=== PATIENT | male | born 1955 | race Caucasian/White ===

== ENCOUNTER 2016-08-07 17:18 | Inpatient (IN) | payer OTHER ==
[2016-08-07] MEDS ORDERED: SODIUM CHLORIDE 0.9% 1,000 ML IV STA (17:33)
[2016-08-07] MEDS ORDERED: DILTIAZEM 5 MG/ML 5 ML VIAL IVP STA (17:38)
--- NOTE | 2016-08-07 17:38 | ED ---
General Adult HPI - General Chief complaint: Arrhythmia/Palpitations Stated complaint: luna, chest tightness Time Seen by Provider: 08/07/16 17:32 Source: patient, family Mode of arrival: wheelchair Limitations: no limitations - Related Data Allergies Allergy/AdvReac Type Severity Reaction Status Date / Time Iodinated Contrast Media - Allergy Nausea & Verified 08/07/16 17:22 Oral and Vomiting shellfish derived [Shellfish] Allergy Nausea & Verified 08/07/16 17:22 Vomiting sulfamethoxazole Allergy Rash/Hives Verified 08/07/16 17:22 [From Bactrim] trimethoprim [From Bactrim] Allergy Rash/Hives Verified 08/07/16 17:22 Review of Systems ROS Statement: Those systems with pertinent positive or pertinent negative responses have been documented in the HPI. ROS Other: All systems not noted in ROS Statement are negative. Past Medical History Past Medical History: COPD History of Any Multi-Drug Resistant Organisms: None Reported Past Surgical History: No Surgical Hx Reported Past Psychological History: No Psychological Hx Reported Smoking Status: Current every day smoker Past Alcohol Use History: Rare Past Drug Use History: None Reported General Exam Limitations: no limitations Course Vital Signs 08/07/16 08/07/16 17:22 17:51 Temperature 98.3 F Pulse Rate 102 H 89 Respiratory 20 28 H Rate Blood Pressure 187/109 154/78 O2 Sat by Pulse 94 L 96 Oximetry - Reevaluation(s) Reevaluation #1: 08/07/16 18:14 Patient continues to be significantly shortness of breath EKG Findings - EKG Comments: EKG Findings:: EKG shows A. fib with RVR rate 107, QRS 100, QTc 501 Medical Decision Making - Medical Decision Making 58 female here with multifactorial respiratory failure including CHF COPD and pneumonia. Patient admitted for breathing treatments and monitoring of cardiopulmonary status steroids and antibiotics. - Lab Data Result diagrams: 08/07/16 17:40 08/07/16 17:40 Lab Results 08/07/16 08/07/16 08/07/16 Range/Units 17:40 17:40 17:40 WBC 15.7 H (3.8-10.6) k/uL RBC 5.50 (4.30-5.90) m/uL Hgb 10.2 L (13.0-17.5) gm/dL Hct 34.9 L (39.0-53.0) % MCV 63.5 L (80.0-100.0) fL MCH 18.5 L (25.0-35.0) pg MCHC 29.1 L (31.0-37.0) g/dL RDW 17.6 H (11.5-15.5) % Plt Count 265 (150-450) k/uL Neutrophils % 89 % Lymphocytes % 6 % Monocytes % 4 % Eosinophils % 0 % Basophils % 0 % Neutrophils # 13.9 H (1.3-7.7) k/uL Lymphocytes # 1.0 (1.0-4.8) k/uL Monocytes # 0.6 (0-1.0) k/uL Eosinophils # 0.0 (0-0.7) k/uL Basophils # 0.1 (0-0.2) k/uL Hypochromasia Marked Anisocytosis Slight Microcytosis Marked PT 12.5 H (9.0-12.0) sec INR 1.3 (<1.1) APTT 26.2 (22.0-30.0) sec Sodium 134 L (137-145) mmol/L Potassium 3.6 (3.5-5.1) mmol/L Chloride 95 L (98-107) mmol/L Carbon Dioxide 25 (22-30) mmol/L Anion Gap 14 mmol/L BUN 19 (9-20) mg/dL Creatinine 1.30 H (0.66-1.25) mg/dL Est GFR (MDRD) Af Amer >60 (>60 ml/min/1.73 sqM) Est GFR (MDRD) Non-Af 56 (>60 ml/min/1.73 sqM) Glucose 193 H (74-99) mg/dL Calcium 8.4 (8.4-10.2) mg/dL Phosphorus 3.8 (2.5-4.5) mg/dL Magnesium 1.7 (1.6-2.3) mg/dL Total Bilirubin 1.4 H (0.2-1.3) mg/dL AST 14 L (17-59) U/L ALT 30 (21-72) U/L Alkaline Phosphatase 60 (38-126) U/L Total Protein 7.0 (6.3-8.2) g/dL Albumin 3.6 (3.5-5.0) g/dL - Radiology Data Radiology results: report reviewed (Chest x-ray is positive for pneumonia complicated in by CHF and pulmonary vascular congestion), image reviewed Critical Care Time Critical Care Time: Yes Total Critical Care Time: 31 Disposition Clinical Impression: Atrial fibrillation, Weakness, Community acquired pneumonia, CHF (congestive heart failure), COPD (chronic obstructive pulmonary disease), Hypoxia Disposition: ADMITTED IP TO THIS [facility] Condition: Fair Referrals: Yan Stovall DO [Primary Care Provider] - 1-2 days
[2016-08-07 17:55] LABS: Anisocytosis Slight; Basophils # (A) 0.1 k/uL (0-0.2); Basophils % (A) 0 %; CH 18.8; CHCM 29.9; Eosinophils % (A) 0 %; HCT 34.9 % (39.0-53.0); HDW 3.17; HGB 10.2 gm/dL (13.0-17.5); Hypochromasia Marked; Luc # (Auto) 0.12; Luc % (Auto) 1; Lymphocytes % (A) 6 %; MCH 18.5 pg (25.0-35.0); MCHC 29.1 g/dL (31.0-37.0); MCV 63.5 fL (80.0-100.0); Mean Platelet Volume 6.7; Microcytosis Marked; Monocytes # (A) 0.6 k/uL (0-1.0); Monocytes % (A) 4 %; Neutrophils # (A) 13.9 k/uL (1.3-7.7); Neutrophils % (A) 89 %; RDW 17.6 % (11.5-15.5); WBC 15.7 k/uL (3.8-10.6); WBC (Perox) 15.32
[2016-08-07 17:59] LABS: INR 1.3 (<1.1); Partial Thromboplastin Time 26.2 sec (22.0-30.0); Prothrombin Time 12.5 sec (9.0-12.0)
[2016-08-07 18:00] LABS: ALT 30 U/L (21-72); AST 14 U/L (17-59); Alkaline Phosphatase 60 U/L (38-126); Anion Gap 14 mmol/L; Blood Urea Nitrogen 19 mg/dL (9-20); Calcium 8.4 mg/dL (8.4-10.2); Carbon Dioxide 25 mmol/L (22-30); Chloride 95 mmol/L (98-107); Glucose 193 mg/dL (74-99); Magnesium 1.7 mg/dL (1.6-2.3); Non-African American GFR(MDRD) 56 (>60 ml/min/1.73 sqM); Phosphorous 3.8 mg/dL (2.5-4.5); Potassium 3.6 mmol/L (3.5-5.1); Sodium 134 mmol/L (137-145); Total Bilirubin 1.4 mg/dL (0.2-1.3)
--- NOTE | 2016-08-07 18:08 | XR ---
EXAMINATION TYPE: XR chest 2V DATE OF EXAM: 08/07/2016 6:03 PM COMPARISON: NONE HISTORY: Weakness. Chest pain. TECHNIQUE: Frontal and lateral views of the chest are obtained. FINDINGS: There is some patchy consolidation at the left lung base with elevated left diaphragm. The re is pulmonary vascular congestion. Heart is probably enlarged. There is blunting of costophrenic an gles. IMPRESSION: There is evidence of left lower lobe pneumonia and atelectasis. Pleural effusions and pu lmonary congestion consistent with mild heart failure.
[2016-08-07] MEDS ORDERED: methylPREDNISolone SOD SUCCI 125 MG/2 ML VIAL IV STA (18:10)
[2016-08-07] MEDS ORDERED: IPRATROPIUM 0.5 MG/2.5 ML NEBU INHALATION STA (18:10)
[2016-08-07] MEDS ORDERED: ALBUTEROL NEBULIZED 2.5 MG/3 ML INHALATION STA (18:10)
[2016-08-07] MEDS ORDERED: PNEUMONIA PROTOCOL UTILIZED 1 EACH MISC PO PRN (18:11)
[2016-08-07] MEDS ORDERED: LEVOFLOXACIN 750MG-D5W PMX 750 MG in DEXTROSE/WATER 1 150ML.BAG IVPB STA (18:11)
[2016-08-07 18:26] LABS: Creatine Kinase MB 4.7 ng/mL (0.0-2.4); Troponin I 0.036 ng/mL (0.000-0.034)
[2016-08-07] MEDS: IPRATROPIUM-ALBUTEROL 3 ML NEB INHALATION SCH (19:34)
[2016-08-07] MEDS ORDERED: HEPARIN SODIUM,PORCINE 5,000 UNIT/ML 1 ML VIAL IV ONE (20:30)
[2016-08-07] MEDS: SODIUM CHLORIDE 0.9% 1,000 ML IV SCH (21:09)
[2016-08-07] MEDS: FUROSEMIDE 250 MG in SODIUM CHLORIDE 0.9% 225 ML IVP SCH (21:10)
[2016-08-07] MEDS: DILTIAZEM ORAL 30 MG TAB PO SCH (21:15)
[2016-08-07] MEDS: LOSARTAN 50 MG TAB PO SCH (21:15)
[2016-08-07] MEDS: HEPARIN SODIUM,PORCINE/D5W PMX 25,000 UNIT in DEXTROSE/WATER 1 500ML.BAG IV SCH (21:37)
[2016-08-07 22:54] LABS: Appearance,Urine Clear (Clear); Bilirubin,Urine Negative (Negative); Glucose,Urine (UA) Negative (Negative); Ketones,Urine Negative (Negative); Leukocyte Esterase,Urine Negative (Negative); Mucus,Urine Rare /hpf; Nitrite,Urine Negative (Negative); Particle Count 1584; Protein,Urine 3+ (Negative); RBC,Urine <1 /hpf (0-5); Specific Gravity,Urine 1.013 (1.001-1.035); UA Billing (MACRO vs. MICRO) MICRO; WBC,Urine 1 /hpf (0-5)
[2016-08-08 03:54] LABS: Anisocytosis Slight; Basophils % (A) 0 %; CH 19.1; CHCM 29.4; Eosinophils % (A) 1 %; HCT 32.8 % (39.0-53.0); HDW 3.07; HGB 9.2 gm/dL (13.0-17.5); Hypochromasia Marked; Luc # (Auto) 0.04; Luc % (Auto) 1; Lymphocytes # (A) 0.6 k/uL (1.0-4.8); Lymphocytes % (A) 7 %; MCH 18.4 pg (25.0-35.0); MCHC 28.1 g/dL (31.0-37.0); MCV 65.5 fL (80.0-100.0); Mean Platelet Volume 6.4; Microcytosis Marked; Monocytes # (A) 0.2 k/uL (0-1.0); Monocytes % (A) 2 %; Neutrophils # (A) 7.4 k/uL (1.3-7.7); Neutrophils % (A) 90 %; RBC 5.01 m/uL (4.30-5.90); RDW 17.6 % (11.5-15.5); WBC 8.2 k/uL (3.8-10.6); WBC (Perox) 8.66
[2016-08-08 04:03] LABS: Anion Gap 10 mmol/L; Blood Urea Nitrogen 19 mg/dL (9-20); Calcium 8.1 mg/dL (8.4-10.2); Carbon Dioxide 29 mmol/L (22-30); Chloride 97 mmol/L (98-107); Glucose 154 mg/dL (74-99); Magnesium 1.6 mg/dL (1.6-2.3); Non-African American GFR(MDRD) 51 (>60 ml/min/1.73 sqM); Potassium 3.6 mmol/L (3.5-5.1); Sodium 136 mmol/L (137-145)
[2016-08-08] MEDS: HEPARIN SODIUM,PORCINE 5,000 UNIT/ML 1 ML VIAL IV PRN ×3 (05:06→19:21)
[2016-08-08] MEDS: DILTIAZEM ORAL 30 MG TAB PO SCH (07:55)
[2016-08-08] MEDS: LOSARTAN 50 MG TAB PO SCH (07:55)
--- NOTE | 2016-08-08 08:12 | XR ---
EXAMINATION TYPE: XR chest 2V DATE OF EXAM: 08/08/2016 6:51 AM COMPARISON: Prior chest x-ray July HISTORY: Pneumonia TECHNIQUE: Frontal and lateral views of the chest are obtained. FINDINGS: Prominent lung volume may be indicative of underlying COPD. Persistent increased density a t the left lung base. No pneumothorax. Cardiac mediastinal silhouette not significantly changed. IMPRESSION: Correlate for possible pneumonia and associated effusion, follow-up to resolution to exc lude underlying mass. Cardiomegaly.
[2016-08-08] MEDS: IPRATROPIUM-ALBUTEROL 3 ML NEB INHALATION SCH ×4 (08:22→19:21)
[2016-08-08] MEDS ORDERED: ENOXAPARIN 40 MG/0.4 ML SYRINGE SQ SCH (09:00)
--- NOTE | 2016-08-08 10:01 | P.PN ---
Progress Note - Text 61-year-old male patient followed by family physician in [place] Long-standing history of smoking and COPD Denies diabetes and hypertension but his blood pressure has elevated and he may have borderline diabetes Admitted with increasing shortness of breath. Initially diagnosed with bronchitis. Also found to be in atrial fibrillation Treated for bronchitis Yesterday I added IV Lasix drip as he is very short of breath. In addition he was in A. fib with RVR and therefore oral Cardizem was added along with anticoagulation with heparin Today he has no rhonchi and I will switch oral Cardizem to oral long-acting metoprolol Impression Please see full note by Dr. ferguson Atrial fibrillation with RVR Current smoker Possible mild COPD exacerbation Acute CHF exacerbation Plan Continue IV Lasix drip Continue anticoagulation with heparin Stop Cardizem and start long-acting metoprolol 50 mrem once daily and tomorrow I will see if he can increase the dose further Hypertension controlled with is inhibitors or angiotensin receptor blockers 2-D echo Doppler study His TSH is normal First troponin is borderline Kidney functions are mildly reduced at 1.3 and 1.4
--- NOTE | 2016-08-08 10:01 | P.CRDCN ---
History of Present Illness Consult date: 08/08/16 Requesting physician: Lorin Todd Consult reason: shortness of breath Chief complaint: Shortness of breath History of present illness: This is a pleasant 61-year-old gentleman with no prior documented history of hypertension, borderline diabetes, no high cholesterol, positive smoking, occasional EtOH, who presents to the hospital with symptoms of progressively worsening shortness of breath. Denies any fever or chills at home. According to the patient the symptoms have been occurring for the past few days, last week he states he felt his relative normal self. Positive productive cough of clear sputum. Bilateral lower extremity swelling, although the patient does have known chronic edema to the right lower extremity from an accident several years ago. Positive PND and orthopnea. Chest x-ray report on admission revealed left lower lobe pneumonia and atelectasis. Pleural effusions and pulmonary congestion consistent with congestive heart failure. Repeat x-ray preferred this morning shows possible with associated effusion. Laboratory data was reviewed, with WBC on admission 15.7, 8.2 this morning. Hemoglobin 9.2, potassium 3.6, creatinine 1.4, [place] level I.6, AST 14, ALT 30 , magnesium 1.6, total bilirubin 1.4, AST 14, ALT 30, TSH 2.05, troponin 0.036. Blood pressure on admission 187/109, 94% on room air, initial EKG showed atrial fibrillation with a rapid ventricular response, heart rate low 100s. Blood pressure this morning 134/80, patient has remained afebrile. Patient is currently on IV heparin, IV Lasix drip, by mouth Cardizem, IV antibiotics, losartan. Past Medical History Past Medical History: COPD, Osteoarthritis (OA) Additional Past Medical History / Comment(s): DIVERTICULITIS, ARTHRITIS IN SPINE ,"THALASSEMIA MINOR" History of Any Multi-Drug Resistant Organisms: None Reported Past Surgical History: No Surgical Hx Reported, Tonsillectomy Additional Past Surgical History / Comment(s): COLONOSCOPY-BENIGN POLYPS REMOVED , LT HAND 4TH DIGIT REPAIR, LT MASTOID SX AGE 3 Past Anesthesia/Blood Transfusion Reactions: No Reported Reaction Past Psychological History: No Psychological Hx Reported Additional Psychological History / Comment(s): PT IS ,LIVES IN 2 STORY HOME THAT HAS 2 FRONT STEPS-PT STAYS ON MAIN LEVEL. 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 PT IS INDEPENDANT NO OUTSIDE SERVICES. Smoking Status: Current every day smoker Past Alcohol Use History: Rare Additional Past Alcohol Use History / Comment(s): STARTED SMOKING AT AGE 12, DID QUIT FOR 12 YEARS BUT RESTARTED IN 2012, SMOKES 1 PPD. Past Drug Use History: None Reported - Past Family History Mother Family Medical History: COPD, Diabetes Mellitus Father Family Medical History: Cancer, Diabetes Mellitus Additional Family Medical History / Comment(s): SKIN CANCER Medications and Allergies Home Medications Medication Instructions Recorded Confirmed Type Albuterol Sulfate [Proair Hfa] 1 puff INHALATION ONCE PRN 08/07/16 08/07/16 History Allergies Allergy/AdvReac Type Severity Reaction Status Date / Time Iodinated Contrast Media - Allergy SWELLING Verified 08/07/16 18:17 Oral and AND VOMITING shellfish derived [Shellfish] Allergy SWELLING Verified 08/07/16 18:17 AND VOMITING sulfamethoxazole Allergy Rash/Hives Verified 08/07/16 18:17 [From Bactrim] trimethoprim [From Bactrim] Allergy Rash/Hives Verified 08/07/16 18:17 Physical Exam Vitals: Vital Signs Temp Pulse Pulse Resp BP BP Pulse Ox 08/08/16 08:33 88 08/08/16 08:23 88 08/08/16 07:53 97.7 F 82 20 135/81 92 L 08/08/16 04:00 97 F L 80 18 134/81 96 08/08/16 00:00 97.6 F 84 20 165/100 96 08/07/16 20:00 97.7 F 98 22 190/90 96 08/07/16 19:34 92 08/07/16 19:00 95.8 F L 90 85 36 H 164/92 100 08/07/16 18:49 97.2 F L 08/07/16 18:45 100 22 174/99 99 08/07/16 18:43 90 Intake and Output 08/07/16 08/08/16 08/08/16 22:59 06:59 14:59 Intake Total 329.856 298 Output Total 300 2000 820 Balance -300 -1730.144 -495 Intake: IV 180 180 Furosemide 250 mg In 60 60 Sodium Chloride 0.9% 225 ml @ 10 MG/HR 10 mls/hr IVP .Q24H JERI Rx#: [id number] Sodium Chloride 0.9% 1, 120 120 000 ml @ 20 mls/hr IV . Q24H JERI Rx#:[id number] Intake, IV Titration 149.856 Amount Heparin Sodium,Porcine/ 149.856 D5w Pmx 25,000 unit In Dextrose/Water 1 500ml. bag @ 9.2 UNITS/KG/HR 20. 07 mls/hr IV .Q24H JERI Rx #:[id number] Oral 118 Output: Urine 300 2000 820 Other: Voiding Method Toilet Toilet Urinal Urinal Urinal # Voids 0 Weight 109.1 kg 106.3 kg PHYSICAL EXAMINATION: HEENT: Head is atraumatic, normocephalic. Pupils equal, round. Neck is supple. There is elevated jugular venous pressure. HEART EXAMINATION: Heart S1 and S2 irregularly irregular systolic murmur is heard. CHEST EXAMINATION: Lungs reveal bilateral rales with decreased air exchange throughout. ABDOMEN: Soft, obese, nontender. Bowel sounds are heard. No organomegaly noted. EXTREMITIES: 1+ peripheral pulses with 1+ evidence of peripheral edema and no calf tenderness noted. Chronic right lower leg edema NEUROLOGIC patient is awake, alert and oriented -3. . Results 08/08/16 03:43 08/08/16 03:43 Coagulation 08/08/16 Range/Units 03:43 APTT 27.6 (22.0-30.0) sec CBC 08/08/16 Range/Units 03:43 WBC 8.2 (3.8-10.6) k/uL RBC 5.01 (4.30-5.90) m/uL Hgb 9.2 L (13.0-17.5) gm/dL Hct 32.8 L (39.0-53.0) % Plt Count 223 (150-450) k/uL Comprehensive Metabolic Panel 08/08/16 Range/Units 03:43 Sodium 136 L (137-145) mmol/L Potassium 3.6 (3.5-5.1) mmol/L Chloride 97 L (98-107) mmol/L Carbon Dioxide 29 (22-30) mmol/L BUN 19 (9-20) mg/dL Creatinine 1.40 H (0.66-1.25) mg/dL Glucose 154 H (74-99) mg/dL Calcium 8.1 L (8.4-10.2) mg/dL Current Medications Generic Name Dose Route Start Last Admin Trade Name Freq PRN Reason Stop Dose Admin Albuterol/Ipratropium 3 ml 08/07/16 20:00 08/08/16 08:22 Duoneb 0.5 Mg-3 Mg/3 Ml Soln INHALATION 3 ml RT-QID JERI Administration Diltiazem HCl 30 mg 08/07/16 22:00 08/08/16 07:55 Cardizem Oral PO 30 mg QID JERI Administration Heparin Sodium (Porcine) 0 unit 08/07/16 20:30 08/08/16 05:06 Heparin IV 4,000 unit PER PROTOCOL PRN Administration Low PTT Protocol Levofloxacin 750 mg/ IV 150 mls @ 100 mls/hr 08/08/16 18:00 Solution IVPB 08/20/16 18:01 Q24H JERI Sodium Chloride 1,000 mls @ 20 mls/hr 08/07/16 18:15 08/07/16 21:09 Saline 0.9% IV 20 mls/hr .Q24H JERI Administration Furosemide 250 mg/ Sodium 250 mls @ 10 mls/hr 08/07/16 21:00 08/07/16 21:10 Chloride IVP 10 mg/hr .Q24H JERI 10 mls/hr 10 MG/HR Administration Heparin Sodium/Dextrose 25,000 500 mls @ 20.07 mls/hr 08/07/16 20:30 05:05 unit/ IV Solution IV 12.2 units/kg/hr .Q24H JERI 26.62 mls/hr Protocol Titration 9.2 UNITS/KG/HR Losartan Potassium 50 mg 08/07/16 20:45 08/08/16 07:55 Cozaar PO 50 mg DAILY JERI Administration Miscellaneous Information 1 each 08/07/16 18:11 Pneumonia Protocol Utilized PO ONCE PRN Per Protocol Intake and Output 08/07/16 08/08/16 08/08/16 22:59 06:59 14:59 Intake Total 329.856 298 Output Total 300 2000 820 Balance -300 -5042.144 -522 Intake: IV 180 180 Furosemide 250 mg In 60 60 Sodium Chloride 0.9% 225 ml @ 10 MG/HR 10 mls/hr IVP .Q24H JERI Rx#: [id number] Sodium Chloride 0.9% 1, 120 120 000 ml @ 20 mls/hr IV . Q24H JERI Rx#:[id number] Intake, IV Titration 149.856 Amount Heparin Sodium,Porcine/ 149.856 D5w Pmx 25,000 unit In Dextrose/Water 1 500ml. bag @ 9.2 UNITS/KG/HR 20. 07 mls/hr IV .Q24H JERI Rx #:[id number] Oral 118 Output: Urine 300 2000 820 Other: Voiding Method Toilet Toilet Urinal Urinal Urinal # Voids 0 Weight 109.1 kg 106.3 kg 08/08/16 03:43 08/08/16 03:43 EKG Interpretations (text) EKG on arrival showed atrial fibrillation with rapid ventricular response, occasional PVC. Assessment and Plan Plan: Assessment and plan #1 symptoms of progressively worsening shortness of breath with associated PND and orthopnea. Congestive heart failure, LV function unknown at this time. #2 hypertension #3 COPD with possible exacerbation #4 nicotine dependence #5 borderline diabetes, untreated #6 abnormal troponin, we will obtain to further troponin values. Plan We'll continue IV heparin, discontinue by mouth Cardizem and start the patient on beta delia. Continue losartan. Obtain echocardiogram with Doppler study as well as BNP level. Continue IV Lasix drip. Further recommendations to follow. DNP note has been reviewed, I agree with a documented findings and plan of care. Patient was seen and examined.
[2016-08-08] MEDS: METOPROLOL SUCCINATE (ER) 50 MG TAB.ER.24H PO SCH (12:37)
--- NOTE | 2016-08-08 13:08 | ECHOF ---
Referral Reason:chf MEASUREMENTS -------- HEIGHT: 188.0 cm WEIGHT: 106.1 kg BP: 135/81 RVIDd: 3.3 cm (< 3.3) IVSd: 1.4 cm (0.6 - 1.1) LVIDd: 6.9 cm (3.9 - 5.3) LVPWd: 1.5 cm (0.6 - 1.1) IVSs: 1.6 cm LVIDs: 5.3 cm LVPWs: 1.6 cm LA Diam: 4.5 cm (2.7 - 3.8) LAESV Index (A-L): 51.74 ml/m Ao Diam: 3.6 cm (2.0 - 3.7) AV Cusp: 2.5 cm (1.5 - 2.6) MV EXCURSION: 16.594 mm (> 18.000) MV EF SLOPE: 65 mm/s (70 - 150) EPSS: 1.6 cm RAP: 5.00 mmHg RVSP: 20.98 mmHg FINDINGS -------- Atrial fibrillation. This was a technically difficult study with suboptimal parasternal views. The left ventricle is severely dilated. There is moderate concentric left ventricular hypertrophy. Overall left ventricular systolic function is severely impaired with, an EF between 20 - 25 %. The right ventricle is mildly enlarged. LA is severely dilated >40 ml/m2 The right atrium is normal in size. There is mild to moderate aortic valve sclerosis. The mitral valve leaflets are mild to moderately thickened. Moderate mitral annular calcification present. There is trace to mild mitral regurgitation. Mild tricuspid regurgitation present. Right ventricular systolic pressure is normal at < 35 mmHg. Trace/mild (physiologic) pulmonic regurgitation. The aortic root size is normal. The inferior vena cava is mildly dilated. There is no pericardial effusion. CONCLUSIONS -------- 1. Atrial fibrillation. 2. The mitral valve leaflets are mild to moderately thickened. 3. Moderate mitral annular calcification present. 4. There is trace to mild mitral regurgitation. 5. Mild tricuspid regurgitation present. 6. Right ventricular systolic pressure is normal at < 35 mmHg. 7. Trace/mild (physiologic) pulmonic regurgitation. 8. The aortic root size is normal. 9. The inferior vena cava is mildly dilated. 10. There is no pericardial effusion. 11. This was a technically difficult study with suboptimal parasternal views. 12. The left ventricle is severely dilated. 13. There is moderate concentric left ventricular hypertrophy. 14. Overall left ventricular systolic function is severely impaired with, an EF between 20 - 25 %. 15. The right ventricle is mildly enlarged. 16. LA is severely dilated >40 ml/m2 17. The right atrium is normal in size. 18. There is mild to moderate aortic valve sclerosis. MANAGER LEGAL: Nica Bowden RDCS
[2016-08-08] MEDS: predniSONE 20 MG TAB PO SCH (16:09)
[2016-08-08] MEDS: HEPARIN SODIUM,PORCINE/D5W PMX 25,000 UNIT in DEXTROSE/WATER 1 500ML.BAG IV SCH (18:28)
[2016-08-08] MEDS: LEVOFLOXACIN 750MG-D5W PMX 750 MG in DEXTROSE/WATER 1 150ML.BAG IVPB SCH (18:49)
[2016-08-08] MEDS: FUROSEMIDE 250 MG in SODIUM CHLORIDE 0.9% 225 ML IVP SCH (19:26)
--- NOTE | 2016-08-08 20:24 | HP ---
Patient is a 61-year-old gentleman who came in with complaints of shortness of breath which started about 3 days ago with orthopnea and PND episode, last episode being day before yesterday and occasional ( ) who came in with complaints of shortness of breath, progressive in nature. Patient was complaining of sputum with whitish production, cough has been going on for some time. Patient does have smoking history and does have history of COPD. Patient was started on IV diuretic therapy with improvement in symptoms and patient's BNP is around 8000. Patient did have elevated JVD, which is improving. The patient had significant improvement with IV Lasix and patient has bilateral pulmonary edema on the chest x-ray, although it was read as left lower lobe pneumonia. My clinical suspicion for pneumonia is low, although I cannot completely rule after looking at the chest x-ray. There may be an atelectasis or pneumonia. Patient has poor renal function, because of which I am unable to obtain a CT. If patient's renal function does not improve, will obtain a noncontrast CT tomorrow. There may be a mass in the lung which cannot be excluded which is leading to some atelectasis in the left middle lobe. Although my suspicion of pneumonia is low, there may be a small effusion. Patient did have leukocytosis without any fever. Hemoglobin is 9.2, potassium of 3.6. His leukocytosis resolved. TSH is normal limits. Troponin is minimally elevated to 0.036, can be secondary to congestive heart failure. Patient had an echocardiogram today which showed ejection fraction of around 20%. REVIEW OF SYSTEMS: CONSTITUTIONAL: No fever, no malaise, no fatigue. HEENT: No recent visual problems or hearing problems. Denied any sore throat. CARDIOVASCULAR: As described in HPI. PULMONARY: As described in HPI without any chest pain. GASTROINTESTINAL: No diarrhea, no nausea, no vomiting, no abdominal pain. Normoactive bowel sounds. NEUROLOGICAL: No headaches, no weakness, no numbness. HEMATOLOGICAL: Denies any bleeding or petechiae. GENITOURINARY: Denies any burning micturition, frequency, or urgency. MUSCULOSKELETAL/RHEUMATOLOGICAL: Denies any joint pain, swelling, or any muscle pain. ENDOCRINE: Denies any polyuria or polydipsia. The rest of the 14 point review of systems is negative. PAST MEDICAL HISTORY: Osteoarthritis, diverticulitis and the patient has a history of colonoscopy with polyps removed in the past. SOCIAL HISTORY: He smokes 1 pack per day. Patient quits at one point of time, but frequently starts back again. No alcohol abuse or any drug abuse. FAMILY HISTORY: Mother had COPD and diabetes mellitus. Father had cancer. HOME MEDICATIONS: Albuterol. ALLERGIES: ALLERGIC TO IODINATED CONTRAST, SHELLFISH AND BACTRIM. PHYSICAL EXAMINATION: VITAL SIGNS: Temperature 97.7, pulse of 82, respiratory rate of 19, blood pressure is 136/81, saturating at 90% on room air. GENERAL: The patient is alert and oriented x3, not in any acute distress. Well developed, well nourished. HEENT: Pupils are round and equally reacting to light. EOMI. No scleral icterus. No conjunctival pallor. Normocephalic, atraumatic. No pharyngeal erythema. No thyromegaly. CARDIOVASCULAR: S1 and S2 present. Patient does have a systolic murmur in the aortic area and patient has a minimally elevated JVD which has improved by now. Patient has 2+ pitting pedal edema. No calf tenderness. PULMONARY: Minimal bibasilar crackles were appreciated along with minimal expiratory wheezing. I did not hear any bronchophony or egophony. ABDOMEN: Soft, nontender, nondistended, normoactive bowel sounds. No palpable organomegaly. MUSCULOSKELETAL: No joint swelling or deformity. EXTREMITIES: No cyanosis, clubbing. 3+pedal edema. NEUROLOGICAL: Gross neurological examination did not reveal any focal deficits. SKIN: No rashes. LABORATORY DATA: As mentioned above, the rest of the lab data is essentially within normal limits. Earlier, I dictated that the patient's WBC count was 14,000. Actually, patient's WBC count now is only 8200. ASSESSMENT AND PLAN: 1. Acute hypoxic respiratory failure I believe is mostly due to ( ) and the patient is on IV Lasix, which will be continued. There may be a contribution from chronic obstructive pulmonary disease as well. 2. Chronic obstructive pulmonary disease with mild acute exacerbation. 3. Tracheobronchitis. I cannot rule out pneumonia and point of time, but my suspicion is low for that. Patient does have severe tracheobronchitis, probably. 4. Elevated creatinine. Patient may have some chronic kidney disease component along with some acute renal failure secondary to prerenal azotemia from ( ) improve with IV Lasix. 5. Nicotine dependence. 6. Hypertension. PLAN: Continue with diuretic therapy. Continue with levofloxacin for now. Although I do not have any clear-cut evidence of pneumonia, patient may have tracheobronchitis. Patient was also started on systemic steroids in the form of oral steroids and continue with inhalational treatments. MTDD
[2016-08-08] MEDS: SODIUM CHLORIDE 0.9% 1,000 ML IV SCH (22:09)
[2016-08-09 08:04] LABS: Anisocytosis Slight; Basophils % (A) 0 %; CH 18.8; CHCM 29.2; Eosinophils # (A) 0.1 k/uL (0-0.7); Eosinophils % (A) 1 %; HCT 35.7 % (39.0-53.0); HDW 3.03; HGB 10.7 gm/dL (13.0-17.5); Hypochromasia Marked; Luc # (Auto) 0.09; Luc % (Auto) 1; Lymphocytes % (A) 9 %; MCH 19.4 pg (25.0-35.0); MCHC 29.9 g/dL (31.0-37.0); MCV 65.1 fL (80.0-100.0); Mean Platelet Volume 7.2; Microcytosis Marked; Monocytes # (A) 0.5 k/uL (0-1.0); Monocytes % (A) 4 %; Neutrophils # (A) 9.9 k/uL (1.3-7.7); Neutrophils % (A) 85 %; RBC 5.48 m/uL (4.30-5.90); RDW 17.7 % (11.5-15.5); WBC 11.6 k/uL (3.8-10.6); WBC (Perox) 12.68
[2016-08-09] MEDS: METOPROLOL SUCCINATE (ER) 50 MG TAB.ER.24H PO SCH (08:10)
[2016-08-09] MEDS: LOSARTAN 50 MG TAB PO SCH (08:10)
[2016-08-09] MEDS: predniSONE 20 MG TAB PO SCH (08:10)
[2016-08-09] MEDS: HEPARIN SODIUM,PORCINE 5,000 UNIT/ML 1 ML VIAL IV PRN (08:27)
[2016-08-09] MEDS: IPRATROPIUM-ALBUTEROL 3 ML NEB INHALATION SCH ×4 (08:31→20:40)
[2016-08-09] MEDS ORDERED: METOPROLOL SUCCINATE (ER) 50 MG TAB.ER.24H PO STA (11:47)
--- NOTE | 2016-08-09 11:50 | P.PN ---
Subjective Patient admitted with increasing shortness of breath. While his breathing is better he is still short of breath with minimal exertion although better than yesterday. He denies any chest discomfort or dizziness On examination he is afebrile 96.1 degrees Fahrenheit, pulse rate in the 80s, blood pressure 136/72 and 164/66. His mercury Breath sounds are reduced bilaterally no rhonchi, crackles at the bases Heart sounds S1 and S2 are soft no murmurs Abdomen is soft nontender Hepatojugular reflux noted Impression Acute on chronic congestive heart failure Cardiomyopathy with systolic dysfunction and a dilated left atrium and left ventricle, indicative of the chronicity of the condition, Atrial fibrillation Hypertension with left ventricular hypertrophy Likely noncompliance in the past Anemia RDW 17.7 Normal TSH of 2.0 Elevated BNP Chronic kidney disease stage III creatinine 1.4 Suggest Continue with IV Lasix drip Add spironolactone 25 mg by mouth daily Increase Toprol XL to 100 mg by mouth daily Continue pulmonary management Objective - Vital Signs Vital signs: Vital Signs Temp 96.1 F L 08/09/16 08:00 Pulse 76 08/09/16 08:42 Resp 18 08/09/16 08:00 BP 164/66 08/09/16 08:00 Pulse Ox 95 08/09/16 08:00 Intake & Output 08/08/16 08/09/16 08/09/16 18:59 06:59 18:59 Intake Total 1057.144 758.459 974.208 Output Total 1940 4600 1000 Balance -882.856 -3841.541 -25.792 Weight 106.3 kg 104.2 kg Intake: IV 469 240 Furosemide 250 mg In 140 Sodium Chloride 0.9% 225 ml @ 10 MG/HR 10 mls/hr IVP .Q24H [facility] Rx#: [id number] Heparin Sodium,Porcine/ 49 D5w Pmx 25,000 unit In Dextrose/Water 1 500ml. bag @ 9.2 UNITS/KG/HR 20. 07 mls/hr IV .Q24H [facility] Rx #:[id number] Sodium Chloride 0.9% 1, 280 240 000 ml @ 20 mls/hr IV . Q24H [facility] Rx#:[id number] Intake, IV Titration 350.144 518.459 204.208 Amount Furosemide 250 mg In 222.667 Sodium Chloride 0.9% 225 ml @ 10 MG/HR 10 mls/hr IVP .Q24H [facility] Rx#: [id number] Heparin Sodium,Porcine/ 350.144 295.792 204.208 D5w Pmx 25,000 unit In Dextrose/Water 1 500ml. bag @ 9.2 UNITS/KG/HR 20. 07 mls/hr IV .Q24H [facility] Rx #:[id number] Oral 238 770 Output: Urine 1940 4600 1000 Other: Voiding Method Urinal Urinal # Voids 1 # Bowel Movements 0 - Labs CBC & Chem 7: 08/09/16 07:53 08/08/16 03:43 Labs: Abnormal Lab Results - Last 24 Hours (Table) 08/08/16 08/08/16 08/09/16 Range/Units 11:26 18:16 01:11 WBC (3.8-10.6) k/uL Hgb (13.0-17.5) gm/dL Hct (39.0-53.0) % MCV (80.0-100.0) fL MCH (25.0-35.0) pg MCHC (31.0-37.0) g/dL RDW (11.5-15.5) % Neutrophils # (1.3-7.7) k/uL APTT 30.8 H 31.9 H 45.9 H (22.0-30.0) sec 08/09/16 08/09/16 Range/Units 07:53 07:53 WBC 11.6 H (3.8-10.6) k/uL Hgb 10.7 L (13.0-17.5) gm/dL Hct 35.7 L (39.0-53.0) % MCV 65.1 L (80.0-100.0) fL MCH 19.4 L (25.0-35.0) pg MCHC 29.9 L (31.0-37.0) g/dL RDW 17.7 H (11.5-15.5) % Neutrophils # 9.9 H (1.3-7.7) k/uL APTT 45.9 H (22.0-30.0) sec Microbiology - Last 24 Hours (Table) 08/07/16 22:22 Gram Stain - Preliminary Sputum Sputum Culture - Preliminary Yeast species 08/07/16 18:30 Blood Culture - Preliminary Blood No Growth after 24 hours
[2016-08-09] MEDS: SPIRONOLACTONE 25 MG TAB PO SCH (12:10)
[2016-08-09 12:25] LABS: Calcium 8.4 mg/dL (8.4-10.2); Potassium 3.4 mmol/L (3.5-5.1)
[2016-08-09] MEDS ORDERED: Magnesium Replacement Protocol 1 EACH MISC MISCELLANE PRN (13:34)
[2016-08-09] MEDS ORDERED: Potassium Replacement Protocol 1 EACH MISC MISCELLANE PRN ×2 (13:34→13:35)
[2016-08-09] MEDS: POTASSIUM CHLORIDE ER 20 MEQ TAB.ER PO SCH ×4 (13:54→20:18)
[2016-08-09] MEDS: MAGNESIUM SULFATE-D5W PMX 1 GM in DEXTROSE/WATER 1 100ML.BAG IVPB SCH ×2 (14:29→15:31)
--- NOTE | 2016-08-09 14:30 | PN ---
61-year-old being treated for congestive heart failure exacerbation, non-ST elevation myocardial infarction and chronic obstructive pulmonary disease exacerbation. Patient's kidney function started worsening. IV Lasix drip will be discontinued and patient will be started on 40 mg IV b.i.d. Lasix instead. Patient continues to be on heparin drip. Patient is on losartan, which will be continued but if his kidney function worsens, we have to discontinue it tomorrow. Potassium will be supplemented. We need to cut back on the diuretic therapy if he continues to worsen. Clinically, patient has significant bilateral pedal edema, but chest is fairly clear without any significant crackles. REVIEW OF SYSTEMS: CARDIOVASCULAR: No chest pain, no orthopnea, no PND, no palpitations. PULMONARY: Denied any shortness of breath. No cough or hemoptysis. GASTROINTESTINAL: No diarrhea, nausea or vomiting. No abdominal pain. Normoactive bowel sounds. NEUROLOGIC: No headaches, no weakness, no numbness. Medications were reviewed. Medication changes as mentioned in the interval history. PHYSICAL EXAMINATION: Temperature 96.4, pulse of 92, respiratory rate of 18, blood pressure is 184/77, saturating at 99% on room air. GENERAL: The patient is alert and oriented x3, not in any acute distress. Well developed, well nourished. HEENT: Pupils are round and equally reacting to light. EOMI. No scleral icterus. No conjunctival pallor. Normocephalic, atraumatic. No pharyngeal erythema. No thyromegaly. CARDIOVASCULAR: S1 and S2 present. No murmurs, rubs, or gallops. PULMONARY: Lung examination fairly clear with bibasilar crackles, only minimal bibasilar crackles. ABDOMEN: Soft, nontender, nondistended, normoactive bowel sounds. No palpable organomegaly. MUSCULOSKELETAL: No joint swelling or deformity. EXTREMITIES: 3+ pitting pedal edema. NEUROLOGICAL: Gross neurological examination did not reveal any focal deficits. SKIN: No rashes. LABORATORY DATA: As discussed above. ASSESSMENT AND PLAN: 1. Acute upper respiratory failure secondary to congestive heart failure exacerbation which is improving at this point of time. 2. Chronic obstructive pulmonary disease with acute exacerbation. 3. Tracheobronchitis. Low possibility of pneumonia. 4. Acute renal failure secondary to prerenal azotemia, probably due to congestive heart failure, but now due to excessive diuresis, which diuresis we will cut down the diuretic therapy. 5. Nicotine dependence. 6. Hypertension. Continue to monitor kidney function. Close monitoring of kidney function I's and O's.
[2016-08-09] MEDS: HEPARIN SODIUM,PORCINE/D5W PMX 25,000 UNIT in DEXTROSE/WATER 1 500ML.BAG IV SCH ×2 (14:36→17:31)
[2016-08-09] MEDS: LEVOFLOXACIN 750MG-D5W PMX 750 MG in DEXTROSE/WATER 1 150ML.BAG IVPB SCH (18:11)
[2016-08-09] MEDS: FUROSEMIDE 10 MG/ML 4 ML VIAL IV SCH (21:17)
[2016-08-10 04:03] LABS: Anisocytosis Slight; Basophils % (A) 0 %; CH 18.9; CHCM 29.4; Eosinophils # (A) 0.2 k/uL (0-0.7); Eosinophils % (A) 1 %; HCT 33.4 % (39.0-53.0); HDW 3.01; Hypochromasia Marked; Luc # (Auto) 0.11; Luc % (Auto) 1; Lymphocytes # (A) 1.5 k/uL (1.0-4.8); Lymphocytes % (A) 14 %; MCH 19.3 pg (25.0-35.0); MCHC 29.8 g/dL (31.0-37.0); MCV 64.8 fL (80.0-100.0); Mean Platelet Volume 7.7; Microcytosis Marked; Monocytes # (A) 0.4 k/uL (0-1.0); Monocytes % (A) 4 %; Neutrophils # (A) 8.8 k/uL (1.3-7.7); Neutrophils % (A) 80 %; RBC 5.17 m/uL (4.30-5.90); RDW 17.6 % (11.5-15.5); WBC 11.1 k/uL (3.8-10.6); WBC (Perox) 11.52
[2016-08-10 04:32] LABS: Calcium 8.5 mg/dL (8.4-10.2); Magnesium 1.9 mg/dL (1.6-2.3); Potassium 3.5 mmol/L (3.5-5.1)
[2016-08-10] MEDS ORDERED: Potassium Replacement Protocol 1 EACH MISC MISCELLANE PRN (07:21)
[2016-08-10] MEDS ORDERED: POTASSIUM CHLORIDE ER 20 MEQ TAB.ER PO SCH (08:00)
[2016-08-10] MEDS: FUROSEMIDE 10 MG/ML 4 ML VIAL IV SCH (08:10)
[2016-08-10] MEDS: predniSONE 20 MG TAB PO SCH (08:13)
[2016-08-10] MEDS: HEPARIN SODIUM,PORCINE/D5W PMX 25,000 UNIT in DEXTROSE/WATER 1 500ML.BAG IV SCH ×2 (08:14→20:45)
[2016-08-10] MEDS: SPIRONOLACTONE 25 MG TAB PO SCH (08:14)
[2016-08-10] MEDS: LOSARTAN 50 MG TAB PO SCH (08:14)
[2016-08-10] MEDS: METOPROLOL SUCCINATE (ER) 50 MG TAB.ER.24H PO SCH (08:14)
[2016-08-10] MEDS: IPRATROPIUM-ALBUTEROL 3 ML NEB INHALATION SCH ×4 (08:23→20:15)
[2016-08-10] MEDS: POTASSIUM CHLORIDE ER 20 MEQ TAB.ER PO SCH ×3 (12:13→16:55)
[2016-08-10] MEDS: HEPARIN SODIUM,PORCINE 5,000 UNIT/ML 1 ML VIAL IV PRN (12:18)
--- NOTE | 2016-08-10 15:02 | P.PN ---
Subjective Principal diagnosis: Shortness of breath This is a pleasant 61-year-old gentleman with no prior documented history of hypertension, borderline diabetes, no high cholesterol, positive smoking, occasional EtOH, who presents to the hospital with symptoms of progressively worsening shortness of breath.Bilateral lower extremity swelling, although the patient does have known chronic edema to the right lower extremity from an accident several years ago. Positive PND and orthopnea. Patient was initiated on IV Lasix, diuresed well weight down 6 kg from admission. Creatinine today is 2.0, potassium 3.5. Carolynn on admission was 1.3. He continues to have peripheral edema and some of which is chronic. Lasix Cozaar and Aldactone will be placed on hold today. We'll check lytes BUN and creatinine in the morning and initiate oral Lasix.. Patient continues to be in atrial fibrillation with a controlled ventricular response. Continues to be on IV heparin. Echocardiogram with Doppler study was performed which revealed an ejection fraction of 20-25%. Objective - Vital Signs Vital signs: Vital Signs Temp 96.8 F L 08/10/16 12:00 Pulse 70 08/10/16 12:10 Resp 16 08/10/16 12:00 BP 147/71 08/10/16 12:00 Pulse Ox 99 08/10/16 12:00 Intake & Output 08/09/16 08/10/16 08/10/16 18:59 06:59 18:59 Intake Total 2286.208 1070.000 528.207 Output Total 1550 1760 1200 Balance 736.208 -690.000 -671.793 Weight 103.3 kg Intake: IV 404 220 14 Invasive Line 1 14 Invasive Line 3 10 Sodium Chloride 0.9% 1, 394 220 000 ml @ 20 mls/hr IV . Q24H [facility] Rx#:[id number] Intake, IV Titration 412.208 850.000 154.207 Amount Furosemide 250 mg In 54 Sodium Chloride 0.9% 225 ml @ 10 MG/HR 10 mls/hr IVP .Q24H [facility] Rx#: [id number] Heparin Sodium,Porcine/ 358.208 500.000 154.207 D5w Pmx 25,000 unit In Dextrose/Water 1 500ml. bag @ 9.2 UNITS/KG/HR 20. 07 mls/hr IV .Q24H [facility] Rx #:[id number] Levofloxacin 750Mg-D5w 150 Pmx 750 mg In Dextrose/ Water 1 150ml.bag @ 100 mls/hr IVPB Q24H [facility] Rx#: [id number] Magnesium Sulfate-D5w Pmx 200 1 gm In Dextrose/Water 1 100ml.bag @ 100 mls/hr IVPB Q1H [facility] Rx#: [id number] Oral 1470 360 Output: Urine 1550 1760 1200 Other: Voiding Method Urinal # Voids 1 1 # Bowel Movements 0 - Exam PHYSICAL EXAMINATION: HEENT: Head is atraumatic, normocephalic. Pupils equal, round. Neck is supple. There is elevated jugular venous pressure. HEART EXAMINATION: Heart S1 and S2 irregularly irregular systolic murmur is heard. CHEST EXAMINATION: Lungs reveal improvement in air entry bilaterally. ABDOMEN: Soft, obese, nontender. Bowel sounds are heard. No organomegaly noted. EXTREMITIES: 1+ peripheral pulses with 1+ evidence of peripheral edema and no calf tenderness noted. Chronic right lower leg edema NEUROLOGIC patient is awake, alert and oriented -3. . - Labs CBC & Chem 7: 08/10/16 03:52 08/10/16 09:35 Labs: Abnormal Lab Results - Last 24 Hours (Table) 08/10/16 08/10/16 08/10/16 Range/Units 03:52 03:52 03:52 WBC 11.1 H (3.8-10.6) k/uL Hgb 10.0 L (13.0-17.5) gm/dL Hct 33.4 L (39.0-53.0) % MCV 64.8 L (80.0-100.0) fL MCH 19.3 L (25.0-35.0) pg MCHC 29.8 L (31.0-37.0) g/dL RDW 17.6 H (11.5-15.5) % Neutrophils # 8.8 H (1.3-7.7) k/uL APTT 32.1 H (22.0-30.0) sec Potassium (3.5-5.1) mmol/L Chloride 95 L (98-107) mmol/L Carbon Dioxide 32 H (22-30) mmol/L BUN 34 H (9-20) mg/dL Creatinine 2.00 H (0.66-1.25) mg/dL Glucose 147 H (74-99) mg/dL 08/10/16 08/10/16 Range/Units 09:35 11:34 WBC (3.8-10.6) k/uL Hgb (13.0-17.5) gm/dL Hct (39.0-53.0) % MCV (80.0-100.0) fL MCH (25.0-35.0) pg MCHC (31.0-37.0) g/dL RDW (11.5-15.5) % Neutrophils # (1.3-7.7) k/uL APTT 35.5 H (22.0-30.0) sec Potassium 3.2 L (3.5-5.1) mmol/L Chloride (98-107) mmol/L Carbon Dioxide (22-30) mmol/L BUN (9-20) mg/dL Creatinine (0.66-1.25) mg/dL Glucose (74-99) mg/dL Microbiology - Last 24 Hours (Table) 08/07/16 18:30 Blood Culture - Preliminary Blood No Growth after 48 hours 08/07/16 22:22 Gram Stain - Preliminary Sputum Sputum Culture - Preliminary Ilsa sp,not albicans/galbr Assessment and Plan Plan: Assessment and plan #1 symptoms of progressively worsening shortness of breath with associated PND and orthopnea. Systolic congestive heart failure acute on chronic. Congestive heart failure. #2 hypertension #3 COPD with possible exacerbation #4 nicotine dependence #5 borderline diabetes, untreated #6 abnormal troponin, #7 atrial fibrillation, paroxysmal Plan Continue IV heparin, we will also check to see if patient has coverage regarding the newer anticoagulants. We will hold Lasix Aldactone and Cozaar today, check lytes BUN and creatinine in the morning. She ate oral Lasix from tomorrow. DNP note has been reviewed, I agree with a documented findings and plan of care. Patient was seen and examined.
--- NOTE | 2016-08-10 15:56 | PN ---
61 -year-old admitted to the hospital with congestive heart failure exacerbation and patient was excessively diuresed and now in renal dysfunction, losartan, spironolactone and Lasix will be held. REVIEW OF SYSTEMS: CARDIOVASCULAR: No chest pain, no orthopnea, no PND, no palpitations. PULMONARY: Denied any shortness of breath. No cough or hemoptysis. GASTROINTESTINAL: No diarrhea, nausea or vomiting. No abdominal pain. Normoactive bowel sounds. NEUROLOGIC: No headaches, no weakness, no numbness. Medications are reviewed. PHYSICAL EXAMINATION: Temperature 96.4, pulse 83, respiratory rate of 16, blood pressure 147/71, saturating at 99% on room air. GENERAL: The patient is alert and oriented x3, not in any acute distress. Well developed, well nourished. HEENT: Pupils are round and equally reacting to light. EOMI. No scleral icterus. No conjunctival pallor. Normocephalic, atraumatic. No pharyngeal erythema. No thyromegaly. CARDIOVASCULAR: S1 and S2 present. No murmurs, rubs, or gallops. PULMONARY: Chest is clear to auscultation, no wheezing or crackles. ABDOMEN: Soft, nontender, nondistended, normoactive bowel sounds. No palpable organomegaly. MUSCULOSKELETAL: No joint swelling or deformity. EXTREMITIES: The patient continues to have edema, with minimal improvement. Lungs are clear to auscultation. NEUROLOGICAL: Gross neurological examination did not reveal any focal deficits. SKIN: No rashes. LABORATORY DATA: Significant for elevated WBC count of 11,100 due to systemic steroids and BUN and creatinine worsened to 34 and 2.0. ASSESSMENT AND PLAN: 1. Acute respiratory failure secondary to congestive heart failure, chronic systolic dysfunction, with acute exacerbation. 2. Chronic obstructive pulmonary disease. 3. Possible lec-[id number] myocardial infarction for which patient is on heparin. Further management as per cardiology. 4. Tracheobronchitis. 5. Acute renal failure mostly prerenal azotemia secondary to excessive diuresis now and patient may have chronic kidney disease stage II to III from hypertensive nephrosclerosis. 6. Hypertension. 7. Nicotine dependence. PLAN: We will discontinue medications as mentioned above. Will hold off all those ( ). Monitor kidney function. Strict I's and O's. Continue with systemic steroids, inhalational treatments.
[2016-08-10] MEDS ORDERED: DOCUSATE 100 MG CAP PO PRN (16:07)
[2016-08-10] MEDS ORDERED: LEVOFLOXACIN 750 MG TAB PO SCH ×2 (18:00)
[2016-08-11 07:24] LABS: Anisocytosis Slight; Basophils % (A) 0 %; CH 19.2; Eosinophils % (A) 0 %; HCT 33.5 % (39.0-53.0); HDW 3.08; HGB 9.9 gm/dL (13.0-17.5); Hypochromasia Marked; Luc # (Auto) 0.18; Luc % (Auto) 2; Lymphocytes # (A) 1.8 k/uL (1.0-4.8); Lymphocytes % (A) 18 %; MCH 19.2 pg (25.0-35.0); MCHC 29.6 g/dL (31.0-37.0); MCV 64.8 fL (80.0-100.0); Mean Platelet Volume 6.7; Microcytosis Marked; Monocytes # (A) 0.6 k/uL (0-1.0); Monocytes % (A) 6 %; Neutrophils # (A) 7.3 k/uL (1.3-7.7); Neutrophils % (A) 74 %; RBC 5.17 m/uL (4.30-5.90); RDW 17.5 % (11.5-15.5); WBC 9.9 k/uL (3.8-10.6); WBC (Perox) 10.69
[2016-08-11] MEDS: HEPARIN SODIUM,PORCINE/D5W PMX 25,000 UNIT in DEXTROSE/WATER 1 500ML.BAG IV SCH (07:58)
[2016-08-11 07:59] LABS: Calcium 8.4 mg/dL (8.4-10.2); Potassium 4.1 mmol/L (3.5-5.1)
[2016-08-11] MEDS: METOPROLOL SUCCINATE (ER) 50 MG TAB.ER.24H PO SCH (08:11)
[2016-08-11] MEDS: predniSONE 20 MG TAB PO SCH (08:11)
[2016-08-11] MEDS: IPRATROPIUM-ALBUTEROL 3 ML NEB INHALATION SCH ×4 (08:49→21:32)
[2016-08-11] MEDS ORDERED: LOSARTAN 25 MG TAB PO SCH (13:49)
[2016-08-11] MEDS: APIXABAN 2.5 MG TABLET PO SCH (15:49)
--- NOTE | 2016-08-11 15:50 | P.PN ---
Subjective Principal diagnosis: Shortness of breath This is a pleasant 61-year-old gentleman with no prior documented history of hypertension, borderline diabetes, no high cholesterol, positive smoking, occasional EtOH, who presents to the hospital with symptoms of progressively worsening shortness of breath.Bilateral lower extremity swelling, although the patient does have known chronic edema to the right lower extremity from an accident several years ago. Positive PND and orthopnea. initially diuresed very well on a Lasix drip. His diuretics were held yesterday because of elevated creatinine, we also held his Cozaar and Aldactone. Creatinine today is 1.8. Will resume Cozaar today at 25 mg daily. Objective - Vital Signs Vital signs: Vital Signs Temp 97 F L 08/11/16 11:15 Pulse 72 08/11/16 13:20 Resp 20 08/11/16 11:15 BP 137/87 08/11/16 11:15 Pulse Ox 99 08/11/16 11:15 Intake & Output 08/10/16 08/11/16 08/11/16 18:59 06:59 18:59 Intake Total 658.207 345.793 860 Output Total 1700 1500 1300 Balance -1041.793 -1154.207 -440 Weight 103.9 kg Intake: IV 24 Invasive Line 1 24 Intake, IV Titration 154.207 345.793 500 Amount Heparin Sodium,Porcine/ 154.207 345.793 500 D5w Pmx 25,000 unit In Dextrose/Water 1 500ml. bag @ 9.2 UNITS/KG/HR 20. 07 mls/hr IV .Q24H [facility] Rx #:[id number] Oral 480 360 Output: Urine 1700 1500 1300 Other: Voiding Method Urinal Urinal # Voids 1 # Bowel Movements 0 0 - Exam PHYSICAL EXAMINATION: HEENT: Head is atraumatic, normocephalic. Pupils equal, round. Neck is supple. There is elevated jugular venous pressure. HEART EXAMINATION: Heart S1 and S2 irregularly irregular systolic murmur is heard. CHEST EXAMINATION: Lungs reveal improvement in air entry bilaterally. ABDOMEN: Soft, obese, nontender. Bowel sounds are heard. No organomegaly noted. EXTREMITIES: 1+ peripheral pulses with trace evidence of peripheral edema and no calf tenderness noted. Chronic right lower leg edema NEUROLOGIC patient is awake, alert and oriented -3. . - Labs CBC & Chem 7: 08/11/16 07:01 08/11/16 07:01 Labs: Abnormal Lab Results - Last 24 Hours (Table) 08/10/16 08/11/16 08/11/16 Range/Units 17:57 07:01 07:01 Hgb 9.9 L (13.0-17.5) gm/dL Hct 33.5 L (39.0-53.0) % MCV 64.8 L (80.0-100.0) fL MCH 19.2 L (25.0-35.0) pg MCHC 29.6 L (31.0-37.0) g/dL RDW 17.5 H (11.5-15.5) % APTT 58.8 H (22.0-30.0) sec Carbon Dioxide 31 H (22-30) mmol/L BUN 34 H (9-20) mg/dL Creatinine 1.83 H (0.66-1.25) mg/dL Glucose 124 H (74-99) mg/dL 08/11/16 Range/Units 07:01 Hgb (13.0-17.5) gm/dL Hct (39.0-53.0) % MCV (80.0-100.0) fL MCH (25.0-35.0) pg MCHC (31.0-37.0) g/dL RDW (11.5-15.5) % APTT 57.1 H (22.0-30.0) sec Carbon Dioxide (22-30) mmol/L BUN (9-20) mg/dL Creatinine (0.66-1.25) mg/dL Glucose (74-99) mg/dL Microbiology - Last 24 Hours (Table) 08/07/16 22:22 Gram Stain - Final Sputum Sputum Culture - Final Lisa tropicalis 08/07/16 18:30 Blood Culture - Preliminary Blood No Growth after 72 hours Assessment and Plan Plan: Assessment and plan #1 symptoms of progressively worsening shortness of breath with associated PND and orthopnea. Systolic congestive heart failure acute on chronic. Congestive heart failure. #2 hypertension #3 COPD with possible exacerbation #4 nicotine dependence #5 borderline diabetes, untreated #6 abnormal troponin, #7 atrial fibrillation, paroxysmal Plan Patient was initiated today on Eliquis 2-1/2 mg one tablet by mouth twice a day. We will also resume the Cozaar at 25 mg daily. Continue to hold Lasix and Aldactone, check lytes BUN and creatinine in the morning. DNP note has been reviewed, I agree with a documented findings and plan of care. Patient was seen and examined.
[2016-08-11] MEDS: LEVOFLOXACIN 750 MG TAB PO SCH (17:28)
[2016-08-12] MEDS: APIXABAN 2.5 MG TABLET PO SCH ×3 (05:39→21:22)
[2016-08-12 07:15] LABS: Calcium 8.9 mg/dL (8.4-10.2); Potassium 4.7 mmol/L (3.5-5.1)
[2016-08-12 07:44] LABS: Anisocytosis Slight; Basophils % (A) 0 %; CH 19.1; CHCM 29.5; Eosinophils # (A) 0.1 k/uL (0-0.7); Eosinophils % (A) 1 %; HCT 32.1 % (39.0-53.0); HDW 3.06; HGB 9.7 gm/dL (13.0-17.5); Hypochromasia Marked; Luc # (Auto) 0.23; Luc % (Auto) 2; Lymphocytes # (A) 2.4 k/uL (1.0-4.8); Lymphocytes % (A) 22 %; MCH 19.7 pg (25.0-35.0); MCHC 30.2 g/dL (31.0-37.0); MCV 65.4 fL (80.0-100.0); Mean Platelet Volume 7.4; Microcytosis Marked; Monocytes # (A) 0.6 k/uL (0-1.0); Monocytes % (A) 5 %; Neutrophils # (A) 7.8 k/uL (1.3-7.7); Neutrophils % (A) 71 %; RBC 4.91 m/uL (4.30-5.90); RDW 17.8 % (11.5-15.5); WBC (Perox) 10.01
[2016-08-12] MEDS: METOPROLOL SUCCINATE (ER) 50 MG TAB.ER.24H PO SCH (08:21)
[2016-08-12] MEDS: IPRATROPIUM-ALBUTEROL 3 ML NEB INHALATION SCH ×4 (08:25→22:08)
[2016-08-12] MEDS ORDERED: predniSONE 20 MG TAB PO SCH (09:00)
--- NOTE | 2016-08-12 09:34 | PN ---
DATE OF SERVICE: 08/11/2016 INTERVAL HISTORY: Mr. Bustillo is a 61-year-old male without significant ( ) history, came to the hospital with worsening short of breath and bilateral lower extremity swelling. Patient is currently being treated for acute on chronic congestive heart failure with systolic dysfunction. Patient's breathing is much improved now and Lasix and Aldactone has been stopped due to worsening renal function, creatinine improved from 2.02 to 1.8 today. Patient was started back on Cozaar now. Patient also was started on anticoagulation in the form of Eliquis for atrial fibrillation, paroxysmal. Currently, patient denied any complaints of chest pain, no worsening short of breath, no acute overnight issues. Patient is tolerating p.o. diet. REVIEW OF SYSTEMS: CONSTITUTIONAL: No fever. No chills. RESPIRATORY: No cough, no sputum production. No worsening short of breath. CARDIOVASCULAR: No chest pain, no short of breath. ABDOMEN: No nausea, vomiting or abdominal pain. INTEGUMENT: Negative. ENDOCRINE: Negative. PSYCHIATRY: Negative. SKIN: Negative. All other 14-point review of systems negative, except as above. Current medications include DuoNeb, Eliquis, docusate, Lasix on hold, levofloxacin, Cozaar, losartan, metoprolol, prednisone. PHYSICAL EXAMINATION: A 61-year-old male lying in bed comfortably, awake, alert, oriented x3, appears to be in no apparent distress. VITALS: Blood pressure is 124/64, pulse is 98, respiration 18, temperature afebrile, pulse ox 97% on room air. HEENT: Atraumatic, normocephalic. Neck is supple. No JVD. CVS EXAM: S1, S2 heard. No murmurs, no gallop. LUNGS: Bilateral air entry is present. Decreased breath sounds bilaterally, prolonged expiration, nonlabored breathing. Abdomen is soft, nontender. Bowel sounds are present. D[employer]ITAL [employer] TECHNICIAN: Awake, alert, oriented x3. No focal neurological deficits. EXTREMITIES: No edema. Pulses palpable bilaterally. No clubbing or cyanosis. PSYCHIATRIC: Cooperative, nonsuicidal. LABORATORY DATA: WBC 11.0, hemoglobin 10.0, MCV is 64.8, RDW 17.6, platelets 257, sodium 139, potassium 3.5, chloride 95, bicarb is 32, BUN 34, creatinine 2.0 improved to 1.83, Megace 1.9, calcium 8.4. IMPRESSION: 1. Acute respiratory failure secondary to congestive heart failure. 2. Acute on chronic congestive heart failure with systolic dysfunction. 3. Acute tracheobronchitis. 4. Acute chronic obstructive pulmonary disease exacerbation. 5. Elevated troponin, possible non-ST elevated myocardial infarction. 6. Microcytic anemia, possible iron deficiency. 7. Acute kidney injury, most likely secondary to diuresis, improved now. 8. 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 9. Hypertension. 10. Nicotine addiction. 11. Deep venous thrombosis prophylaxis. DISCUSSION AND PLAN: Patient will be continued on Eliquis and started back on Cozaar at this time. Continue with the metoprolol and patient also will be continued on breathing treatments and steroid dose will be reduced to 40 mg daily and continue to follow renal function. Will continue to hold Lasix and spironolactone and continue with the current management and further recommendations based on the clinical course. Cardiology on board. Will check iron profile as well.
[2016-08-12 14:02] LABS: % Iron Saturation 87.6 % (20-50)
--- NOTE | 2016-08-12 15:39 | P.PN ---
Subjective Principal diagnosis: Shortness of breath This is a pleasant 61-year-old gentleman with no prior documented history of hypertension, borderline diabetes, no high cholesterol, positive smoking, occasional EtOH, who presents to the hospital with symptoms of progressively worsening shortness of breath.Bilateral lower extremity swelling, although the patient does have known chronic edema to the right lower extremity from an accident several years ago. Positive PND and orthopnea. Patient initially diuresed very well on a Lasix drip. His diuretics were held the day beforeyesterday because of elevated creatinine, we also held his Cozaar and Aldactone. Creatinine today is 1.8. ramus yesterday. Will resume Cozaar today at 12.5 mg daily.patient was complaining of some mild dizziness today. Denies any shortness of breath. Objective - Vital Signs Vital signs: Vital Signs Temp 98.1 F 08/12/16 11:50 Pulse 88 08/12/16 14:31 Resp 24 08/12/16 11:50 BP 129/75 08/12/16 14:31 Pulse Ox 96 08/12/16 11:50 Intake & Output 08/11/16 08/12/16 08/12/16 18:59 06:59 18:59 Intake Total 860 540 Output Total 1750 300 400 Balance -890 -300 140 Weight 104.5 kg Intake: Intake, IV Titration 500 Amount Heparin Sodium,Porcine/ 500 D5w Pmx 25,000 unit In Dextrose/Water 1 500ml. bag @ 9.2 UNITS/KG/HR 20. 07 mls/hr IV .Q24H [facility] Rx #:[id number] Oral 360 540 Output: Urine 1750 300 400 Other: Voiding Method Urinal Urinal Urinal # Bowel Movements 0 - Exam PHYSICAL EXAMINATION: HEENT: Head is atraumatic, normocephalic. Pupils equal, round. Neck is supple. There is elevated jugular venous pressure. HEART EXAMINATION: Heart S1 and S2 irregularly irregular systolic murmur is heard. CHEST EXAMINATION: Lungs reveal improvement in air entry bilaterally. ABDOMEN: Soft, obese, nontender. Bowel sounds are heard. No organomegaly noted. EXTREMITIES: 1+ peripheral pulses with trace evidence of peripheral edema and no calf tenderness noted. Chronic right lower leg edema NEUROLOGIC patient is awake, alert and oriented -3. . - Labs CBC & Chem 7: 08/12/16 06:36 08/12/16 06:36 Labs: Abnormal Lab Results - Last 24 Hours (Table) 08/12/16 08/12/16 Range/Units 06:36 06:36 WBC 11.0 H (3.8-10.6) k/uL Hgb 9.7 L (13.0-17.5) gm/dL Hct 32.1 L (39.0-53.0) % MCV 65.4 L (80.0-100.0) fL MCH 19.7 L (25.0-35.0) pg MCHC 30.2 L (31.0-37.0) g/dL RDW 17.8 H (11.5-15.5) % Neutrophils # 7.8 H (1.3-7.7) k/uL Carbon Dioxide 31 H (22-30) mmol/L BUN 33 H (9-20) mg/dL Creatinine 1.83 H (0.66-1.25) mg/dL Iron 184 H (49-181) ug/dL TIBC 210 L (261-462) ug/dL % Saturation 87.6 H (20-50) % Ferritin 503 H (18-464) ng/mL Microbiology - Last 24 Hours (Table) 08/07/16 18:30 Blood Culture - Preliminary Blood No Growth after 96 hours 08/07/16 22:22 Gram Stain - Final Sputum Sputum Culture - Final Lisa tropicalis Assessment and Plan Plan: Assessment and plan #1 symptoms of progressively worsening shortness of breath with associated PND and orthopnea. Systolic congestive heart failure acute on chronic. Congestive heart failure. #2 hypertension #3 COPD with possible exacerbation #4 nicotine dependence #5 borderline diabetes, untreated #6 abnormal troponin, #7 atrial fibrillation, paroxysmalon Eliquis. Plan We'll continue to hold Lasix. Initiate small dose of Cozaar. Continue to monitor blood pressure. We will check the patient's lytes BUN and creatinine in the morning. DNP note has been reviewed, I agree with a documented findings and plan of care. Patient was seen and examined.
[2016-08-13] MEDS: IPRATROPIUM-ALBUTEROL 3 ML NEB INHALATION SCH ×4 (07:45→19:16)
[2016-08-13] MEDS: predniSONE 10 MG TAB PO SCH (08:14)
[2016-08-13] MEDS: LOSARTAN 25 MG TAB PO SCH (08:14)
[2016-08-13] MEDS: METOPROLOL SUCCINATE (ER) 50 MG TAB.ER.24H PO SCH (08:14)
[2016-08-13] MEDS: APIXABAN 2.5 MG TABLET PO SCH ×2 (08:14→21:46)
--- NOTE | 2016-08-13 09:11 | PN ---
DATE OF SERVICE: 08/12/2016 INTERVAL HISTORY: Mr. Bustillo is a 61-year-old male without significant past medical history, came to the hospital with complaints of difficulty breathing and bilateral lower extremity swelling. Patient was found to have acute on chronic CHF with systolic dysfunction. Patient was initially on Lasix and Aldactone, which has been on hold due to worsening renal function. Currently renal function is stable with a creatinine of 1.83. Otherwise patient denied any complaints of short of breath or chest pain. No fever. No chills. No acute overnight issues. Patient is also on anticoagulation with Eliquis for paroxysmal atrial fibrillation. REVIEW OF SYSTEMS: CONSTITUTIONAL: No fever. No chills. RESPIRATORY: No cough or sputum production. CARDIOVASCULAR: No chest pain or shortness of breath. ABDOMEN: No nausea, vomiting or abdominal pain. GENITOURINARY: Negative. ENDOCRINE: Negative. PSYCHIATRY: Negative. SKIN: Negative. MUSCULOSKELETAL: Negative. All other 14 point review of systems negative except as above. Current medications include DuoNeb, Eliquis, docusate, Lasix on hold, spironolactone on hold, levofloxacin, Cozaar, losartan, metoprolol and prednisone. PHYSICAL EXAMINATION: A 61-year-old male lying in bed comfortably, awake, alert, oriented x3. Appears to be in no apparent distress. VITALS: Blood pressure is 111/80, pulse 97, respiratory rate 16, temperature afebrile, pulse ox 97% on room air. HEENT: Atraumatic, normocephalic. Neck is supple. No JVD. CVS: S1, S2 heard, no murmurs no gallop. LUNGS: Bilateral air entry is present. No wheezing. No crackles. Nonlabored breathing. ABDOMEN: Soft, nontender. Bowel sounds are present. GRAIN RECEIVER: Awake, alert, oriented x3. No focal deficit. EXTREMITIES: No edema. Pulses are palpable bilaterally. No clubbing or cyanosis. PSYCHIATRIC: Cooperative. LABORATORY DATA: WBC 11.0, hemoglobin 9.7, platelets 205. Sodium 139, potassium 4.7, chloride 99, bicarb 31, BUN 33, creatinine 1.83. Iron is 184 and binding capacity is 210 and ferritin 503. IMPRESSION: 1. Acute respiratory failure secondary to congestive heart failure. 2. Acute on chronic congestive heart failure with systolic dysfunction. 3. Acute tracheobronchitis. Current on antibiotics in the form of levofloxacin. 4. Acute chronic obstructive pulmonary disease exacerbation. Steroids changed to p.o. 5. Elevated troponin, possible non-ST elevated myocardial infarction. 6. Microcytic anemia. The patient is not iron deficient. 7. Acute kidney injury, most likely secondary to diuresis improved and stable now. 8. 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 9. Hypertension. 10. Nicotine addiction. 11. Paroxysmal atrial fibrillation. Patient anticoagulated with Eliquis. DISCUSSION AND PLAN: Patient will be continued on current management and diuresis has been held. Cozaar has been restarted and continue with Eliquis. Continue the current management and follow up closely. Further recommendations based on the clinical course.
[2016-08-13 09:12] LABS: Anisocytosis Slight; Basophils % (A) 0 %; CH 19.1; CHCM 29.4; Eosinophils # (A) 0.2 k/uL (0-0.7); Eosinophils % (A) 1 %; HCT 38.8 % (39.0-53.0); HDW 3.05; HGB 11.3 gm/dL (13.0-17.5); Hypochromasia Marked; Luc # (Auto) 0.25; Luc % (Auto) 2; Lymphocytes # (A) 3.4 k/uL (1.0-4.8); Lymphocytes % (A) 22 %; MCH 19.1 pg (25.0-35.0); MCHC 29.1 g/dL (31.0-37.0); MCV 65.7 fL (80.0-100.0); Mean Platelet Volume 6.4; Microcytosis Marked; Monocytes # (A) 0.8 k/uL (0-1.0); Monocytes % (A) 5 %; Neutrophils # (A) 10.7 k/uL (1.3-7.7); Neutrophils % (A) 70 %; RDW 17.9 % (11.5-15.5); WBC 15.3 k/uL (3.8-10.6); WBC (Perox) 15.79
[2016-08-13 09:33] LABS: Calcium 8.9 mg/dL (8.4-10.2); Potassium 4.6 mmol/L (3.5-5.1)
[2016-08-13 15:12] VITALS: BMI 29.9
[2016-08-13] MEDS: LEVOFLOXACIN 750 MG TAB PO SCH (18:00)
[2016-08-14 07:51] VITALS: RESP 16
[2016-08-14] MEDS: IPRATROPIUM-ALBUTEROL 3 ML NEB INHALATION SCH (07:57)
[2016-08-14] MEDS: METOPROLOL SUCCINATE (ER) 50 MG TAB.ER.24H PO SCH (08:16)
[2016-08-14] MEDS: predniSONE 10 MG TAB PO SCH (08:16)
[2016-08-14] MEDS: APIXABAN 2.5 MG TABLET PO SCH (08:16)
[2016-08-14] MEDS: LOSARTAN 25 MG TAB PO SCH (08:16)
[2016-08-14 09:27] LABS: Anisocytosis Slight; Basophils % (A) 0 %; CHCM 29.5; Eosinophils # (A) 0.2 k/uL (0-0.7); Eosinophils % (A) 1 %; HCT 35.9 % (39.0-53.0); HDW 3.08; HGB 10.5 gm/dL (13.0-17.5); Hypochromasia Marked; Luc # (Auto) 0.19; Luc % (Auto) 2; Lymphocytes # (A) 2.6 k/uL (1.0-4.8); Lymphocytes % (A) 23 %; MCHC 29.2 g/dL (31.0-37.0); MCV 65.2 fL (80.0-100.0); Mean Platelet Volume 6.7; Microcytosis Marked; Monocytes # (A) 0.7 k/uL (0-1.0); Monocytes % (A) 6 %; Neutrophils # (A) 7.5 k/uL (1.3-7.7); Neutrophils % (A) 67 %; RDW 17.8 % (11.5-15.5); WBC 11.1 k/uL (3.8-10.6); WBC (Perox) 11.24
[2016-08-14 10:15] LABS: Calcium 8.5 mg/dL (8.4-10.2); Potassium 4.2 mmol/L (3.5-5.1)
--- NOTE | 2016-08-14 10:16 | PN ---
INTERVAL HISTORY: Mr. Bustillo is a 61 -year-old male with no significant past medical history, admitted to the hospital with bilateral leg swelling. Patient was found to have congestive heart failure with systolic dysfunction. Currently initially was on Lasix and Aldactone which has been ( ) worsening renal function. Currently on creatinine level improved from 1.83 to 1.6 today. Continue to hold Lasix and Spironolactone. Otherwise, patient's breathing status is much improved now. Anticipate discharge in the next 24 hours. No fever. No chills. No worsening shortness of breath. Ambulating well. Also on anticoagulation with Eliquis for paroxysmal atrial fibrillation. Anticipate discharge in the next 24 hours. REVIEW OF SYSTEMS: CONSTITUTIONAL: No fever. No chills. No weakness. ( ). RESPIRATORY: No cough or sputum production. CARDIOVASCULAR: No chest pain. ABDOMEN: No nausea or vomiting, abdominal pain. GENITOURINARY: Negative. ENDOCRINE: Negative. PSYCHIATRY: Negative. SKIN: Negative. All other review of systems negative except as above. CURRENT MEDICATIONS: Reviewed. PHYSICAL EXAMINATION: A 61-year-old male lying in the bed awake, alert and oriented x3, appears to be in no apparent distress. VITALS: Blood pressure is 143/73, pulse is 80, respirations 18, temperature afebrile. Pulse ox 97% on room air. HEENT: Atraumatic, normocephalic. NECK: Neck is supple. No JVD. CARDIOVASCULAR: S1, S2 heard. No murmurs, no gallop, no rub. LUNGS: Bilateral air entry is present. ABDOMEN: Soft, nontender. Bowel sounds are present. CENTRAL NERVOUS SYSTEM: Awake, alert and oriented times three. No focal deficit. EXTREMITIES: No edema. Pulses palpable bilaterally. No clubbing or cyanosis. PSYCHIATRY: Cooperative. Nonlabored breathing. ABDOMEN: Soft, nontender. Bowel sounds are present. SOCIAL GROUP WORKER: Alert and oriented times three. No focal deficits. EXTREMITIES: No edema. Pulses palpable bilaterally. No clubbing or cyanosis. PSYCHIATRY: Cooperative. LABORATORY DATA: WBC 15.3, hemoglobin 11.3, platelets are 227. MCV 65.7, sodium 139, potassium 4.6, chloride 100, bicarb is 29, BUN 30, creatinine 1.67. IMPRESSION: 1. Acute hypoxic respiratory failure, secondary to congestive heart failure. 2. Acute and suspected chronic congestive heart failure with systolic dysfunction, ejection fraction 20-25%. 3. Acute tracheobronchitis, improved now. 4. Acute chronic obstructive pulmonary disease exacerbation on steroids at this time. 5. Elevated troponin, possible non-ST elevation myocardial infarction ( ). 6. Microcytic anemia, iron profile showed no deficiency. 7. Acute kidney injury, most likely secondary to diuresis, improving now. 8. Hypertension ( ). 9. Nicotine addiction. 10. Paroxysmal atrial fibrillation, currently on anticoagulation with Eliquis. PLAN: The patient will be continued on current management and continue to hold Lasix and spironolactone. Continue with course of Metoprolol and follow up closely. Once renal function continues to improve, anticipate discharge in the next 24 hours with clinical movement.
[2016-08-14 16:28] VITALS: BP 120/77; PULSE 92; TEMP 98.2
[2016-08-14] MEDS ORDERED: LEVOFLOXACIN 750 MG TAB PO SCH (18:00)
--- NOTE | 2016-08-16 11:02 | DS ---
DATE OF ADMISSION: 08/07/2016 DATE OF DISCHARGE: 08/14/2016 Cardiology consultation. DISCHARGE DIAGNOSIS(ES): 1. Acute hypoxic respiratory failure secondary to congestive heart failure exacerbation. 2. Acute and suspected chronic congestive heart failure with systolic dysfunction, ejection fraction 20-25%. 3. Acute tracheobronchitis improved now. 4. Acute chronic obstructive pulmonary disease exacerbation, improved. 5. Acute kidney injury, most likely with diuresis, has been stable. 6. Elevated troponin level, possible non-ST elevation myocardial infarction, cardiology recommended medical management. 7. Hypertension, controlled. 8. Nicotine addiction. 9. Paroxysmal atrial fibrillation, currently on anticoagulation with Eliquis. HOSPITAL COURSE: Mr. Bustillo is a 61 -year-old male without significant past medical history who was admitted to the hospital with worsening short of breath and found to have CHF exacerbation and the patient was diuresed with Lasix and spironolactone. Patient was found to have worsening renal function and diuresis has been held for the last 3 days and patient treated symptomatically, stable at this time. Blood pressure is controlled. Breathing has improved. 2D echo ( )%. Otherwise the patient is clinically stable to be discharged home and follow with the cardiology clinic as an outpatient. Discharge physical examination: 61-year-old male lying in bed comfortably, awake, alert and oriented times three, appears to be in no apparent distress. VITALS: Blood pressure is 120/77, pulse is 92, respiratory rate 16, temperature afebrile, pulse ox 96% on room air. Laboratory data reviewed. Discharge physical examination done. DISCHARGE MEDICATIONS: 1. Albuterol HFA 1 to 2 puffs q.6 hourly p.r.n. for short of breath. 2. Apixaban 2.5 mg p.o. b.i.d. 3. Cozaar 12.5 mg p.o. daily. 4. Metoprolol XL 1000 mg p.o. daily. 5. Prednisone tapering dose. Activity as tolerated. Heart healthy diet and low-salt diet. Follow with Dr. Wagner Cullen in 2 weeks and follow-up with Dr. Heredia, home with self-care.
== END 2016-08-14 17:18 | disposition home or self-care (01) | DRG 280 ==
LOC: EC 17:18 → 6SEL 18:11 → 4MS4W 08-12 16:20
PROVIDERS: ADMIT Hospitalist; ATTEND Hospitalist
DX: I13.0 Hypertensive heart and chronic kidney disease with heart failure and stage 1 through stage 4 chronic kidney disease, or unspecified chronic kidney disease (principal); I50.23 Acute on chronic systolic (congestive) heart failure; I21.4 Non-ST elevation (NSTEMI) myocardial infarction; J96.01 Acute respiratory failure with hypoxia; J18.9 Pneumonia, unspecified organism; N17.9 Acute kidney failure, unspecified; I42.9 Cardiomyopathy, unspecified; N18.3 Chronic kidney disease, stage 3 (moderate); D50.9 Iron deficiency anemia, unspecified; F17.210 Nicotine dependence, cigarettes, uncomplicated; J44.0 Chronic obstructive pulmonary disease with (acute) lower respiratory infection; J44.1 Chronic obstructive pulmonary disease with (acute) exacerbation; I48.0 Paroxysmal atrial fibrillation; J20.9 Acute bronchitis, unspecified; R73.03 Prediabetes; T50.2X5A Adverse effect of carbonic-anhydrase inhibitors, benzothiadiazides and other diuretics, initial encounter; Z82.5 Family history of asthma and other chronic lower respiratory diseases; Z91.19 Patient's noncompliance with other medical treatment and regimen
CPT/HCPCS: 36415; 71020; 80048; 80053; 81001; 82272; 82550; 82553; 82728; 83036; 83540; 83550; 83735; 83880; 84100; 84132; 84443; 84484; 85025; 85610; 85730; 87040; 87070; 87205; 93005; 93306; 94640; 94644; 94760; 96361; 96365; 96375; 99291

== ENCOUNTER 2017-02-06 20:21 | Inpatient (IN) | payer OTHER ==
[2017-02-06] MEDS ORDERED: IPRATROPIUM 0.5 MG/2.5 ML NEBU INHALATION STA (20:47)
[2017-02-06] MEDS ORDERED: methylPREDNISolone SOD SUCCI 125 MG/2 ML VIAL IV STA (20:47)
[2017-02-06] MEDS ORDERED: ALBUTEROL NEBULIZED 2.5 MG/3 ML INHALATION STA (20:47)
--- NOTE | 2017-02-06 20:51 | ED ---
General Adult HPI - General Chief complaint: Shortness of Breath Stated complaint: SOB/COPD Time Seen by Provider: 02/06/17 20:39 Source: patient, family, RN notes reviewed Mode of arrival: wheelchair Limitations: no limitations - History of Present Illness Initial comments: 61-year-old male with history of COPD and congestive heart failure presents for evaluation of persistent dysuria. Patient has had significant exertional dyspnea. Patient denies significant chest pain. States he has had a progressive cough over the last week. His been worsening with the recent humidity. Denies fever but states he's had some chills. Reports a productive cough, white to yellow sputum. Patient most recently smoke 6 months ago. Patient also reports swelling in his legs, worse on the right leg, this is chronic in nature and has been evaluated in the past. - Related Data Previous Rx's Medication Instructions Recorded Apixaban [Eliquis] 2.5 mg PO BID #60 tablet 08/14/16 Losartan [Cozaar] 12.5 mg PO DAILY #30 tab 08/14/16 Metoprolol Succinate (ER) [Toprol 100 mg PO DAILY #30 tab.er.24h 08/14/16 XL] predniSONE See Taper PO DIRECTED #12 tab 08/14/16 Albuterol Sulfate [Proair Hfa] 2 puff INHALATION Q6HR PRN #0 08/15/16 Allergies Allergy/AdvReac Type Severity Reaction Status Date / Time Iodinated Contrast- Oral and Allergy SWELLING Verified 02/06/17 20:36 IV Dye AND [Iodinated Contrast Media - VOMITING Oral and] shellfish derived [Shellfish] Allergy SWELLING Verified 02/06/17 20:36 AND VOMITING sulfamethoxazole Allergy Rash/Hives Verified 02/06/17 20:36 [From Bactrim] trimethoprim [From Bactrim] Allergy Rash/Hives Verified 02/06/17 20:36 Review of Systems ROS Statement: Those systems with pertinent positive or pertinent negative responses have been documented in the HPI. ROS Other: All systems not noted in ROS Statement are negative. Past Medical History Past Medical History: COPD, Osteoarthritis (OA) Additional Past Medical History / Comment(s): DIVERTICULITIS, ARTHRITIS IN SPINE ,"THALASSEMIA MINOR" History of Any Multi-Drug Resistant Organisms: None Reported Past Surgical History: No Surgical Hx Reported, Tonsillectomy Additional Past Surgical History / Comment(s): COLONOSCOPY-BENIGN POLYPS REMOVED , LT HAND 4TH DIGIT REPAIR, LT MASTOID SX AGE 3 Past Anesthesia/Blood Transfusion Reactions: No Reported Reaction Past Psychological History: No Psychological Hx Reported Smoking Status: Former smoker Past Alcohol Use History: Rare Past Drug Use History: None Reported - Past Family History Mother Family Medical History: COPD, Diabetes Mellitus Father Family Medical History: Cancer, Diabetes Mellitus Additional Family Medical History / Comment(s): SKIN CANCER General Exam Limitations: no limitations General appearance: alert, in distress Head exam: Present: atraumatic, normocephalic Eye exam: Present: normal appearance, PERRL ENT exam: Present: normal exam Neck exam: Present: normal inspection. Absent: tenderness, meningismus Respiratory exam: Present: respiratory distress, rales, prolonged expiratory, other (Bronchospastic cough) Cardiovascular Exam: Present: normal rhythm, tachycardia GI/Abdominal exam: Present: soft. Absent: distended, tenderness Extremities exam: Present: normal inspection, normal capillary refill, pedal edema, other (Chronic right lower extremity swelling) Back exam: Present: normal inspection, full ROM Neurological exam: Present: alert, oriented X3 Psychiatric exam: Present: normal affect, normal mood Skin exam: Present: warm, dry, intact. Absent: cyanosis, diaphoretic Course Vital Signs 02/06/17 02/06/17 02/06/17 20:33 21:10 21:25 Temperature 98.7 F Pulse Rate 105 H 104 H 115 H Respiratory 28 H 20 Rate Blood Pressure 140/84 187/115 O2 Sat by Pulse 94 L 100 Oximetry 02/06/17 02/06/17 21:33 22:15 Temperature Pulse Rate 108 H 105 H Respiratory 22 Rate Blood Pressure 187/96 O2 Sat by Pulse 100 Oximetry EKG Findings - EKG Comments: EKG Findings:: EKG shows sinus tachycardia, there is left ventricular hypertrophy, ventricular rate 106, IL interval 150, QRS duration 102, QTC 526, there is no ST segment elevation or depression Medical Decision Making - Medical Decision Making 61-year-old male presents with worsening dyspnea over a week. Patient does admit to cough with sputum production. No fever but subjective chills are present. On examination patient has decreased breath sounds bilaterally, there is bronchospastic cough, and rales throughout. Chest x-ray obtained shows pulmonary edema with bilateral pleural effusions. Mildly elevated white blood cell count 13.5, hemoglobin is 9.4, creatinine 1.4 from previous baseline 1.8. Troponin is negative as 0.03. BNP is significantly elevated at 21,000. Patient is given Lasix, and aspirin for congestive heart failure, he is also given albuterol for productive bronchospastic cough. Diagnosis: Congestive heart failure exacerbation, COPD - Lab Data Result diagrams: 02/06/17 21:00 02/06/17 21:00 Lab Results 02/06/17 02/06/17 02/06/17 Range/Units 21:00 21:00 21:00 WBC 13.5 H (3.8-10.6) k/uL RBC 5.11 (4.30-5.90) m/uL Hgb 9.4 L (13.0-17.5) gm/dL Hct 32.9 L (39.0-53.0) % MCV 64.4 L (80.0-100.0) fL MCH 18.3 L (25.0-35.0) pg MCHC 28.4 L (31.0-37.0) g/dL RDW 16.7 H (11.5-15.5) % Plt Count 324 (150-450) k/uL Neutrophils % 85 % Lymphocytes % 7 % Monocytes % 5 % Eosinophils % 2 % Basophils % 1 % Neutrophils # 11.5 H (1.3-7.7) k/uL Lymphocytes # 1.0 (1.0-4.8) k/uL Monocytes # 0.6 (0-1.0) k/uL Eosinophils # 0.2 (0-0.7) k/uL Basophils # 0.1 (0-0.2) k/uL Hypochromasia Marked Anisocytosis Slight Microcytosis Marked PT (9.0-12.0) sec INR (<1.2) APTT (22.0-30.0) sec VBG pH 7.39 (7.31-7.41) VBG pCO2 46 (37-51) mmHg VBG HCO3 27 (24-28) mmol/L Sodium (137-145) mmol/L Potassium (3.5-5.1) mmol/L Chloride (98-107) mmol/L Carbon Dioxide (22-30) mmol/L Anion Gap mmol/L BUN (9-20) mg/dL Creatinine (0.66-1.25) mg/dL Est GFR (MDRD) Af Amer (>60 ml/min/1.73 sqM) Est GFR (MDRD) Non-Af (>60 ml/min/1.73 sqM) Glucose (74-99) mg/dL Plasma Lactic Acid Antoine (0.7-2.0) mmol/L Calcium (8.4-10.2) mg/dL Magnesium (1.6-2.3) mg/dL Total Bilirubin (0.2-1.3) mg/dL AST (17-59) U/L ALT (21-72) U/L Alkaline Phosphatase (38-126) U/L Total Creatine Kinase 26 L (55-170) U/L CK-MB (CK-2) 3.5 H* (0.0-2.4) ng/mL CK-MB (CK-2) Rel Index 13.5 Troponin I 0.030 (0.000-0.034) ng/mL NT-Pro-B Natriuret Pep pg/mL Total Protein (6.3-8.2) g/dL Albumin (3.5-5.0) g/dL 02/06/17 02/06/17 02/06/17 Range/Units 21:00 21:00 21:00 WBC (3.8-10.6) k/uL RBC (4.30-5.90) m/uL Hgb (13.0-17.5) gm/dL Hct (39.0-53.0) % MCV (80.0-100.0) fL MCH (25.0-35.0) pg MCHC (31.0-37.0) g/dL RDW (11.5-15.5) % Plt Count (150-450) k/uL Neutrophils % % Lymphocytes % % Monocytes % % Eosinophils % % Basophils % % Neutrophils # (1.3-7.7) k/uL Lymphocytes # (1.0-4.8) k/uL Monocytes # (0-1.0) k/uL Eosinophils # (0-0.7) k/uL Basophils # (0-0.2) k/uL Hypochromasia Anisocytosis Microcytosis PT 11.7 (9.0-12.0) sec INR 1.2 H (<1.2) APTT 28.3 (22.0-30.0) sec VBG pH (7.31-7.41) VBG pCO2 (37-51) mmHg VBG HCO3 (24-28) mmol/L Sodium 136 L (137-145) mmol/L Potassium 3.8 (3.5-5.1) mmol/L Chloride 98 (98-107) mmol/L Carbon Dioxide 24 (22-30) mmol/L Anion Gap 14 mmol/L BUN 17 (9-20) mg/dL Creatinine 1.40 H (0.66-1.25) mg/dL Est GFR (MDRD) Af Amer >60 (>60 ml/min/1.73 sqM) Est GFR (MDRD) Non-Af 51 (>60 ml/min/1.73 sqM) Glucose 202 H (74-99) mg/dL Plasma Lactic Acid Antoine (0.7-2.0) mmol/L Calcium 8.1 L (8.4-10.2) mg/dL Magnesium 1.7 (1.6-2.3) mg/dL Total Bilirubin 0.7 (0.2-1.3) mg/dL AST 65 H (17-59) U/L ALT 89 H (21-72) U/L Alkaline Phosphatase 84 (38-126) U/L Total Creatine Kinase (55-170) U/L CK-MB (CK-2) (0.0-2.4) ng/mL CK-MB (CK-2) Rel Index Troponin I (0.000-0.034) ng/mL NT-Pro-B Natriuret Pep 75833 pg/mL Total Protein 6.9 (6.3-8.2) g/dL Albumin 3.1 L (3.5-5.0) g/dL 02/06/17 Range/Units 21:00 WBC (3.8-10.6) k/uL RBC (4.30-5.90) m/uL Hgb (13.0-17.5) gm/dL Hct (39.0-53.0) % MCV (80.0-100.0) fL MCH (25.0-35.0) pg MCHC (31.0-37.0) g/dL RDW (11.5-15.5) % Plt Count (150-450) k/uL Neutrophils % % Lymphocytes % % Monocytes % % Eosinophils % % Basophils % % Neutrophils # (1.3-7.7) k/uL Lymphocytes # (1.0-4.8) k/uL Monocytes # (0-1.0) k/uL Eosinophils # (0-0.7) k/uL Basophils # (0-0.2) k/uL Hypochromasia Anisocytosis Microcytosis PT (9.0-12.0) sec INR (<1.2) APTT (22.0-30.0) sec VBG pH (7.31-7.41) VBG pCO2 (37-51) mmHg VBG HCO3 (24-28) mmol/L Sodium (137-145) mmol/L Potassium (3.5-5.1) mmol/L Chloride (98-107) mmol/L Carbon Dioxide (22-30) mmol/L Anion Gap mmol/L BUN (9-20) mg/dL Creatinine (0.66-1.25) mg/dL Est GFR (MDRD) Af Amer (>60 ml/min/1.73 sqM) Est GFR (MDRD) Non-Af (>60 ml/min/1.73 sqM) Glucose (74-99) mg/dL Plasma Lactic Acid Antoine 2.0 (0.7-2.0) mmol/L Calcium (8.4-10.2) mg/dL Magnesium (1.6-2.3) mg/dL Total Bilirubin (0.2-1.3) mg/dL AST (17-59) U/L ALT (21-72) U/L Alkaline Phosphatase (38-126) U/L Total Creatine Kinase (55-170) U/L CK-MB (CK-2) (0.0-2.4) ng/mL CK-MB (CK-2) Rel Index Troponin I (0.000-0.034) ng/mL NT-Pro-B Natriuret Pep pg/mL Total Protein (6.3-8.2) g/dL Albumin (3.5-5.0) g/dL Disposition Clinical Impression: Acute exacerbation of chronic obstructive airways disease, CHF (congestive heart failure) Disposition: ADMITTED IP TO THIS HOSP Condition: Stable Referrals: Yan Stovall DO [Primary Care Provider] - 1-2 days Decision to Admit Reason: Admit from EC Decision Date: 02/06/17 Decision Time: 22:44
[2017-02-06 21:09] LABS: Anisocytosis Slight; Basophils # (A) 0.1 k/uL (0-0.2); Basophils % (A) 1 %; CH 18.3; CHCM 28.7; Eosinophils # (A) 0.2 k/uL (0-0.7); Eosinophils % (A) 2 %; HCT 32.9 % (39.0-53.0); HDW 3.15; HGB 9.4 gm/dL (13.0-17.5); Hypochromasia Marked; Luc # (Auto) 0.17; Luc % (Auto) 1; Lymphocytes % (A) 7 %; MCH 18.3 pg (25.0-35.0); MCHC 28.4 g/dL (31.0-37.0); MCV 64.4 fL (80.0-100.0); Mean Platelet Volume 7.1; Microcytosis Marked; Monocytes # (A) 0.6 k/uL (0-1.0); Monocytes % (A) 5 %; Neutrophils # (A) 11.5 k/uL (1.3-7.7); Neutrophils % (A) 85 %; RBC 5.11 m/uL (4.30-5.90); RDW 16.7 % (11.5-15.5); WBC 13.5 k/uL (3.8-10.6); WBC (Perox) 13.32
[2017-02-06 21:10] LABS: VBG PH 7.39 (7.31-7.41)
[2017-02-06 21:19] LABS: ALT 89 U/L (21-72); AST 65 U/L (17-59); Alkaline Phosphatase 84 U/L (38-126); Anion Gap 14 mmol/L; Blood Urea Nitrogen 17 mg/dL (9-20); Calcium 8.1 mg/dL (8.4-10.2); Carbon Dioxide 24 mmol/L (22-30); Chloride 98 mmol/L (98-107); Glucose 202 mg/dL (74-99); Magnesium 1.7 mg/dL (1.6-2.3); Non-African American GFR(MDRD) 51 (>60 ml/min/1.73 sqM); Potassium 3.8 mmol/L (3.5-5.1); Sodium 136 mmol/L (137-145); Total Bilirubin 0.7 mg/dL (0.2-1.3); Total Protein 6.9 g/dL (6.3-8.2)
[2017-02-06 21:45] LABS: INR 1.2 (<1.2); Partial Thromboplastin Time 28.3 sec (22.0-30.0); Prothrombin Time 11.7 sec (9.0-12.0)
[2017-02-06 21:46] LABS: Troponin I 0.03 ng/mL (0.000-0.034)
[2017-02-06 21:48] LABS: Creatine Kinase MB 3.5 ng/mL (0.0-2.4)
--- NOTE | 2017-02-06 21:48 | XR ---
EXAMINATION TYPE: XR chest 2V DATE OF EXAM: 02/06/2017 COMPARISON: 08/08/2016 HISTORY: 61-year-old male difficulty breathing TECHNIQUE: Frontal and lateral views FINDINGS: The heart is mildly enlarged. Aorta within normal limits. Increasing interstitial densities with more confluent bibasilar densities. Small to moderate left pleural effusion persists with adjacent opacit y. Slight increased small right effusion. IMPRESSION: Progression to interstitial pulmonary edema. Small to moderate left and small right pleural effusions with adjacent atelectasis and/or consolidation.
[2017-02-06] MEDS ORDERED: FUROSEMIDE 10 MG/ML 4 ML VIAL IV STA (22:25)
[2017-02-06] MEDS ORDERED: ASPIRIN 325 MG TAB PO STA (22:25)
[2017-02-06] MEDS ORDERED: NALOXONE 0.4 MG/ML 1 ML VIAL IV PRN ×2 (22:40→23:54)
[2017-02-06] MEDS ORDERED: ACETAMINOPHEN TAB 325 MG TAB PO PRN (23:54)
[2017-02-06] MEDS ORDERED: ONDANSETRON 4 MG/2 ML VIAL IVP PRN (23:54)
[2017-02-06] MEDS ORDERED: IPRATROPIUM-ALBUTEROL 3 ML NEB INHALATION PRN (23:58)
--- NOTE | 2017-02-07 00:20 | P.HPIM ---
History of Present Illness H&P Date: 02/06/17 Chief Complaint: Shortness of breath 61-year-old gentleman with documented history of congestive heart failure ([id number]%), hypertension, borderline diabetes, high cholesterol presents to the hospital with symptoms of progressively worsening shortness of breath over the past 2 weeks. He did have some subjective fever but no chills. According to the patient the symptoms have been worsening for the past few days. Also positive productive cough of clear and yellow sputum. He has a chronic Bilateral lower extremity swelling which has been worsening over the past days. Positive PND and orthopnea. Patient mentioned history of sick contact with multiple members who are sick at home. No nausea or vomiting, no urinary symptoms, no diarrhea. Of note patient is not currently taking any medicine, he is not compliant with his medical care. He was admitted to the hospital month ago for the same problem, that time he was diagnosed with acute exacerbation of congestive heart failure, non-ST elevation myocardial infarction and acute exacerbation of chronic obstructive pulmonary disease. He did not follow up with any primary care physician after that hospitalization. In the emergency department Chest x-ray showed pleural effusions and pulmonary congestion consistent with congestive heart failure. Subsequently patient was admitted for IV Lasix treatment and further evaluation and management. Review of Systems 12 point review of system performed, negative except for HPI Past Medical History Past Medical History: Heart Failure, COPD, Hypertension, Osteoarthritis (OA), Pneumonia Additional Past Medical History / Comment(s): DIVERTICULITIS, ARTHRITIS IN SPINE ,"THALASSEMIA MINOR" History of Any Multi-Drug Resistant Organisms: None Reported Past Surgical History: Tonsillectomy Additional Past Surgical History / Comment(s): COLONOSCOPY-BENIGN POLYPS Found, LT HAND 4TH DIGIT REPAIR, LT MASTOID SX AGE 3 Past Anesthesia/Blood Transfusion Reactions: No Reported Reaction Past Psychological History: No Psychological Hx Reported Additional Psychological History / Comment(s): PT IS ,LIVES IN 2 STORY HOME THAT HAS 2 FRONT STEPS-PT STAYS ON MAIN LEVEL. 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 PT IS INDEPENDANT NO OUTSIDE SERVICES. Smoking Status: Former smoker Past Alcohol Use History: Rare Additional Past Alcohol Use History / Comment(s): STARTED SMOKING AT AGE 12, DID QUIT FOR 12 YEARS BUT RESTARTED IN 2012, SMOKES 1 PPD. Past Drug Use History: None Reported - Past Family History Mother Family Medical History: COPD, Diabetes Mellitus Father Family Medical History: Cancer, Diabetes Mellitus Additional Family Medical History / Comment(s): SKIN CANCER Medications and Allergies Home Medications Medication Instructions Recorded Confirmed Type Apixaban [Eliquis] 2.5 mg PO BID #60 tablet 08/14/16 Rx Losartan [Cozaar] 12.5 mg PO DAILY #30 tab 08/14/16 Rx Metoprolol Succinate (ER) [Toprol 100 mg PO DAILY #30 tab.er.24h 08/14/16 Rx XL] predniSONE See Taper PO DIRECTED #12 tab 08/14/16 Rx Albuterol Sulfate [Proair Hfa] 2 puff INHALATION Q6HR PRN #0 08/15/16 08/07/16 Rx Allergies Allergy/AdvReac Type Severity Reaction Status Date / Time Iodinated Contrast- Oral and Allergy SWELLING Verified 02/06/17 20:36 IV Dye AND [Iodinated Contrast Media - VOMITING Oral and] Latex, Natural Rubber Allergy Rash/Hives Verified 02/06/17 23:54 shellfish derived [Shellfish] Allergy SWELLING Verified 02/06/17 20:36 AND VOMITING sulfamethoxazole Allergy Rash/Hives Verified 02/06/17 20:36 [From Bactrim] trimethoprim [From Bactrim] Allergy Rash/Hives Verified 02/06/17 20:36 Physical Exam Vitals: Vital Signs Temp Pulse Pulse Resp BP BP Pulse Ox 02/06/17 23:29 98.7 F 62 20 173/96 96 02/06/17 23:16 102 H 22 176/84 100 02/06/17 22:15 105 H 22 187/96 100 02/06/17 21:33 108 H 02/06/17 21:25 115 H 20 187/115 100 02/06/17 21:10 104 H 02/06/17 20:33 98.7 F 105 H 28 H 140/84 94 L Intake and Output 02/06/17 02/06/17 02/07/17 14:59 22:59 06:59 Other: Weight 112.037 kg 122.037 kg Patient Weight 02/07/17 06:59 Weight 122.037 kg Constitutional: Mild respiratory distress, conversant, pleasant Eyes:Anicteric sclerae, moist conjunctiva, no lid-lag, PERRLA, ENMT: Oropharynx clear, no erythema, exudates Neck: Supple, FROM, no masses, or JVD, No carotid bruits, No thyromegaly Lungs: Bilateral diffuse wheezing and rhonchi, Clear to percussion, mild increase and respiratory effort, no accessory muscle use Cardiovascular: Tachycardic, regular, No murmurs, gallops, or rubs, 2+ peripheral edema R>L Abdominal: Soft, Nontender, no guarding, rebound or rigidity, Normoactive bowel sounds, No hepatomegaly, No splenomegaly, No palpable mass Skin: Normal temperature, tone, texture, turgor, no induration, No subcutaneous nodules, No rash, lesions, No ulcers Extremities: No digital cyanosis, No clubbing, Pedal pulses intact and symmetrical, Radial pulses intact and symmetrical, No calf tenderness Psychiatric: Alert and oriented to person, place and time, appropriate affect, intact judgement Neuro: Muscles Strength 5/5 in all 4 extremities, Sensation to light touch grossly present throughout, Cranial nerves II-XII grossly intact, no focal sensory deficits Results CBC & Chem 7: 02/06/17 21:00 02/06/17 21:00 Labs: Abnormal Lab Results - Last 24 Hours (Table) 02/06/17 02/06/17 02/06/17 Range/Units 21:00 21:00 21:00 WBC 13.5 H (3.8-10.6) k/uL Hgb 9.4 L (13.0-17.5) gm/dL Hct 32.9 L (39.0-53.0) % MCV 64.4 L (80.0-100.0) fL MCH 18.3 L (25.0-35.0) pg MCHC 28.4 L (31.0-37.0) g/dL RDW 16.7 H (11.5-15.5) % Neutrophils # 11.5 H (1.3-7.7) k/uL INR (<1.2) Sodium 136 L (137-145) mmol/L Creatinine 1.40 H (0.66-1.25) mg/dL Glucose 202 H (74-99) mg/dL Calcium 8.1 L (8.4-10.2) mg/dL AST 65 H (17-59) U/L ALT 89 H (21-72) U/L Total Creatine Kinase 26 L (55-170) U/L CK-MB (CK-2) 3.5 H* (0.0-2.4) ng/mL Albumin 3.1 L (3.5-5.0) g/dL 02/06/17 Range/Units 21:00 WBC (3.8-10.6) k/uL Hgb (13.0-17.5) gm/dL Hct (39.0-53.0) % MCV (80.0-100.0) fL MCH (25.0-35.0) pg MCHC (31.0-37.0) g/dL RDW (11.5-15.5) % Neutrophils # (1.3-7.7) k/uL INR 1.2 H (<1.2) Sodium (137-145) mmol/L Creatinine (0.66-1.25) mg/dL Glucose (74-99) mg/dL Calcium (8.4-10.2) mg/dL AST (17-59) U/L ALT (21-72) U/L Total Creatine Kinase (55-170) U/L CK-MB (CK-2) (0.0-2.4) ng/mL Albumin (3.5-5.0) g/dL Thrombosis Risk Factor Assmnt - Choose All That Apply Any of the Below Risk Factors Present?: Yes Each Factor Represents 1 point: Abnormal pulmonary function (COPD), Age 41-60 years, Heart failure (<1month), Serious lung disease incl. pneumonia (< 1month) , Swollen legs (current) Other Risk Factors: No Other congenital or acquired thrombophilia - If yes, enter type in comment: No Thrombosis Risk Factor Assessment Total Risk Factor Score: 5 Thrombosis Risk Factor Assessment Level: High Risk Assessment and Plan Plan: #1 acute exacerbation of chronic systolic congestive heart failure, acute exacerbation of COPD, acute community-acquired pneumonia Admit to [facility] Labs and chest x-ray, EKG all reviewed Start treatment with Lasix 40 mg IV twice a day Ceftriaxone, azithromycin and steroids Oxygen therapy to keep oxygen saturation above 92% Follow-up blood culture that were drawn in the emergency department No need for repeat echocardiogram at this point as patient had an echo 6 months ago I emphasized the importance of being compliant with the medical care Patient is supposed to be on metoprolol and losartan for congestive heart failure but is currently not taking them, we'll continue while he is in the hospital. #2 benign hypertension, paroxysmal atrial fibrillation All stable Continue all medications #3 DVT prophylaxis Lovenox subcu
[2017-02-07 03:02] LABS: Anisocytosis Slight; Basophils % (A) 0 %; CH 18.5; CHCM 28.7; Eosinophils % (A) 0 %; HCT 33.3 % (39.0-53.0); HDW 3.12; HGB 9.3 gm/dL (13.0-17.5); Hypochromasia Marked; Luc # (Auto) 0.09; Luc % (Auto) 1; Lymphocytes # (A) 0.5 k/uL (1.0-4.8); Lymphocytes % (A) 5 %; MCH 18.3 pg (25.0-35.0); MCHC 28.1 g/dL (31.0-37.0); Mean Platelet Volume 7.6; Microcytosis Marked; Monocytes # (A) 0.3 k/uL (0-1.0); Monocytes % (A) 2 %; Neutrophils # (A) 10.5 k/uL (1.3-7.7); Neutrophils % (A) 92 %; RBC 5.12 m/uL (4.30-5.90); RDW 16.7 % (11.5-15.5); WBC 11.4 k/uL (3.8-10.6); WBC (Perox) 11.57
[2017-02-07 03:15] LABS: ALT 85 U/L (21-72); AST 58 U/L (17-59); Alkaline Phosphatase 85 U/L (38-126); Anion Gap 12 mmol/L; Blood Urea Nitrogen 18 mg/dL (9-20); Calcium 8.3 mg/dL (8.4-10.2); Carbon Dioxide 27 mmol/L (22-30); Chloride 97 mmol/L (98-107); Glucose 309 mg/dL (74-99); Magnesium 1.7 mg/dL (1.6-2.3); Non-African American GFR(MDRD) 51 (>60 ml/min/1.73 sqM); Phosphorous 3.9 mg/dL (2.5-4.5); Potassium 4.1 mmol/L (3.5-5.1); Sodium 136 mmol/L (137-145); Total Bilirubin 0.7 mg/dL (0.2-1.3); Total Protein 7.1 g/dL (6.3-8.2)
[2017-02-07] MEDS ORDERED: HEPARIN SODIUM,PORCINE 5,000 UNIT/ML 1 ML VIAL IV PRN (03:49)
[2017-02-07] MEDS ORDERED: HEPARIN SODIUM,PORCINE/D5W PMX 25,000 UNIT in DEXTROSE/WATER 1 500ML.BAG IV SCH (04:00)
[2017-02-07] MEDS ORDERED: methylPREDNISolone SOD SUCCI 40 MG/ML 1 ML VIAL IV SCH ×2 (06:00)
[2017-02-07] MEDS ORDERED: ALBUTEROL NEBULIZED 2.5 MG/3 ML INHALATION PRN (07:48)
[2017-02-07] MEDS ORDERED: APIXABAN 2.5 MG TABLET PO SCH (09:00)
[2017-02-07] MEDS ORDERED: FUROSEMIDE 10 MG/ML 4 ML VIAL IV SCH (09:00)
[2017-02-07] MEDS ORDERED: LOSARTAN 25 MG TAB PO SCH (09:00)
[2017-02-07] MEDS ORDERED: METOPROLOL SUCCINATE (ER) 100 MG TAB.ER.24H PO SCH (09:00)
[2017-02-07] MEDS ORDERED: hydrALAZINE HCL 20 MG/ML 1 ML VIAL IM PRN (09:16)
[2017-02-07] MEDS: AZITHROMYCIN 500 MG in SODIUM CHLORIDE 0.9% 250 ML IVPB SCH (09:46)
[2017-02-07] MEDS: IPRATROPIUM-ALBUTEROL 3 ML NEB INHALATION SCH ×4 (09:47→21:23)
[2017-02-07] MEDS: CARVEDILOL 6.25 MG TAB PO SCH ×2 (10:01→17:22)
[2017-02-07 11:00] LABS: Hemoglobin A1C 6.1 % (4.2-6.1)
--- NOTE | 2017-02-07 11:32 | P.CRDCN ---
History of Present Illness Consult date: 02/07/17 Requesting physician: Laura Andres Consult reason: congestive heart failure Chief complaint: Shortness of breath History of present illness: This is a 61-year-old gentleman who was recently in the hospital in July of this year, prior to that admission patient did not carry any history of hypertension, diabetes, hyperlipidemia, he is a smoker and occasionally drink alcohol. He was found on that admission in July to be in congestive heart failure. 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 Patient does not lie down in the bed, he sits in a chair to sleep because he cannot lie flat, he states that on walking a short distance just to the bathroom he completely loses his breath and becomes very tight in the chest. Patient also has been putting on a significant amount of edema in his lower extremities and abdomen. White blood cell count on admission 13,000, 11 this morning, hemoglobin 9.3, sodium 136, potassium 4.1, chloride 97, CO2 27, creatinine 1.4, glucose on admission 202, 309 this morning. Magnesium level I.7. Troponins 0.030, 0.037, 0.027. BNP level on admission 21,900. EKG on admission showed a sinus tachycardia with no acute changes. LVH strain pattern noted. Chest x-ray showed progression and interstitial pulmonary edema. Small to moderate left and small right pleural effusion noted. Patient was initiated on IV Lasix in the emergency room, he states he has diuresed a significant amount since his admission. His weight is down 1 kg from admission. At the time of his discharge, in July, patient was discharged on Eliquis because of paroxysmal atrial fibrillation, he was also sent home on a beta delia, angiotensin delia, it doesn't appear he was discharged on any Lasix at that time, no Aldactone. But he apparently was not taking any of these medications at home. Blood pressure 173/90 with a heart rate in the 70s, temperature 98.7. Blood pressure on admission 187/115. At the time of my examination this morning, patient does state that his breathing is mildly improved, continues to have significant peripheral edema. I did have a lengthy discussion with the patient this morning regarding the importance of taking his medications regularly and following up with cardiology in the office. He states that he stopped everything and did not follow because he was essentially feeling better I discussed the importance of Follow-up and medication compliance. Past Medical History Past Medical History: Heart Failure, COPD, Hypertension, Osteoarthritis (OA), Pneumonia Additional Past Medical History / Comment(s): DIVERTICULITIS, ARTHRITIS IN SPINE ,"THALASSEMIA MINOR" History of Any Multi-Drug Resistant Organisms: None Reported Past Surgical History: Tonsillectomy Additional Past Surgical History / Comment(s): COLONOSCOPY-BENIGN POLYPS Found, LT HAND 4TH DIGIT REPAIR, LT MASTOID SX AGE 3 Past Anesthesia/Blood Transfusion Reactions: No Reported Reaction Past Psychological History: No Psychological Hx Reported Additional Psychological History / Comment(s): PT IS ,LIVES IN 2 STORY HOME THAT HAS 2 FRONT STEPS-PT STAYS ON MAIN LEVEL. 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 PT IS INDEPENDANT NO OUTSIDE SERVICES. Smoking Status: Former smoker Past Alcohol Use History: Rare Additional Past Alcohol Use History / Comment(s): STARTED SMOKING AT AGE 12, DID QUIT FOR 12 YEARS BUT RESTARTED IN 2012, SMOKES 1 PPD. Past Drug Use History: None Reported - Past Family History Mother Family Medical History: COPD, Diabetes Mellitus Father Family Medical History: Cancer, Diabetes Mellitus Additional Family Medical History / Comment(s): SKIN CANCER Medications and Allergies Home Medications Medication Instructions Recorded Confirmed Type No Known Home Medications [No 02/07/17 02/07/17 History Known Home Medications] Allergies Allergy/AdvReac Type Severity Reaction Status Date / Time Iodinated Contrast- Oral and Allergy SWELLING Verified 02/07/17 09:04 IV Dye AND [Iodinated Contrast Media - VOMITING Oral and] Latex, Natural Rubber Allergy Rash/Hives Verified 02/07/17 09:04 shellfish derived [Shellfish] Allergy SWELLING Verified 02/07/17 09:04 AND VOMITING sulfamethoxazole Allergy Rash/Hives Verified 02/07/17 09:04 [From Bactrim] trimethoprim [From Bactrim] Allergy Rash/Hives Verified 02/07/17 09:04 Physical Exam Vitals: Vital Signs Temp Pulse Pulse Resp BP BP Pulse Ox 02/07/17 03:04 98.7 F 107 H 20 182/98 99 02/07/17 00:00 98.7 F 62 20 173/96 96 02/06/17 23:29 98.7 F 62 20 173/96 96 02/06/17 23:16 102 H 22 176/84 100 02/06/17 22:15 105 H 22 187/96 100 02/06/17 21:33 108 H 02/06/17 21:25 115 H 20 187/115 100 02/06/17 21:10 104 H 02/06/17 20:33 98.7 F 105 H 28 H 140/84 94 L Intake and Output 02/06/17 02/07/17 02/07/17 22:59 06:59 14:59 Output Total 800 Balance -800 Output: Urine 800 Other: Voiding Method Urinal Weight 112.037 kg 106.1 kg PHYSICAL EXAMINATION: HEENT: Head is atraumatic, normocephalic. Pupils equal, round. Neck is supple. There is elevated jugular venous pressure up to the angle of the jaw. HEART EXAMINATION: S1 and S2 systolic murmur heard CHEST EXAMINATION: Lungs reveal bilateral rales with diminished air entry to the bases ABDOMEN: Distended, firm, bowel sounds heard. EXTREMITIES: 1+ peripheral pulses with 2+ evidence of peripheral edema and no calf tenderness noted. NEUROLOGIC patient is awake, alert and oriented -3. . Results 02/07/17 02:40 02/07/17 02:40 Cardiac Enzymes 02/06/17 02/06/17 02/07/17 Range/Units 21:00 21:00 02:40 AST 65 H 58 (17-59) U/L CK-MB (CK-2) 3.5 H* (0.0-2.4) ng/mL Troponin I 0.030 (0.000-0.034) ng/mL 02/07/17 02/07/17 Range/Units 02:40 09:34 AST (17-59) U/L CK-MB (CK-2) (0.0-2.4) ng/mL Troponin I 0.037 H* 0.027 (0.000-0.034) ng/mL Coagulation 02/06/17 02/07/17 Range/Units 21:00 02:40 PT 11.7 (9.0-12.0) sec APTT 28.3 27.2 (22.0-30.0) sec CBC 02/06/17 02/07/17 Range/Units 21:00 02:40 WBC 13.5 H 11.4 H (3.8-10.6) k/uL RBC 5.11 5.12 (4.30-5.90) m/uL Hgb 9.4 L 9.3 L (13.0-17.5) gm/dL Hct 32.9 L 33.3 L (39.0-53.0) % Plt Count 324 321 (150-450) k/uL Comprehensive Metabolic Panel 02/06/17 02/07/17 Range/Units 21:00 02:40 Sodium 136 L 136 L (137-145) mmol/L Potassium 3.8 4.1 (3.5-5.1) mmol/L Chloride 98 97 L (98-107) mmol/L Carbon Dioxide 24 27 (22-30) mmol/L BUN 17 18 (9-20) mg/dL Creatinine 1.40 H 1.40 H (0.66-1.25) mg/dL Glucose 202 H 309 H (74-99) mg/dL Calcium 8.1 L 8.3 L (8.4-10.2) mg/dL AST 65 H 58 (17-59) U/L ALT 89 H 85 H (21-72) U/L Alkaline Phosphatase 84 85 (38-126) U/L Total Protein 6.9 7.1 (6.3-8.2) g/dL Albumin 3.1 L 3.2 L (3.5-5.0) g/dL Current Medications Generic Name Dose Route Start Last Admin Trade Name Freq PRN Reason Stop Dose Admin Acetaminophen 650 mg 02/06/17 23:54 Tylenol Tab PO Q6HR PRN Mild Pain or Fever > 100.5 Albuterol Sulfate 2.5 mg 02/07/17 07:48 Ventolin Nebulized INHALATION RT-Q2H PRN Shortness Of Breath Or Wheezing Albuterol/Ipratropium 3 ml 02/07/17 08:00 02/07/17 09:47 Duoneb 0.5 Mg-3 Mg/3 Ml Soln INHALATION Not Given RT-QID JERI Apixaban 2.5 mg 02/07/17 09:00 02/07/17 09:45 Eliquis PO 2.5 mg BID JERI Administration Carvedilol 6.25 mg 02/07/17 09:15 02/07/17 10:01 Coreg PO 6.25 mg BID-W/MEALS JERI Administration Furosemide 60 mg 02/07/17 16:00 Lasix IV Q8HR JERI Hydralazine HCl 10 mg 02/07/17 09:16 Apresoline IM Q6HR PRN Blood Pressure - High Azithromycin 500 mg/ Sodium 250 mls @ 125 mls/hr 02/07/17 09:00 02/07/17 09: 46 Chloride IVPB 125 mls/hr DAILY JERI Administration Ceftriaxone Sodium 1,000 mg/ 50 mls @ 100 mls/hr 02/07/17 09:00 Sodium Chloride IVPB Q24HR JERI Losartan Potassium 12.5 mg 02/07/17 09:00 02/07/17 09:49 Cozaar PO 12.5 mg DAILY JERI Administration Methylprednisolone Sodium Succinate 40 mg 02/07/17 21:00 Solu-Medrol IV Q12HR JERI Naloxone HCl 0.2 mg 02/06/17 22:40 Narcan IV Q2M PRN Opioid Reversal Naloxone HCl 0.2 mg 02/06/17 23:54 Narcan IV Q2M PRN Opioid Reversal Ondansetron HCl 4 mg 02/06/17 23:54 Zofran IVP Q8HR PRN Nausea And Vomiting Intake and Output 02/06/17 02/07/17 02/07/17 22:59 06:59 14:59 Output Total 800 Balance -800 Output: Urine 800 Other: Voiding Method Urinal Weight 112.037 kg 106.1 kg 02/07/17 02:40 02/07/17 02:40 EKG Interpretations (text) EKG on admission shows a sinus tachycardia with LVH strain pattern Assessment and Plan Plan: Assessment and plan #1 systolic congestive heart failure acute on chronic, BNP level 21,900. #2 nicotine dependence #3 hypertension, accelerated #4 paroxysmal atrial fibrillation, not on anticoagulation #5 dilated cardiomyopathy with documented ejection fraction of 20-25% by echo done in July. #6 anemia, chronic #7 Mild renal insufficiency, acute on chronic #8 abnormal troponins, likely secondary to oxygen supply and demand mismatch #9 abnormal liver functions, secondary to congestion Plan Patient has been initiated on Coreg 0.25 mg one tablet by mouth twice a day, losartan 12-1/2 mg daily, Lasix 60 mg IV every 8 hourly's, resumed on Eliquis 2- 1/2 mg one tablet by mouth twice a day. On IV hydralazine when necessary for blood pressure. Blood pressure this morning continues to be elevated at 182/ 98. Patient was also started on IV steroids for exacerbation of COPD. We will discontinue the IV Lasix push and start the patient on IV Lasix drip. Discontinue losartan and initiate the patient on Entresto. Add Aldactone for the patient's medication regime. Repeat echocardiogram with Doppler study. 10 you to monitor intake and output along with daily weights closely. Further recommendations to follow. DNP note has been reviewed, I agree with a documented findings and plan of care. Patient was seen and examined.
[2017-02-07] MEDS ORDERED: SPIRONOLACTONE 25 MG TAB PO SCH (11:45)
--- NOTE | 2017-02-07 12:19 | P.PN ---
Subjective Progress Note Date: 02/07/17 Principal diagnosis: shortness of breath Patient is a 61-year-old male with a past medical history of systolic congestive heart failure with ejection fraction 20-25%, COPD, borderline diabetes, and hypertension who presented to the emergency department with complaints of increasing shortness of breath. In the emergency department his initial vital signs were within normal limits, however 1 hour later his blood pressure was 187/115. He underwent an extensive evaluation. Laboratory analysis showed an elevated white blood cell count 13.5. It was also consistent with prior known anemia, his creatinine was 1.4 which is at his baseline. Chest x-ray showed signs of fluid overload and possible atelectasis versus infiltrate. He was given Lasix and antibiotics. He was admitted to the selective care unit for further monitoring and care. He admitted to not taking his medications since leaving the hospital 6 months ago, he states he did this because he was feeling better. He is also started on steroids and bronchodilators. By the morning after admission he had significant improvement. Patient seen and examined at bedside. He states his shortness of breath is much improved. He states that there are 7 kids living in the house that has been quite stressful. He was not taking his medications as he felt better. He denies any chest pain, lightheadedness, or dizziness. He states he has not had to use the bathroom frequently since admission. He also states that he did not follow up with the quality control tester after discharge the last time because he was feeling better. Objective - Vital Signs Vital signs: Vital Signs Temp 98.7 F 02/07/17 03:04 Pulse 104 H 02/07/17 11:49 Resp 20 02/07/17 03:04 BP 182/98 02/07/17 03:04 Pulse Ox 99 02/07/17 03:04 Intake & Output 02/06/17 02/07/17 02/07/17 18:59 06:59 18:59 Output Total 800 350 Balance -800 -350 Weight 106.1 kg Output: Urine 800 350 Other: Voiding Method Urinal # Voids 1 - Exam General: non toxic, no distress, appears at stated age Derm: no rashes, no lesions Head: atraumatic, normocephalic, symmetric Eyes: EOMI, no lid lag, anicteric sclera ENT: no post nasal drip, no thrush Mouth: no lip lesion, mucus membranes moist Cardiovascular: S1S2 reg, no murmur, positive posterior tibial pulse bilateral, Lungs: Crackles bilaterally, no accessory muscle use Abdominal: soft, nontender to palpation, no guarding, no appreciable organomegaly Ext: no gross muscle atrophy, 4+ edema bilateral lower extremities, no contractures Neuro: CN II-XI grossly intact, no focal neuro deficits Psych: Alert, oriented, appropriate affect - Labs CBC & Chem 7: 02/07/17 02:40 02/07/17 02:40 Labs: Abnormal Lab Results - Last 24 Hours (Table) 02/06/17 02/06/17 02/06/17 Range/Units 21:00 21:00 21:00 WBC 13.5 H (3.8-10.6) k/uL Hgb 9.4 L (13.0-17.5) gm/dL Hct 32.9 L (39.0-53.0) % MCV 64.4 L (80.0-100.0) fL MCH 18.3 L (25.0-35.0) pg MCHC 28.4 L (31.0-37.0) g/dL RDW 16.7 H (11.5-15.5) % Neutrophils # 11.5 H (1.3-7.7) k/uL Lymphocytes # (1.0-4.8) k/uL INR (<1.2) Sodium 136 L (137-145) mmol/L Chloride (98-107) mmol/L Creatinine 1.40 H (0.66-1.25) mg/dL Glucose 202 H (74-99) mg/dL Calcium 8.1 L (8.4-10.2) mg/dL AST 65 H (17-59) U/L ALT 89 H (21-72) U/L Total Creatine Kinase 26 L (55-170) U/L CK-MB (CK-2) 3.5 H* (0.0-2.4) ng/mL Troponin I (0.000-0.034) ng/mL Albumin 3.1 L (3.5-5.0) g/dL 02/06/17 02/07/17 02/07/17 Range/Units 21:00 02:40 02:40 WBC 11.4 H (3.8-10.6) k/uL Hgb 9.3 L (13.0-17.5) gm/dL Hct 33.3 L (39.0-53.0) % MCV 65.0 L (80.0-100.0) fL MCH 18.3 L (25.0-35.0) pg MCHC 28.1 L (31.0-37.0) g/dL RDW 16.7 H (11.5-15.5) % Neutrophils # 10.5 H (1.3-7.7) k/uL Lymphocytes # 0.5 L (1.0-4.8) k/uL INR 1.2 H (<1.2) Sodium 136 L (137-145) mmol/L Chloride 97 L (98-107) mmol/L Creatinine 1.40 H (0.66-1.25) mg/dL Glucose 309 H (74-99) mg/dL Calcium 8.3 L (8.4-10.2) mg/dL AST (17-59) U/L ALT 85 H (21-72) U/L Total Creatine Kinase (55-170) U/L CK-MB (CK-2) (0.0-2.4) ng/mL Troponin I (0.000-0.034) ng/mL Albumin 3.2 L (3.5-5.0) g/dL 02/07/17 Range/Units 02:40 WBC (3.8-10.6) k/uL Hgb (13.0-17.5) gm/dL Hct (39.0-53.0) % MCV (80.0-100.0) fL MCH (25.0-35.0) pg MCHC (31.0-37.0) g/dL RDW (11.5-15.5) % Neutrophils # (1.3-7.7) k/uL Lymphocytes # (1.0-4.8) k/uL INR (<1.2) Sodium (137-145) mmol/L Chloride (98-107) mmol/L Creatinine (0.66-1.25) mg/dL Glucose (74-99) mg/dL Calcium (8.4-10.2) mg/dL AST (17-59) U/L ALT (21-72) U/L Total Creatine Kinase (55-170) U/L CK-MB (CK-2) (0.0-2.4) ng/mL Troponin I 0.037 H* (0.000-0.034) ng/mL Albumin (3.5-5.0) g/dL Assessment and Plan Plan: Acute exacerbation of systolic congestive heart failure with ejection fraction 20-25% -Started on ARB yesterday -Initiate Coreg today -Increase Lasix to 60 mg every 8 hours secondary to him not getting adequate diuresis with 40 mg of Lasix -Strict I's and O's -Daily weights -Cardiology recommendations appreciated: entresto, lasix gtt, aldactone -Repeat echo Accelerated hypertension -Continue on losartan -Added Coreg -When necessary hydralazine Acute exacerbation of COPD -Bronchodilator regimen adjusted -Steroids decrease in order to help decrease fluid retention as patient is no longer wheezing Paroxysmal atrial fibrillation -Telemetry -Resume Rupal Chronic kidney disease stage III -Creatinine is actually slightly better than his baseline of 1.8 -Monitor renal function closely for the next 24-48 hours as patient is now on multiple nephrotoxic agents inorder to treat his CHF including an AcEI/ARB/Loop diuretic/potassium sparing diuretic as started by cardiology - Do not add any additional nephrotoxic agents Elevated troponins, not diagnostic of coronary artery disease -Trend is flat -Repeat echo Examination as, secondary to hepatic congestion -Follow liver enzymes -If do not downtrending and liver ultrasound Borderline diabetes mellitus -Hyperglycemic on arrival -Sliding scale insulin -A1c 6.1 does not indicate that patient will need oral antidiabetic medication Dyslipidemia -Check lipid profile Moderate protein calorie malnutrition -Dietary recommendations DVT prophylaxis: Rupal Discussed with: nurse Anticipated discharge: 48-[address]: home A total of 45 minutes was spent on the care of this complex patient more than 50 % of the time was spent in counseling and care coordination.
[2017-02-07] MEDS ORDERED: APIXABAN 2.5 MG TABLET PO ONE (12:45)
[2017-02-07] MEDS: SACUBITRIL/VALSARTAN 24 MG-26 MG TABLET PO SCH ×2 (14:05→22:28)
[2017-02-07] MEDS: FUROSEMIDE 250 MG in SODIUM CHLORIDE 0.9% 225 ML IVP SCH (14:08)
[2017-02-07] MEDS ORDERED: FUROSEMIDE 10 MG/ML 10 ML VIAL IV SCH (16:00)
[2017-02-07] MEDS: methylPREDNISolone SOD SUCCI 40 MG/ML 1 ML VIAL IV SCH (21:49)
[2017-02-07] MEDS: APIXABAN 5 MG TAB PO SCH (21:51)
[2017-02-07] MEDS: SPIRONOLACTONE 25 MG TAB PO SCH (22:28)
[2017-02-07 22:45] LABS: Glucose,Whole Blood 144 mg/dL (75-99)
[2017-02-08 03:30] LABS: Anisocytosis Slight; CH 18.5; CHCM 28.1; HCT 31.4 % (39.0-53.0); HDW 3.07; HGB 8.8 gm/dL (13.0-17.5); Hypochromasia Marked; MCH 18.7 pg (25.0-35.0); MCHC 28.1 g/dL (31.0-37.0); MCV 66.4 fL (80.0-100.0); Microcytosis Marked; RBC 4.72 m/uL (4.30-5.90); WBC 11.7 k/uL (3.8-10.6)
[2017-02-08 03:52] LABS: Calcium 8.1 mg/dL (8.4-10.2); Magnesium 1.8 mg/dL (1.6-2.3); Potassium 4.1 mmol/L (3.5-5.1)
[2017-02-08 06:11] LABS: Glucose,Whole Blood 185 mg/dL (75-99)
[2017-02-08] MEDS: CARVEDILOL 6.25 MG TAB PO SCH ×2 (06:18→12:23)
[2017-02-08] MEDS: INSULIN LISPRO (humaLOG) 300 UNIT/3 ML VIAL SQ SCH ×4 (06:20→21:04)
[2017-02-08] MEDS: IPRATROPIUM-ALBUTEROL 3 ML NEB INHALATION SCH ×4 (08:05→19:27)
[2017-02-08] MEDS: methylPREDNISolone SOD SUCCI 40 MG/ML 1 ML VIAL IV SCH (10:09)
[2017-02-08] MEDS: APIXABAN 5 MG TAB PO SCH ×2 (10:10→20:56)
[2017-02-08] MEDS: SPIRONOLACTONE 25 MG TAB PO SCH ×2 (10:10→20:56)
[2017-02-08] MEDS: SACUBITRIL/VALSARTAN 24 MG-26 MG TABLET PO SCH ×2 (10:11→22:53)
--- NOTE | 2017-02-08 11:09 | ECHOF ---
Referral Reason:chf MEASUREMENTS -------- HEIGHT: 182.9 cm WEIGHT: 104.3 kg BP: 111/53 IVSd: 1.4 cm (0.6 - 1.1) LVIDd: 6.1 cm (3.9 - 5.3) LVPWd: 1.4 cm (0.6 - 1.1) IVSs: 1.5 cm LVIDs: 5.8 cm LVPWs: 1.0 cm LAESV Index (A-L): 62.31 ml/m Ao Diam: 3.4 cm (2.0 - 3.7) AV Cusp: 2.4 cm (1.5 - 2.6) LA Diam: 5.2 cm (2.7 - 3.8) MV EXCURSION: 19.523 mm (> 18.000) MV EF SLOPE: 79 mm/s (70 - 150) EPSS: 3.6 cm MV E Kavon: 0.84 m/s MV DecT: 234 ms MV A Kavon: 0.58 m/s MV E/A Ratio: 1.45 RAP: 5.00 mmHg RVSP: 35.32 mmHg FINDINGS -------- Sinus rhythm. This was a techncally difficult study with suboptimal views, , Definity utilized for enhancement of images. There is mild concentric left ventricular hypertrophy. There is moderate global hypokinesis of LV . Overall left ventricular systolic function is severely impaired with, an EF between 20 - 25 %. Anterseptal Hypokinesis Posterior hypokinesis Inferior Hypokinesis The right ventricle is normal in size. LA is severely dilated >40 ml/m2 The right atrial size is normal. 1.5MG OF DEFINITY UTLIZED: 2 OR MORE WALL SEGMENTS NOT VISUALIZED. There is mild aortic valve sclerosis. There is no evidence of aortic regurgitation. Mild mitral regurgitation is present. Mild tricuspid regurgitation present. There is mild pulmonary hypertension. The right ventricular systolic pressure, as measured by Doppler, is 35.32mmHg. There is no pulmonic regurgitation present. There is no pericardial effusion. CONCLUSIONS -------- 1. This was a techncally difficult study with suboptimal views, , Definity utilized for enhancement of images. 2. There is mild aortic valve sclerosis. 3. Mild mitral regurgitation is present. 4. Mild tricuspid regurgitation present. 5. There is mild pulmonary hypertension. 6. The right ventricular systolic pressure, as measured by Doppler, is 35.32mmHg. 7. There is no pulmonic regurgitation present. 8. There is no pericardial effusion. 9. There is mild concentric left ventricular hypertrophy. 10. There is moderate global hypokinesis of LV . 11. Overall left ventricular systolic function is severely impaired with, an EF between 20 - 25 %. 12. Anterseptal Hypokinesis 13. Posterior hypokinesis 14. Inferior Hypokinesis 15. LA is severely dilated >40 ml/m2 16. 1.5MG OF DEFINITY UTLIZED: 2 OR MORE WALL SEGMENTS NOT VISUALIZED. PEDIATRIC LPN: Saritha gM RDCS
[2017-02-08] MEDS: FUROSEMIDE 250 MG in SODIUM CHLORIDE 0.9% 225 ML IVP SCH (12:21)
[2017-02-08] MEDS: AZITHROMYCIN 500 MG in SODIUM CHLORIDE 0.9% 250 ML IVPB SCH (12:21)
--- NOTE | 2017-02-08 12:31 | P.PN ---
Subjective Progress Note Date: 02/08/17 Principal diagnosis: patient is seen and examined in follow up for acute CHF exacerbation, Hypertension, afib on blood thinners and anemia. 61 year old male with CHF left ventricular ejection fraction of 20-25%, history of COPD hypertension and borderline diabetes. patient presented to the emergency department due to increased shortness of breath, he admits to not taking his heart medications as prescribed he relates that to feeling better and he thought that he does not need them anymore. He also has history of CKD and atrial fibrillation on anticoagulation today patient reports tolerating by mouth intake denies any chest pain or trouble breathing he feels that he is getting better ready denies any nausea, vomiting, fevers or chills. Denies any coughing. Objective - Vital Signs Vital signs: Vital Signs Temp 97.3 F L 02/08/17 03:48 Pulse 66 02/08/17 08:12 Resp 16 02/08/17 08:00 BP 102/45 02/08/17 08:00 Pulse Ox 97 02/08/17 08:05 Intake & Output 02/07/17 02/08/17 02/08/17 18:59 06:59 18:59 Intake Total 300 472 Output Total 350 1625 Balance -50 -1153 Weight 104.7 kg Intake: Oral 300 472 Output: Urine 350 1625 Other: Voiding Method Urinal Urinal # Voids 1 1 - Exam Constitutional: vital signs stable, Not in acute distress, pleasant, conversant Lungs: good breath sounds except for left lung base with fine inspiratory rales no wheezing normal respiratory effort no use of accessory muscles Cardiovascular: Regular rate and rhythm, no murmurs, no gallops, no rubs, bilateral leg edema worse on the right compared to the left per patient this is chronic Gastrointestinal: Soft, no tenderness to palpation, no palpable hepatosplenomegally, bowel sounds positive, no abdominal wall hernias Extremities: No digital cyanosis or clubbing, peripheral pulses palpable and equal over bilateral radial arteries and dorsalis pedis artery, no calf muscle tenderness Psych: Alert, oriented to place, person and time - Labs CBC & Chem 7: 02/08/17 03:13 02/08/17 03:13 Labs: Abnormal Lab Results - Last 24 Hours (Table) 02/07/17 02/08/17 02/08/17 Range/Units 22:25 03:13 03:13 WBC 11.7 H (3.8-10.6) k/uL Hgb 8.8 L (13.0-17.5) gm/dL Hct 31.4 L (39.0-53.0) % MCV 66.4 L (80.0-100.0) fL MCH 18.7 L (25.0-35.0) pg MCHC 28.1 L (31.0-37.0) g/dL RDW 17.0 H (11.5-15.5) % BUN 26 H (9-20) mg/dL Creatinine 1.90 H (0.66-1.25) mg/dL Glucose 153 H (74-99) mg/dL POC Glucose (mg/dL) 144 H (75-99) mg/dL Calcium 8.1 L (8.4-10.2) mg/dL 02/08/17 Range/Units 05:58 WBC (3.8-10.6) k/uL Hgb (13.0-17.5) gm/dL Hct (39.0-53.0) % MCV (80.0-100.0) fL MCH (25.0-35.0) pg MCHC (31.0-37.0) g/dL RDW (11.5-15.5) % BUN (9-20) mg/dL Creatinine (0.66-1.25) mg/dL Glucose (74-99) mg/dL POC Glucose (mg/dL) 185 H (75-99) mg/dL Calcium (8.4-10.2) mg/dL Microbiology - Last 24 Hours (Table) 02/06/17 21:00 Blood Culture - Preliminary Blood No Growth after 24 hours Assessment and Plan (1) CHF (congestive heart failure) Narrative/Plan: acute systolic congestive heart failure exacerbation secondary to noncompliance Left ventricular ejection fraction of 20-25% Evidence of global hypokinesis on 2-D echo of the heart Cardiology following Continue with current cardiac meds, patient has diuresed well overnight with negative balance over 1 L Cut back on Lasix drip due to worsening renal function Per cardiology continue other meds including entresto and spironolactone continue close monitoring of fluid balance status, and renal function Patient clinical symptoms improving Status: Acute (2) Acute exacerbation of chronic obstructive airways disease Narrative/Plan: continue with systemic steroids switched to by mouth Continue with DuoNeb's when necessary counseled to avoid smoking and smoke exposure supplemental oxygen as needed on Azithromycin and Rocephin for possible CAP Status: Acute (3) Hypertensive urgency Narrative/Plan: blood pressure is better controlled now Continue with his current medications including hydralazine PRN for SBP>180, carvedilol and ARB Status: Acute (4) Acute kidney injury Narrative/Plan: with background of CTD stage III, nonoliguric Will closely monitor renal function Discussed with cardiology will continue entresto, spironolactone for now Cut back on Lasix drip Close monitoring of urine output try to avoid other nephrotoxic medications Status: Acute (5) Chronic kidney disease, stage III (moderate) Status: Acute (6) Microcytic anemia Narrative/Plan: patient denies any evidence of GI bleeding or melena Patient is on eliquis for stroke prophylaxis and A. fib Check iron studies check FOBT Counseled the patient to consider colonoscopy as an outpatient reported having one in the past which was normal Gi consultation for further recommendations Status: Chronic (7) Atrial fibrillation Narrative/Plan: paroxysmal atrial fibrillation on oral anticoagulation for stroke prophylaxis Currently rate controlled Continue with Coreg Status: Acute Plan: borderline diabetes currently blood sugar running 180s to 150s due to being on steroids Continue with insulin sliding scale CODE STATUS: no code DVT prophylaxis: Eliquis Discussed with: Patient, Rn, and cardiology 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
[2017-02-08 13:00] LABS: Glucose,Whole Blood 265 mg/dL (75-99)
--- NOTE | 2017-02-08 14:15 | P.PN ---
Subjective Progress Note Date: 02/08/17 This is a 61-year-old gentleman who was recently in the hospital in July of this year, prior to that admission patient did not carry any history of hypertension, diabetes, hyperlipidemia, he is a smoker and occasionally drink alcohol. He was found on that admission in July to be in congestive heart failure. Echo was done at that time which revealed an ejection fraction of 20-25%, patient was initiated on medications for his heart failure and discharged home, he did not follow with a tester armature or fields at that time, and has not been taking any medications, presents to the hospital on this occasion with approximately 2 week duration of difficulty in breathing. Patient does not lie down in the bed, he sits in a chair to sleep because he cannot lie flat, he states that on walking a short distance just to the bathroom he completely loses his breath and becomes very tight in the chest. Patient also has been putting on a significant amount of edema in his lower extremities and abdomen. White blood cell count on admission 13,000, 11 this morning, hemoglobin 9.3, sodium 136, potassium 4.1, chloride 97, CO2 27, creatinine 1.4, glucose on admission 202, 309 this morning. Magnesium level I.7. Troponins 0.030, 0.037, 0.027. BNP level on admission 21,900. EKG on admission showed a sinus tachycardia with no acute changes. LVH strain pattern noted. Chest x-ray showed progression and interstitial pulmonary edema. Small to moderate left and small right pleural effusion noted. Patient was initiated on IV Lasix in the emergency room, he states he has diuresed a significant amount since his admission. His weight is down 1 kg from admission. At the time of his discharge, in July, patient was discharged on Eliquis because of paroxysmal atrial fibrillation, he was also sent home on a beta delia, angiotensin delia, it doesn't appear he was discharged on any Lasix at that time, no Aldactone. But he apparently was not taking any of these medications at home. Blood pressure 173/90 with a heart rate in the 70s, temperature 98.7. Blood pressure on admission 187/115. At the time of my examination this morning, patient does state that his breathing is mildly improved, continues to have significant peripheral edema. I did have a lengthy discussion with the patient this morning regarding the importance of taking his medications regularly and following up with cardiology in the office. He states that he stopped everything and did not follow because he was essentially feeling better I discussed the importance of Follow-up and medication compliance. 02/08/2017 Patient seen and examined this morning, diuresing well through the night last night. Weight is down 2 kg today. BUN 26, creatinine 1.9, hemoglobin 8.8. Easy level I.8. Objective - Vital Signs Vital signs: Vital Signs Temp 97.3 F L 02/08/17 03:48 Pulse 66 02/08/17 08:12 Resp 16 02/08/17 08:00 BP 102/45 02/08/17 08:00 Pulse Ox 97 02/08/17 08:05 Intake & Output 02/07/17 02/08/17 02/08/17 18:59 06:59 18:59 Intake Total 300 472 222.167 Output Total 350 1625 Balance -50 -1153 222.167 Weight 104.7 kg Intake: Intake, IV Titration 222.167 Amount Furosemide 250 mg In 222.167 Sodium Chloride 0.9% 225 ml @ 5 MG/HR 5 mls/hr IVP .Q24H [facility] Rx#:[id number] Oral 300 472 Output: Urine 350 1625 Other: Voiding Method Urinal Urinal # Voids 1 1 - Exam PHYSICAL EXAMINATION: HEENT: [Head is atraumatic, normocephalic. Pupils equal, round. Neck is supple. There is no elevated jugular venous pressure.] HEART EXAMINATION: Heart S1 S2 1 systolic murmur is heard. CHEST EXAMINATION: Lungs reveal fine rales to bilateral bases. Diminished air entry to the bases. ABDOMEN: [ Soft, nontender. Bowel sounds are heard. No organomegaly noted]. EXTREMITIES:[ 1+ peripheral pulses with 1+ evidence of peripheral edema and no calf tenderness noted]. NEUROLOGIC [patient is awake, alert and oriented -3.] . - Labs CBC & Chem 7: 02/08/17 03:13 02/08/17 03:13 Labs: Abnormal Lab Results - Last 24 Hours (Table) 02/07/17 02/08/17 02/08/17 Range/Units 22:25 03:13 03:13 WBC 11.7 H (3.8-10.6) k/uL Hgb 8.8 L (13.0-17.5) gm/dL Hct 31.4 L (39.0-53.0) % MCV 66.4 L (80.0-100.0) fL MCH 18.7 L (25.0-35.0) pg MCHC 28.1 L (31.0-37.0) g/dL RDW 17.0 H (11.5-15.5) % BUN 26 H (9-20) mg/dL Creatinine 1.90 H (0.66-1.25) mg/dL Glucose 153 H (74-99) mg/dL POC Glucose (mg/dL) 144 H (75-99) mg/dL Calcium 8.1 L (8.4-10.2) mg/dL 02/08/17 02/08/17 Range/Units 05:58 12:18 WBC (3.8-10.6) k/uL Hgb (13.0-17.5) gm/dL Hct (39.0-53.0) % MCV (80.0-100.0) fL MCH (25.0-35.0) pg MCHC (31.0-37.0) g/dL RDW (11.5-15.5) % BUN (9-20) mg/dL Creatinine (0.66-1.25) mg/dL Glucose (74-99) mg/dL POC Glucose (mg/dL) 185 H 265 H (75-99) mg/dL Calcium (8.4-10.2) mg/dL Microbiology - Last 24 Hours (Table) 02/06/17 21:00 Blood Culture - Preliminary Blood No Growth after 24 hours Assessment and Plan Plan: Assessment and plan #1 systolic congestive heart failure acute on chronic, BNP level 21,900. #2 nicotine dependence #3 hypertension, accelerated #4 paroxysmal atrial fibrillation, not on anticoagulation #5 dilated cardiomyopathy with documented ejection fraction of 20-25% by echo done in July. #6 anemia, chronic #7 Mild renal insufficiency, acute on chronic #8 abnormal troponins, likely secondary to oxygen supply and demand mismatch #9 abnormal liver functions, secondary to congestion Plan We will decrease the Lasix drip to 5 mg per hour, continue other medications. Continue to monitor intake and output along with daily weights. DNP note has been reviewed, I agree with a documented findings and plan of care. Patient was seen and examined.
[2017-02-08 16:31] LABS: Glucose,Whole Blood 103 mg/dL (75-99)
[2017-02-08 19:46] LABS: Iron Saturation 74.03 (15.00-50.00)
[2017-02-08 21:06] LABS: Glucose,Whole Blood 195 mg/dL (75-99)
[2017-02-09 06:19] LABS: Glucose,Whole Blood 196 mg/dL (75-99)
[2017-02-09] MEDS: CARVEDILOL 6.25 MG TAB PO SCH ×2 (06:28→17:26)
[2017-02-09] MEDS: INSULIN LISPRO (humaLOG) 300 UNIT/3 ML VIAL SQ SCH ×4 (06:28→22:08)
[2017-02-09 07:01] LABS: Anisocytosis Slight; CH 19.3; CHCM 30.6; HCT 32.7 % (39.0-53.0); HGB 9.5 gm/dL (13.0-17.5); Hypochromasia Marked; MCH 18.4 pg (25.0-35.0); MCV 63.7 fL (80.0-100.0); Mean Platelet Volume 7.4; Microcytosis Marked; RBC 5.13 m/uL (4.30-5.90); RDW 18.2 % (11.5-15.5); WBC 15.2 k/uL (3.8-10.6)
[2017-02-09 07:16] LABS: Magnesium 1.8 mg/dL (1.6-2.3); Potassium 3.5 mmol/L (3.5-5.1)
[2017-02-09] MEDS: IPRATROPIUM-ALBUTEROL 3 ML NEB INHALATION SCH ×4 (08:07→21:48)
--- NOTE | 2017-02-09 08:45 | XR ---
EXAMINATION TYPE: XR chest 2V DATE OF EXAM: 02/09/2017 COMPARISON: 02/06/2017 TECHNIQUE: PA and lateral views submitted. HISTORY: Shortness of breath FINDINGS: Heart is prominent. There is no pneumothorax. Left lower lobe consolidation and pleural effusion seen and there is a diffuse interstitial pattern. IMPRESSION: 1. COPD and chronic pulmonary fibrosis with stable left lower lobe infiltrate and small effusion. 2. Interstitium is improved suggestive of a improving superimposed acute interstitial process such as pneumonitis or vascular congestion. Correlate clinically.
[2017-02-09] MEDS: APIXABAN 5 MG TAB PO SCH ×2 (08:47→21:55)
[2017-02-09] MEDS: predniSONE 50 MG TAB PO SCH (08:47)
[2017-02-09] MEDS: SPIRONOLACTONE 25 MG TAB PO SCH ×2 (08:48→21:54)
[2017-02-09] MEDS: SACUBITRIL/VALSARTAN 24 MG-26 MG TABLET PO SCH ×2 (08:48→21:55)
[2017-02-09] MEDS: AZITHROMYCIN 500 MG in SODIUM CHLORIDE 0.9% 250 ML IVPB SCH (09:58)
[2017-02-09] MEDS ORDERED: Potassium Replacement Protocol 1 EACH MISC MISCELLANE PRN (10:19)
[2017-02-09 11:39] LABS: Glucose,Whole Blood 163 mg/dL (75-99)
--- NOTE | 2017-02-09 11:52 | P.CONS ---
History of Present Illness - Reason for Consult Consult date: 02/09/17 Microcytic anemia Requesting physician: Lisseth Wright - History of Present Illness 61-year-old male PCP Dr. Stovall in [place], [place] admitted with acute CHF exacerbation with underlying history of hypertension paroxysmal atrial fibrillation maintained on Eliquis. Consult requested for iron deficiency anemia. Patient has a history of iron deficiency anemia that dates back more than 10 years requiring oral iron supplementation. No recent blood transfusions. Last colonoscopy 10 years ago to his memory was normal. Denies overt bleeding such as hematemesis hematochezia melena. Admission hemoglobin 9.4. MCV 64. Platelets 324. INR 1.2. BUN 17. Creatinine 1.4. Iron 134. Ferritin 857. Denies weight loss fever chills or abdominal pain. Hemoglobin July 2016 was 9.2-10.2 range. MCV 63-65 range. Review of Systems Constitutional: Denies fever, chills, sweats, weight gain, or loss. HEENT: Negative for migraines, blurred vision or loss, earaches, drainage, tinnitus, oral mucosal lesions, dysphagia, or odynophagia. Cardiac: CHF. COPD. Hypertension. Respiratory: Negative for shortness of breath, hemoptysis, cough, or sputum production. Gastrointestinal: See HPI for pertinent findings. Genitourinary: Negative for hematuria, urgency, frequency, polyuria, dysuria, or penile discharge. Musculoskeletal: Negative for muscle aches, swelling, arthritis, and arthralgias. Neurologic: Negative for stroke or TIA. Endocrine: Negative for thyroid problems. Skin: Negative for rash or itching. Psychiatric: Negative history for depression and anxiety All systems: negative (See HPI) Past Medical History Past Medical History: Heart Failure, COPD, Hypertension, Osteoarthritis (OA), Pneumonia Additional Past Medical History / Comment(s): DIVERTICULITIS, ARTHRITIS IN SPINE ,"THALASSEMIA MINOR" History of Any Multi-Drug Resistant Organisms: None Reported Past Surgical History: Tonsillectomy Additional Past Surgical History / Comment(s): COLONOSCOPY-BENIGN POLYPS Found, LT HAND 4TH DIGIT REPAIR, LT MASTOID SX AGE 3 Past Anesthesia/Blood Transfusion Reactions: No Reported Reaction Past Psychological History: No Psychological Hx Reported Additional Psychological History / Comment(s): PT IS ,LIVES IN 2 STORY HOME THAT HAS 2 FRONT STEPS-PT STAYS ON MAIN LEVEL. 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 PT IS INDEPENDANT NO OUTSIDE SERVICES. Smoking Status: Former smoker Past Alcohol Use History: Rare Additional Past Alcohol Use History / Comment(s): STARTED SMOKING AT AGE 12, DID QUIT FOR 12 YEARS BUT RESTARTED IN 2012, SMOKES 1 PPD. Past Drug Use History: None Reported - Past Family History Mother Family Medical History: COPD, Diabetes Mellitus Father Family Medical History: Cancer, Diabetes Mellitus Additional Family Medical History / Comment(s): SKIN CANCER Medications and Allergies Home Medications Medication Instructions Recorded Confirmed Type No Known Home Medications [No 02/07/17 02/07/17 History Known Home Medications] Allergies Allergy/AdvReac Type Severity Reaction Status Date / Time Iodinated Contrast- Oral and Allergy SWELLING Verified 02/07/17 09:04 IV Dye AND [Iodinated Contrast Media - VOMITING Oral and] Latex, Natural Rubber Allergy Rash/Hives Verified 02/07/17 09:04 shellfish derived [Shellfish] Allergy SWELLING Verified 02/07/17 09:04 AND VOMITING sulfamethoxazole Allergy Rash/Hives Verified 02/07/17 09:04 [From Bactrim] trimethoprim [From Bactrim] Allergy Rash/Hives Verified 02/07/17 09:04 Physical Exam Vitals: Vital Signs Temp Pulse Pulse Resp BP BP Pulse Ox 02/09/17 11:34 76 02/09/17 08:19 68 02/09/17 08:08 64 02/09/17 08:00 96.6 F L 77 18 131/61 98 02/09/17 03:26 97.5 F L 65 17 131/78 99 02/08/17 23:54 97.1 F L 77 17 109/48 95 02/08/17 20:00 97.1 F L 68 17 113/47 100 02/08/17 19:42 70 02/08/17 19:27 65 02/08/17 16:00 65 16 108/64 100 02/08/17 15:56 68 02/08/17 15:43 68 02/08/17 12:00 64 16 125/65 100 Intake and Output 02/08/17 02/09/17 02/09/17 22:59 06:59 14:59 Intake Total 1212 226 0 Output Total 1350 925 600 Balance -138 -699 -600 Intake: Oral 1212 226 0 Output: Urine 1350 925 600 Other: Voiding Method Urinal Urinal # Voids 2 1 Weight 104.3 kg General appearance: The patient is alert, oriented, in no acute distress. HET: Head is normocephalic and atraumatic. Pupils are equal and reactive. Oropharynx is clear without lesions. Neck: Supple without lymphadenopathy. Trachea midline. Heart: S1 S2. Lungs: Fine bibasilar crackles. Abdomen: Soft, nontender, nondistended with bowel sounds. No peritoneal signs. No palpable organomegaly or masses. Extremities: Normal skin color and turgor. No cyanosis, rash, ulceration, clubbing, or edema. Radial and pedal pulses are 2/4 bilaterally. Neurological: No focal deficits. Strength and sensation are grossly intact. Results CBC & Chem 7: 02/09/17 06:37 02/09/17 06:37 Labs: Abnormal Lab Results - Last 24 Hours (Table) 02/08/17 02/08/17 02/08/17 Range/Units 03:13 12:18 16:30 WBC (3.8-10.6) k/uL Hgb (13.0-17.5) gm/dL Hct (39.0-53.0) % MCV (80.0-100.0) fL MCH (25.0-35.0) pg MCHC (31.0-37.0) g/dL RDW (11.5-15.5) % Chloride (98-107) mmol/L Carbon Dioxide (22-30) mmol/L BUN (9-20) mg/dL Creatinine (0.66-1.25) mg/dL Glucose (74-99) mg/dL POC Glucose (mg/dL) 265 H 103 H (75-99) mg/dL Calcium (8.4-10.2) mg/dL TIBC 181 L (228-460) ug/dL Iron Saturation 74.03 H (15.00-50.00) Ferritin 857.8 H (22.0-322.0) ng/mL 02/08/17 02/09/17 02/09/17 Range/Units 21:03 06:17 06:37 WBC (3.8-10.6) k/uL Hgb (13.0-17.5) gm/dL Hct (39.0-53.0) % MCV (80.0-100.0) fL MCH (25.0-35.0) pg MCHC (31.0-37.0) g/dL RDW (11.5-15.5) % Chloride 95 L (98-107) mmol/L Carbon Dioxide 35 H (22-30) mmol/L BUN 34 H (9-20) mg/dL Creatinine 1.99 H (0.66-1.25) mg/dL Glucose 141 H (74-99) mg/dL POC Glucose (mg/dL) 195 H 196 H (75-99) mg/dL Calcium 8.0 L (8.4-10.2) mg/dL TIBC (228-460) ug/dL Iron Saturation (15.00-50.00) Ferritin (22.0-322.0) ng/mL 02/09/17 02/09/17 Range/Units 06:37 11:35 WBC 15.2 H (3.8-10.6) k/uL Hgb 9.5 L (13.0-17.5) gm/dL Hct 32.7 L (39.0-53.0) % MCV 63.7 L (80.0-100.0) fL MCH 18.4 L (25.0-35.0) pg MCHC 29.0 L (31.0-37.0) g/dL RDW 18.2 H (11.5-15.5) % Chloride (98-107) mmol/L Carbon Dioxide (22-30) mmol/L BUN (9-20) mg/dL Creatinine (0.66-1.25) mg/dL Glucose (74-99) mg/dL POC Glucose (mg/dL) 163 H (75-99) mg/dL Calcium (8.4-10.2) mg/dL TIBC (228-460) ug/dL Iron Saturation (15.00-50.00) Ferritin (22.0-322.0) ng/mL Microbiology - Last 24 Hours (Table) 02/06/17 21:00 Blood Culture - Preliminary Blood No Growth after 48 hours Assessment and Plan (1) Microcytic anemia Narrative/Plan: Cannot exclude underlying GI source contributing to iron deficiency anemia Status: Chronic Plan: . EGD colonoscopy recommended. This can be pursued as an outpatient. Patient will need to be off his anti-platelet medications at least 48 hours prior to endoscopy. Patient is declining endoscopy evaluation at this time. He would like to speak with his PCP before making a decision. He has declined follow-up visit with our GI office. Patient was advised to speak with his PCP regarding his evaluation of anemia and to follow-up with the GI service of his choice. Thank you for this kind referral and the opportunity to participate in the care of your patient. This consultation was discussed with Dr. Aburto. The impression and plan of care have been directed as dictated.
[2017-02-09 13:09] VITALS: BMI 29.5
[2017-02-09] MEDS: FUROSEMIDE 250 MG in SODIUM CHLORIDE 0.9% 225 ML IVP SCH (14:50)
--- NOTE | 2017-02-09 15:06 | PN ---
PROGRESS NOTE This patient is admitted with acute congestive cardiac failure. Patient is feeling better. His breathing improved. Patient is afebrile. The respirations are not labored. Blood pressure is 104/50 mmHg. Oxygen saturation is 96%. Patient's creatinine is 1.99 which is not significantly changed from yesterday. We will discontinue the Lasix today and recheck the BMP tomorrow. If the patient's BMP is getting better, we will start the patient on the oral Lasix. At present, we will continue the current dose of Entresto which he is tolerating well. Patient's chest x- ray done today still shows the changes of mild heart failure. MMODL / IJN: [id number] /
[2017-02-09 16:35] LABS: Glucose,Whole Blood 271 mg/dL (75-99)
--- NOTE | 2017-02-09 17:57 | P.PN ---
Subjective Progress Note Date: 02/09/17 Principal diagnosis: patient is seen and examined in follow up for acute CHF exacerbation, Hypertension, afib on blood thinners and anemia. 61 year old male with CHF left ventricular ejection fraction of 20-25%, history of COPD hypertension and borderline diabetes. patient presented to the emergency department due to increased shortness of breath, he admits to not taking his heart medications as prescribed he relates that to feeling better and he thought that he does not need them anymore. He also has history of CKD and atrial fibrillation on anticoagulation patient seen and exmianed today, no new complaints, blood sugar running slightly high , otherwise, no report of GI bleeding, chest pain, trouble breathing, no fever or chills. tolerating diet. Objective - Vital Signs Vital signs: Vital Signs Temp 96.6 F L 02/09/17 08:00 Pulse 72 02/09/17 16:00 Resp 18 02/09/17 12:00 BP 104/50 02/09/17 12:00 Pulse Ox 96 02/09/17 12:00 Intake & Output 02/08/17 02/09/17 02/09/17 18:59 06:59 18:59 Intake Total 140.079 3179 120 Output Total 1550 1525 1075 Balance -927.833 -487 -955 Weight 104.3 kg 104.3 kg Intake: Intake, IV Titration 222.167 Amount Furosemide 250 mg In 222.167 Sodium Chloride 0.9% 225 ml @ 5 MG/HR 5 mls/hr IVP .Q24H [facility] Rx#:[id number] Oral 400 1038 120 Output: Urine 1550 1525 1075 Other: Voiding Method Urinal # Voids 2 1 - Exam Constitutional: vital signs stable, Not in acute distress, pleasant, conversant Lungs: slightly decreased breath sounds bilaterally , clear to auscultation left lung base with fine rales Cardiovascular: Regular rate and rhythm, no murmurs, no gallops, no rubs Gastrointestinal: Soft, no tenderness to palpation, no palpable, bowel sounds positive Extremities: No digital cyanosis or clubbing, peripheral pulses palpable and equal over bilateral radial arteries and dorsalis pedis artery, no calf muscle tenderness Psych: Alert, oriented to place, person and time - Labs CBC & Chem 7: 02/09/17 06:37 02/09/17 06:37 Labs: Abnormal Lab Results - Last 24 Hours (Table) 02/08/17 02/08/17 02/09/17 Range/Units 03:13 21:03 06:17 WBC (3.8-10.6) k/uL Hgb (13.0-17.5) gm/dL Hct (39.0-53.0) % MCV (80.0-100.0) fL MCH (25.0-35.0) pg MCHC (31.0-37.0) g/dL RDW (11.5-15.5) % Chloride (98-107) mmol/L Carbon Dioxide (22-30) mmol/L BUN (9-20) mg/dL Creatinine (0.66-1.25) mg/dL Glucose (74-99) mg/dL POC Glucose (mg/dL) 195 H 196 H (75-99) mg/dL Calcium (8.4-10.2) mg/dL TIBC 181 L (228-460) ug/dL Iron Saturation 74.03 H (15.00-50.00) Ferritin 857.8 H (22.0-322.0) ng/mL 02/09/17 02/09/17 02/09/17 Range/Units 06:37 06:37 11:35 WBC 15.2 H (3.8-10.6) k/uL Hgb 9.5 L (13.0-17.5) gm/dL Hct 32.7 L (39.0-53.0) % MCV 63.7 L (80.0-100.0) fL MCH 18.4 L (25.0-35.0) pg MCHC 29.0 L (31.0-37.0) g/dL RDW 18.2 H (11.5-15.5) % Chloride 95 L (98-107) mmol/L Carbon Dioxide 35 H (22-30) mmol/L BUN 34 H (9-20) mg/dL Creatinine 1.99 H (0.66-1.25) mg/dL Glucose 141 H (74-99) mg/dL POC Glucose (mg/dL) 163 H (75-99) mg/dL Calcium 8.0 L (8.4-10.2) mg/dL TIBC (228-460) ug/dL Iron Saturation (15.00-50.00) Ferritin (22.0-322.0) ng/mL 02/09/17 Range/Units 16:31 WBC (3.8-10.6) k/uL Hgb (13.0-17.5) gm/dL Hct (39.0-53.0) % MCV (80.0-100.0) fL MCH (25.0-35.0) pg MCHC (31.0-37.0) g/dL RDW (11.5-15.5) % Chloride (98-107) mmol/L Carbon Dioxide (22-30) mmol/L BUN (9-20) mg/dL Creatinine (0.66-1.25) mg/dL Glucose (74-99) mg/dL POC Glucose (mg/dL) 271 H (75-99) mg/dL Calcium (8.4-10.2) mg/dL TIBC (228-460) ug/dL Iron Saturation (15.00-50.00) Ferritin (22.0-322.0) ng/mL Microbiology - Last 24 Hours (Table) 02/06/17 21:00 Blood Culture - Preliminary Blood No Growth after 48 hours Assessment and Plan (1) CHF (congestive heart failure) Narrative/Plan: acute systolic congestive heart failure exacerbation secondary to noncompliance Left ventricular ejection fraction of 20-25% Evidence of global hypokinesis on 2-D echo of the heart Cardiology following Continue with current cardiac meds responding to diuresis, good negative balance discontinue lasix gtt Per cardiology continue other meds including entresto and spironolactone continue close monitoring of fluid balance status, and renal function Patient clinical symptoms improving Current Visit: Yes Status: Acute Code(s): I50.9 - HEART FAILURE, UNSPECIFIED SNOMED Code(s): 32590371 (2) Acute exacerbation of chronic obstructive airways disease Narrative/Plan: continue with systemic steroids switched to by mouth Continue with DuoNeb's when necessary counseled to avoid smoking and smoke exposure supplemental oxygen as needed on Azithromycin and Rocephin for CAP Current Visit: Yes Status: Acute Code(s): J44.1 - CHRONIC OBSTRUCTIVE PULMONARY DISEASE W (ACUTE) EXACERBATION SNOMED Code(s): 293796231 (3) Community acquired pneumonia Narrative/Plan: afebrile azithro + rocephin Current Visit: Yes Status: Acute Code(s): J18.9 - PNEUMONIA, UNSPECIFIED ORGANISM SNOMED Code(s): 283890771 (4) Hypertensive urgency Narrative/Plan: blood pressure is better controlled now Continue with his current medications including hydralazine PRN for SBP>180, carvedilol and ARB Current Visit: Yes Status: Acute Code(s): I16.0 - HYPERTENSIVE URGENCY SNOMED Code(s): 294529999 (5) Acute kidney injury Narrative/Plan: with background of CKD stage III, nonoliguric discontinue lasix gtt Close monitoring of urine output renal function follow up Current Visit: Yes Status: Acute Code(s): N17.9 - ACUTE KIDNEY FAILURE, UNSPECIFIED SNOMED Code(s): 24328011 (6) Chronic kidney disease, stage III (moderate) Current Visit: Yes Status: Acute Code(s): N18.3 - CHRONIC KIDNEY DISEASE, STAGE 3 (MODERATE) SNOMED Code(s): 534420943 (7) Microcytic anemia Narrative/Plan: hemoglobin stable and improving today patient denies any evidence of GI bleeding or melena Patient is on eliquis for stroke prophylaxis and A. fib iron studies shows evidence of acute phase reactant and chronic disease Counseled the patient to consider colonoscopy as an outpatient reported having one in the past which was normal GI recommending endoscopy , patient would like to discuss with his PCP , he is not willing to follow up with GI aat this point Current Visit: Yes Status: Chronic Code(s): D50.9 - IRON DEFICIENCY ANEMIA, UNSPECIFIED SNOMED Code(s): 335971225 (8) Atrial fibrillation Narrative/Plan: paroxysmal atrial fibrillation on oral anticoagulation for stroke prophylaxis Currently rate controlled Continue with Coreg Current Visit: No Status: Acute Code(s): I48.91 - UNSPECIFIED ATRIAL FIBRILLATION SNOMED Code(s): 11582129 Plan: continue current supportive care monitor Hgb and renal function strict I/Os hyperglycemia 2/2 systemic steroids patient will need placement and evaluation of home oxygen requirement upon discharge
[2017-02-09 22:07] LABS: Glucose,Whole Blood 161 mg/dL (75-99)
[2017-02-10 07:24] LABS: Glucose,Whole Blood 127 mg/dL (75-99)
[2017-02-10] MEDS: INSULIN LISPRO (humaLOG) 300 UNIT/3 ML VIAL SQ SCH ×4 (07:41→21:11)
[2017-02-10] MEDS: CARVEDILOL 6.25 MG TAB PO SCH ×2 (08:10→17:39)
[2017-02-10] MEDS: AZITHROMYCIN 500 MG TAB PO SCH (08:10)
[2017-02-10] MEDS: APIXABAN 5 MG TAB PO SCH ×2 (08:10→22:19)
[2017-02-10] MEDS: predniSONE 50 MG TAB PO SCH (08:11)
[2017-02-10] MEDS: SPIRONOLACTONE 25 MG TAB PO SCH ×2 (08:11→21:10)
[2017-02-10] MEDS: SACUBITRIL/VALSARTAN 24 MG-26 MG TABLET PO SCH ×2 (08:11→21:10)
[2017-02-10 09:01] LABS: Calcium 7.8 mg/dL (8.4-10.2); Magnesium 1.7 mg/dL (1.6-2.3); Potassium 3.9 mmol/L (3.5-5.1)
[2017-02-10 09:14] LABS: Anisocytosis Slight; Basophils # (A) 0.1 k/uL (0-0.2); Basophils % (A) 0 %; CH 18.8; Eosinophils # (A) 0.1 k/uL (0-0.7); Eosinophils % (A) 1 %; HCT 35.3 % (39.0-53.0); HGB 9.9 gm/dL (13.0-17.5); Hypochromasia Marked; Luc # (Auto) 0.36; Luc % (Auto) 2; Lymphocytes # (A) 3.9 k/uL (1.0-4.8); Lymphocytes % (A) 24 %; MCH 18.3 pg (25.0-35.0); MCV 65.4 fL (80.0-100.0); Mean Platelet Volume 6.9; Microcytosis Marked; Monocytes # (A) 0.7 k/uL (0-1.0); Monocytes % (A) 5 %; Neutrophils # (A) 11.1 k/uL (1.3-7.7); Neutrophils % (A) 68 %; RDW 17.8 % (11.5-15.5); WBC 16.2 k/uL (3.8-10.6); WBC (Perox) 16.67
[2017-02-10] MEDS: IPRATROPIUM-ALBUTEROL 3 ML NEB INHALATION SCH ×4 (09:36→20:41)
[2017-02-10 12:22] LABS: Glucose,Whole Blood 190 mg/dL (75-99)
--- NOTE | 2017-02-10 13:17 | P.DS ---
Providers Date of admission: 02/06/17 22:44 Expected date of discharge: 02/11/17 Attending physician: Laura Andres MD Consults: 02/07/17 03:42 Consult Physician Routine Consulting Provider: Stephy Johnson Consult Reason/Comments: Elevated troponin Do you want consulting provider notified?: Yes, Notify in am Primary care physician: Yan Stovall - Discharge Diagnosis(es) (1) CHF (congestive heart failure) Current Visit: Yes Status: Acute (2) Acute exacerbation of chronic obstructive airways disease Current Visit: Yes Status: Acute (3) Hypertensive urgency Current Visit: Yes Status: Acute (4) Acute kidney injury Current Visit: Yes Status: Acute (5) Chronic kidney disease, stage III (moderate) Current Visit: Yes Status: Acute (6) Microcytic anemia Current Visit: Yes Status: Chronic (7) Atrial fibrillation Current Visit: No Status: Acute (8) Sepsis due to pneumonia Current Visit: Yes Status: Acute Hospital Course: 61 year old male with CHF left ventricular ejection fraction of 20-25%, history of COPD hypertension and borderline diabetes. patient presented to the emergency department due to increased shortness of breath, he admits to not taking his heart medications as prescribed he relates that to feeling better and he thought that he does not need them anymore. He also has history of CKD and atrial fibrillation on anticoagulation. Patient was found to have pulmonary congestion and left lower lobe infilterate causing pneumonia and acute exacerbation of COPD. He was evaluated by cardiology. Patient was started on ABx for CAP, and inhalers along with systemic steroids. Cardiology adjusted his cardiac medications and utilized IV diuresis. patient responded well, had an initial bump in his renal function which later started to improve , patient continued to have good urine output. Patient was also evaluated by GI, for consideration of endoscopy, due to microcytic anemia, iron studies reflected chronic disease. Patient declined endoscopy until he discusses further with his PCP. Cardiology was asked to evaluate the patient for life vest prior to discharge. patient seen and examined on day of discharge, he was doing well, no new complaints was eager to go home. He denies any evidence of GI bleeding at this point. general: vital signs stable, pleasant conversant ambulatory oxygen saturation on room air was within normal limits Lungs good breath sounds bilaterally , some scattered rhonci Cardiovascular : regular rate and rhythm, normal S1 S2 , no murmurs, no peripheral edema Extremities: left leg seems dry, right leg is chronically swollen per the patient due to childhood injury Psyh: alert oriented to place, person, time and situation Patient switched to PO antibiotics to finish CAP treatment with ceftin for 5 days ICS/LABA, and anticholinergic inhaler, GLORIA provided for COPD tapering dose of steroids continue with Eliquis for history of P afib aldactone and entresto PO lasix monitor BMP OP follow up with , PCP, cardiology and GI OP consider upper and lower endoscopy awaiting life vest to be discharged 35 minutes were spent discharging this patient, and more than 50% of the time was spent in counseling the patient and in coordinating care. Pertinent Studies: 2 D echocardiogram showed LVEF of 20-25% Patient Condition at Discharge: Stable Plan - Discharge Summary New Discharge Prescriptions: New RX: Apixaban [Eliquis] 5 mg PO BID #60 tab RX: Carvedilol [Coreg] 6.25 mg PO BID-W/MEALS #60 tab Cefuroxime Axetil [Ceftin] 500 mg PO BID #10 tab RX: predniSONE See Taper PO DAILY #21 tab RX: Sacubitril/Valsartan [Entresto 24 mg-26 mg Tablet] 1 each PO BID #60 tablet RX: Spironolactone [Aldactone] 25 mg PO BID #60 tab RX: Albuterol Inhaler [Ventolin Hfa Inhaler] 1 - 2 puff INHALATION Q6HR PRN # 1 inhaler PRN Reason: Shortness Of Breath Or Wheezing Budesonide-Formot 160-4.5 Mcg [Symbicort 160-4.5 Mcg Inhaler] 2 puff INHALATION BID #1 inhaler Tiotropium [place] [Spiriva] 1 cap INHALATION DAILY #1 device Discharge Medication List Budesonide-Formot 160-4.5 Mcg [Symbicort 160-4.5 Mcg Inhaler] 2 puff INHALATION BID #1 inhaler 02/10/17 [Rx] Cefuroxime Axetil [Ceftin] 500 mg PO BID #10 tab 02/10/17 [Rx] RX: Albuterol Inhaler [Ventolin Hfa Inhaler] 1 - 2 puff INHALATION Q6HR PRN #1 inhaler 02/10/17 [Rx] RX: Apixaban [Eliquis] 5 mg PO BID #60 tab 02/10/17 [Rx] RX: Carvedilol [Coreg] 6.25 mg PO BID-W/MEALS #60 tab 02/10/17 [Rx] RX: Sacubitril/Valsartan [Entresto 24 mg-26 mg Tablet] 1 each PO BID #60 tablet 02/10/17 [Rx] RX: Spironolactone [Aldactone] 25 mg PO BID #60 tab 02/10/17 [Rx] RX: predniSONE See Taper PO DAILY #21 tab 02/10/17 [Rx] Tiotropium [place] [Spiriva] 1 cap INHALATION DAILY #1 device 02/10/17 [Rx] Follow up Appointment(s)/Referral(s): Yan Stovall DO [Primary Care Provider] - 1-2 days Eileen Pollack MD [STAFF PHYSICIAN] - 1 Week Raúl Aburto MD [STAFF PHYSICIAN] - 1 Week Ambulatory/Diagnostic Orders: Basic Metabolic Panel [LAB.AMB] Time Frame: 3 Days, Location: Determined By Patient Patient Instructions/Handouts: Heart Failure (DC), COPD (Chronic Obstructive Pulmonary Disease) (GEN), Safe Use of Anticoagulants (GEN) Activity/Diet/Wound Care/Special Instructions: activity as tolerated cardiac diet, low sodium , low fat fluid restriction 2 L per day Discharge Disposition: HOME SELF-CARE
--- NOTE | 2017-02-10 13:34 | P.PN ---
Subjective Progress Note Date: 02/10/17 This is a 61-year-old gentleman who was recently in the hospital in July of this year, prior to that admission patient did not carry any history of hypertension, diabetes, hyperlipidemia, he is a smoker and occasionally drink alcohol. He was found on that admission in July to be in congestive heart failure. Echo was done at that time which revealed an ejection fraction of 20-25%, patient was initiated on medications for his heart failure and discharged home, he did not follow with a manager title at that time, and has not been taking any medications, presents to the hospital on this occasion with approximately 2 week duration of difficulty in breathing. Patient does not lie down in the bed, he sits in a chair to sleep because he cannot lie flat, he states that on walking a short distance just to the bathroom he completely loses his breath and becomes very tight in the chest. Patient also has been putting on a significant amount of edema in his lower extremities and abdomen. White blood cell count on admission 13,000, 11 this morning, hemoglobin 9.3, sodium 136, potassium 4.1, chloride 97, CO2 27, creatinine 1.4, glucose on admission 202, 309 this morning. Magnesium level I.7. Troponins 0.030, 0.037, 0.027. BNP level on admission 21,900. EKG on admission showed a sinus tachycardia with no acute changes. LVH strain pattern noted. Chest x-ray showed progression and interstitial pulmonary edema. Small to moderate left and small right pleural effusion noted. Patient was initiated on IV Lasix in the emergency room, he states he has diuresed a significant amount since his admission. His weight is down 1 kg from admission. At the time of his discharge, in July, patient was discharged on Eliquis because of paroxysmal atrial fibrillation, he was also sent home on a beta delia, angiotensin delia, it doesn't appear he was discharged on any Lasix at that time, no Aldactone. But he apparently was not taking any of these medications at home. Blood pressure 173/90 with a heart rate in the 70s, temperature 98.7. Blood pressure on admission 187/115. At the time of my examination this morning, patient does state that his breathing is mildly improved, continues to have significant peripheral edema. I did have a lengthy discussion with the patient this morning regarding the importance of taking his medications regularly and following up with cardiology in the office. He states that he stopped everything and did not follow because he was essentially feeling better I discussed the importance of Follow-up and medication compliance. 02/10/2017 Mr. Bustillo is seen today in follow-up. He is seen sitting up on the side of the bed in no acute distress. He is currently maintaining oxygen saturations greater than 95% on room air. He states he just ambulated to the bathroom and had no shortness of breath with that exertion. Swelling in lower extremities ongoing right greater than left. Blood pressure 134/67 with heart rate 73. He is currently maintained on eliquis 5 mg BID, coreg 6.25 mg BID, entresto and aldactone 25 mg BID. Hgb 9.9, WBC 16.2, BUN 39, Cr 1.87, potassium 3.9, magnesium 1.7. He continues to diurese well with a negative I&O balance today. Although his weight appears to have increased. I will recommend checking his weight at the same time every morning with the same scale. Review of telemetry tracings it appears he had a nonsustained run of ventricular tachycardia last night around 11:30. Does not recall when this occurred denies chest pain, shortness of breath or palpitations. Objective - Vital Signs Vital signs: Vital Signs Temp 97.0 F L 02/10/17 07:00 Pulse 80 02/10/17 09:46 Resp 16 02/10/17 07:00 BP 134/67 02/10/17 07:00 Pulse Ox 96 02/10/17 12:31 Intake & Output 02/09/17 02/10/17 02/10/17 18:59 06:59 18:59 Intake Total 240 50 Output Total 1300 Balance -1060 50 Weight 104.3 kg 109.5 kg Intake: Intake, IV Titration 50 Amount cefTRIAXone 1,000 mg In 50 Sodium Chloride 0.9% 50 ml @ 100 mls/hr IVPB Q24HR [facility] Rx#:[id number] Oral 240 Output: Urine 1300 Other: # Voids 1 2 - Exam GENERAL: Well-appearing, well-nourished and in no acute distress. NECK: Supple without JVD or thyromegaly. LUNGS: Fine rales bibasilar with rhonchi. No wheezes. Respirations equal and unlabored. HEART: Regular rate and rhythm with systolic murmurs at the base, no rubs or gallops. S1 and S2 heard. EXTREMITIES: Normal range of motion. 1+ pitting edema right lower extremity, trace to left lower extremity. No clubbing or cyanosis. Peripheral pulses intact and weak. - Labs CBC & Chem 7: 02/10/17 08:29 02/10/17 08:29 Labs: Abnormal Lab Results - Last 24 Hours (Table) 02/09/17 02/09/17 02/10/17 Range/Units 16:31 22:05 06:56 WBC (3.8-10.6) k/uL Hgb (13.0-17.5) gm/dL Hct (39.0-53.0) % MCV (80.0-100.0) fL MCH (25.0-35.0) pg MCHC (31.0-37.0) g/dL RDW (11.5-15.5) % Neutrophils # (1.3-7.7) k/uL Chloride (98-107) mmol/L BUN (9-20) mg/dL Creatinine (0.66-1.25) mg/dL Glucose (74-99) mg/dL POC Glucose (mg/dL) 271 H 161 H 127 H (75-99) mg/dL Calcium (8.4-10.2) mg/dL 02/10/17 02/10/17 02/10/17 Range/Units 08:29 08:29 12:10 WBC 16.2 H (3.8-10.6) k/uL Hgb 9.9 L (13.0-17.5) gm/dL Hct 35.3 L (39.0-53.0) % MCV 65.4 L (80.0-100.0) fL MCH 18.3 L (25.0-35.0) pg MCHC 28.0 L (31.0-37.0) g/dL RDW 17.8 H (11.5-15.5) % Neutrophils # 11.1 H (1.3-7.7) k/uL Chloride 97 L (98-107) mmol/L BUN 39 H (9-20) mg/dL Creatinine 1.87 H (0.66-1.25) mg/dL Glucose 164 H (74-99) mg/dL POC Glucose (mg/dL) 190 H (75-99) mg/dL Calcium 7.8 L (8.4-10.2) mg/dL Microbiology - Last 24 Hours (Table) 02/06/17 21:00 Blood Culture - Preliminary Blood No Growth after 72 hours Assessment and Plan Plan: ASSESSMENT 1. Acute on chronic systolic congestive heart failure 2. Hypertension 3. Paroxysmal atrial fibrillation 3. Dilated cardiomyopathy with documented ejection fraction 20-25% 4. Chronic anemia 5. Renal insufficiency, acute on chronic 6. Abnormal troponins, likely secondary to oxygen supply and demand mismatch 7. Nonsustained ventricular tachycardia PLAN Continue current medications as previously ordered. Start Lasix 40 mg twice a day by mouth. Continue with strict intake and output along with daily weights. Continue cardiac monitoring to check for arrhythmia. In the process of ordering a LifeVest prior to discharge to bridge the patient until he be further worked up as an outpatient to determine the source of his cardiomyopathy is ischemic or nonischemic. He is to remain in the hospital for another 24 hours. Nurse Practitioner note has been reviewed, I agree with a documented findings and plan of care. Patient was seen and examined.
--- NOTE | 2017-02-10 13:58 | CDI ---
[facility] [place] [address] [facility] [place] [id number] Date : 02/10/17 1356 From; Laura Omalley Rn, CCDS MR#: [id number] Admit Date: 02/06/17 1044 Patient Name: Dustin Bustillo History/Risk Factors: CHF, COPD, Pneumonia, Clinical Indicators: WBC: 13.5/11.4/11.7/15.2/16.% RA2 Left Shift: 11.5/10.5/11.1 Lactic acid: 2 Blood cultures: negative Vitals signs on admission: Temp 98.7, HR 105, RR 28, B/P 140/84, Spo2 94% Other Clinical Indicators: Treatment: ID Consult: none Antibiotics: Zithromax 500 mg IVP x1 dose, IV Ceftriaxone 1gm IVPB Q 24 hrs IV Bolus: none given, pt on IV Lasix Gtt In your professional opinion, please clarify if these findings signify one of the following conditions, whether the condition is POA, and cause, if known: Sepsis Severe Sepsis Septic Shock Unable to determine Other, please specify Present on Admission: Yes No * Identify the (suspected) organism * Link or clarify if there is associated (due to/with): - Organ failure - Shock SIRS Criteria: 2 or more of the following may indicate SIRS Temperature < 96.8F(36C) or > 101.0F (38C) Heart Rate > 90 bpm Respiratory Rate > 20 breaths/min or PaCO2 < 32 mmHg White Blood Cell Count > 12,000 or < 4,000 cells/mm3 or > 10% bands Lactate >2.0 mmol/L (>4.0 is equivalent to septic shock) Please document in your discharge summary in order to capture severity of illness and risk of mortality. Include clinical findings that support your diagnosis. FYI: Press F11 to launch patient chart. TARA
[2017-02-10 17:27] LABS: Glucose,Whole Blood 212 mg/dL (75-99)
[2017-02-10] MEDS: FUROSEMIDE 40 MG TAB PO SCH (18:31)
[2017-02-10 20:48] LABS: Glucose,Whole Blood 167 mg/dL (75-99)
[2017-02-11 07:34] LABS: Glucose,Whole Blood 111 mg/dL (75-99)
[2017-02-11] MEDS: IPRATROPIUM-ALBUTEROL 3 ML NEB INHALATION SCH ×3 (07:59→15:27)
--- NOTE | 2017-02-11 08:22 | XR ---
EXAMINATION TYPE: XR chest 2V DATE OF EXAM: 02/11/2017 COMPARISON: 02/09/2017 HISTORY: 61-year-old male follow-up CHF TECHNIQUE: Frontal and lateral views FINDINGS: Heart upper limits of normal in size, unchanged. Large appearance to the central main pulmonary arter ies. Hyperinflation with mild interstitial prominence which persists. Continued [id number] lef t pleural effusion with adjacent opacities. Overall appearance is unchanged. Hyperinflation. IMPRESSION: 1. Overall stable appearance of COPD and probable underlying pulmonary arterial hypertension with sup erimposed mild pulmonary vascular congestion. 2. Continued [id number] left pleural effusion with adjacent atelectasis and/or consolidation.
[2017-02-11] MEDS: INSULIN LISPRO (humaLOG) 300 UNIT/3 ML VIAL SQ SCH ×2 (08:28→13:30)
[2017-02-11] MEDS: FUROSEMIDE 40 MG TAB PO SCH (08:37)
[2017-02-11] MEDS: SACUBITRIL/VALSARTAN 24 MG-26 MG TABLET PO SCH (08:37)
[2017-02-11] MEDS: SPIRONOLACTONE 25 MG TAB PO SCH (08:38)
[2017-02-11] MEDS: APIXABAN 5 MG TAB PO SCH (08:38)
[2017-02-11] MEDS: CARVEDILOL 6.25 MG TAB PO SCH (08:38)
[2017-02-11] MEDS: predniSONE 50 MG TAB PO SCH (08:38)
[2017-02-11] MEDS: AZITHROMYCIN 500 MG TAB PO SCH (08:38)
[2017-02-11] MEDS ORDERED: FUROSEMIDE 10 MG/ML 2 ML VIAL IV ONE (10:24)
--- NOTE | 2017-02-11 12:30 | P.PN ---
Subjective Progress Note Date: 02/10/17 Principal diagnosis: patient is seen and examined in follow up for acute CHF exacerbation, Hypertension, afib on blood thinners and anemia. 61 year old male with CHF left ventricular ejection fraction of 20-25%, history of COPD hypertension and borderline diabetes. patient presented to the emergency department due to increased shortness of breath, he admits to not taking his heart medications as prescribed he relates that to feeling better and he thought that he does not need them anymore. He also has history of CKD and atrial fibrillation on anticoagulation. Patient was found to have pulmonary congestion and left lower lobe infilterate causing pneumonia and acute exacerbation of COPD. He was evaluated by cardiology. Patient was started on ABx for CAP, and inhalers along with systemic steroids. Cardiology adjusted his cardiac medications and utilized IV diuresis. patient responded well, had an initial bump in his renal function which later started to improve , patient continued to have good urine output. Patient was also evaluated by GI, for consideration of endoscopy, due to microcytic anemia, iron studies reflected chronic disease. Patient declined endoscopy until he discusses further with his PCP. Cardiology was asked to evaluate the patient for life vest prior to discharge. patient seen and examined today, doing well, no new complaints was eager to go home. He denies any evidence of GI bleeding at this point. He is still waiting to receive his life vest Objective - Vital Signs Vital signs: Vital Signs Temp 97.5 F L 02/10/17 16:22 Pulse 69 02/10/17 16:22 Resp 18 02/10/17 16:22 BP 135/75 02/10/17 16:22 Pulse Ox 95 02/10/17 15:00 Intake & Output 02/09/17 02/10/17 02/10/17 18:59 06:59 18:59 Intake Total 240 50 Output Total 1300 Balance -1060 50 Weight 104.3 kg 109.5 kg Intake: Intake, IV Titration 50 Amount cefTRIAXone 1,000 mg In 50 Sodium Chloride 0.9% 50 ml @ 100 mls/hr IVPB Q24HR [facility] Rx#:[id number] Oral 240 Output: Urine 1300 Other: # Voids 1 2 1 - Exam general: vital signs stable, pleasant conversant ambulatory oxygen saturation on room air was within normal limits Lungs good breath sounds bilaterally , clear to auscultation throughout Cardiovascular : regular rate and rhythm , no murmurs, no peripheral edema Extremities: right leg is chronically swollen per the patient due to childhood injury, left leg no edema Psyh: alert oriented to place, person, time and situation - Labs CBC & Chem 7: 02/10/17 08:29 02/10/17 08:29 Labs: Abnormal Lab Results - Last 24 Hours (Table) 02/09/17 02/10/17 02/10/17 Range/Units 22:05 06:56 08:29 WBC (3.8-10.6) k/uL Hgb (13.0-17.5) gm/dL Hct (39.0-53.0) % MCV (80.0-100.0) fL MCH (25.0-35.0) pg MCHC (31.0-37.0) g/dL RDW (11.5-15.5) % Neutrophils # (1.3-7.7) k/uL Chloride 97 L (98-107) mmol/L BUN 39 H (9-20) mg/dL Creatinine 1.87 H (0.66-1.25) mg/dL Glucose 164 H (74-99) mg/dL POC Glucose (mg/dL) 161 H 127 H (75-99) mg/dL Calcium 7.8 L (8.4-10.2) mg/dL 02/10/17 02/10/17 02/10/17 Range/Units 08:29 12:10 17:02 WBC 16.2 H (3.8-10.6) k/uL Hgb 9.9 L (13.0-17.5) gm/dL Hct 35.3 L (39.0-53.0) % MCV 65.4 L (80.0-100.0) fL MCH 18.3 L (25.0-35.0) pg MCHC 28.0 L (31.0-37.0) g/dL RDW 17.8 H (11.5-15.5) % Neutrophils # 11.1 H (1.3-7.7) k/uL Chloride (98-107) mmol/L BUN (9-20) mg/dL Creatinine (0.66-1.25) mg/dL Glucose (74-99) mg/dL POC Glucose (mg/dL) 190 H 212 H (75-99) mg/dL Calcium (8.4-10.2) mg/dL Microbiology - Last 24 Hours (Table) 02/06/17 21:00 Blood Culture - Preliminary Blood No Growth after 72 hours Assessment and Plan (1) CHF (congestive heart failure) Narrative/Plan: acute systolic congestive heart failure exacerbation secondary to noncompliance , resolved Left ventricular ejection fraction of 20-25% Evidence of global hypokinesis on 2-D echo of the heart Cardiology following Continue with current cardiac meds responding to diuresis, good negative balance now on PO lasix Per cardiology continue other meds including entresto and spironolactone continue close monitoring of fluid balance status, and renal function await life vest placement patient is ready for discharge Current Visit: Yes Status: Acute Code(s): I50.9 - HEART FAILURE, UNSPECIFIED SNOMED Code(s): 69126920 (2) Acute exacerbation of chronic obstructive airways disease Narrative/Plan: continue with systemic steroids switched to by mouth Continue with DuoNeb's when necessary counseled to avoid smoking and smoke exposure on Azithromycin and Rocephin for CAP , switch to ceftin upon discharge Current Visit: Yes Status: Acute Code(s): J44.1 - CHRONIC OBSTRUCTIVE PULMONARY DISEASE W (ACUTE) EXACERBATION SNOMED Code(s): 210111389 (3) Hypertensive urgency Narrative/Plan: blood pressure is better controlled now Continue with his current medications including carvedilol and ARB Current Visit: Yes Status: Acute Code(s): I16.0 - HYPERTENSIVE URGENCY SNOMED Code(s): 385377620 (4) Acute kidney injury Narrative/Plan: improving with background of CKD stage III, nonoliguric Close monitoring of urine output renal function follow up Current Visit: Yes Status: Acute Code(s): N17.9 - ACUTE KIDNEY FAILURE, UNSPECIFIED SNOMED Code(s): 31476081 (5) Chronic kidney disease, stage III (moderate) Current Visit: Yes Status: Acute Code(s): N18.3 - CHRONIC KIDNEY DISEASE, STAGE 3 (MODERATE) SNOMED Code(s): 942042205 (6) Microcytic anemia Narrative/Plan: hemoglobin stable and improving today patient denies any evidence of GI bleeding or melena Patient is on eliquis for stroke prophylaxis and A. fib iron studies shows evidence of acute phase reactant and chronic disease Counseled the patient to consider colonoscopy as an outpatient reported having one in the past which was normal GI recommending endoscopy , patient would like to discuss with his PCP , he is not willing to follow up with GI at this point Current Visit: Yes Status: Chronic Code(s): D50.9 - IRON DEFICIENCY ANEMIA, UNSPECIFIED SNOMED Code(s): 093073470 (7) Atrial fibrillation Narrative/Plan: paroxysmal atrial fibrillation on oral anticoagulation for stroke prophylaxis Currently rate controlled Continue with Coreg Current Visit: No Status: Acute Code(s): I48.91 - UNSPECIFIED ATRIAL FIBRILLATION SNOMED Code(s): 90609104 (8) Sepsis due to pneumonia Narrative/Plan: CAP , s/p ABx discharge on ceftin Current Visit: Yes Status: Acute Code(s): J18.9 - PNEUMONIA, UNSPECIFIED ORGANISM; A41.9 - SEPSIS, UNSPECIFIED ORGANISM SNOMED Code(s): 83737037 Plan: continue current supportive care monitor Hgb and renal function strict I/Os hyperglycemia 2/2 systemic steroids discharge patient once receives his life vest
--- NOTE | 2017-02-11 12:48 | P.PN ---
Subjective This is a 61-year-old gentleman who was recently in the hospital in July of this year, prior to that admission patient did not carry any history of hypertension, diabetes, hyperlipidemia, he is a smoker and occasionally drink alcohol. He was found on that admission in July to be in congestive heart failure. Echo was done at that time which revealed an ejection fraction of 20-25%, patient was initiated on medications for his heart failure and discharged home, he did not follow with a group reservations coordinator at that time, and has not been taking any medications, presents to the hospital on this occasion with approximately 2 week duration of difficulty in breathing. Patient does not lie down in the bed, he sits in a chair to sleep because he cannot lie flat, he states that on walking a short distance just to the bathroom he completely loses his breath and becomes very tight in the chest. Patient also has been putting on a significant amount of edema in his lower extremities and abdomen. White blood cell count on admission 13,000, 11 this morning, hemoglobin 9.3, sodium 136, potassium 4.1, chloride 97, CO2 27, creatinine 1.4, glucose on admission 202, 309 this morning. Magnesium level I.7. Troponins 0.030, 0.037, 0.027. BNP level on admission 21,900. EKG on admission showed a sinus tachycardia with no acute changes. LVH strain pattern noted. Chest x-ray showed progression and interstitial pulmonary edema. Small to moderate left and small right pleural effusion noted. Patient was initiated on IV Lasix in the emergency room, he states he has diuresed a significant amount since his admission. His weight is down 1 kg from admission. At the time of his discharge, in July, patient was discharged on Eliquis because of paroxysmal atrial fibrillation, he was also sent home on a beta delia, angiotensin delia, it doesn't appear he was discharged on any Lasix at that time, no Aldactone. But he apparently was not taking any of these medications at home. Blood pressure 173/90 with a heart rate in the 70s, temperature 98.7. Blood pressure on admission 187/115. At the time of my examination this morning, patient does state that his breathing is mildly improved, continues to have significant peripheral edema. I did have a lengthy discussion with the patient this morning regarding the importance of taking his medications regularly and following up with cardiology in the office. He states that he stopped everything and did not follow because he was essentially feeling better I discussed the importance of Follow-up and medication compliance. 02/10/2017 Mr. Bustillo is seen today in follow-up. He is seen sitting up on the side of the bed in no acute distress. He is currently maintaining oxygen saturations greater than 95% on room air. He states he just ambulated to the bathroom and had no shortness of breath with that exertion. Swelling in lower extremities ongoing right greater than left. Blood pressure 134/67 with heart rate 73. He is currently maintained on eliquis 5 mg BID, coreg 6.25 mg BID, entresto and aldactone 25 mg BID. Hgb 9.9, WBC 16.2, BUN 39, Cr 1.87, potassium 3.9, magnesium 1.7. He continues to diurese well with a negative I&O balance today. Although his weight appears to have increased. I will recommend checking his weight at the same time every morning with the same scale. Review of telemetry tracings it appears he had a nonsustained run of ventricular tachycardia last night around 11:30. Does not recall when this occurred denies chest pain, shortness of breath or palpitations. 02/11/2017 Mr Bustillo is seen today resting comfortably in his bed. He continues to c/o of feeling "congested" with cough. He states he has been up ambulating in the [place] and back and forth to the bathroom with no episodes of shortness of breath or chest pain. Swelling in the legs appears similar to that of yesterday. Life vest has been applied with instructions and education provided. Objective - Vital Signs Vital signs: Vital Signs Temp 97.0 F L 02/11/17 07:00 Pulse 68 02/11/17 08:13 Resp 16 02/11/17 07:00 BP 114/71 02/11/17 07:00 Pulse Ox 96 02/11/17 08:01 Intake & Output 02/10/17 02/11/17 02/11/17 18:59 06:59 18:59 Intake Total 600 Balance 600 Weight 104.6 kg Intake: Other 600 Other: # Voids 1 2 - Exam GENERAL: Well-appearing, well-nourished and in no acute distress. NECK: Supple without JVD or thyromegaly. LUNGS: Clear to auscultation. Respirations equal and unlabored. HEART: Regular rate and rhythm with systolic murmurs at the base, no rubs or gallops. S1 and S2 heard. EXTREMITIES: Normal range of motion. 1+ pitting edema right lower extremity, trace to left lower extremity. No clubbing or cyanosis. Peripheral pulses intact and weak. - Labs CBC & Chem 7: 02/10/17 08:29 02/10/17 08:29 Labs: Abnormal Lab Results - Last 24 Hours (Table) 02/10/17 02/10/17 02/11/17 Range/Units 17:02 20:33 07:16 POC Glucose (mg/dL) 212 H 167 H 111 H (75-99) mg/dL Microbiology - Last 24 Hours (Table) 02/06/17 21:00 Blood Culture - Preliminary Blood No Growth after 96 hours Assessment and Plan Plan: ASSESSMENT 1. Acute on chronic systolic congestive heart failure 2. Hypertension 3. Paroxysmal atrial fibrillation 3. Dilated cardiomyopathy with documented ejection fraction 20-25% 4. Chronic anemia 5. Renal insufficiency, acute on chronic 6. Abnormal troponins, likely secondary to oxygen supply and demand mismatch 7. Nonsustained ventricular tachycardia PLAN From cardiac perspective the patient can be discharged home with the life vest as ordered. Mediation compliance has been discussed at length and the patient is agreeable. Nurse Practitioner note has been reviewed, I agree with a documented findings and plan of care. Patient was seen and examined.
[2017-02-11 13:12] LABS: Glucose,Whole Blood 194 mg/dL (75-99)
[2017-02-11 15:16] VITALS: BP 129/59; RESP 17; TEMP 97.1
[2017-02-11 15:39] VITALS: PULSE 72
== END 2017-02-11 17:00 | disposition home or self-care (01) | DRG 871 ==
LOC: EC 20:21 → 6SEL 22:44 → 4MS4W 02-09 20:13
PROVIDERS: ADMIT Internal Medicine; ATTEND Internal Medicine
DX: A41.9 Sepsis, unspecified organism (principal); J18.9 Pneumonia, unspecified organism; I47.2 Ventricular tachycardia; I50.23 Acute on chronic systolic (congestive) heart failure; N17.9 Acute kidney failure, unspecified; I42.0 Dilated cardiomyopathy; I13.0 Hypertensive heart and chronic kidney disease with heart failure and stage 1 through stage 4 chronic kidney disease, or unspecified chronic kidney disease; N18.3 Chronic kidney disease, stage 3 (moderate); D50.9 Iron deficiency anemia, unspecified; E11.9 Type 2 diabetes mellitus without complications; J44.0 Chronic obstructive pulmonary disease with (acute) lower respiratory infection; J44.1 Chronic obstructive pulmonary disease with (acute) exacerbation; E44.0 Moderate protein-calorie malnutrition; F17.200 Nicotine dependence, unspecified, uncomplicated; I48.0 Paroxysmal atrial fibrillation; D56.3 Thalassemia minor; E78.5 Hyperlipidemia, unspecified; E78.00 Pure hypercholesterolemia, unspecified; I16.0 Hypertensive urgency; Z79.01 Long term (current) use of anticoagulants; Z80.8 Family history of malignant neoplasm of other organs or systems; Z82.5 Family history of asthma and other chronic lower respiratory diseases; Z91.19 Patient's noncompliance with other medical treatment and regimen; M19.90 Unspecified osteoarthritis, unspecified site; Z83.3 Family history of diabetes mellitus; Z91.041 Radiographic dye allergy status; Z88.2 Allergy status to sulfonamides; Z91.040 Latex allergy status; Z91.013 Allergy to seafood
CPT/HCPCS: 36415; 71020; 80048; 80053; 82550; 82553; 82728; 82803; 83036; 83540; 83550; 83605; 83735; 83880; 84100; 84484; 85025; 85027; 85610; 85730; 87040; 93005; 93306; 94640; 94760; 96374; 96375; 99285

== ENCOUNTER → 2017-06-04 | Outpatient (CLI) | payer OTHER ==
--- NOTE | 2017-06-04 09:59 | XR ---
EXAMINATION TYPE: XR chest 2V DATE OF EXAM: 06/04/2017 COMPARISON: 02/11/2017, 08/08/2016 INDICATION: CHF preop defibrillator TECHNIQUE: Frontal and lateral views of the chest are obtained. FINDINGS: The heart size is normal. The pulmonary vasculature is normal. There is a small left pleural effusion. Some pleural thickening along the left margin may be present. Linear opacity could be related to some scarring. Underlying neoplasm is not excluded. Findings were present previously but are slightly more prominent than January 2017. Consider follow-up CT chest. IMPRESSION: 1. Small left pleural effusion. 2. Left lateral pleural thickening appears slightly more prominent than January 2017 but does appear to been interval development from 08/08/2016. Consider follow-up CT chest. Neoplasm is not excluded.
== END | disposition home or self-care (01) ==
LOC: RADXRYALE 09:28
PROVIDERS: ATTEND Internal Medicine Cardiovascular Disease
DX: J90 Pleural effusion, not elsewhere classified (principal); J92.9 Pleural plaque without asbestos; I50.9 Heart failure, unspecified
CPT/HCPCS: 71046

== ENCOUNTER 2017-06-11 07:54 | Day surgery (SDC) | payer OTHER ==
[~2017-06-11 07:54] MED LIST: ALPRAZolam 0.25 MG TAB PO PRN; ASPIRIN 325 MG TAB PO STA; NITROGLYCERIN SL TABS 0.4 MG TAB SUBLINGUAL PRN; SODIUM CHLORIDE 0.9% 1,000 ML in EMPTY BAG 1 BAG IV ONE
[2017-06-11] MEDS ORDERED: ASPIRIN 325 MG TAB ONE (08:18)
[2017-06-11] MEDS ORDERED: methylPREDNISolone SOD SUCCI 125 MG/2 ML VIAL IV STA (08:26)
[2017-06-11] MEDS ORDERED: diphenhydrAMINE 50 MG/ML 1 ML VIAL IVP ONE ×2 (08:27→12:18)
[2017-06-11 09:22] LABS: Basophils # (A) 0.1 k/uL (0-0.2); Basophils % (A) 1 %; Eosinophils # (A) 0.4 k/uL (0-0.7); Eosinophils % (A) 5 %; HCT 34.7 % (39.0-53.0); HGB 10.1 gm/dL (13.0-17.5); Hypochromasia Marked; Lymphocytes # (A) 1.7 k/uL (1.0-4.8); Lymphocytes % (A) 21 %; MCH 18.2 pg (25.0-35.0); MCV 62.6 fL (80.0-100.0); Mean Platelet Volume 6.9; Microcytosis Marked; Monocytes # (A) 0.5 k/uL (0-1.0); Monocytes % (A) 6 %; Neutrophils # (A) 5.3 k/uL (1.3-7.7); Neutrophils % (A) 66 %; Platelet Count 214 k/uL (150-450); RBC 5.54 m/uL (4.30-5.90); RDW 14.3 % (11.5-15.5)
[2017-06-11 09:27] LABS: Calcium 8.7 mg/dL (8.4-10.2); Potassium 4.1 mmol/L (3.5-5.1)
[2017-06-11] MEDS ORDERED: MIDAZOLAM 2 MG/2 ML VIAL IVP ONE (12:15)
[2017-06-11] MEDS ORDERED: fentaNYL (PF) 50 MCG/ML 2 ML AMP IVP ONE (12:15)
[2017-06-11] MEDS ORDERED: LIDOCAINE 2% INJ 20 MG/ML SQ ONE (12:17)
[2017-06-11] MEDS ORDERED: IODIXANOL 320 MG/ML 100 ML INTRAARTER ONE (12:29)
[2017-06-11] MEDS ORDERED: RX INFO: IV CONTRAST WAS GIVEN 1 EACH MISC MISCELLANE PRN (12:53)
[2017-06-11 14:44] VITALS: RESP 16
--- NOTE | 2017-06-11 16:16 | CC ---
CARDIAC CATHETERIZATION REPORT Mr. Bustillo is a 61-year-old gentleman who has been treated for congestive cardiac failure and cardiomyopathy. The patient was advised cardiac catheterization to rule out underlying ischemic etiology. PROCEDURE: The right groin was prepped and draped in the usual manner and the skin was infiltrated with 2% Xylocaine. The right femoral artery was entered using Seldinger technique and a #6-Kinyarwanda sheath was placed in. Selective coronary angiography was then performed in multiple projections and the left ventricular pressures were obtained. SEDATION: Moderate sedation time was used. Sedation time was 18 minutes. HEMODYNAMICS: The left ventricular end-diastolic pressure is 8 mmHg prior to angiography. No gradient is noted across the aortic valve. SELECTIVE CORONARY ANGIOGRAPHY: Left main coronary artery is normally patent. LAD is a good caliber blood vessel and uses a good size diagonal branch. Mild lad mid LAD has mild irregularities. Circumflex coronary artery is a nondominant in distribution and proximal circumflex coronary artery has 40% stenosis. Right coronary artery has mild irregularity. FINAL IMPRESSION: This study reveals mild coronary artery disease with about 40% stenosis in the proximal circumflex artery. Mid LAD and RCA has mild irregularity. This is suggestive of nonischemic cardiomyopathy. We will continue medical treatment and patient would be considered for AICD as an outpatient. MMODL / IJN: [id number] /
[2017-06-11] MEDS: SODIUM CHLORIDE 0.9% 1,000 ML IV SCH (19:49)
[2017-06-11] MEDS: CARVEDILOL 6.25 MG TAB PO SCH (20:02)
[2017-06-11] MEDS ORDERED: ATORVASTATIN 20 MG TAB PO SCH (21:00)
[2017-06-12] MEDS: SODIUM CHLORIDE 0.9% 1,000 ML IV SCH ×2 (06:28→13:35)
[2017-06-12 07:12] LABS: Calcium 8.6 mg/dL (8.4-10.2); Potassium 4.3 mmol/L (3.5-5.1)
[2017-06-12] MEDS: CARVEDILOL 6.25 MG TAB PO SCH (08:31)
[2017-06-12] MEDS ORDERED: SPIRONOLACTONE 25 MG TAB PO SCH (09:00)
[2017-06-12] MEDS ORDERED: APIXABAN 5 MG TAB PO SCH (09:00)
[2017-06-12] MEDS ORDERED: FUROSEMIDE 20 MG TAB PO SCH (09:00)
[2017-06-12] MEDS ORDERED: LISINOPRIL 5 MG TAB PO SCH (09:00)
[2017-06-12 09:05] VITALS: TEMP 97.7
--- NOTE | 2017-06-12 10:05 | DS ---
DISCHARGE SUMMARY This is a 61-year-old gentleman with chronic kidney disease, nonischemic cardiomyopathy type picture, who was admitted to the hospital yesterday to rule out any ischemic etiology for his cardiomyopathy. He was seen and evaluated by Dr. Pollack and underwent cardiac catheterization from right femoral approach which revealed what seems to be a 40% stenosis involving the circumflex coronary artery, which was a nondominant vessel, and no other significant disease; end-diastolic pressure was 8. This morning he is doing well, asymptomatic. His vital signs are stable. His right groin is clean and dry with a good pulse. His creatinine has improved to 2.07. He is supposed to get some IV fluids still about 1 p.m. today. I am recommending that he can increase activity, ambulate the hallways, and he will be discharged at 1 p.m. and follow up with Dr. Johnny Pollack in one week. At the time of my evaluation he is asymptomatic. There was no JVD or carotid bruit. S1, S2 heard normally. Lungs are clear. Abdomen and lower extremity exam unchanged. Right groin is clean and dry with a good pulse. The patient will see Dr. Pollack in one week. Cardiac catheterization findings were again reviewed with the patient, and he will be on the same medications upon discharge. His creatinine has improved. MMODL / IJN: [id number] /
[2017-06-12 12:35] VITALS: BP 133/57; PULSE 60
== END 2017-06-12 13:47 | disposition home or self-care (01) ==
LOC: CATHCVL 07:54 → 3OBS 12:35 → CATHCVL 06-12 13:47
PROVIDERS: ATTEND Internal Medicine Cardiovascular Disease
DX: I25.10 Atherosclerotic heart disease of native coronary artery without angina pectoris (principal); I42.9 Cardiomyopathy, unspecified; I13.0 Hypertensive heart and chronic kidney disease with heart failure and stage 1 through stage 4 chronic kidney disease, or unspecified chronic kidney disease; I50.9 Heart failure, unspecified; N18.9 Chronic kidney disease, unspecified; I48.0 Paroxysmal atrial fibrillation; Z88.1 Allergy status to other antibiotic agents; Z88.2 Allergy status to sulfonamides; Z87.891 Personal history of nicotine dependence; Z79.899 Other long term (current) drug therapy
CPT/HCPCS: 93458; 80048 ×2; 85025; C1760; C1894; C1769; J2001; J2250; J1200; J2930; Q9967; J3010

== ENCOUNTER 2017-07-26 14:55 | Day surgery (SDC) | payer OTHER ==
[~2017-07-26 14:55] MED LIST changes: -ALPRAZolam 0.25 MG TAB PO PRN; -ASPIRIN 325 MG TAB PO STA; -NITROGLYCERIN SL TABS 0.4 MG TAB SUBLINGUAL PRN; -SODIUM CHLORIDE 0.9% 1,000 ML in EMPTY BAG 1 BAG IV ONE; +ceFAZolin 1,000 MG in SODIUM CHLORIDE 0.9% IRRIGATIO 250 ML IRRIGATION ONE; +ceFAZolin IN SWFI 2 GM/20 ML SYRINGE IVP ONE
[2017-07-26] MEDS: SODIUM CHLORIDE 0.9% 1,000 ML IV SCH ×2 (15:37→23:05)
[2017-07-26] MEDS ORDERED: fentaNYL (PF) 50 MCG/ML 2 ML AMP ONE (16:42)
[2017-07-26] MEDS ORDERED: MIDAZOLAM 2 MG/2 ML VIAL ONE (16:42)
[2017-07-26] MEDS ORDERED: PROPOFOL 10 MG/ML 20 ML VIAL IV ONE (16:42)
[2017-07-26] MEDS ORDERED: IODIXANOL 320 MG/ML 100 ML IV ONE (17:03)
[2017-07-26] MEDS ORDERED: LIDOCAINE 1% INJ 10MG/ML (20 ML MDV) SQ ONE ×2 (17:32→17:45)
[2017-07-26] MEDS ORDERED: SODIUM CHLORIDE 0.9% 250 ML IV ONE (18:32)
[2017-07-26] MEDS ORDERED: HYDROcodone/APAP 5-325MG 1 EACH TAB PO PRN (18:37)
[2017-07-26] MEDS ORDERED: ACETAMINOPHEN IV (For NPO) 1,000 MG in EMPTY BAG 1 BAG IVPB ONE (18:37)
[2017-07-26] MEDS ORDERED: ACETAMINOPHEN TAB 325 MG TAB PO PRN (18:37)
--- NOTE | 2017-07-26 19:40 | CE ---
CARDIAC ELECTROPHYSIOLOGY REPORT This is a 62-year-old male patient with severe non-ischemic cardiomyopathy that has not responded to appropriate guideline-directed medical treatment. He has chronic systolic dysfunction with at least class 2 CHF right bundle branch block at baseline. Patient was brought to the EP lab in a fasting state. Written informed consent was obtained prior to the procedure. The left shoulder area was prepped and draped as per protocol. Lidocaine 1% was used for local anesthesia. An incision was made near the deltopectoral groove of about 4 cm and carried down to the level of the pectoralis muscle. A subfascial pocket was made. Hemostasis was assured. The left axillary vein was accessed at a single point under fluoroscopy and via appropriately-sized introducer sheath, lead was positioned in the mid RV septum using a Mond stylet. The R-waves initially were 3.6 mV when DFT testing was performed but subsequently improved to 4.5 mV. Pacing threshold 0.5 V at 0.5 milliseconds. Current was 0.8 milliamperes, pacing impedance of 506 ohms. Ten-volt test was negative. The lead was secured to the underlying pectoralis muscle and connected to the generator and the device secured to the muscle, and the wound was closed in 3 layers and dressed per protocol. The RV lead was a Medtronic [id number], 62 cm in length, and serial number [id number]. The ICD was a single chamber, model number [id number], serial number [id number]. DFT testing under anesthesia with shock and T-wave protocol was used to induce ventricular fibrillation. This was adequately and appropriately detected at least sensitivity and 4 dropouts were successfully internally defibrillated with a 10-joule shock. Charge time of 2 seconds. Shock impedance 76 ohms. No post-shock noise dropouts. The device was then programmed to 2 zones of therapy with appropriate anti-tachycardia pacing, cardioversion and defibrillation with long detection interval to minimize inappropriate shocks. RESULT: Successful single-chamber implantation for primary prevention of sudden cardiac in this gentleman with non-ischemic cardiomyopathy that has not improved despite guideline-directed medical treatment, severe LV dysfunction, right bundle branch block, CHF, class 2. MMODL / IJN: [id number] /
[2017-07-26] MEDS: LACTATED RINGERS 1,000 ML IV SCH (21:16)
[2017-07-26] MEDS: APIXABAN 5 MG TAB PO SCH (21:23)
[2017-07-26] MEDS: ATORVASTATIN 20 MG TAB PO SCH (21:23)
[2017-07-26 22:12] VITALS: BMI 31.1
[2017-07-26] MEDS: ceFAZolin IN SWFI 2 GM/20 ML SYRINGE IVP SCH (23:05)
[2017-07-27 02:05] VITALS: RESP 18
[2017-07-27] MEDS: LACTATED RINGERS 1,000 ML IV SCH (04:13)
[2017-07-27] MEDS: ceFAZolin IN SWFI 2 GM/20 ML SYRINGE IVP SCH ×3 (04:13→17:28)
[2017-07-27] MEDS: CARVEDILOL 6.25 MG TAB PO SCH ×2 (06:34→17:28)
--- NOTE | 2017-07-27 08:06 | XR ---
EXAMINATION TYPE: XR chest 2V DATE OF EXAM: 07/27/2017 COMPARISON: NONE INDICATION: Lead placement check TECHNIQUE: Frontal and lateral views of the chest are obtained. FINDINGS: The heart size is normal. The pulmonary vasculature is normal. There is a small left pleural fluid collection is diminished from prior study. Pacemaker overlies lef t chest drain directed towards the left periventricular region. No pneumothorax is evident. Hyperinfl ation and flattening the diaphragms is present on the lateral projection.. IMPRESSION: 1. No pneumothorax post pacemaker placement. 2. COPD. 3. Small left pleural effusion.
[2017-07-27] MEDS ORDERED: FUROSEMIDE 20 MG TAB PO SCH (09:00)
[2017-07-27] MEDS ORDERED: SPIRONOLACTONE 25 MG TAB PO SCH (09:00)
[2017-07-27] MEDS ORDERED: LISINOPRIL 5 MG TAB PO SCH (09:00)
[2017-07-27] MEDS: APIXABAN 5 MG TAB PO SCH ×2 (09:47→18:59)
--- NOTE | 2017-07-27 13:05 | P.DS ---
Providers Attending physician: Wagner Cullen Primary care physician: [facility] Course: Patient is doing well from a cardiac standpoint. He denies any chest discomfort yes shortness at the site where the ICD was implanted vitals are stable and neck examination is normal he is afebrile blood pressure is normal heart rates in the normal range breath sounds are clear no rhonchi no crackles. Heart sounds are normal normal S1 normal S2 no murmurs no gallops abdomen soft nontender. No extremity edema ICD was interrogated this morning. While the pacing threshold sensing and impedances are stable he had a episode of noise that was detected about 2 minutes after the DFT test that has not recurred. The ICD was interrogated and are manipulation as well as pocket. Ablation was performed in the supine sitting and standing positions without production of any noise on the ICD lead Impression Single chamber ICD for primary prevention of sudden cardiac with underlying nonischemic cardio myopathy, systolic, chronic heart failure class III, severe LV dysfunction despite Lended to medical treatment, mild nonobstructive CAD by coronary angiography right bundle branch block pattern on twelve-lead ECG Plan Discharge home after completion of IV antibiotics and continue with home medications without any changes and follow with Dr. Pollack and the device clinic Patient Condition at Discharge: Stable Plan - Discharge Summary Discharge Rx Participant: No New Discharge Prescriptions: Continue Apixaban [Eliquis] 5 mg PO BID #60 tab Carvedilol [Coreg] 6.25 mg PO BID-W/MEALS #60 tab Spironolactone [Aldactone] 25 mg PO DAILY Lisinopril [Zestril] 5 mg PO DAILY Furosemide [Lasix] 60 mg PO DAILY Atorvastatin [Lipitor] 20 mg PO HS Discharge Medication List Apixaban [Eliquis] 5 mg PO BID #60 tab 02/10/17 [Rx] Carvedilol [Coreg] 6.25 mg PO BID-W/MEALS #60 tab 02/10/17 [Rx] Furosemide [Lasix] 60 mg PO DAILY 06/08/17 [History] Lisinopril [Zestril] 5 mg PO DAILY 06/08/17 [History] Spironolactone [Aldactone] 25 mg PO DAILY 06/08/17 [History] Atorvastatin [Lipitor] 20 mg PO HS 06/11/17 [History] Follow up Appointment(s)/Referral(s): [facility] [Provider Group] - 08/02/17 11:00 am (Device check.) Eileen Pollack MD [STAFF PHYSICIAN] - 08/17/17 3:00 pm (No morning appointments available at [facility].) Patient Instructions/Handouts: Pacemaker (DC) Activity/Diet/Wound Care/Special Instructions: PATIENT EDUCATION MATERIAL Instructions following a heart rhythm device implant. 1. Keep dressing DRY for 5 DAYS. You may cover the area with Saran or Cling Wrap, prior to a shower. 2. The dressing will be removed in the Device Clinic @ [facility]. Absorbable sutures were used to close the wound. 3. Avoid raising the arm above the shoulder level. [4 week restriction] 4. Avoid arm movements, like backscratching, rubbing the head, or pulling on a cord. (4 weeks restriction) 5. Gentle range of motion movements of the shoulder, closest to the incision should be performed to avoid a frozen shoulder. (Pendulum exercises of the shoulder) 6. The opposite arm may be used freely. 7. Avoid driving for 7 days. 8. Avoid activities such as golfing, swimming, weed whacking, lifting more than 10 pounds weight, bowling, gymnastics and weight training/lifting. (6 weeks restriction) 9. Activities such as wood chopping with an axe, pull-ups in the gymnasium, power lifting, arc-welding, being close to home induction cooktops will always be a problem. 10. Arm sling is a mere reminder not to raise the arm above the head. However you do not need to keep the arm completely immobilized. Your free to move the arm and use it and for normal activities. In case of any problems, please call [facility], [place], @ [phone], Attention: Device Clinic Follow-up in the device clinic in 5 days No changes in medications Follow-up with Dr. Pollack as scheduled Discharge Disposition: HOME SELF-CARE
[2017-07-27 18:36] VITALS: BP 130/80; PULSE 84; TEMP 97
[2017-07-27] MEDS: ATORVASTATIN 20 MG TAB PO SCH (18:59)
== END 2017-07-27 20:13 | disposition home or self-care (01) ==
LOC: CATHEP 14:55 → 6SEL 18:27 → CATHEP 07-27 20:13
PROVIDERS: ATTEND Internal Medicine Clinical Cardiac Electrophysiology
DX: I13.0 Hypertensive heart and chronic kidney disease with heart failure and stage 1 through stage 4 chronic kidney disease, or unspecified chronic kidney disease (principal); I50.22 Chronic systolic (congestive) heart failure; N18.9 Chronic kidney disease, unspecified; I42.0 Dilated cardiomyopathy; Z91.19 Patient's noncompliance with other medical treatment and regimen; J44.9 Chronic obstructive pulmonary disease, unspecified; J90 Pleural effusion, not elsewhere classified; I45.10 Unspecified right bundle-branch block; I25.10 Atherosclerotic heart disease of native coronary artery without angina pectoris; Z00.6 Encounter for examination for normal comparison and control in clinical research program; R59.9 Enlarged lymph nodes, unspecified; I48.0 Paroxysmal atrial fibrillation; E78.5 Hyperlipidemia, unspecified; Z79.01 Long term (current) use of anticoagulants; Z79.899 Other long term (current) drug therapy; Z88.1 Allergy status to other antibiotic agents; Z88.2 Allergy status to sulfonamides; Z91.041 Radiographic dye allergy status; Z91.040 Latex allergy status; Z91.013 Allergy to seafood; Z87.891 Personal history of nicotine dependence
CPT/HCPCS: 93641; 33249; 71046; C1769 ×3; C1892; C1895; C1722; Q9967; J0690 ×3; J2001

== ENCOUNTER 2017-10-13 17:51 | Inpatient (IN) | payer OTHER ==
--- NOTE | 2017-10-13 19:36 | ED ---
General Adult HPI - General Source: patient, RN notes reviewed Mode of arrival: ambulatory Limitations: no limitations <Gama Barnett - Last Filed: 10/13/17 20:51> <Gama Beck - Last Filed: 10/13/17 22:42> - General Chief complaint: Altered Mental Status Stated complaint: Mental Status Change Time Seen by Provider: 10/13/17 18:05 - History of Present Illness Initial comments: This is a 62-year-old male who presents emergency Department with his . states he's been altered mentally since October 02. Patient has been found wandering in the middle the night down the street and also down the railroad tracks. states he is also been talking strange asking for money on cigarettes. Patient also has been found to walk into someone's house recently. Patient doesn't seem to understand is doing these things. states patient has not been sick recently denies any shortness of breath or chest pain. Patient has not had any recent fever chills. Patient is not vomiting diarrhea. Patient has no complaints at this time. He states he is only here because his made him come. Patient denies headache patient denies numbness or weakness (Gama Barnett) - Related Data Home Medications Medication Instructions Recorded Confirmed Furosemide [Lasix] 40 mg PO DAILY 06/08/17 10/13/17 Lisinopril [Zestril] 5 mg PO DAILY 06/08/17 10/13/17 Spironolactone [Aldactone] 25 mg PO DAILY 06/08/17 10/13/17 Atorvastatin [Lipitor] 20 mg PO HS 06/11/17 10/13/17 Previous Rx's Medication Instructions Recorded Apixaban [Eliquis] 5 mg PO BID #60 tab 02/10/17 Carvedilol [Coreg] 6.25 mg PO BID-W/MEALS #60 tab 02/10/17 Allergies Allergy/AdvReac Type Severity Reaction Status Date / Time Latex, Natural Rubber Allergy Rash/Hives Verified 10/13/17 18:16 shellfish derived [Shellfish] Allergy SWELLING Verified 10/13/17 18:16 AND VOMITING sulfamethoxazole Allergy Rash/Hives Verified 10/13/17 18:16 [From Bactrim] trimethoprim [From Bactrim] Allergy Rash/Hives Verified 10/13/17 18:16 Review of Systems ROS Other: All systems not noted in ROS Statement are negative. <Gama Barnett - Last Filed: 10/13/17 20:51> ROS Other: All systems not noted in ROS Statement are negative. <Gama Beck - Last Filed: 10/13/17 22:42> ROS Statement: Those systems with pertinent positive or pertinent negative responses have been documented in the HPI. Past Medical History Past Medical History: Heart Failure, COPD, Hypertension, Osteoarthritis (OA), Pneumonia Additional Past Medical History / Comment(s): DIVERTICULITIS, ARTHRITIS IN SPINE ,"THALASSEMIA MINOR" History of Any Multi-Drug Resistant Organisms: None Reported Past Surgical History: AICD, Heart Catheterization, Tonsillectomy Additional Past Surgical History / Comment(s): COLONOSCOPY-BENIGN POLYPS Found, LT HAND 4TH DIGIT REPAIR, LT MASTOID SX AGE 3 AICD placement today 07/26/17 Past Anesthesia/Blood Transfusion Reactions: No Reported Reaction Type of Cardiac Device: AICD Device Placement Date:: 07/26/17 Past Psychological History: No Psychological Hx Reported Smoking Status: Former smoker Past Alcohol Use History: Rare Past Drug Use History: None Reported - Past Family History Mother Family Medical History: COPD, Diabetes Mellitus Father Family Medical History: Cancer, Diabetes Mellitus Additional Family Medical History / Comment(s): SKIN CANCER Patient reported no history of DM <Gama Barnett - Last Filed: 10/13/17 20:51> General Exam Limitations: no limitations <Gama Barnett - Last Filed: 10/13/17 20:51> General appearance: alert, in no apparent distress Head exam: Present: atraumatic, normocephalic, normal inspection Eye exam: Present: normal appearance, PERRL, EOMI. Absent: scleral icterus, conjunctival injection, periorbital swelling ENT exam: Present: normal exam, mucous membranes moist Neck exam: Present: normal inspection. Absent: tenderness, meningismus, lymphadenopathy Respiratory exam: Present: wheezes, accessory muscle use, decreased breath sounds, prolonged expiratory. Absent: normal lung sounds bilaterally, respiratory distress, rales, rhonchi, stridor Cardiovascular Exam: Present: regular rate, normal rhythm, normal heart sounds. Absent: systolic murmur, diastolic murmur, rubs, gallop, clicks GI/Abdominal exam: Present: soft, normal bowel sounds. Absent: distended, tenderness, guarding, rebound, rigid Extremities exam: Present: normal inspection, full ROM, normal capillary refill. Absent: tenderness, pedal edema, joint swelling, calf tenderness Back exam: Present: normal inspection Neurological exam: Present: alert, oriented X3, CN II-XII intact Psychiatric exam: Present: normal affect, normal mood Skin exam: Present: warm, dry, intact, normal color. Absent: rash <Gama Beck - Last Filed: 10/13/17 22:42> - General Exam Comments Initial Comments: GENERAL: Patient is well-developed and well-nourished. Patient is nontoxic and well- hydrated and is in mild distress. ENT: Neck is soft and supple. No significant lymphadenopathy is noted. Oropharynx is clear. Moist mucous membranes. Neck has full range of motion without eliciting any pain. EYES: The sclera were anicteric and conjunctiva were pink and moist. Extraocular movements were intact and pupils were equal round and reactive to light. Eyelids were unremarkable. PULMONARY: Unlabored respirations. Good breath sounds bilaterally. No audible rales rhonchi or wheezing was noted. CARDIOVASCULAR: There is a regular rate and rhythm without any murmurs gallops or rubs. ABDOMEN: Soft and nontender with normal bowel sounds. No palpable organomegaly was noted. There is no palpable pulsatile mass. SKIN: Skin is clear with no lesions or rashes and otherwise unremarkable. NEUROLOGIC: Patient is alert and oriented x3. Cranial nerves II through XII are grossly intact. Motor and sensory are also intact. Normal speech, volume and content. Symmetrical smile. MUSCULOSKELETAL: Normal extremities with adequate strength and full range of motion. Bilateral edema right. The left which states is unchanged. LYMPHATICS: No significant lymphadenopathy is noted PSYCHIATRIC: Normal psychiatric evaluation. Normal interpersonal interactions appears functionally intact in deals appropriately with others. No signs of depression. No signs of anxiety. (Gama Barnett) Vital Signs 10/13/17 10/13/17 18:12 21:26 Temperature 98.9 F 97.7 F Pulse Rate 79 74 Respiratory 16 20 Rate Blood Pressure 114/61 149/73 O2 Sat by Pulse 100 92 L Oximetry Medical Decision Making - Lab Data Result diagrams: 10/13/17 19:43 10/13/17 19:43 <Gama Barnett - Last Filed: 10/13/17 20:51> - Lab Data Result diagrams: 10/13/17 19:43 10/13/17 19:43 - Radiology Data Radiology results: report reviewed (Chest x-ray CT brain negative for acute disease), image reviewed <Gama Beck - Last Filed: 10/13/17 22:42> - Medical Decision Making EKG shows normal sinus rhythm at 71 bpm NM interval 250 QRS 156 QT intervals 464 QTC is 504. Patient's EKG shows no ST segment elevation or depression or T wave abnormalities are noted Patient is not sleeping 2 hours a night according to Dr. Beck will be taking over the care of this patient at 9 PM (Gama Barntet) 62 male the ER for evaluation of altered mental status. Patient also admits to occasional shortness of breath, positive cough congestion wheezing on exam. Patient replace her breathing treatments steroids admitted to hospital regarding increased urinary output, mild renal failure and COPD exacerbation ( Gama Beck) - Lab Data Lab Results 10/13/17 10/13/17 10/13/17 Range/Units 19:43 19:43 19:43 WBC 8.0 (3.8-10.6) k/uL RBC 4.72 (4.30-5.90) m/uL Hgb 8.7 L (13.0-17.5) gm/dL Hct 27.7 L (39.0-53.0) % MCV 58.7 L (80.0-100.0) fL MCH 18.4 L (25.0-35.0) pg MCHC 31.3 (31.0-37.0) g/dL RDW 16.7 H (11.5-15.5) % Plt Count 176 (150-450) k/uL Neutrophils % 67 % Lymphocytes % 19 % Monocytes % 6 % Eosinophils % 6 % Basophils % 1 % Neutrophils # 5.3 (1.3-7.7) k/uL Lymphocytes # 1.5 (1.0-4.8) k/uL Monocytes # 0.5 (0-1.0) k/uL Eosinophils # 0.5 (0-0.7) k/uL Basophils # 0.1 (0-0.2) k/uL Hypochromasia Moderate Poikilocytosis Slight Anisocytosis Slight Microcytosis Marked Sodium 142 (137-145) mmol/L Potassium 3.9 (3.5-5.1) mmol/L Chloride 109 H (98-107) mmol/L Carbon Dioxide 20 L (22-30) mmol/L Anion Gap 13 mmol/L BUN 32 H (9-20) mg/dL Creatinine 1.96 H (0.66-1.25) mg/dL Est GFR (CKD-EPI)AfAm 41 (>60 ml/min/1.73 sqM) Est GFR (CKD-EPI)NonAf 35 (>60 ml/min/1.73 sqM) Glucose 87 (74-99) mg/dL Calcium 8.2 L (8.4-10.2) mg/dL Total Bilirubin 1.0 (0.2-1.3) mg/dL AST 14 L (17-59) U/L ALT 20 L (21-72) U/L Alkaline Phosphatase 55 (38-126) U/L Troponin I <0.012 (0.000-0.034) ng/mL Total Protein 6.1 L (6.3-8.2) g/dL Albumin 3.7 (3.5-5.0) g/dL Disposition <Gama Barnett - Last Filed: 10/13/17 20:51> Is patient prescribed a controlled substance at d/c from ED?: No <Gama Beck - Last Filed: 10/13/17 22:42> Clinical Impression: COPD (chronic obstructive pulmonary disease), Acute kidney injury, Acute exacerbation of chronic obstructive airways disease, Altered mental status Disposition: ADMITTED IP TO THIS HOSP Condition: Fair Referrals: Mak Pruitt DO [Primary Care Provider] - 1-2 days
[2017-10-13 20:03] LABS: Anisocytosis Slight; Basophils # (A) 0.1 k/uL (0-0.2); Basophils % (A) 1 %; Eosinophils # (A) 0.5 k/uL (0-0.7); Eosinophils % (A) 6 %; HCT 27.7 % (39.0-53.0); HGB 8.7 gm/dL (13.0-17.5); Hypochromasia Moderate; Lymphocytes # (A) 1.5 k/uL (1.0-4.8); Lymphocytes % (A) 19 %; MCH 18.4 pg (25.0-35.0); MCHC 31.3 g/dL (31.0-37.0); MCV 58.7 fL (80.0-100.0); Mean Platelet Volume 7.1; Microcytosis Marked; Monocytes # (A) 0.5 k/uL (0-1.0); Monocytes % (A) 6 %; Neutrophils # (A) 5.3 k/uL (1.3-7.7); Neutrophils % (A) 67 %; Platelet Count 176 k/uL (150-450); Poikilocytosis Slight; RBC 4.72 m/uL (4.30-5.90); RDW 16.7 % (11.5-15.5)
[2017-10-13 20:08] LABS: Albumin 3.7 g/dL (3.5-5.0); Calcium 8.2 mg/dL (8.4-10.2); Potassium 3.9 mmol/L (3.5-5.1); Total Protein 6.1 g/dL (6.3-8.2)
--- NOTE | 2017-10-13 20:39 | XR ---
EXAMINATION TYPE: XR chest 2V DATE OF EXAM: 10/13/2017 COMPARISON: 07/27/2017 HISTORY: Altered mental status TECHNIQUE: Frontal and lateral views of the chest are obtained. FINDINGS: There is pleural thickening at the left lung base. There is some patchy linear density in the left lower lobe. There is no heart failure. The other lung thompson are clear. Heart is deviated to the left side slightly. There is left axillary pacemaker with the lead tip in the right ventricle. T he bony thorax appears intact. IMPRESSION: There is pleural reaction and atelectasis in the left lower lobe. No change compared to old exam.
--- NOTE | 2017-10-13 20:52 | CT ---
EXAMINATION TYPE: CT brain wo con DATE OF EXAM: 10/13/2017 COMPARISON: NONE HISTORY: AMS CT DLP: 1108.4 mGycm Automated exposure control for dose reduction was used. FINDINGS: There is cerebral cortical atrophy. There is no mass effect nor midline shift. There is no sign of in tracranial hemorrhage. There are lacunar infarcts in the left caudate nucleus and left posterior temp oral lobe white matter. Calvarium is intact. IMPRESSION: CEREBRAL ATROPHY. CHRONIC SMALL VESSEL ISCHEMIA. NO ACUTE INTRACRANIAL ABNORMALITY.
[2017-10-13] MEDS ORDERED: IPRATROPIUM-ALBUTEROL 3 ML NEB INHALATION STA (22:37)
[2017-10-13] MEDS ORDERED: methylPREDNISolone SOD SUCCI 125 MG/2 ML VIAL IV STA (22:37)
[2017-10-13 22:44] LABS: Appearance,Urine Clear (Clear); Bilirubin,Urine Negative (Negative); Blood,Urine Negative (Negative); Color,Urine Yellow; Glucose,Urine (UA) Negative (Negative); Ketones,Urine Negative (Negative); Leukocyte Esterase,Urine Negative (Negative); Mucus,Urine Rare /hpf; Nitrite,Urine Negative (Negative); PH, Urine 5.5 (5.0-8.0); Protein,Urine 1+ (Negative); RBC,Urine <1 /hpf (0-5); Specific Gravity,Urine 1.017 (1.001-1.035); WBC,Urine <1 /hpf (0-5)
[2017-10-13 22:54] LABS: Amphetamine Screen,Urine Not Detected (NotDetected); Barbiturate Screen,Urine Not Detected (NotDetected); Benzodiazepines Screen,Urine Not Detected (NotDetected); Cocaine Screen,Urine Not Detected (NotDetected); Methadone Screen, Urine Not Detected (NotDetected); Opiate Screen,Urine Not Detected (NotDetected); Oxycodone Screen, Urine Not Detected (NotDetected); Phencyclidine Screen,Urine Not Detected (NotDetected); Tricyclic Antidepressant,Urine Not Detected (NotDetected); Urn Cannabinoid Scrn Not Detected (NotDetected)
[2017-10-13] MEDS: SODIUM CHLORIDE 0.9% 1,000 ML IV SCH (22:57)
[2017-10-14 01:09] VITALS: BMI 34.7
[2017-10-14] MEDS: methylPREDNISolone SOD SUCCI 125 MG/2 ML VIAL IV SCH ×3 (02:21→12:54)
[2017-10-14] MEDS: LORazepam 2 MG/ML INJ IV PRN ×2 (04:47→23:45)
--- NOTE | 2017-10-14 05:03 | HP ---
HISTORY AND PHYSICAL DATE OF SERVICE: 10/13/2017 CHIEF COMPLAINT: Change in mental status, shortness of breath. HISTORY OF THE PRESENT ILLNESS: This 62-year-old gentleman with a past medical history of multiple medical problems including COPD, CHF, hypertension, DJD, history of pneumonia, diverticulitis, AICD, cardiac catheterization, tonsillectomy, being followed by Dr. Pruitt in the outpatient setting was complaining of change in mental status according to the family. The patient was found wandering and the patient was not able to sleep for the last 2 weeks. The patient was apparently in a manic phase. The patient also had some difficulty breathing and because of multiple complaints, patient came to [facility] and admitted for further evaluation and treatment. There is no history of fever, rigors or chills. No history of headache, loss of consciousness, seizures. PAST MEDICAL HISTORY: History of COPD, hypertension, DJD, history of AICD, cardiac catheterization. MEDICATIONS: Prior to admission include home medications are: 1. Aldactone 25 mg p.o. daily. 2. Zestril 5 mg p.o. daily. 3. Coreg 6.25 mg p.o. b.i.d. with meals. 4. Lipitor 20 mg q.h.s. 5. Lasix 40 mg p.o. daily. 6. Eliquis 5 mg p.o. b.i.d. ALLERGIES: LATEX, SHELLFISH, SULFA . SOCIAL HISTORY: Previous history of smoking. No history of current smoking or alcohol intake. FAMILY HISTORY: History of COPD, diabetes, and skin cancer. REVIEW OF SYSTEMS: ENT: No diminished vision. No diminished hearing. CARDIOVASCULAR: No angina or palpitations. RESPIRATORY: As mentioned earlier. GI: No nausea or vomiting. : No dysuria or hematuria. NERVOUS SYSTEM: No numbness or weakness. ALLERGY/IMMUNOLOGY: No asthma or hayfever. MUSCULOSKELETAL as mentioned earlier. DERMATOLOGY: Negative. RHEUMATOLOGY: Negative. PSYCHIATRIC: As mentioned earlier. PHYSICAL EXAMINATION: Alert and oriented x3. Pulse is 73. Blood pressure 142/62, respiration rate 18, temp 97.5, pulse ox 100% on room air. HEENT: Conjunctivae normal. Oral mucosa moist. NECK is no jugular venous distention. No carotid bruit. No lymph node enlargement. CARDIOVASCULAR: S1-S2 muffled. No S3, no S4. RESPIRATORY: Breath sounds diminished in the bases. Bilateral scattered rhonchi and expiratory wheezing and crackles heard. ABDOMEN: Soft, nontender. No mass palpable. LEGS: No edema and no swelling. NERVOUS SYSTEM: Higher functions as mentioned earlier, moves all 4 limbs, no focal motor or sensory deficits. LYMPHATICS: No lymph nodes palpable in the neck, axillae or groin. SKIN: No ulcer, rashes or bleeding. LABS: WBC 8, hemoglobin is 8.7, and creatinine is 1.96. ASSESSMENT: 1. Chronic obstructive pulmonary disease, acute exacerbation. 2. Possible acute on chronic renal failure with chronic kidney disease stage 3. 3. Anemia, microcytic of undetermined etiology. 4. History of congestive heart failure. 5. History of chronic obstructive pulmonary disease. 6. Hypertension. 7. Change in mental status and as well as possible psychosis with manic face. 8. History of degenerative joint disease. 9. History of pneumonia. 10.History of diverticulitis. 11.History of AICD. 12.History of ischemic cardiomyopathy. 13.History of chronic systolic dysfunction with severe LV dysfunction. RECOMMENDATIONS AND DISCUSSION: Recommend to continue current medications, management and symptomatic treatment. Otherwise, at this time, I would recommend resume the home medications. Monitor creatinine closely. I would also recommend Cardiology and psychiatric evaluations. Otherwise, prognosis guarded because of multiple complex medical issues and p.r.n. Ativan may be used. Further recommendations to follow. The patient is already on apixaban. I would also recommend IV steroids and NovoLog scale as well. MMODL / IJN: [id number] / TARA
[2017-10-14] MEDS: IPRATROPIUM-ALBUTEROL 3 ML NEB INHALATION SCH ×4 (07:28→18:52)
[2017-10-14] MEDS: SYMBICORT 160-4.5 MCG INHALER INHALATION SCH ×2 (07:28→18:52)
[2017-10-14] MEDS ORDERED: APIXABAN 5 MG TAB PO SCH (09:00)
[2017-10-14 09:16] LABS: Glucose,Whole Blood 198 mg/dL (75-99)
[2017-10-14] MEDS: CARVEDILOL 6.25 MG TAB PO SCH ×2 (09:18→17:54)
[2017-10-14] MEDS: SPIRONOLACTONE 25 MG TAB PO SCH (09:18)
[2017-10-14] MEDS: LISINOPRIL 5 MG TAB PO SCH (09:18)
[2017-10-14] MEDS: FUROSEMIDE 40 MG TAB PO SCH (09:18)
[2017-10-14] MEDS: INSULIN ASPART 100 UNIT/ML 1 ML 10 ML VIAL SQ SCH ×4 (09:18→21:28)
[2017-10-14 11:49] LABS: Glucose,Whole Blood 216 mg/dL (75-99)
[2017-10-14 12:02] LABS: Anisocytosis Slight; Basophils % (A) 0 %; Eosinophils % (A) 0 %; HCT 28.7 % (39.0-53.0); HGB 8.7 gm/dL (13.0-17.5); Hypochromasia Marked; Lymphocytes # (A) 0.6 k/uL (1.0-4.8); Lymphocytes % (A) 15 %; MCH 18.2 pg (25.0-35.0); MCHC 30.2 g/dL (31.0-37.0); MCV 60.2 fL (80.0-100.0); Mean Platelet Volume 7.9; Microcytosis Marked; Monocytes # (A) 0.1 k/uL (0-1.0); Monocytes % (A) 2 %; Neutrophils # (A) 3.2 k/uL (1.3-7.7); Neutrophils % (A) 82 %; Platelet Count 175 k/uL (150-450); Poikilocytosis Slight; RBC 4.77 m/uL (4.30-5.90); RDW 16.6 % (11.5-15.5); WBC 3.9 k/uL (3.8-10.6)
[2017-10-14 12:11] LABS: Calcium 8.4 mg/dL (8.4-10.2); Potassium 4.2 mmol/L (3.5-5.1)
--- NOTE | 2017-10-14 13:14 | P.CN ---
Psychiatric Consult - . Consult date: 10/14/17 Consult:: IDENTIFYING DATA: The patient is 62-year-old male brought to the ED by his who complained of periods confusion. She told the ED physician that she found him wandering and middle of the night down the street and wandering along the railroad tracks. She also complained that he was "talking strange". HISTORY OF PRESENT ILLNESS: I reviewed the medical record and interviewed the patient. He denied problems or concerns. He stated he came to ED at the behest of his . She told him that he was "acting strange." He did not appear to remember wandering and denied that he "felt confused". He denied feeling depressed, anxious or suspicious. He denied feeling confused as to person, time or place. He denied feeling hopeless, helpless or worthless. He denied self-reproach or ideas of guilt. He denied thoughts of suicide. He complained of insomnia and difficulty sleeping. He denied fatigue or weakness or loss of interest in activities. He denied auditory, visual or olfactory hallucinations. He denied experiencing ideas reference, thought insertion or thought broadcasting. He denied use of alcohol or drugs. PAST PSYCHIATRIC HISTORY: He denied history of psychiatric problems or mental health treatment.. PAST MEDICAL HISTORY: He is a complicated medical history and multiple medical diagnoses including COPD, CHF, end-stage renal disease, hypertension, degenerative joint disease and atherosclerotic heart disease. His evaluation in the ED included a computed tomography scan of the brain which showed cerebral atrophy and chronic small vessel disease. ALLERGIES: Sulfamethoxazole, trimethoprim. SUBSTANCE USE HISTORY: He denied history of problems with alcohol or drugs. He denied participating in a substance abuse treatment program. FAMILY PSYCHIATRIC/SUBSTANCE USE HISTORY: He is unaware of family history of psychiatric or substance use problems. SOCIAL HISTORY: His born and raised in an intact family. He graduated from high school in [facility]. He is currently to his fourth . He stated that he has 19 children and 13 grandchildren. 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 MENTAL STATUS EXAM: He presented as a tall elderly male who was pleasant on approach. He made eye contact and attended to the interview. He had no distinguishing features or prominent physical abnormalities. He had a bright facial expression. He was alert and oriented to person, place and time. He showed no abnormality of psychomotor activity. He was not agitated, restless or impulsive. His speech was spontaneous with slight increase in rate but normal rhythm and volume. He had no articulation difficulty. His affect was bright, stable and appropriate. He denied suicidal ideation, wishes or homicidal ideation. He denied such depressive cognitions as hopelessness, helplessness or worthlessness. He did not express obsessional thoughts, phobias , ideas reference, paranoid ideation or delusional beliefs. His thinking was concrete but his associations were coherent, logical and goal directed. He did not demonstrate clang associations, perseverations, neologisms or blocking. He denied hallucinations and did not appear to be responding to internal stimuli. Global impression of intellect is average. We completed the Mini-Mental State Exam. His total score was 29/30. He showed no impairment in orientation, registration, attention and calculation, recall her language. He made one error on the serial sevens test. IMPRESSIONS: He is a 62-year-old male with multiple medical problems who presented to the ED with a recent history of confusion and impairment in judgment. He does not have his symptoms consistent with a psychiatric syndrome. He does not have depressive or anxiety disorder. He is not manic or hypomanic. He does not have signs or symptoms of a delirium. His computed tomography scan showed cerebral atrophy and chronic small vessel disease. Laboratory studies shows anemia and renal impairment. His performance on the Mini-Mental State Exam is not consistent with minor or major cognitive impairment. I suspect that the changes in behavior secondary to his medical problems and not due to a major psychiatric illness. PSYCHIATRIC DIAGNOSIS: Confusional state secondary to medical illness RECOMMENDATION There is no indication for transfer to the psychiatric unit. There is no indication for referral for outpatient mental health and/or psychiatric services. Thank you for this consult. 10/14/17 12:52
[2017-10-14 14:36] LABS: Hemoglobin A1C 5.8 % (4.0-6.0)
--- NOTE | 2017-10-14 14:36 | P.CRDCN ---
History of Present Illness History of present illness: Mr. Bustillo is a pleasant 62-year-old male past medical history significant for ischemic cardiomyopathy s/p recent AICD placement, chronic systolic heart failure with EF 20-25%, hypertension, paroxysmal atrial fibrillation on long-term anticoagulation COPD, chronic kidney disease and former tobacco dependence. He follows with Dr. Pollack in the office. We have been asked to see him in consultation. He presented to the hospital yesterday with his for altered mental status. He apparently had been found wandering in the middle of night down the stress and down the railroad tracks. He is confused during my exam and all information is obtained from the chart and nursing staff. He is seen sitting up in the chair with his head resting on his breakfast plate. He is easily arousable. He is talking about the 7 dwarfs being in his room and not answering any of my questions appropriately. He recently underwent AICD placement per Dr. Cullen 07/27/2017 for ischemic cardiomyopathy. Prior to that he underwent a cardiac catheterization which revealed mild coronary artery disease with approximately 40% stenosis in the proximal circumflex artery, mid LAD and RCA with mild irregularity. When asked why he is here in the hospital he states that the 7 N. made him calm. He denies any symptoms of chest pain, shortness of breath, dizziness, palpitations, nausea, vomiting or diaphoresis. EKG reveals sinus mechanism with right bundle branch block pattern. This is his baseline EKG. No acute changes. Chest x-ray shows indications of a pleural reaction and atelectasis in the left lower lobe. CT of the brain reveals cerebral atrophy with chronic small vessel ischemia no acute intracranial male. Laboratory data reviewed, hemoglobin 8.7, platelets 175, sodium 139, potassium 4.2, creatinine 1.81, cardiac enzymes negative 1. Current cardiac medications include Eliquis 5 mg twice a day, atorvastatin 20 mg daily, carvedilol 6.25 mg twice a day, Lasix 40 mg daily, lisinopril 5 mg daily and Aldactone 25 mg daily. Review of Systems ROS unobtainable: due to mental status Past Medical History Past Medical History: Heart Failure, COPD, Hypertension, Osteoarthritis (OA), Pneumonia, Renal Disease Additional Past Medical History / Comment(s): DIVERTICULITIS, ARTHRITIS IN SPINE ,"THALASSEMIA MINOR" History of Any Multi-Drug Resistant Organisms: None Reported Past Surgical History: AICD, Heart Catheterization, Tonsillectomy Additional Past Surgical History / Comment(s): COLONOSCOPY-BENIGN POLYPS Found, LT HAND 4TH DIGIT REPAIR, LT MASTOID SX AGE 3 AICD placement today 07/26/17 Past Anesthesia/Blood Transfusion Reactions: No Reported Reaction Type of Cardiac Device: AICD Device Placement Date:: 07/26/17 Past Psychological History: No Psychological Hx Reported Additional Psychological History / Comment(s): PT IS ,LIVES IN 2 STORY HOME THAT HAS 2 FRONT STEPS-PT STAYS ON MAIN LEVEL. 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 PT IS INDEPENDANT NO OUTSIDE SERVICES. Smoking Status: Current every day smoker Past Alcohol Use History: Rare Additional Past Alcohol Use History / Comment(s): STARTED SMOKING AT AGE 12, DID QUIT FOR 12 YEARS BUT RESTARTED IN 2012, SMOKES 1 PPD. restarted 09/26/17 Past Drug Use History: None Reported - Past Family History Mother Family Medical History: COPD, Diabetes Mellitus Father Family Medical History: Cancer, Diabetes Mellitus Additional Family Medical History / Comment(s): SKIN CANCER Patient reported no history of DM Medications and Allergies Home Medications Medication Instructions Recorded Confirmed Type Apixaban [Eliquis] 5 mg PO BID #60 tab 02/10/17 10/13/17 Rx Carvedilol [Coreg] 6.25 mg PO BID-W/MEALS #60 tab 02/10/17 10/13/17 Rx Furosemide [Lasix] 40 mg PO DAILY 06/08/17 10/13/17 History Lisinopril [Zestril] 5 mg PO DAILY 06/08/17 10/13/17 History Spironolactone [Aldactone] 25 mg PO DAILY 06/08/17 10/13/17 History Atorvastatin [Lipitor] 20 mg PO HS 06/11/17 10/13/17 History Allergies Allergy/AdvReac Type Severity Reaction Status Date / Time Latex, Natural Rubber Allergy Rash/Hives Verified 10/13/17 18:16 shellfish derived [Shellfish] Allergy SWELLING Verified 10/13/17 18:16 AND VOMITING sulfamethoxazole Allergy Rash/Hives Verified 10/13/17 18:16 [From Bactrim] trimethoprim [From Bactrim] Allergy Rash/Hives Verified 10/13/17 18:16 Physical Exam Vitals: Vital Signs Temp Pulse Pulse Pulse Resp BP BP 10/14/17 06:00 97.7 F 85 18 131/59 10/14/17 00:30 97.7 F 76 20 159/72 10/14/17 00:00 20 10/13/17 23:16 97.5 F L 73 18 142/63 10/13/17 21:26 97.7 F 74 20 149/73 10/13/17 18:12 98.9 F 79 16 114/61 Pulse Ox 10/14/17 06:00 92 L 10/14/17 00:30 95 10/14/17 00:00 10/13/17 23:16 100 10/13/17 21:26 92 L 10/13/17 18:12 100 Intake and Output 10/13/17 10/14/17 10/14/17 22:59 06:59 14:59 Other: Voiding Method Toilet # Voids 1 Weight 101.605 kg 122.8 kg Blood pressure 142/63 heart rate 73 afebrile maintaining oxygen saturation on room air GENERAL: This is a 62-year-old male in no apparent distress at the time of my examination. HEENT: Head is atraumatic, normocephalic. Pupils are equal, round. Sclerae anicteric. Conjunctivae are clear. Mucous membranes of the mouth are moist. Neck is supple. There is no jugular venous distention. No carotid bruit is heard. LUNGS: Clear to auscultation no wheezes, rales or rhonchi. No chest wall tenderness is noted on palpation or with deep breathing. HEART: Regular rate and rhythm without murmurs, rubs or gallops. S1 and S2 heard. ABDOMEN: Soft, nontender. Bowel sounds are heard. No organomegaly noted. EXTREMITIES: No evidence of peripheral edema and no calf tenderness noted. VASCULAR: Radial and dorsalis pedis pulses palpated, no evidence of clubbing. NEUROLOGIC: Patient is awake, alert and disoriented. Results 10/14/17 11:45 10/14/17 11:45 Cardiac Enzymes 10/13/17 10/13/17 Range/Units 19:43 19:43 AST 14 L (17-59) U/L Troponin I <0.012 (0.000-0.034) ng/mL CBC 10/13/17 10/14/17 Range/Units 19:43 11:45 WBC 8.0 3.9 (3.8-10.6) k/uL RBC 4.72 4.77 (4.30-5.90) m/uL Hgb 8.7 L 8.7 L (13.0-17.5) gm/dL Hct 27.7 L 28.7 L (39.0-53.0) % Plt Count 176 175 (150-450) k/uL Comprehensive Metabolic Panel 18 10/14/17 Range/Units 19:43 11:45 Sodium 142 139 (137-145) mmol/L Potassium 3.9 4.2 (3.5-5.1) mmol/L Chloride 109 H 106 (98-107) mmol/L Carbon Dioxide 20 L 20 L (22-30) mmol/L BUN 32 H 28 H (9-20) mg/dL Creatinine 1.96 H 1.81 H (0.66-1.25) mg/dL Glucose 87 186 H (74-99) mg/dL Calcium 8.2 L 8.4 (8.4-10.2) mg/dL AST 14 L (17-59) U/L ALT 20 L (21-72) U/L Alkaline Phosphatase 55 (38-126) U/L Total Protein 6.1 L (6.3-8.2) g/dL Albumin 3.7 (3.5-5.0) g/dL Current Medications Generic Name Dose Route Start Last Admin Trade Name Freq PRN Reason Stop Dose Admin Albuterol/Ipratropium 3 ml 10/14/17 08:00 10/14/17 11:00 Duoneb 0.5 Mg-3 Mg/3 Ml Soln INHALATION Not Given RT-QID JERI Apixaban 5 mg 10/14/17 09:00 10/14/17 09:18 Eliquis PO 5 mg BID JERI Administration Atorvastatin Calcium 20 mg 10/14/17 21:00 Lipitor PO HS [facility] Budesonide/Formoterol Fumarate 2 puff 10/14/17 08:00 10/14/17 07:28 Symbicort 160-4.5 Mcg Inhaler INHALATION Not Given RT-BID [facility] Carvedilol 6.25 mg 10/14/17 07:30 10/14/17 09:18 Coreg PO 6.25 mg BID-W/MEALS JERI Administration Furosemide 40 mg 10/14/17 09:00 10/14/17 09:18 Lasix PO 40 mg DAILY JERI Administration Sodium Chloride 1,000 mls @ 50 mls/hr 10/13/17 22:45 10/13/17 22:57 Saline 0.9% IV 100 mls/hr .Q20H JERI Administration Insulin Aspart 0 unit 10/14/17 07:30 10/14/17 12:55 Novolog SQ 3 unit ACHS JERI Administration Protocol Lisinopril 5 mg 10/14/17 09:00 10/14/17 09:18 Zestril PO 5 mg DAILY JERI Administration Lorazepam 1 mg 10/14/17 00:35 10/14/17 04:47 Ativan IV 1 mg Q4HR PRN Administration Anxiety Methylprednisolone Sodium Succinate 60 mg 10/14/17 00:00 10/14/17 12:54 Solu-Medrol IV 60 mg Q6HR JERI Administration Spironolactone 25 mg 10/14/17 09:00 10/14/17 09:18 Aldactone PO 25 mg DAILY JERI Administration Intake and Output 10/13/17 10/14/17 10/14/17 22:59 06:59 14:59 Other: Voiding Method Toilet # Voids 1 Weight 101.605 kg 122.8 kg 10/14/17 11:45 10/14/17 11:45 Assessment and Plan Assessment: ASSESSMENT 1. Altered mental status 2. History of ischemic cardiomyopathy status post AICD placement 3. Chronic systolic heart failure with ejection fraction 20-25%, currently euvolemic 4. Paroxysmal atrial fibrillation on long-term anticoagulation, currently maintaining sinus mechanism 5. Hypertension 6. Dyslipidemia 7. History of COPD 8. Chronic kidney disease. PLAN The patient is currently in a euvolemic state with no evidence of acute heart failure. Ongoing medical management of altered mental status with psychiatric evaluation. Resume home medications with the exception of changing Eliquis to renal dosing of 2.5 mg BID. We will continue to follow this patient as needed. Please feel free to call if further questions or concerns. Thank you kindly for this consultation, follow up with Dr. Pollack upon discharge. Nurse Practitioner note has been reviewed, I agree with a documented findings and plan of care. Patient was seen and examined.
[2017-10-14 17:13] LABS: Glucose,Whole Blood 172 mg/dL (75-99)
--- NOTE | 2017-10-14 17:28 | PN ---
PROGRESS NOTE DATE OF SERVICE: 10/14/2017 This 62 -year-old gentleman admitted with multiple medical problems and change in mental status also has renal failure. The patient also has significant CHF and cardiomyopathy as well. The patient has COPD acute exacerbation. Patient is currently being evaluated by Cardiology and Psychiatry also. PAST MEDICAL HISTORY: Reviewed. REVIEW OF SYSTEMS: Cardiovascular: As mentioned earlier. RESPIRATORY: As mentioned earlier. GI: No nausea or vomiting. : No dysuria. Central nervous system: No focal deficits. MEDICATIONS: Current medications are reviewed include: 1. DuoNeb q.i.d. and p.r.n. 2. Eliquis 2.5 mg b.i.d. 3. Lipitor 20 mg q.h.s. 4. Symbicort 160/4.5 two puffs b.i.d. 5. Coreg 6.25 mg b.i.d. 6. Lasix 40 mg daily. 7. NovoLog. 8. Zestril 5 mg p.o. daily. 9. Ativan. 10.Solu-Medrol 60 IV q.6h. 11.Aldactone 25 mg daily. PHYSICAL EXAM: Patient is alert, oriented x2. Pulse 85, blood pressure 130/59, respiration 18, temperature 97.7, pulse ox 98% on room air. HEENT: Conjunctivae normal. Oral mucosa moist. NECK is no jugular venous distention. No carotid bruit. No lymph node enlargement. CARDIOVASCULAR: S1, S2 muffled. RESPIRATIONS: Breath sounds diminished in the bases. Bilateral scattered rhonchi and expiratory wheezing and crackles. ABDOMEN: Soft, nontender. No mass palpable. LEGS: No edema, no swelling. CENTRAL NERVOUS SYSTEM: Higher functions as mentioned earlier. Moves all 4 limbs, no focal motor or sensory deficits. SKIN: No ulcer, rash or bleeding. LABS: WBC 3.2, hemoglobin is 8.7, creatinine is 1.81. ASSESSMENT: 1. Chronic obstructive pulmonary disease acute exacerbation with acute purulent tracheobronchitis. 2. Acute on chronic renal failure with chronic kidney stage 3 baseline. 3. Anemia microcytic undetermined etiology. 4. History of congestive heart failure. 5. History of chronic obstructive pulmonary disease. 6. Hypertension. 7. Change in mental status with possible psychosis with manic phase. 8. History of degenerative joint disease. 9. History of pneumonia. 10.History of diverticulitis. 11.History of AICD. 12.History of ischemic cardiomyopathy. 13.History of chronic systolic dysfunction with severe LV dysfunction. RECOMMENDATIONS AND DISCUSSION: Continue current medications, symptomatic treatment, management and closely monitor with multiple consultants. Otherwise, cautious hydration. Repeat labs in the morning. Continue the rest of the medications. I will cut down the dose of steroids at this time. Otherwise, the prognosis is guarded because of multiple complex medical issues, which I discussed with the patient at length and discussed with staff. Further recommendations to follow. Will add vitamin as well. Monitor fluid and electrolytes balance closely. There is no evidence of any overt infections at this time. NT proBNP is elevated 4190. MMODL / IJN: [id number] /
[2017-10-14] MEDS: SODIUM CHLORIDE 0.9% 1,000 ML IV SCH (17:54)
[2017-10-14 20:14] LABS: Glucose,Whole Blood 221 mg/dL (75-99)
[2017-10-14] MEDS: ATORVASTATIN 20 MG TAB PO SCH (20:29)
[2017-10-14] MEDS: APIXABAN 2.5 MG TABLET PO SCH (20:29)
[2017-10-14] MEDS: ACETAMINOPHEN TAB 500 MG TAB PO PRN (21:52)
[2017-10-14] MEDS: methylPREDNISolone SOD SUCCI 40 MG/ML 1 ML VIAL IV SCH (23:45)
[2017-10-15] MEDS: LORazepam 2 MG/ML INJ IV PRN (04:15)
[2017-10-15 07:15] LABS: Glucose,Whole Blood 175 mg/dL (75-99)
[2017-10-15 08:22] LABS: Anisocytosis Slight; Basophils % (A) 0 %; Eosinophils % (A) 0 %; HCT 29.6 % (39.0-53.0); HGB 8.9 gm/dL (13.0-17.5); Hypochromasia Moderate; Lymphocytes # (A) 0.9 k/uL (1.0-4.8); Lymphocytes % (A) 9 %; MCH 18.2 pg (25.0-35.0); MCHC 30.1 g/dL (31.0-37.0); MCV 60.5 fL (80.0-100.0); Mean Platelet Volume 8.8; Microcytosis Marked; Monocytes # (A) 0.3 k/uL (0-1.0); Monocytes % (A) 3 %; Neutrophils # (A) 8.5 k/uL (1.3-7.7); Neutrophils % (A) 87 %; Platelet Count 195 k/uL (150-450); Poikilocytosis Slight; WBC 9.7 k/uL (3.8-10.6)
[2017-10-15 08:30] LABS: Calcium 8.7 mg/dL (8.4-10.2); Potassium 4.5 mmol/L (3.5-5.1)
[2017-10-15] MEDS: INSULIN ASPART 100 UNIT/ML 1 ML 10 ML VIAL SQ SCH ×4 (08:38→20:48)
[2017-10-15] MEDS: LISINOPRIL 5 MG TAB PO SCH (08:38)
[2017-10-15] MEDS: APIXABAN 2.5 MG TABLET PO SCH ×2 (08:38→20:48)
[2017-10-15] MEDS: CARVEDILOL 6.25 MG TAB PO SCH ×2 (08:38→17:28)
[2017-10-15] MEDS: FUROSEMIDE 40 MG TAB PO SCH (08:38)
[2017-10-15] MEDS: SPIRONOLACTONE 25 MG TAB PO SCH (08:38)
[2017-10-15] MEDS: methylPREDNISolone SOD SUCCI 40 MG/ML 1 ML VIAL IV SCH ×3 (08:39→23:44)
[2017-10-15] MEDS: IPRATROPIUM-ALBUTEROL 3 ML NEB INHALATION SCH ×4 (08:41→20:25)
[2017-10-15] MEDS: SYMBICORT 160-4.5 MCG INHALER INHALATION SCH ×2 (08:41→20:25)
[2017-10-15 11:14] LABS: Glucose,Whole Blood 194 mg/dL (75-99)
[2017-10-15] MEDS: MULTIVITAMINS, THERA 1 EACH TAB PO SCH (13:33)
[2017-10-15] MEDS: SODIUM CHLORIDE 0.9% 1,000 ML IV SCH (13:33)
[2017-10-15] MEDS: FOLIC ACID 1 MG TAB PO SCH (13:33)
[2017-10-15] MEDS: ACETAMINOPHEN TAB 500 MG TAB PO PRN (14:09)
--- NOTE | 2017-10-15 14:38 | P.CNNES ---
History of Present Illness Consult date: 10/15/17 Reason for Consult: This patient being evaluated for possible dementia. History of Present Illness: This patient is a 62-year-old right-handed white male who was brought into the emergency room at [facility] 2 days ago for evaluation of episodes of confusion and disorientation. Patient presented to the ER on 2017 and was seen in the ER by Dr. Barnett. He was sent for a computed tomography scan of the brain which revealed evidence of cerebral atrophy and chronic small vessel ischemic changes. No acute intracranial abnormality was detected. Apparently the patient was noted by his is having episodes of confusion and wandering. He would get up and wander out of the home at 4 AM and walk around the railroad tracks. He was also talking very strange and seem to be very much disoriented. He was admitted to the hospital and was seen in psychiatric consultation yesterday by Dr. Mosher. He performed a MMSE evaluation and the patient scored 29/30 on his Mini-Mental status exam. Dr. Mosher felt that there was no indication to transfer him to the psychiatric unit. No indication for any psychiatric medications. It is still unclear as to the cause of his acute confusion. He denies any thoughts of suicidal ideation. He does complain of insomnia but this may be related to his normal activities at home. The patient does have a AICD defibrillator in place. He is currently on Eliquis and is not a candidate for MRI evaluation due to the AICD device. He has noted his CAT scan of the brain did reveal evidence of cortical atrophy. Review of the actual CAT scan film does reveal temporal lobe atrophy. The patient also has been complaining of severe right-sided headache pain for the past 2 days. The episodes come on suddenly and can cause him to be incapacitated. We are recommending the patient to have a CTA angiogram of the head and neck for further evaluation. At this point his memory seems to be quite adequate for his age. He does answer all questions appropriately at this time. According to the nursing staff he was very much confused yesterday. We will continue to follow his progress closely and will await any further recommendations from psychiatry as his symptoms also suggest possibility of underlying bipolar disorder. We will follow along with psychiatry for this patient's current symptoms. His overall prognosis at this time remains guarded. Neurology is now been consulted for further evaluation and recommendations. Review of Systems Constitutional: Denies chills, Denies fever Eyes: denies blurred vision, denies pain Ears, nose, mouth and throat: Denies headache, Denies sore throat Cardiovascular: Denies chest pain, Denies shortness of breath Respiratory: Denies cough Gastrointestinal: Denies abdominal pain, Denies diarrhea, Denies nausea, Denies vomiting Musculoskeletal: Denies myalgias Integumentary: Denies pruritus, Denies rash Neurological: Reports confusion, Reports headaches, Reports memory loss, Denies numbness, Denies weakness Psychiatric: Reports insomnia, Reports memory loss, Reports mood swings, Reports paranoia, Denies anxiety, Denies depression Endocrine: Denies fatigue, Denies weight change Past Medical History Past Medical History: Heart Failure, COPD, Hypertension, Osteoarthritis (OA), Pneumonia, Renal Disease Additional Past Medical History / Comment(s): DIVERTICULITIS, ARTHRITIS IN SPINE ,"THALASSEMIA MINOR" History of Any Multi-Drug Resistant Organisms: None Reported Past Surgical History: AICD, Heart Catheterization, Tonsillectomy Additional Past Surgical History / Comment(s): COLONOSCOPY-BENIGN POLYPS Found, LT HAND 4TH DIGIT REPAIR, LT MASTOID SX AGE 3 AICD placement today 07/26/17 Past Anesthesia/Blood Transfusion Reactions: No Reported Reaction Type of Cardiac Device: AICD Device Placement Date:: 07/26/17 Past Psychological History: No Psychological Hx Reported Additional Psychological History / Comment(s): PT IS ,LIVES IN 2 [place] HOME THAT HAS 2 FRONT STEPS-PT STAYS ON MAIN LEVEL. 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 PT IS INDEPENDANT NO OUTSIDE SERVICES. Smoking Status: Current every day smoker Past Alcohol Use History: Rare Additional Past Alcohol Use History / Comment(s): STARTED SMOKING AT AGE 12, DID QUIT FOR 12 YEARS BUT RESTARTED IN 2012, SMOKES 1 PPD. restarted 09/26/17 Past Drug Use History: None Reported - Past Family History Mother Family Medical History: COPD, Diabetes Mellitus Father Family Medical History: Cancer, Diabetes Mellitus Additional Family Medical History / Comment(s): SKIN CANCER Patient reported no history of DM Medications and Allergies Home Medications Medication Instructions Recorded Confirmed Type Apixaban [Eliquis] 5 mg PO BID #60 tab 02/10/17 10/13/17 Rx Carvedilol [Coreg] 6.25 mg PO BID-W/MEALS #60 tab 02/10/17 10/13/17 Rx Furosemide [Lasix] 40 mg PO DAILY 06/08/17 10/13/17 History Lisinopril [Zestril] 5 mg PO DAILY 06/08/17 10/13/17 History Spironolactone [Aldactone] 25 mg PO DAILY 06/08/17 10/13/17 History Atorvastatin [Lipitor] 20 mg PO HS 06/11/17 10/13/17 History Allergies Allergy/AdvReac Type Severity Reaction Status Date / Time Latex, Natural Rubber Allergy Rash/Hives Verified 10/13/17 18:16 shellfish derived [Shellfish] Allergy SWELLING Verified 10/13/17 18:16 AND VOMITING sulfamethoxazole Allergy Rash/Hives Verified 10/13/17 18:16 [From Bactrim] trimethoprim [From Bactrim] Allergy Rash/Hives Verified 10/13/17 18:16 Physical Examination - Vital Signs Vital Signs: Vital Signs Temp Pulse Pulse Resp BP Pulse Ox 10/15/17 12:41 80 10/15/17 12:26 80 10/15/17 08:57 80 10/15/17 08:41 80 10/15/17 07:15 98 F 78 20 150/78 94 L 10/15/17 00:05 16 10/14/17 22:06 97.5 F L 75 16 161/75 99 10/14/17 15:48 97.6 F 83 16 129/62 99 Intake and Output 10/14/17 10/15/17 10/15/17 22:59 06:59 14:59 Intake Total 1280 Balance 1280 Intake: Intake, IV Titration 200 Amount Sodium Chloride 0.9% 1, 200 000 ml @ 50 mls/hr IV . Q20H [facility] Rx#:[id number] Oral 1080 Other: Voiding Method Toilet # Voids 1 4 Weight 122.5 kg - Constitutional General appearance: cooperative - EENT EENT: PERRL, mucous membranes moist - Respiratory Respiratory: lungs clear, normal breath sounds - Cardiovascular Cardiovascular: regular rate, normal S1, normal S2 Extremities: no peripheral edema bilaterally - Gastrointestinal Gastrointestinal: normoactive bowel sounds - Integumentary Integumentary: normal - Neurologic Cranial nerve examination: PERRL, EOMI, VFF, V1/V2/V3 grossly intact, face symmetric, tongue midline, intact gag reflex, intact corneal reflex, normal palatal elevation Speech examination: intact Sensorimotor examination: intact Motor examination - right side: 4/5: biceps, triceps, wrist flexion, wrist extension, plan examiner, hip flexors, knee extensors, dorsiflexion, toe extension (EHL) , plantarflexion Motor examination - left side: 4/5: biceps, triceps, wrist flexion, wrist extension, plan examiner, hip flexors, knee extensors, dorsiflexion, toe extension (EHL) , plantarflexion Detailed sensory examination: intact Reflex and gait examination: intact Reflexes: 1+: ankle, bicep, knee, tricep - Musculoskeletal Musculoskeletal: no pain - Psychiatric Psychiatric: mood/affect appropriate, cooperative Results - Laboratory Findings CBC and BMP: 10/15/17 08:06 10/15/17 08:06 Abnormal Lab Findings: Abnormal Labs 10/13/17 10/13/17 10/13/17 19:43 19:43 22:37 Hgb 8.7 L Hct 27.7 L MCV 58.7 L MCH 18.4 L MCHC RDW 16.7 H Neutrophils # Lymphocytes # Chloride 109 H Carbon Dioxide 20 L BUN 32 H Creatinine 1.96 H Glucose POC Glucose (mg/dL) Calcium 8.2 L AST 14 L ALT 20 L Total Protein 6.1 L Urine Protein 1+ H Urine Mucus Rare H 10/14/17 10/14/17 10/14/17 09:12 11:45 11:45 Hgb 8.7 L Hct 28.7 L MCV 60.2 L MCH 18.2 L MCHC 30.2 L RDW 16.6 H Neutrophils # Lymphocytes # 0.6 L Chloride Carbon Dioxide 20 L BUN 28 H Creatinine 1.81 H Glucose 186 H POC Glucose (mg/dL) 198 H Calcium AST ALT Total Protein Urine Protein Urine Mucus 10/14/17 10/14/17 10/14/17 11:45 17:07 20:13 Hgb Hct MCV MCH MCHC RDW Neutrophils # Lymphocytes # Chloride Carbon Dioxide BUN Creatinine Glucose POC Glucose (mg/dL) 216 H 172 H 221 H Calcium AST ALT Total Protein Urine Protein Urine Mucus 10/15/17 10/15/17 10/15/17 07:13 08:06 08:06 Hgb 8.9 L Hct 29.6 L MCV 60.5 L MCH 18.2 L MCHC 30.1 L RDW 17.0 H Neutrophils # 8.5 H Lymphocytes # 0.9 L Chloride Carbon Dioxide 20 L BUN 29 H Creatinine 1.93 H Glucose 173 H POC Glucose (mg/dL) 175 H Calcium AST ALT Total Protein Urine Protein Urine Mucus 10/15/17 11:12 Hgb Hct MCV MCH MCHC RDW Neutrophils # Lymphocytes # Chloride Carbon Dioxide BUN Creatinine Glucose POC Glucose (mg/dL) 194 H Calcium AST ALT Total Protein Urine Protein Urine Mucus Assessment and Plan (1) Acute metabolic encephalopathy Current Visit: Yes Status: Acute Code(s): G93.41 - METABOLIC ENCEPHALOPATHY SNOMED Code(s): 94417366 (2) Acute headache Current Visit: Yes Status: Acute Code(s): R51 - HEADACHE SNOMED Code(s): 933978513 (3) Dementia Current Visit: Yes Status: Acute Code(s): F03.90 - UNSPECIFIED DEMENTIA WITHOUT BEHAVIORAL DISTURBANCE SNOMED Code(s): 04028872 (4) Atrial fibrillation Current Visit: No Status: Acute Code(s): I48.91 - UNSPECIFIED ATRIAL FIBRILLATION SNOMED Code(s): 60333145 Plan: This patient is a 62-year-old male who was admitted to hospital with episodes of confusion and disorientation 2 days ago. He was seen by psychiatry yesterday and was evaluated with a Mini-Mental Status exam and his score was 29/ 30. This is a very normal score and does not indicate cognitive impairment. Neurology was consulted today for further evaluation of confusional state. He is unable to have MRI of the brain as he has a defibrillator in place. He is being treated for atrial fibrillation as well. His neurological exam at this time is nonfocal. He does complain of severe right-sided headache pain. We have recommended a CTA angiogram of the head and neck to be done to rule out cerebral aneurysm. We will obtain routine EEG for further evaluation of cognitive impairment for the patient. He does seem to be very appropriate at this time and was able to answer all questions appropriately. Review of his CAT scan of the brain does reveal temporal lobe atrophy. He may be further evaluated in the outpatient clinic as needed for further management. The patient was seen by psychiatry yesterday and they do not feel he requires inpatient psychiatric admission. They are not recommending any psychiatric medication for the patient. We will continue to follow his progress closely during this admission. His overall prognosis remains guarded. Time with Patient: Greater than 30
[2017-10-15 17:16] LABS: Glucose,Whole Blood 175 mg/dL (75-99)
--- NOTE | 2017-10-15 17:59 | PN ---
PROGRESS NOTE DATE OF SERVICE: 10/15/2017 This 62-year-old gentleman admitted with multiple problems, including confusion, change in mental status. Patient apparently was also not sleeping for 2 weeks and patient was apparently found wandering into other people's homes. After admission, the patient found to have COPD and acute renal failure, which is being managed at this time with a conservative line of management. The patient's sensorium did appear improved and today the patient was joking and telling knock-knock jokes at this time. Psychiatry has evaluated the patient and I also talked to psychiatrist as well. Neurology consultation is under way at this time. A CTA was ordered. A CTA could not be done on an emergent basis because of elevated creatinine. Nephrology will be consulted. Overall prognosis remains extremely guarded because of multiple complex medical issues as mentioned earlier. Also, I had discussed with over the phone, who expressed concern about patient's and others' safety because of the patient's behavior for the last 2 weeks. This concern was conveyed by me to Dr. Mederos, who is the psychiatrist at this time. Dr. Mosher is going to follow the patient over the weekend per Dr. Mederos. PAST MEDICAL HISTORY: Reviewed. REVIEW OF SYSTEMS: CARDIOVASCULAR: No angina. RESPIRATORY: As mentioned earlier. GI: As mentioned earlier. : No dysuria. NEUROLOGIC: No numbness, weakness. CURRENT MEDICATIONS: Reviewed, include: 1. Tylenol 500 every 6 hours p.r.n. 2. DuoNeb q.i.d. and p.r.n. 3. Eliquis 2.5 mg b.i.d. 4. Lipitor 20 mg q.h.s. 5. Symbicort 160/4.5 two puffs b.i.d. 6. Coreg 6.25 mg b.i.d. 7. Folic acid 1 mg daily. 8. Lasix 40 mg daily. 9. NovoLog scale. 10.Zestril 5 mg p.o. daily. 11.Ativan 1 mg q.4h p.r.n. 12.Solu-Medrol 40 IV q.8h. 13.Multivitamin 1 p.o. daily. 14.Aldactone 25 mg p.o. daily. PHYSICAL EXAM: Patient is alert, oriented x3. Pulse 72, blood pressure 157/69, respirations 20, temperature 98 degrees, pulse ox 96% on room air. HEENT: Conjunctivae normal. Oral mucosa moist. NECK: No jugular venous distention. No carotid bruits. No lymph node enlargement. CARDIOVASCULAR: S1, S2 muffled. RESPIRATORY: Breath sounds diminished in the bases. A few scattered rhonchi. No crackles. ABDOMEN: Soft, nontender. No mass palpable. LEGS: No edema. No swelling. NERVOUS SYSTEM: Higher functions as mentioned earlier. Moves all 4 limbs. No focal motor or sensory deficits. LYMPHATIC: No lymphadenopathy in neck or axillae. SKIN: No ulcer, rash or bleeding. LAB STUDIES: WBC 9.7, hemoglobin is 8.9. Creatinine is 1.93. ASSESSMENT: 1. Chronic obstructive pulmonary disease acute exacerbation with acute purulent tracheobronchitis. 2. Acute on chronic renal failure with chronic kidney disease stage 3 baseline. 3. Acute microcytic anemia, possibly thalassemia, which is rather chronic in nature. 4. Possible acute delirium versus acute psychosis with a change in mental status with acute metabolic encephalopathy, possible manic phase. 5. History of congestive heart failure. 6. History of chronic obstructive pulmonary disease. 7. Hypertension. 8. History of degenerative joint disease. 9. History of history pneumonia. 10.History of diverticulitis. 11.History of automatic implantable cardioverter-defibrillator. 12.Ischemic cardiomyopathy. 13.History of chronic systolic dysfunction, severe left ventricular dysfunction. RECOMMENDATIONS AND DISCUSSION: In this 62-year-old gentleman who presented with multiple complex medical issues, at this time I recommend to continue with medical management and symptomatic treatment, continue with steroids. Continue the rest of medications. Otherwise, monitor closely and Nephrology consultation, CTA per Neurology. I also discussed the case at length with the patient's and the 's concerns, as mentioned above, were noted. At this time, I would recommend the patient to stay in the hospital for a full admit regarding more than 2 nights to ensure the patient's safety as well as to elucidate and diagnose and treat above-mentioned multiple complex medical issues. See orders for further details. Once again, the prognosis is extremely guarded because of the complex medical issues. Discussed with staff. MMROS / MOSHEN: [id number] /
[2017-10-15 20:20] LABS: Glucose,Whole Blood 188 mg/dL (75-99)
[2017-10-15] MEDS: ATORVASTATIN 20 MG TAB PO SCH (20:48)
[2017-10-16 07:29] LABS: Anisocytosis Slight; Basophils % (A) 0 %; Eosinophils % (A) 0 %; HCT 30.7 % (39.0-53.0); HGB 9.2 gm/dL (13.0-17.5); Hypochromasia Marked; Lymphocytes # (A) 1.1 k/uL (1.0-4.8); Lymphocytes % (A) 9 %; MCH 18.4 pg (25.0-35.0); MCHC 30.1 g/dL (31.0-37.0); MCV 61.2 fL (80.0-100.0); Mean Platelet Volume 6.6; Microcytosis Marked; Monocytes # (A) 0.4 k/uL (0-1.0); Monocytes % (A) 3 %; Neutrophils # (A) 10.9 k/uL (1.3-7.7); Neutrophils % (A) 87 %; Platelet Count 241 k/uL (150-450); Poikilocytosis Slight; RBC 5.01 m/uL (4.30-5.90); RDW 17.3 % (11.5-15.5); WBC 12.5 k/uL (3.8-10.6)
[2017-10-16 07:31] LABS: Glucose,Whole Blood 156 mg/dL (75-99)
[2017-10-16 07:35] LABS: Calcium 8.9 mg/dL (8.4-10.2); Potassium 5.1 mmol/L (3.5-5.1)
[2017-10-16] MEDS: SYMBICORT 160-4.5 MCG INHALER INHALATION SCH ×2 (07:42→19:40)
[2017-10-16] MEDS: IPRATROPIUM-ALBUTEROL 3 ML NEB INHALATION SCH ×4 (07:42→19:40)
[2017-10-16] MEDS: SODIUM CHLORIDE 0.9% 1,000 ML IV SCH (08:17)
[2017-10-16] MEDS: INSULIN ASPART 100 UNIT/ML 1 ML 10 ML VIAL SQ SCH ×4 (08:17→21:33)
[2017-10-16] MEDS: FUROSEMIDE 40 MG TAB PO SCH (08:17)
[2017-10-16] MEDS: LISINOPRIL 5 MG TAB PO SCH (08:17)
[2017-10-16] MEDS: CARVEDILOL 6.25 MG TAB PO SCH ×2 (08:17→17:25)
[2017-10-16] MEDS: methylPREDNISolone SOD SUCCI 40 MG/ML 1 ML VIAL IV SCH ×3 (08:17→23:31)
[2017-10-16] MEDS: APIXABAN 2.5 MG TABLET PO SCH ×2 (08:17→21:33)
[2017-10-16] MEDS: SPIRONOLACTONE 25 MG TAB PO SCH (08:17)
--- NOTE | 2017-10-16 11:33 | P.NPCON ---
History of Present Illness - Reason for Consult chronic renal failure - History of Present Illness Reason for consultation: Chronic kidney disease History of present illness: Patient is a 62-year-old male seen in renal consultation for chronic kidney disease. Patient has chronic kidney disease stage III with baseline creatinine in the range of 1.62. Patient presented to the hospital with altered mental status. According to the the patient was quite confused and was found wandering on the streets. Patient's currently not confused. He does not recall doing anything different from usual. He has been evaluated by psychiatry this admission. He does have history of systolic CHF with ejection fraction of 20-25%. Admits to good urine output. No hematuria or dysuria. Denies chest pain or shortness of breath. He admits to swelling in his right lower extremity which is chronic kidney. Hemodynamically stable. He is maintained on Lasix 40 mg once daily as well as Aldactone 25 mg once daily. Denies use of NSAIDs. Vital signs are stable. General: The patient appeared well nourished and normally developed. HEENT: Head exam is unremarkable. Neck is without jugular venous distension. LUNGS: Lungs are clear to auscultation and percussion. Breath sounds decreased. HEART: Rate and Rhythm are regular. First and second heart sounds normal. No murmurs, rubs or gallops. ABDOMEN: Abdominal exam reveals normal bowel sounds. Non-tender and non- distended. No evidence of peritonitis. EXTREMITITES: 1+ edema in the right lower extremity. Past Medical History Past Medical History: Heart Failure, COPD, Hypertension, Osteoarthritis (OA), Pneumonia, Renal Disease Additional Past Medical History / Comment(s): DIVERTICULITIS, ARTHRITIS IN SPINE ,"THALASSEMIA MINOR" History of Any Multi-Drug Resistant Organisms: None Reported Past Surgical History: AICD, Heart Catheterization, Tonsillectomy Additional Past Surgical History / Comment(s): COLONOSCOPY-BENIGN POLYPS Found, LT HAND 4TH DIGIT REPAIR, LT MASTOID SX AGE 3 AICD placement today 07/26/17 Past Anesthesia/Blood Transfusion Reactions: No Reported Reaction Type of Cardiac Device: AICD Device Placement Date:: 07/26/17 Past Psychological History: No Psychological Hx Reported Additional Psychological History / Comment(s): PT IS ,LIVES IN 2 [place] HOME THAT HAS 2 FRONT STEPS-PT STAYS ON MAIN LEVEL. 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 PT IS INDEPENDANT NO OUTSIDE SERVICES. Smoking Status: Current every day smoker Past Alcohol Use History: Rare Additional Past Alcohol Use History / Comment(s): STARTED SMOKING AT AGE 12, DID QUIT FOR 12 YEARS BUT RESTARTED IN 2012, SMOKES 1 PPD. restarted 09/26/17 Past Drug Use History: None Reported - Past Family History Mother Family Medical History: COPD, Diabetes Mellitus Father Family Medical History: Cancer, Diabetes Mellitus Additional Family Medical History / Comment(s): SKIN CANCER Patient reported no history of DM Medications and Allergies Home Medications Medication Instructions Recorded Confirmed Type Apixaban [Eliquis] 5 mg PO BID #60 tab 02/10/17 10/13/17 Rx Carvedilol [Coreg] 6.25 mg PO BID-W/MEALS #60 tab 02/10/17 10/13/17 Rx Furosemide [Lasix] 40 mg PO DAILY 06/08/17 10/13/17 History Lisinopril [Zestril] 5 mg PO DAILY 06/08/17 10/13/17 History Spironolactone [Aldactone] 25 mg PO DAILY 06/08/17 10/13/17 History Atorvastatin [Lipitor] 20 mg PO HS 06/11/17 10/13/17 History Allergies Allergy/AdvReac Type Severity Reaction Status Date / Time Latex, Natural Rubber Allergy Rash/Hives Verified 10/13/17 18:16 shellfish derived [Shellfish] Allergy SWELLING Verified 10/13/17 18:16 AND VOMITING sulfamethoxazole Allergy Rash/Hives Verified 10/13/17 18:16 [From Bactrim] trimethoprim [From Bactrim] Allergy Rash/Hives Verified 10/13/17 18:16 Physical Exam Vitals: Vital Signs Temp Pulse Pulse Resp BP Pulse Ox 10/16/17 05:24 97.1 F L 64 18 158/84 98 10/15/17 22:32 97.0 F L 80 16 132/62 98 10/15/17 20:36 88 10/15/17 20:25 84 10/15/17 16:00 72 20 10/15/17 15:38 80 10/15/17 15:28 84 10/15/17 15:00 98 F 72 20 157/69 96 10/15/17 12:41 80 10/15/17 12:26 80 Intake and Output 10/15/17 10/16/17 10/16/17 22:59 06:59 14:59 Intake Total 590 Balance 590 Intake: Oral 590 Other: Voiding Method Toilet Toilet # Voids 3 2 Weight 113.5 kg Results - Lab Results Most recent lab results Calcium 8.9 mg/dL (8.4-10.2) 10/16/17 06:54 10/16/17 06:54 10/16/17 06:54 Assessment and Plan Plan: Assessment: 1. Mild nonoliguric acute kidney injury mostly prerenal from diuretics. Creatinine 2.08 today. 2. Chronic kidney disease stage III with baseline creatinine in the range of 1.6-2. Etiology is likely cardiorenal syndrome. 3. Systolic CHF with ejection fraction of 20-25%. Compensated. 4. Anemia. Rule out iron deficiency. 5. Altered mental status. Evaluated by psychiatry. His mentation seems to be appropriate at this time. 6. Proteinuria. Unclear cause. Plan: Hep-Lock IV fluids. Check iron studies. Continue Lasix 40 mg once daily. Check serologies and quantify proteinuria. Patient has a CAT scan ordered with IV contrast. To discuss with neurology if he can be done without contrast. Patient will be at risk of developing contrast -induced nephropathy. Thank you for the consultation. I will continue to follow patient with you during his hospital stay.
[2017-10-16 11:43] LABS: Glucose,Whole Blood 208 mg/dL (75-99)
--- NOTE | 2017-10-16 12:25 | XR ---
EXAMINATION TYPE: XR chest 1V portable DATE OF EXAM: 10/16/2017 Comparison: 10/13/2017 Clinical History: 62-year-old male follow-up pneumonia Findings: The heart is normal size. Aorta within normal limits. Mild diffuse interstitial prominence appears ch ronic. Focal peripheral left basilar density remains unchanged. Left anterior chest wall ICD generato r with right ventricular lead. Impression: Continued small left pleural effusion with adjacent atelectasis and/or consolidation.
[2017-10-16] MEDS: FOLIC ACID 1 MG TAB PO SCH (12:38)
[2017-10-16] MEDS: MULTIVITAMINS, THERA 1 EACH TAB PO SCH (12:38)
[2017-10-16 16:18] LABS: Iron Saturation 84.13 (15.00-50.00); Protein, Total 6.4 g/dL (6.2-8.2)
[2017-10-16 17:06] LABS: Glucose,Whole Blood 225 mg/dL (75-99)
[2017-10-16 17:15] LABS: Hepatitis A Antibody IgM Non-Reactive (Non-Reactive); Hepatitis B Core IgM Non-Reactive (Non-Reactive)
--- NOTE | 2017-10-16 20:27 | PN ---
PROGRESS NOTE DATE OF SERVICE: 10/16/2017 This 62-year-old gentleman who was admitted with multiple medical problems including acute delirium and possible psychosis is being closely monitored at this time. The patient also had renal failure, which is worsened today with a creatinine about 2.[address] Powers is also recommending a CTA to rule out the possibility of aneurysm because the patient is complaining of severe headache. Nephrology has seen the patient and recommended Lasix at this time. No chest pain. No palpitations. No fever. REVIEW OF SYSTEMS: Cardiovascular: No angina or palpitations. Respirations: As mentioned earlier. GI mentioned: As mentioned earlier. : No nausea or vomiting. Central nervous system: No numbness, weakness. CURRENT MEDICATIONS: Reviewed and include: 1. Tylenol 500 q.6h. 2. DuoNeb q.i.d. and p.r.n. 3. Eliquis 2.5 mg b.i.d. 4. Lipitor. 5. Symbicort 160/4.5 two puffs. 6. 7. Folic acid 1 mg. 8. Lasix 40 mg daily. 9. Zestril 5 mg p.o. daily. 10.Solu-Medrol 40 IV q.8h. 11.Multivitamins. 12.Aldactone 25 mg. PHYSICAL EXAM: Alert and oriented x3. Pulse 72, blood pressure 141/68, respiration 20, temperature 97.2, pulse ox 97% room air. HEENT: Conjunctivae normal. Oral mucosa moist. Neck is no jugular venous distention. No carotid bruit. No lymph node enlargement. Cardiovascular systems: S1, S2 muffled. Respirations: Breath sounds diminished in the bases. A few scattered rhonchi and crackles. ABDOMEN: Soft, nontender. Legs are no edema. No swelling. Central nervous system: No focal deficits. LABS: WBC 12.2, hemoglobin 9.2. Creatinine is 2.08 and urine random protein 13. ASSESSMENT: 1. Chronic obstructive pulmonary disease acute exacerbation with acute purulent tracheobronchitis, present on admission. 2. Acute on chronic renal failure with chronic kidney stage 3 baseline. 3. Possible acute cardiorenal syndrome. 4. Acute microcytic anemia possibly thalassemia with possible acute delirium with acute psychosis. 5. Change in mental status with acute metabolic encephalopathy with possible manic phase. 6. History of congestive heart failure with ejection fraction 20-25% with chronic systolic dysfunction with severe LA dilatation. 7. History of chronic obstructive pulmonary disease. 8. Hypertension. 9. History of degenerative joint disease. 10.History of pneumonia. 11.History of diverticulitis. 12.History of AICD. 13.History of ischemic cardiomyopathy. 14.History of chronic systolic dysfunction, severe left ventricular dysfunction. RECOMMENDATIONS AND DISCUSSION: In this 62-year-old gentleman who presented with multiple complex medical issues. At this time, I recommend to continue current medications, form grader operator recommend Lasix and monitor creatinine closely. Otherwise, neurology would prefer to have a CT scan with contrast. We will continue to monitor. Patient is not a candidate for MRI because of the AICD. Overall prognosis is guarded because of multiple complex medical issues. We will continue the current treatment symptomatically but however this patient will need definite inpatient admission for further evaluation and treatment. See orders for further details. MMODL / IJN: [id number] /
[2017-10-16 21:14] LABS: Glucose,Whole Blood 156 mg/dL (75-99)
[2017-10-16] MEDS: TEMAZEPAM 15 MG CAP PO PRN (21:33)
[2017-10-16] MEDS: ATORVASTATIN 20 MG TAB PO SCH (21:33)
[2017-10-17 07:08] LABS: Glucose,Whole Blood 172 mg/dL (75-99)
[2017-10-17 08:50] LABS: Anisocytosis Slight; Basophils % (A) 0 %; Eosinophils % (A) 0 %; HGB 9.4 gm/dL (13.0-17.5); Hypochromasia Marked; Lymphocytes # (A) 1.3 k/uL (1.0-4.8); Lymphocytes % (A) 10 %; MCH 18.6 pg (25.0-35.0); MCHC 30.4 g/dL (31.0-37.0); MCV 61.2 fL (80.0-100.0); Mean Platelet Volume 6.5; Microcytosis Marked; Monocytes # (A) 0.6 k/uL (0-1.0); Monocytes % (A) 4 %; Neutrophils # (A) 11.1 k/uL (1.3-7.7); Neutrophils % (A) 85 %; Platelet Count 235 k/uL (150-450); Poikilocytosis Slight; RBC 5.07 m/uL (4.30-5.90); RDW 17.6 % (11.5-15.5); WBC 13.1 k/uL (3.8-10.6)
[2017-10-17] MEDS: SYMBICORT 160-4.5 MCG INHALER INHALATION SCH ×2 (08:53→19:33)
[2017-10-17] MEDS: IPRATROPIUM-ALBUTEROL 3 ML NEB INHALATION SCH ×4 (08:53→19:33)
[2017-10-17] MEDS: INSULIN ASPART 100 UNIT/ML 1 ML 10 ML VIAL SQ SCH ×4 (08:59→21:51)
[2017-10-17] MEDS: CARVEDILOL 6.25 MG TAB PO SCH ×2 (08:59→17:28)
[2017-10-17] MEDS: methylPREDNISolone SOD SUCCI 40 MG/ML 1 ML VIAL IV SCH ×2 (08:59→17:28)
[2017-10-17] MEDS: APIXABAN 2.5 MG TABLET PO SCH ×2 (09:00→21:51)
[2017-10-17] MEDS: FUROSEMIDE 40 MG TAB PO SCH (09:00)
[2017-10-17] MEDS: SPIRONOLACTONE 25 MG TAB PO SCH (09:00)
[2017-10-17] MEDS: LISINOPRIL 5 MG TAB PO SCH (09:00)
[2017-10-17 09:09] LABS: Calcium 8.8 mg/dL (8.4-10.2)
--- NOTE | 2017-10-17 11:32 | P.PN ---
Subjective Patient is seen in follow-up for acute kidney injury on chronic kidney disease. Renal function is stable with creatinine at 2.06 today. Patient presented with altered mental status which seems to resolved. He is currently resting in bed. Denies any chest pain or shortness of breath. Oral intake is good. Admits to good urine output. He does of systolic CHF with ejection fraction of 20-25%. Vital signs are stable. General: The patient appeared well nourished and normally developed. HEENT: Head exam is unremarkable. Neck is without jugular venous distension. LUNGS: Lungs are clear to auscultation and percussion. Breath sounds decreased. HEART: Rate and Rhythm are regular. First and second heart sounds normal. No murmurs, rubs or gallops. ABDOMEN: Abdominal exam reveals normal bowel sounds. Non-tender and non- distended. No evidence of peritonitis. EXTREMITITES: No clubbing, cyanosis, or edema. Objective - Vital Signs Vital signs: Vital Signs Temp 97.7 F 10/17/17 05:20 Pulse 92 10/17/17 09:06 Resp 16 10/17/17 05:20 BP 169/82 10/17/17 05:20 Pulse Ox 99 10/17/17 05:20 Intake & Output 10/16/17 10/17/17 10/17/17 18:59 06:59 18:59 Intake Total 440 Balance 440 Weight 113.5 kg Intake: Oral 440 Other: Voiding Method Toilet Toilet # Voids 1 - Labs CBC & Chem 7: 10/17/17 08:14 10/17/17 08:14 Labs: Abnormal Lab Results - Last 24 Hours (Table) 10/16/17 10/16/17 10/16/17 Range/Units 06:54 11:38 12:45 WBC (3.8-10.6) k/uL Hgb (13.0-17.5) gm/dL Hct (39.0-53.0) % MCV (80.0-100.0) fL MCH (25.0-35.0) pg MCHC (31.0-37.0) g/dL RDW (11.5-15.5) % Neutrophils # (1.3-7.7) k/uL BUN (9-20) mg/dL Creatinine (0.66-1.25) mg/dL Glucose (74-99) mg/dL POC Glucose (mg/dL) 208 H (75-99) mg/dL TIBC 208 L (228-460) ug/dL Iron Saturation 84.13 H (15.00-50.00) Ferritin 836.5 H (22.0-322.0) ng/mL U Random Total Protein 13 H (<12) mg/dL 10/16/17 10/16/17 10/17/17 Range/Units 17:04 21:09 07:06 WBC (3.8-10.6) k/uL Hgb (13.0-17.5) gm/dL Hct (39.0-53.0) % MCV (80.0-100.0) fL MCH (25.0-35.0) pg MCHC (31.0-37.0) g/dL RDW (11.5-15.5) % Neutrophils # (1.3-7.7) k/uL BUN (9-20) mg/dL Creatinine (0.66-1.25) mg/dL Glucose (74-99) mg/dL POC Glucose (mg/dL) 225 H 156 H 172 H (75-99) mg/dL TIBC (228-460) ug/dL Iron Saturation (15.00-50.00) Ferritin (22.0-322.0) ng/mL U Random Total Protein (<12) mg/dL 10/17/17 10/17/17 Range/Units 08:14 08:14 WBC 13.1 H (3.8-10.6) k/uL Hgb 9.4 L (13.0-17.5) gm/dL Hct 31.0 L (39.0-53.0) % MCV 61.2 L (80.0-100.0) fL MCH 18.6 L (25.0-35.0) pg MCHC 30.4 L (31.0-37.0) g/dL RDW 17.6 H (11.5-15.5) % Neutrophils # 11.1 H (1.3-7.7) k/uL BUN 38 H (9-20) mg/dL Creatinine 2.06 H (0.66-1.25) mg/dL Glucose 138 H (74-99) mg/dL POC Glucose (mg/dL) (75-99) mg/dL TIBC (228-460) ug/dL Iron Saturation (15.00-50.00) Ferritin (22.0-322.0) ng/mL U Random Total Protein (<12) mg/dL Assessment and Plan Plan: Assessment: 1. Mild nonoliguric acute kidney injury mostly prerenal from diuretics. Creatinine 2.06 today. 2. Chronic kidney disease stage III with baseline creatinine in the range of 1.6-2. Etiology is likely cardiorenal syndrome. 3. Systolic CHF with ejection fraction of 20-25%. Compensated. 4. Anemia of chronic kidney disease. Iron replete. 5. Altered mental status. Evaluated by psychiatry. His mentation seems to be appropriate at this time. 6. Proteinuria. UPC 0.87. Unclear cause. Plan: Continue Lasix 40 mg once daily. Follow-up serologies. Add Aranesp. Repeat electrolytes in the morning.
[2017-10-17 11:46] LABS: Glucose,Whole Blood 173 mg/dL (75-99)
[2017-10-17] MEDS ORDERED: DARBEPOETIN ALFA 40 MCG/0.4 ML SYRINGE SQ SCH (12:00)
[2017-10-17] MEDS: MULTIVITAMINS, THERA 1 EACH TAB PO SCH (12:52)
[2017-10-17] MEDS: FOLIC ACID 1 MG TAB PO SCH (12:53)
[2017-10-17] MEDS: ACETAMINOPHEN TAB 500 MG TAB PO PRN (17:28)
[2017-10-17 17:33] LABS: Glucose,Whole Blood 221 mg/dL (75-99)
--- NOTE | 2017-10-17 18:37 | PN ---
PROGRESS NOTE DATE OF SERVICE: 10/17/2017 This 62-year-old gentleman admitted with multiple medical problems including COPD and renal failure is also mildly confused also. The patient also being evaluated by Neurology and Nephrology and CT scan of the brain with contrast ordered by Neurology to the possible aneurysm. MRI could not be done. PHYSICAL EXAM: Alert and oriented x3. Pulse 66, blood pressure 116/75, respirations 16, temperature 97.2, pulse ox 100% on room air. HEENT: Conjunctivae normal. Oral mucosa moist. Neck is no jugular venous distention. No carotid bruit. No lymph node enlargement. CARDIOVASCULAR: S1, S2. RESPIRATORY: Breath sounds diminished in the bases. No rhonchi, no crackles. ABDOMEN: Soft, nontender. No mass palpable. LEGS: No edema, no swelling. NERVOUS SYSTEM: Higher function as mentioned earlier. No focal motor deficits. LYMPHATICS: No lymphadenopathy in the neck, axillae, groin. SKIN: No ulcer, rash. LABS: WBC 6, Hemoglobin is 9.4. Creatinine is 2.06. BUN is 38, Accu-Cheks are noted. ASSESSMENT: 1. Chronic obstructive pulmonary disease acute exacerbation with acute purulent tracheobronchitis, present on admission. 2. Acute on chronic renal failure with chronic kidney disease stage III baseline. 3. Possible acute cardiorenal syndrome. 4. Macrocytic anemia possibly thalassemia with acute delirium and acute psychosis. 5. Change in mental status, acute metabolic encephalopathy, possibly manic episodes. 6. History of congestive heart failure with chronic systolic dysfunction, ejection fraction 20 to 25% with LA dilatation. 7. History of chronic obstructive pulmonary disease. 8. Hypertension. 9. History of degenerative joint disease. 10.History of pneumonia. 11.History of diverticulitis. 12.History of AICD. 13.History of ischemic cardiomyopathy. RECOMMENDATIONS AND DISCUSSION: I recommend to continue current management and symptomatic treatment. Continue hydration. Otherwise continue to monitor. Continue rest of the medications including beta blockers, bronchodilators and closely follow with multiple consultants. Prognosis guarded as mentioned earlier. Further recommendations to follow. MMODL / IJN: [id number] /
[2017-10-17 19:53] LABS: Glucose,Whole Blood 202 mg/dL (75-99)
[2017-10-17] MEDS: ATORVASTATIN 20 MG TAB PO SCH (21:51)
[2017-10-17] MEDS: TEMAZEPAM 15 MG CAP PO PRN (21:51)
[2017-10-18] MEDS: methylPREDNISolone SOD SUCCI 40 MG/ML 1 ML VIAL IV SCH ×3 (00:04→11:37)
[2017-10-18 07:02] LABS: Glucose,Whole Blood 149 mg/dL (75-99)
[2017-10-18] MEDS: IPRATROPIUM-ALBUTEROL 3 ML NEB INHALATION SCH ×4 (07:24→19:28)
[2017-10-18] MEDS: SYMBICORT 160-4.5 MCG INHALER INHALATION SCH ×2 (07:24→19:28)
[2017-10-18] MEDS: INSULIN ASPART 100 UNIT/ML 1 ML 10 ML VIAL SQ SCH ×4 (08:08→21:47)
[2017-10-18] MEDS: FUROSEMIDE 40 MG TAB PO SCH (08:09)
[2017-10-18] MEDS: APIXABAN 2.5 MG TABLET PO SCH ×2 (08:09→21:41)
[2017-10-18] MEDS: CARVEDILOL 6.25 MG TAB PO SCH ×2 (08:09→18:08)
[2017-10-18] MEDS: LISINOPRIL 5 MG TAB PO SCH (08:10)
[2017-10-18] MEDS: SPIRONOLACTONE 25 MG TAB PO SCH (08:10)
[2017-10-18 09:18] LABS: Anisocytosis Slight; Basophils % (A) 0 %; Eosinophils % (A) 0 %; HCT 32.5 % (39.0-53.0); HGB 9.9 gm/dL (13.0-17.5); Hypochromasia Marked; Lymphocytes # (A) 1.6 k/uL (1.0-4.8); Lymphocytes % (A) 12 %; MCH 18.7 pg (25.0-35.0); MCHC 30.4 g/dL (31.0-37.0); MCV 61.3 fL (80.0-100.0); Mean Platelet Volume 6.7; Microcytosis Marked; Monocytes # (A) 0.8 k/uL (0-1.0); Monocytes % (A) 6 %; Neutrophils # (A) 11.1 k/uL (1.3-7.7); Neutrophils % (A) 81 %; Platelet Count 254 k/uL (150-450); Poikilocytosis Slight; RDW 17.4 % (11.5-15.5); WBC 13.7 k/uL (3.8-10.6)
[2017-10-18 09:40] LABS: Potassium 5.6 mmol/L (3.5-5.1)
[2017-10-18 11:23] LABS: Glucose,Whole Blood 170 mg/dL (75-99)
[2017-10-18] MEDS: predniSONE 20 MG TAB PO SCH (13:56)
[2017-10-18] MEDS: MULTIVITAMINS, THERA 1 EACH TAB PO SCH (13:57)
[2017-10-18 14:34] LABS: Albumin 3.71 g/dL (3.80-4.90)
--- NOTE | 2017-10-18 15:17 | PN ---
PROGRESS NOTE DATE OF SERVICE: 10/18/2017 This 62-year-old gentleman admitted with multiple medical problems admitted with COPD acute exacerbation also had renal failure. Patient also had headache. At this time the neurology is also planning CT scan with contrast. Psychiatry is also following the patient closely. Please note the patient has been having insomnia for weeks and currently even in the hospital the patient is on sleeping 2 hours according the staff. The patient also had issues with hoarding stuff and please refer to staff notes for further details. Security was called apparently yesterday. The patient has a sitter. The is concerned about the manic episodes. EXAM: Alert and oriented x3. Pulse 67, blood pressure 146/96, respiration 18, temperature 97.2, pulse ox 100% on room air. HEENT: Conjunctivae normal. NECK: No jugular venous distention. CARDIOVASCULAR: S1, S2. RESPIRATORY: Breath sounds diminished in the bases. No rhonchi, no crackles. ABDOMEN: Soft, nontender. No mass palpable. LEGS: No edema. NERVOUS SYSTEM: No focal deficits. LABS: WBC 13.2, hemoglobin 9.9, sodium 137, potassium 5.6, creatinine 2.09. ASSESSMENT: 1. Chronic obstructive pulmonary disease acute exacerbation with acute tracheobronchitis, present on admission. 2. Acute on chronic renal failure with chronic kidney stage III baseline. 3. Possible acute cardiorenal syndrome. 4. Macrocytic anemia, possibly thalassemia. 5. Acute delirium with acute psychosis. 6. Change in mental status, metabolic encephalopathy, possible manic episodes. 7. History of congestive heart failure with chronic systolic dysfunction ejection fraction 20 to 25% with LA dilatation. 8. History of chronic obstructive pulmonary disease. 9. Hypertension. 10.History of degenerative joint disease. 11.History pneumonia. 12.History of diverticulitis. 13.History of AICD. 14.History of ischemic cardiomyopathy. RECOMMENDATIONS AND DISCUSSION: I recommend to continue current management and symptomatic treatment. Otherwise discussed with staff and will continue the current medications. Nerve block per Neurology. Otherwise follow closely with psychiatry. Possible inpatient psych admission. Guarded prognosis. Further recommendations to follow. MMODL / IJN: [id number] /
[2017-10-18] MEDS: FOLIC ACID 1 MG TAB PO SCH (15:25)
--- NOTE | 2017-10-18 15:38 | PN ---
PROGRESS NOTE Patient is seen for follow up for an acute kidney injury. Serum creatinine has been staying at about 2.0 mg/dL. He was admitted to the hospital with mental status changes, which seem to have improved now. The patient has underlying cardiomyopathy, ejection fraction 20 to 25%. He is currently maintained on oral Lasix at 40 mg daily. Overall, patient states he is feeling fairly well. He is also maintained on BRYSON inhibitors. On examination blood pressure is 148/69, heart rate 67 per minute. He is afebrile. Examination of the heart: S1, S2. Examination lungs: Bilateral breath sounds are heard. Abdomen is soft, nontender. Exam of lower extremities shows edema 1+ bilaterally. FACILITY PRACTICE SPECIALIST exam is grossly intact. LABS: Sodium 137, potassium 5.6, chloride is 99, BUN 49, serum creatinine 2.09. ASSESSMENT: 1. Chronic kidney disease, stage III with baseline creatinine about 1.6-2 mg/dL secondary to nephrosclerosis and cardiorenal syndrome. 2. Systolic heart failure, currently compensated. 3. Cardiomyopathy, ejection fraction 20-25%. 4. Confusion and altered mentation at the time of admission, currently improved. PLAN: Continue off of IV fluids. Continue current dose of Lasix. Repeat labs in a.m. MMODL / IJN: [id number] /
[2017-10-18 17:03] LABS: Glucose,Whole Blood 173 mg/dL (75-99)
[2017-10-18 19:58] LABS: Glucose,Whole Blood 279 mg/dL (75-99)
[2017-10-18] MEDS: ATORVASTATIN 20 MG TAB PO SCH (21:40)
--- NOTE | 2017-10-18 22:53 | P.PN ---
Subjective Progress Note Date: 10/17/17 This patient is a 62-year-old male being evaluated for altered mental status and question of underlying dementia. Patient was being evaluated for headache symptoms as well. Unfortunately he could not have a CTA angiogram of the head and neck due to poor kidney function. Nephrology was consulted for evaluation of his kidney function. Due to risk of renal failure due to IV contrast dye in the CTA angiogram this was canceled for the patient. He does seem to be doing fairly well and as noted has complained of occasional headaches. He was evaluated by psychiatry and they found no evidence of underlying psychiatric condition for the patient. He seems to be appropriate today and answers questions well. Patient does have a sitter at his bedside. Cording to the sitter he does complain of frequent right-sided headache pain. Today on physical examination he is noted to have acute right-sided occipital neuritis. This is the likely cause of his acute severe pain symptoms on the right side. We recommended he undergo an occipital nerve block procedure by anesthesia tomorrow for further treatment. He shouldn't is unable to have CTA angiogram of the head and neck due to his poor kidney function. Nephrology also suggest not to subject the patient to IV contrast in fear of renal failure. Patient is understanding this and we will proceed with occipital nerve block procedure. As noted his CAT scan of the brain on admission failed to reveal any acute changes. His overall prognosis at this time remains guarded. Objective - Vital Signs Vital signs: Vital Signs Temp 97.6 F 10/17/17 15:23 Pulse 66 10/17/17 15:23 Resp 16 10/17/17 15:23 BP 169/75 10/17/17 15:23 Pulse Ox 100 10/17/17 15:23 Intake & Output 10/16/17 10/17/17 10/17/17 18:59 06:59 18:59 Intake Total 440 Balance 440 Weight 113.5 kg Intake: Oral 440 Other: Voiding Method Toilet Toilet # Voids 1 - Exam Physical examination: PHYSICAL EXAMINATION: Patient is resting comfortably in bed. VITAL SIGNS: Blood pressure is [169/75]. Heart rate is [67]. Respiration is [16] . Temperature is [97.7]. HEENT: Head is atraumatic, neck is supple, there were no carotid bruits. CHEST: Lungs are clear to auscultation and percussion. CARDIAC: S1, S2 normal rate and rhythm. There is no murmur. ABDOMEN: Soft and nontender. Bowel sounds are present. EXTREMITIES: There is no pedal edema. Peripheral pulses are present. Neurological examination: Patient's neurological examination is unchanged from yesterday. - Labs CBC & Chem 7: 10/18/17 08:04 10/18/17 08:04 Labs: Abnormal Lab Results - Last 24 Hours (Table) 10/16/17 10/16/17 10/16/17 Range/Units 06:54 17:04 21:09 WBC (3.8-10.6) k/uL Hgb (13.0-17.5) gm/dL Hct (39.0-53.0) % MCV (80.0-100.0) fL MCH (25.0-35.0) pg MCHC (31.0-37.0) g/dL RDW (11.5-15.5) % Neutrophils # (1.3-7.7) k/uL BUN (9-20) mg/dL Creatinine (0.66-1.25) mg/dL Glucose (74-99) mg/dL POC Glucose (mg/dL) 225 H 156 H (75-99) mg/dL TIBC 208 L (228-460) ug/dL Iron Saturation 84.13 H (15.00-50.00) Ferritin 836.5 H (22.0-322.0) ng/mL 10/17/17 10/17/17 10/17/17 Range/Units 07:06 08:14 08:14 WBC 13.1 H (3.8-10.6) k/uL Hgb 9.4 L (13.0-17.5) gm/dL Hct 31.0 L (39.0-53.0) % MCV 61.2 L (80.0-100.0) fL MCH 18.6 L (25.0-35.0) pg MCHC 30.4 L (31.0-37.0) g/dL RDW 17.6 H (11.5-15.5) % Neutrophils # 11.1 H (1.3-7.7) k/uL BUN 38 H (9-20) mg/dL Creatinine 2.06 H (0.66-1.25) mg/dL Glucose 138 H (74-99) mg/dL POC Glucose (mg/dL) 172 H (75-99) mg/dL TIBC (228-460) ug/dL Iron Saturation (15.00-50.00) Ferritin (22.0-322.0) ng/mL 10/17/17 Range/Units 11:34 WBC (3.8-10.6) k/uL Hgb (13.0-17.5) gm/dL Hct (39.0-53.0) % MCV (80.0-100.0) fL MCH (25.0-35.0) pg MCHC (31.0-37.0) g/dL RDW (11.5-15.5) % Neutrophils # (1.3-7.7) k/uL BUN (9-20) mg/dL Creatinine (0.66-1.25) mg/dL Glucose (74-99) mg/dL POC Glucose (mg/dL) 173 H (75-99) mg/dL TIBC (228-460) ug/dL Iron Saturation (15.00-50.00) Ferritin (22.0-322.0) ng/mL Assessment and Plan (1) Acute metabolic encephalopathy Current Visit: Yes Status: Acute Code(s): G93.41 - METABOLIC ENCEPHALOPATHY SNOMED Code(s): 02459850 (2) Acute headache Current Visit: Yes Status: Acute Code(s): R51 - HEADACHE SNOMED Code(s): 518936780 (3) Dementia Current Visit: Yes Status: Acute Code(s): F03.90 - UNSPECIFIED DEMENTIA WITHOUT BEHAVIORAL DISTURBANCE SNOMED Code(s): 93782899 (4) Atrial fibrillation Current Visit: No Status: Acute Code(s): I48.91 - UNSPECIFIED ATRIAL FIBRILLATION SNOMED Code(s): 79648543 Plan: This patient is a 62-year-old male who was admitted to Hospital for evaluation of altered mental status. He was seen by psychiatry who felt he has no evidence of underlying psychiatric problem. Patient does seem to be appropriate and answering all of his questions and does not appear to be showing signs of early dementia. He has been complaining of right-sided headache pain and today on examination he is noted to have right occipital neuritis. We recommend the patient undergo a right occipital nerve block procedure for treatment. We will consult anesthesia to perform this tomorrow morning. We will continue close neurological follow-up with the patient during this admission. His overall prognosis at this time remains guarded.
--- NOTE | 2017-10-18 23:06 | P.PN ---
Subjective Progress Note Date: 10/18/17 This patient is a 62-year-old male who is being evaluated for altered mental status and question of underlying dementia. He has been evaluated by psychiatry who feel he has no underlying psychiatric condition at this time. The patient seems to be quite alert and oriented and is following simple commands. He did complain of right-sided headache pain yesterday and it was determined that he has evidence of a right occipital neuritis. We have recommended the patient consider having a occipital nerve block procedure for treatment. Apparently this is been placed on hold at this time by his . We will continue to monitor the patient's condition closely. Will await any further recommendations from psychiatry. Neurologically he has no focal motor deficit. We will continue to monitor his condition closely. Objective - Vital Signs Vital signs: Vital Signs Temp 97.5 F L 10/18/17 22:00 Pulse 71 10/18/17 22:00 Resp 17 10/18/17 22:00 BP 162/72 10/18/17 22:00 Pulse Ox 100 10/18/17 22:00 Intake & Output 10/18/17 10/18/17 10/19/17 06:59 18:59 06:59 Intake Total 1130 450 Balance 1130 450 Weight 106.5 kg Intake: Oral 1130 450 Other: Voiding Method Toilet Toilet # Voids 2 3 2 - Exam Physical examination: PHYSICAL EXAMINATION: Patient is resting comfortably in bed. VITAL SIGNS: Blood pressure is [140/82]. Heart rate is [67]. Respiration is [16] . Temperature is [97.7]. HEENT: Head is atraumatic, neck is supple, there were no carotid bruits. CHEST: Lungs are clear to auscultation and percussion. CARDIAC: S1, S2 normal rate and rhythm. There is no murmur. ABDOMEN: Soft and nontender. Bowel sounds are present. EXTREMITIES: There is no pedal edema. Peripheral pulses are present. Neurological examination: Patient's neurological examination is unchanged from yesterday. - Labs CBC & Chem 7: 10/18/17 08:04 10/18/17 08:04 Labs: Abnormal Lab Results - Last 24 Hours (Table) 10/16/17 10/18/17 10/18/17 Range/Units 06:54 06:59 08:04 WBC 13.7 H (3.8-10.6) k/uL Hgb 9.9 L (13.0-17.5) gm/dL Hct 32.5 L (39.0-53.0) % MCV 61.3 L (80.0-100.0) fL MCH 18.7 L (25.0-35.0) pg MCHC 30.4 L (31.0-37.0) g/dL RDW 17.4 H (11.5-15.5) % Neutrophils # 11.1 H (1.3-7.7) k/uL Potassium (3.5-5.1) mmol/L BUN (9-20) mg/dL Creatinine (0.66-1.25) mg/dL Glucose (74-99) mg/dL POC Glucose (mg/dL) 149 H (75-99) mg/dL Albumin (PEP) 3.71 L (3.80-4.90) g/dL 10/18/17 10/18/17 10/18/17 Range/Units 08:04 11:21 17:02 WBC (3.8-10.6) k/uL Hgb (13.0-17.5) gm/dL Hct (39.0-53.0) % MCV (80.0-100.0) fL MCH (25.0-35.0) pg MCHC (31.0-37.0) g/dL RDW (11.5-15.5) % Neutrophils # (1.3-7.7) k/uL Potassium 5.6 H (3.5-5.1) mmol/L BUN 49 H (9-20) mg/dL Creatinine 2.09 H (0.66-1.25) mg/dL Glucose 119 H (74-99) mg/dL POC Glucose (mg/dL) 170 H 173 H (75-99) mg/dL Albumin (PEP) (3.80-4.90) g/dL 10/18/17 Range/Units 19:55 WBC (3.8-10.6) k/uL Hgb (13.0-17.5) gm/dL Hct (39.0-53.0) % MCV (80.0-100.0) fL MCH (25.0-35.0) pg MCHC (31.0-37.0) g/dL RDW (11.5-15.5) % Neutrophils # (1.3-7.7) k/uL Potassium (3.5-5.1) mmol/L BUN (9-20) mg/dL Creatinine (0.66-1.25) mg/dL Glucose (74-99) mg/dL POC Glucose (mg/dL) 279 H (75-99) mg/dL Albumin (PEP) (3.80-4.90) g/dL Assessment and Plan (1) Acute metabolic encephalopathy Current Visit: Yes Status: Acute Code(s): G93.41 - METABOLIC ENCEPHALOPATHY SNOMED Code(s): 31786417 (2) Acute headache Current Visit: Yes Status: Acute Code(s): R51 - HEADACHE SNOMED Code(s): 900850474 (3) Dementia Current Visit: Yes Status: Acute Code(s): F03.90 - UNSPECIFIED DEMENTIA WITHOUT BEHAVIORAL DISTURBANCE SNOMED Code(s): 20125711 (4) Atrial fibrillation Current Visit: No Status: Acute Code(s): I48.91 - UNSPECIFIED ATRIAL FIBRILLATION SNOMED Code(s): 61547658 Plan: This patient is a 62-year-old male who was admitted to Hospital for evaluation of altered mental status. He was seen by psychiatry who felt he has no evidence of underlying psychiatric problem. Patient does seem to be appropriate and answering all of his questions and does not appear to be showing signs of early dementia. He has been complaining of right-sided headache pain and today on examination he is noted to have right occipital neuritis. We recommend the patient undergo a right occipital nerve block procedure for treatment. He does continue to have evidence of a right occipital neuritis. According to the nursing staff the occipital nerve block has been placed on hold at this time. If he elects to have the procedure hopefully he will notice some improvement with his right-sided headache pain. We will continue to monitor his progress closely. We will continue close neurological follow-up with the patient during this admission. His overall prognosis at this time remains guarded.
[2017-10-19 07:09] LABS: Glucose,Whole Blood 117 mg/dL (75-99)
[2017-10-19 08:18] LABS: Calcium 8.9 mg/dL (8.4-10.2); Potassium 5.5 mmol/L (3.5-5.1)
[2017-10-19] MEDS: SYMBICORT 160-4.5 MCG INHALER INHALATION SCH ×2 (08:29→20:26)
[2017-10-19] MEDS: INSULIN ASPART 100 UNIT/ML 1 ML 10 ML VIAL SQ SCH ×4 (08:29→22:16)
[2017-10-19] MEDS: IPRATROPIUM-ALBUTEROL 3 ML NEB INHALATION SCH ×4 (08:29→20:26)
[2017-10-19] MEDS: CARVEDILOL 6.25 MG TAB PO SCH ×2 (08:30→17:36)
[2017-10-19] MEDS: FUROSEMIDE 40 MG TAB PO SCH ×2 (08:30→18:17)
[2017-10-19] MEDS: predniSONE 20 MG TAB PO SCH (08:30)
[2017-10-19] MEDS: LISINOPRIL 5 MG TAB PO SCH (08:30)
[2017-10-19] MEDS: SPIRONOLACTONE 25 MG TAB PO SCH (08:30)
[2017-10-19] MEDS: APIXABAN 2.5 MG TABLET PO SCH ×2 (08:43→22:15)
[2017-10-19 09:11] LABS: Anisocytosis Slight; Basophils # (A) 0.1 k/uL (0-0.2); Basophils % (A) 1 %; Eosinophils # (A) 0.1 k/uL (0-0.7); Eosinophils % (A) 0 %; HGB 10.5 gm/dL (13.0-17.5); Hypochromasia Marked; Lymphocytes # (A) 2.9 k/uL (1.0-4.8); Lymphocytes % (A) 15 %; MCH 18.8 pg (25.0-35.0); MCHC 30.8 g/dL (31.0-37.0); MCV 61.1 fL (80.0-100.0); Mean Platelet Volume 6.7; Microcytosis Marked; Monocytes # (A) 1.5 k/uL (0-1.0); Monocytes % (A) 8 %; Neutrophils # (A) 14.4 k/uL (1.3-7.7); Neutrophils % (A) 75 %; Platelet Count 279 k/uL (150-450); Poikilocytosis Slight; RBC 5.57 m/uL (4.30-5.90); RDW 17.4 % (11.5-15.5); WBC 19.2 k/uL (3.8-10.6)
--- NOTE | 2017-10-19 10:43 | P.PN ---
Progress Note - Text Progress Note Date: 10/19/17 This is 62 years old male with the severe neck pain and headache, he is diagnosed with right occipital neuralgia , he was evaluate by the neurology services and recommendation for right occipital nerve block to be done, patient currently on ELIQUIS, and patient's she refused to sign the consent for the procedure (as per the nursing staff ) patient will be good candidate to have a right occipital nerve block, if his agreed to the procedure to be done, and we have to hold the ELIQUIS for 48 hours before we can proceed , with the occipital nerve block
[2017-10-19 11:37] LABS: Glucose,Whole Blood 180 mg/dL (75-99)
[2017-10-19] MEDS: FOLIC ACID 1 MG TAB PO SCH (12:55)
[2017-10-19] MEDS: MULTIVITAMINS, THERA 1 EACH TAB PO SCH (12:55)
--- NOTE | 2017-10-19 17:21 | CT ---
EXAMINATION TYPE: CT brain wo con DATE OF EXAM: 10/19/2017 COMPARISON: 10/13/2017 HISTORY: Right sided headache CT DLP: 1251 mGycm Automated exposure control for dose reduction was used. FINDINGS: There is mild cerebral cortical atrophy. There is no mass effect nor midline shift. There is no sign of intracranial hemorrhage. There is 1 cm old left posterior temporal lobe lacunar infarct. The john rium is intact. IMPRESSION: OLD LEFT TEMPORAL LOBE INFARCT. OLD 5 MM LACUNAR INFARCT LEFT CAUDATE NUCLEUS. NO ACUTE INTRACRANIAL ABNORMALITY. NO SIGNIFICANT CHANGE.
[2017-10-19 17:36] LABS: Glucose,Whole Blood 184 mg/dL (75-99)
--- NOTE | 2017-10-19 17:49 | PN ---
PROGRESS NOTE DATE OF SERVICE: 10/19/2017 This 62-year-old gentleman was admitted with multiple medical problems, including COPD, renal failure. He was also having insomnia as well as manic episodes, according to his . The patient was wandering around and was in danger of harming himself or others, according to his . The patient is being closely monitored. Psychiatric evaluation is in progress. No chest pain. No palpitations. Neurology and Pain Management are also seeing the patient. No chest pain. No fever. On exam, alert and oriented x3. Pulse 85, blood pressure 137/65, respiration 16, temperature 98.2, pulse ox 97% on room air. HEENT: Conjunctivae normal. NECK: No jugular venous distention. CARDIOVASCULAR SYSTEM: S1, S2 muffled. RESPIRATORY SYSTEM: Breath sounds diminished at the bases. No rhonchi. No crackles. ABDOMEN: Soft, non-tender. No mass palpable. LEGS: No edema. No swelling. NERVOUS SYSTEM: No focal deficit. LABS: WBC 19.2, sodium 134, potassium 5.5, creatinine 1.96. ASSESSMENT: 1. Chronic obstructive pulmonary disease, acute exacerbation, with acute tracheobronchitis, present on admission. 2. Acute on chronic renal failure with chronic kidney disease, stage III, baseline. 3. Possible acute cardiorenal syndrome. 4. Microcytic anemia, possibly thalassemia. 5. Acute delirium with acute psychosis. 6. Change in mental status, acute metabolic encephalopathy, possibly with manic episodes. 7. History of congestive heart failure with chronic systolic, dysfunction ejection fraction 20% to 25%, with left atrial dilatation. 8. History of chronic obstructive pulmonary disease. 9. Hypertension. 10.History of degenerative joint disease. 11.History of pneumonia. 12.History of diverticulitis. 13.History of AICD. 14.History of ischemic cardiomyopathy. RECOMMENDATIONS AND DISCUSSION: I recommend to continue current medication, continue with symptomatic treatment. Otherwise, repeat labs. The patient is medically stable for psych transfer. Otherwise, continue to monitor. Further recommendations to follow. See orders for further details. I would also recommend repeat CT scan without IV contrast to ensure stability. MMODL / IJN: [id number] / MTDD
--- NOTE | 2017-10-19 19:01 | PN ---
PROGRESS NOTE The patient is seen for followup for acute kidney injury on chronic kidney disease. His serum creatinine is fairly stable, about 1.9-2 mg/dL. The patient remains on oral Lasix. His lower extremity edema is fairly stable as well. Blood pressure is not high. It is better controlled now. Patient is maintained on small dose of BRYSON inhibitors. EXAMINATION: On examination today, blood pressure was not 158/74, heart rate of 77 per minute. Patient is afebrile. HEART: S1, S2. LUNGS: Bilateral breath sounds are heard. Abdomen is soft, nontender. Lower extremities show edema 1+ bilaterally. POOL CLEANER is grossly intact. LABS: Sodium of 134, potassium 5.5, chloride 97, BUN 62, serum creatinine of 1.96. ASSESSMENT: 1. Chronic kidney disease and [employer] stage 3B with baseline creatinine more recently about 1.9-2 mg/dL. Previously his creatinine was 1.4 in January of 2017, after which it has been mainly about 1.9-2. The patient is maintained on small dose of angiotensin-converting enzyme inhibitors, which I will continue. 2. Mild hyperkalemia associated with renal failure, use of angiotensin-converting enzyme inhibitors. The patient is also on dapsone. I will increase the Lasix to 40 mg p.o. b.i.d. We may need to decrease or discontinue the Zestril or the Aldactone, depending on the repeat potassium level tomorrow. 3. Altered mentation and right-sided headache being followed by Neurology and Psychiatrically with consideration for right occipital neuritis. The patient was scheduled to have occipital nerve block; however, this is currently on hold per family. 4. Cardiomyopathy, ejection fraction 20%-25%. PLAN: Increase Lasix to 40 mg p.o. b.i.d. If the patient remains hyperkalemic, we will need to use discontinue the spironolactone or the lisinopril. MMODL / IJN: [id number] /
[2017-10-19 20:17] LABS: Glucose,Whole Blood 195 mg/dL (75-99)
--- NOTE | 2017-10-19 21:24 | P.PN ---
Subjective Progress Note Date: 10/19/17 This patient is a 62-year-old male who is being evaluated for altered mental status and question of underlying dementia. He has been evaluated by psychiatry who feel he has no underlying psychiatric condition at this time. The patient seems to be quite alert and oriented and is following simple commands. He did complain of right-sided headache pain yesterday and it was determined that he has evidence of a right occipital neuritis. We have recommended the patient consider having a occipital nerve block procedure for treatment. Apparently this is been placed on hold at this time by his . We will continue to monitor the patient's condition closely. Patient was sent for repeat computed tomography scan of the brain today which revealed evidence of old left temporal lobe infarct as well as old lacunar infarct in the left caudate nucleus. This CAT scan was unchanged from previous study done on 2017. Patient has been up and ambulating in his room without any difficulties. We will wait to see if he will have a occipital nerve block procedure done. He is unable to have a CT angiogram of the head and neck due to renal failure. Nephrology also recommends not having the patient undergo IV contrast dye as this would most likely cause acute renal failure. The patient also is unable to have MRI of the brain due to him having a AICD fibrillator placement. Patient seems to be doing better today in terms of his right-sided headache pain. We will continue to follow his progress closely. Will await any further recommendations from psychiatry. Neurologically he has no focal motor deficit. His overall prognosis at this time remains guarded. Objective - Vital Signs Vital signs: Vital Signs Temp 98.1 F 10/19/17 15:01 Pulse 85 10/19/17 15:01 Resp 16 10/19/17 15:01 BP 127/65 10/19/17 15:01 Pulse Ox 97 10/19/17 15:01 Intake & Output 10/18/17 10/19/17 10/19/17 18:59 06:59 18:59 Intake Total 1230 240 Balance 1230 240 Weight 96.5 kg Intake: Oral 1230 240 Other: Voiding Method Toilet Toilet # Voids 3 2 3 - Labs CBC & Chem 7: 10/19/17 07:35 10/19/17 07:35 Labs: Abnormal Lab Results - Last 24 Hours (Table) 10/18/17 10/19/1710/19/18 Range/Units 19:55 07:07 07:35 WBC 19.2 H (3.8-10.6) k/uL Hgb 10.5 L (13.0-17.5) gm/dL Hct 34.0 L (39.0-53.0) % MCV 61.1 L (80.0-100.0) fL MCH 18.8 L (25.0-35.0) pg MCHC 30.8 L (31.0-37.0) g/dL RDW 17.4 H (11.5-15.5) % Neutrophils # 14.4 H (1.3-7.7) k/uL Monocytes # 1.5 H (0-1.0) k/uL Sodium (137-145) mmol/L Potassium (3.5-5.1) mmol/L Chloride (98-107) mmol/L BUN (9-20) mg/dL Creatinine (0.66-1.25) mg/dL Glucose (74-99) mg/dL POC Glucose (mg/dL) 279 H 117 H (75-99) mg/dL 10/19/17 10/19/17 10/19/17 Range/Units 07:35 11:34 17:24 WBC (3.8-10.6) k/uL Hgb (13.0-17.5) gm/dL Hct (39.0-53.0) % MCV (80.0-100.0) fL MCH (25.0-35.0) pg MCHC (31.0-37.0) g/dL RDW (11.5-15.5) % Neutrophils # (1.3-7.7) k/uL Monocytes # (0-1.0) k/uL Sodium 134 L (137-145) mmol/L Potassium 5.5 H (3.5-5.1) mmol/L Chloride 97 L (98-107) mmol/L BUN 52 H (9-20) mg/dL Creatinine 1.96 H (0.66-1.25) mg/dL Glucose 100 H (74-99) mg/dL POC Glucose (mg/dL) 180 H 184 H (75-99) mg/dL Assessment and Plan (1) Acute metabolic encephalopathy Current Visit: Yes Status: Acute Code(s): G93.41 - METABOLIC ENCEPHALOPATHY SNOMED Code(s): 16371682 (2) Acute headache Current Visit: Yes Status: Acute Code(s): R51 - HEADACHE SNOMED Code(s): 568165008 (3) Dementia Current Visit: Yes Status: Acute Code(s): F03.90 - UNSPECIFIED DEMENTIA WITHOUT BEHAVIORAL DISTURBANCE SNOMED Code(s): 53673779 (4) Atrial fibrillation Current Visit: No Status: Acute Code(s): I48.91 - UNSPECIFIED ATRIAL FIBRILLATION SNOMED Code(s): 80241425 Plan: This patient is a 62-year-old male being evaluated for right-sided headache pain and altered mental status. He seems to be doing better today in terms of his day to day functioning and cognition. He has been evaluated by psychiatry and does not show any evidence of underlying psychiatric problems. He is undergone 2 CT scans of the brain including a CAT scan of the brain today results of which are noted above. There is no evidence of acute stroke or hemorrhage. He is being considered for possible right occipital nerve block procedure. He was seen by pain management today and we will await their further recommendations. Would continue current treatment plans for this patient. He does appear to be quite awake and cognitively intact. We will continue to follow his progress closely during this admission. His overall long -term prognosis remains guarded.
[2017-10-19] MEDS: ATORVASTATIN 20 MG TAB PO SCH (22:15)
[2017-10-20 07:23] LABS: Glucose,Whole Blood 97 mg/dL (75-99)
[2017-10-20] MEDS: SYMBICORT 160-4.5 MCG INHALER INHALATION SCH ×2 (07:28→20:20)
[2017-10-20] MEDS: IPRATROPIUM-ALBUTEROL 3 ML NEB INHALATION SCH ×4 (07:28→20:20)
[2017-10-20 12:06] LABS: Glucose,Whole Blood 155 mg/dL (75-99)
[2017-10-20] MEDS: CARVEDILOL 6.25 MG TAB PO SCH ×2 (12:55→17:36)
[2017-10-20] MEDS: INSULIN ASPART 100 UNIT/ML 1 ML 10 ML VIAL SQ SCH ×4 (12:55→22:00)
[2017-10-20] MEDS: FUROSEMIDE 40 MG TAB PO SCH ×2 (12:55→16:30)
[2017-10-20] MEDS: predniSONE 20 MG TAB PO SCH (12:56)
[2017-10-20] MEDS: APIXABAN 2.5 MG TABLET PO SCH (12:56)
[2017-10-20] MEDS: SPIRONOLACTONE 25 MG TAB PO SCH (12:56)
[2017-10-20] MEDS: LISINOPRIL 5 MG TAB PO SCH (12:56)
[2017-10-20] MEDS: APIXABAN 5 MG TAB PO SCH ×2 (12:57→22:00)
[2017-10-20] MEDS: MULTIVITAMINS, THERA 1 EACH TAB PO SCH (13:02)
[2017-10-20] MEDS: FOLIC ACID 1 MG TAB PO SCH (13:02)
--- NOTE | 2017-10-20 15:33 | P.CN ---
Psychiatric Consult - . Consult date: 10/20/17 Consult:: The patient is 62-year-old male admitted to medicine service on 10/13/2017 with a recent history of change in behavior and altered mental status. Medicine service consulted psychiatry because the patient's completed a petition. In the petition she wrote "not sleeping over the past [address] and railroad tracks at all hours of the day and night. Begin sexually inappropriate verbally. Said the hospital was turning him into a mejia in. Becomes hospital of trying to tell him something isn't right. Concerned that he may harm himself or others. Has had cut his stalking him. Delusional and unrealistic thoughts." I reviewed the medical record, spoke with nursing staff and interviewed the patient. Nursing staff express concern by the patient's behavior and expressed the concern that he is mentally ill. For example they complained that he has hoarding silverware, hoarding Styrofoam cups, writing on the Styrofoam cups, writing on the white board andon the windows, and leaving notes to the nurses. They showed me example of the notes. One read "Cynthia-Arlene Herzog back again! How Sweet! Best doctors and nurses in the world! They are all my angels! My saying is: He don't hurt me, I will not hurt you! My operations on my heart is doing fine!" On another note he wrote "come to me! Okay. We need to talk! Smiled more! Vote for Ken[employer]." The patient denied problems or concerns other than "my is trying to get me committed." He admitted that he had not been sleeping over the last 2 weeks prior to admission. He is excited about his plans. He talked about wanting to create a small carnival in his town to entertain to children in the summer. He also talked about organizing go-cart races and remote control boat races. 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 He alleges he does this in order to "thing and plan". According to record the change of behavior occurred approximately 2 weeks prior to admission. He has no prior history of psychiatric illness or mental health treatment. He denied feeling depressed or having thoughts of suicide. He denied a history of mental illness, psychiatric hospitalization or treatment for emotional or mental problems. He denied history of abuse of alcohol or drugs. On the mental status exam he presented as a tall casually groomed elderly male wearing a hospital gown. He made eye contact and attended to the interview. He had no distinguishing features or prominent physical abnormalities. Had a serious were bright facial expression. He was alert and oriented to person, place and time. He showed no abnormality of psychomotor activity. He was not agitated, restless or impulsive. His speech was spontaneous with increased rate but normal volume and rhythm. He did not demonstrate pressured speech. His affect was elevated but not irritable or inappropriate. He denied suicidal ideation, wishes or homicidal ideation. He denied such depressive cognitions as hopelessness, helplessness or worthlessness. He ruminated about his multiple plans and ambitions. He denied ideas of reference, paranoid ideation or delusional thoughts. His thinking was abstract and associations were logical. He did not demonstrate clang associations, perseverations or neologisms. He denied hallucinations and did not appear to be responding to internal stimuli. We completed the Mini-Mental Status exam. His total score was 29/30. He showed no impairment in orientation, registration, attention and calculation, recall and language. Impression: He is a 62-year-old male with no history of a psychiatric illness. His presenting the hospital with an acute change his behavior suggestive of hypomania. His did not express an inflated self-esteem but has some inflated grandiose plans. He has a decrease for need for sleep. He is more talkative but did not demonstrate a pressure to keep talking. He did not demonstrate flight of ideas or complain of a subjective experience racing thoughts. He was not distractible during the interview. He has some evidence of increased goal- directed activity but is not involved in activities high potential for painful consequences. The onset of such changes in behavior and lack of a personal history of mental illness and l his age strongly suggests an organic cause. There is no evidence of cognitive impairment on the Mini-Mental state exam. However, this exam only assesses gross changes in cognitive functioning. Impression: Unspecified mood disorder Recommendation: Consult with social work and arrange for transfer to a geropsychiatric unit for full evaluation of the change of his behavior and functioning. Thank you for the consult. 10/20/17 15:10
[2017-10-20 16:40] LABS: Calcium 8.1 mg/dL (8.4-10.2); Potassium 5.4 mmol/L (3.5-5.1)
--- NOTE | 2017-10-20 16:54 | PN ---
PROGRESS NOTE DATE OF SERVICE: 10/20/2017 This 62-year-old gentleman who was admitted with multiple medical problems, including COPD as well as renal failure also had psychiatric issues. The patient had possible hypomania per Psychiatry. Psychiatry evaluated the patient and recommended geropsychiatric evaluation. Please refer to the psychiatric notes for further evaluation. No chest pain. No palpitations. On exam, alert and oriented x3. Pulse 98, blood pressure 170/60, respiration 15, temperature 97.4, pulse ox normal. HEENT: Conjunctivae normal. NECK: No jugular venous distention. CARDIOVASCULAR SYSTEM: S1, S2 muffled. RESPIRATORY SYSTEM: Breath sounds diminished at the bases. No rhonchi. No crackles. ABDOMEN: Soft, non-tender. LEGS: No edema. No swelling. NERVOUS SYSTEM: No focal deficit. LABS: WBC 19.2, hemoglobin 10.5. Potassium 5.5. ASSESSMENT: 1. Chronic obstructive pulmonary disease, acute exacerbation, with acute purulent tracheobronchitis, present on admission. 2. Acute on chronic renal failure, chronic kidney disease, stage III, baseline. 3. Possible acute cardiorenal syndrome. 4. Old lacunar infarcts. 5. Microcytic anemia, possibly thalassemia. 6. Increased white count, possibly secondary to steroids. 7. Acute delirium with psychosis. 8. Possible hypomania. 9. Change in mental status, possibly acute metabolic encephalopathy with hypomania. 10.History of congestive heart failure with chronic systolic dysfunction, ejection fraction 20% to 25%, with left atrial dilatation. 11.History of chronic obstructive pulmonary disease. 12.Hypertension. 13.History of degenerative joint disease. 14.History of pneumonia. 15.History of diverticulitis. 16.History of automated implantable cardioverter defibrillator. 17.History of ischemic cardiomyopathy. RECOMMENDATIONS AND DISCUSSION: I recommend to continue current medication, continue with monitoring, symptomatic treatment. Otherwise at this time closely monitor with multiple consultants and geropsychiatric evaluation and referral per Psychiatry. Closely follow with social work faculty member. Further recommendations to follow. MMODL / IJN: [id number] /
[2017-10-20 17:07] LABS: Glucose,Whole Blood 192 mg/dL (75-99)
--- NOTE | 2017-10-20 17:57 | P.PN ---
Subjective Progress Note Date: 10/20/17 This patient is a 62-year-old male who is being evaluated for altered mental status and question of underlying dementia. He has been evaluated by psychiatry who feel he has no underlying psychiatric condition at this time. The patient seems to be quite alert and oriented and is following simple commands. He did complain of right-sided headache pain yesterday and it was determined that he has evidence of a right occipital neuritis. We have recommended the patient consider having a occipital nerve block procedure for treatment. Apparently this is been placed on hold at this time by his . We will continue to monitor the patient's condition closely. Patient was sent for repeat computed tomography scan of the brain today which revealed evidence of old left temporal lobe infarct as well as old lacunar infarct in the left caudate nucleus. This CAT scan was unchanged from previous study done on 2017. Patient has been up and ambulating in his room without any difficulties. We will wait to see if he will have a occipital nerve block procedure done. He is unable to have a CT angiogram of the head and neck due to renal failure. Nephrology also recommends not having the patient undergo IV contrast dye as this would most likely cause acute renal failure. The patient also is unable to have MRI of the brain due to him having a AICD fibrillator placement. Patient seems to be doing better today in terms of his right-sided headache pain. We will continue to follow his progress closely. Will await any further recommendations from psychiatry. The patient was evaluated today by psychiatry for further assessment and recommendations. He was seen by Dr. Mosher who felt he has unspecified mood disorder. He underwent a Mini-Mental Status Examination and his total score was 29/30. He showed no impairment in orientation, registration, attention, or calculation, recall and language also normal. Dr. Mosher feels the patient may have some degree of hypomania. He is recommending the patient to be transferred to geropsychiatric unit for full evaluation of change in his behavior and functioning. Neurologically he has no focal motor deficit. His right occipital headache pain has not been severe today. He has been up and ambulating in his room but does have a sitter at bedside. His overall prognosis at this time remains guarded. Objective - Vital Signs Vital signs: Vital Signs Temp 97.7 F 10/20/17 15:30 Pulse 84 10/20/17 16:18 Resp 15 10/20/17 15:30 BP 117/62 10/20/17 15:30 Pulse Ox 99 10/19/17 22:45 Intake & Output 10/19/17 10/20/17 10/20/17 18:59 06:59 18:59 Intake Total 240 850 Balance 240 850 Intake: Oral 240 850 Other: Voiding Method Toilet # Voids 3 2 4 - Exam Physical examination: PHYSICAL EXAMINATION: Patient is resting comfortably in bed. VITAL SIGNS: Blood pressure is [117/62]. Heart rate is [98]. Respiration is [16] . Temperature is [97.7]. HEENT: Head is atraumatic, neck is supple, there were no carotid bruits. CHEST: Lungs are clear to auscultation and percussion. CARDIAC: S1, S2 normal rate and rhythm. There is no murmur. ABDOMEN: Soft and nontender. Bowel sounds are present. EXTREMITIES: There is no pedal edema. Peripheral pulses are present. Neurological examination: Patient's neurological examination is unchanged from yesterday. Patient is up and ambulating in his room. He does have a sitter at bedside. He is following all simple commands. His memory and intellectual functions appropriate for his age. Cranial nerves II through XII are grossly intact. There is no focal motor deficit on exam. Deep tendon reflexes are 1+ and symmetric. Plantar responses flexor bilaterally. - Labs CBC & Chem 7: 10/19/17 07:35 10/20/17 15:49 Labs: Abnormal Lab Results - Last 24 Hours (Table) 10/19/17 10/19/17 10/20/17 Range/Units 17:24 20:15 12:03 POC Glucose (mg/dL) 184 H 195 H 155 H (75-99) mg/dL Assessment and Plan (1) Acute metabolic encephalopathy Current Visit: Yes Status: Acute Code(s): G93.41 - METABOLIC ENCEPHALOPATHY SNOMED Code(s): 10806949 (2) Acute headache Current Visit: Yes Status: Acute Code(s): R51 - HEADACHE SNOMED Code(s): 026487200 (3) Dementia Current Visit: Yes Status: Acute Code(s): F03.90 - UNSPECIFIED DEMENTIA WITHOUT BEHAVIORAL DISTURBANCE SNOMED Code(s): 09028468 (4) Atrial fibrillation Current Visit: No Status: Acute Code(s): I48.91 - UNSPECIFIED ATRIAL FIBRILLATION SNOMED Code(s): 41099297 Plan: This patient is a 62-year-old male who was admitted to Hospital for recent change in behavior and altered mental status. He was seen by psychiatry today and evaluated for these changes. He underwent a computed tomography scan of the brain yesterday which revealed evidence of an old left temporal lobe infarct. There is also a lacunar infarct in the left caudate nucleus. No other acute changes were noted. No significant change as compared to CAT scan done on 10/13/2017. He does have right occipital neuritis which remained stable. This is contributing to some of his right-sided headache pain. He was seen by Dr. Mosher today from psychiatry who was diagnosed him with hypomania. He is recommending the patient be transferred to a geropsychiatric unit for full evaluation of change in his behavior and functioning. We will await further recommendations from psychiatry. His overall prognosis at this time remains very guarded.
[2017-10-20 20:23] LABS: Glucose,Whole Blood 227 mg/dL (75-99)
[2017-10-20] MEDS: ATORVASTATIN 20 MG TAB PO SCH (22:00)
[2017-10-21] MEDS: ACETAMINOPHEN TAB 500 MG TAB PO PRN ×3 (04:51→17:37)
[2017-10-21 07:29] LABS: Glucose,Whole Blood 107 mg/dL (75-99)
[2017-10-21] MEDS: IPRATROPIUM-ALBUTEROL 3 ML NEB INHALATION SCH ×3 (08:31→15:30)
[2017-10-21] MEDS: SYMBICORT 160-4.5 MCG INHALER INHALATION SCH (08:31)
[2017-10-21] MEDS: INSULIN ASPART 100 UNIT/ML 1 ML 10 ML VIAL SQ SCH ×2 (08:40→11:24)
[2017-10-21] MEDS: FUROSEMIDE 40 MG TAB PO SCH ×2 (08:41→16:21)
[2017-10-21] MEDS: predniSONE 20 MG TAB PO SCH (08:41)
[2017-10-21] MEDS: APIXABAN 5 MG TAB PO SCH (08:41)
[2017-10-21] MEDS: CARVEDILOL 6.25 MG TAB PO SCH ×2 (08:41→16:21)
[2017-10-21] MEDS: SPIRONOLACTONE 25 MG TAB PO SCH (08:41)
[2017-10-21] MEDS: LISINOPRIL 5 MG TAB PO SCH (08:41)
[2017-10-21 11:05] LABS: Glucose,Whole Blood 119 mg/dL (75-99)
[2017-10-21] MEDS: FOLIC ACID 1 MG TAB PO SCH (12:06)
[2017-10-21] MEDS: MULTIVITAMINS, THERA 1 EACH TAB PO SCH (12:06)
[2017-10-21 15:13] VITALS: BP 136/73; RESP 20; TEMP 98.2
--- NOTE | 2017-10-21 15:15 | PN ---
PROGRESS NOTE The patient is seen for followup for chronic kidney disease and an element of acute kidney injury as well. He is currently being evaluated by neurology and psychiatry. He is being considered for occipital nerve block, which seems to be currently on hold. This was for headaches. His CT did show evidence of an old left temporal lobe infarct. Renal function is fairly stable. However, serum creatinine is fluctuating between 1.9- 2.2 mg/dL. The patient's creatinine has been about the same, even in 2017. He is currently maintained on a small dose of oral Lasix at 40 mg b.i.d., which we can continue. He is also maintained on BRYSON inhibitors. EXAMINATION: Patient is comfortable, awake. He is not in any acute distress. Blood pressure is 124/59, heart rate is 81. The patient is afebrile. Examination of the heart S1, S2. Examination of the lungs bilateral breath sounds are heard. Abdomen is soft, nontender. Exam of the lower extremities shows 1+ edema bilaterally which is stable. REHAB AIDE exam is grossly intact. LAB: Shows sodium 133, potassium 5.4, serum creatinine 2.2, chloride 93, calcium 8.1. ASSESSMENT: 1. Chronic kidney disease secondary to nephrosclerosis. Continue with BRYSON inhibitors. Renal function close to baseline. Patient is also maintained on Lasix 40 mg p.o. b.i.d., which we will continue. 2. Hypertension currently controlled. 3. Old lacunar infarct is noted on the CAT scan. Patient being followed by Neurology. 4. Mental status changes associated with stroke although this is not a new stroke. The patient is being followed by Neurology and Psychiatry. 5. Congestive heart failure with systolic dysfunction, currently compensated and stable. 6. Cardiomyopathy, ejection fraction 20-25%. 7. Atrial fibrillation. PLAN: Continue current medications. The patient will need follow up as outpatient. Need to avoid hypotension. MMODL / IJN: [id number] /
[2017-10-21 15:33] VITALS: PULSE 84
--- NOTE | 2017-10-21 16:00 | P.DS ---
Providers Date of admission: 10/17/17 14:24 Expected date of discharge: 10/21/17 Attending physician: Lorin Todd Consults: 10/14/17 00:40 Consult Physician Routine Consulting Provider: Laith Alvarez Consult Reason/Comments: chf Do you want consulting provider notified?: Yes 10/14/17 02:32 Consult Physician Routine Consulting Provider: Pb Mosher Consult Reason/Comments: AMS Do you want consulting provider notified?: Yes 10/15/17 11:51 Consult Physician Routine Consulting Provider: Kiko Powers Consult Reason/Comments: dementia? Do you want consulting provider notified?: Yes 10/15/17 14:53 Consult Physician Urgent Consulting Provider: Deidra Bryson Consult Reason/Comments: Acute renal failure Do you want consulting provider notified?: Already Contacted 10/18/17 07:00 Consult to Anesthesia Urgent Consulting Provider: Anesthesia,Services Consult Reason/Comments: Right occipital nerve block for recurrent headaches. 10/18/17 15:27 Consult Physician Routine Consulting Provider: Pb Mosher Consult Reason/Comments: reevaluation of bizarre patient behavior Do you want consulting provider notified?: Yes [facility] Course: Final Diagnoses: 1. Acute exacerbation COPD with acute purulent tracheobronchitis, present on admission 2. Acute on chronic renal failure, chronic kidney disease, stage III, baseline 3. Possible acute cardiorenal syndrome 4. Old lacunar infarcts 5. Microcytic anemia, possible thalassemia 6. Acute delirium with psychosis 7. Possible hypomania 8. Change in mental status, possible acute metabolic encephalopathy with hypomania 9. History of CHF, chronic systolic dysfunction, EF 20-25% 10. AICD 11. History of ischemic cardiomyopathy Hospital course: This is a 62-year-old gentleman admitted with multiple medical problems including COPD, renal failure and psychiatric issues. Maintained on nebulized bronchodilators, Lasix. Evaluated by a nephrology, pain management, and neurology. Possible hypomania as per psychiatry evaluation with recommendations for Geropsychiatric unit for further evaluation. Patient has been cleared for discharge to [facility] by psychiatry. Patient is being discharged to [facility] in the stable condition with guarded prognosis. 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 The impression and plan of care has been dictated as directed. : I performed a history and examination of this patient, discussed the same with the dictator. I agree with the dictator's note ,documented as a scribe. Any additional findings or plans will be noted. Time taken: 35 minutes Patient Condition at Discharge: Stable Plan - Discharge Summary Discharge Rx Participant: No New Discharge Prescriptions: New Budesonide-Formot 160-4.5 Mcg [Symbicort 160-4.5 Mcg Inhaler] 2 puff INHALATION RT-BID #1 inh Folic Acid 1 mg PO DAILY@1200 #30 tab Furosemide [Lasix] 40 mg PO BID@0900,1600 #60 tab Multivitamins, Thera [Multivitamin (formulary)] 1 each PO DAILY@1200 #30 tab predniSONE 10 mg PO DIRECTED #30 tab Ipratropium/Albuterol Sulfate [Combivent Respimat Inhaler] 1 puff INHALATION TID #1 inhaler Continue Apixaban [Eliquis] 5 mg PO BID #60 tab Carvedilol [Coreg] 6.25 mg PO BID-W/MEALS #60 tab Spironolactone [Aldactone] 25 mg PO DAILY Lisinopril [Zestril] 5 mg PO DAILY Atorvastatin [Lipitor] 20 mg PO HS Discontinued Furosemide [Lasix] 40 mg PO DAILY Discharge Medication List Apixaban [Eliquis] 5 mg PO BID #60 tab 02/10/17 [Rx] Carvedilol [Coreg] 6.25 mg PO BID-W/MEALS #60 tab 02/10/17 [Rx] Lisinopril [Zestril] 5 mg PO DAILY 06/08/17 [History] Spironolactone [Aldactone] 25 mg PO DAILY 06/08/17 [History] Atorvastatin [Lipitor] 20 mg PO HS 06/11/17 [History] Budesonide-Formot 160-4.5 Mcg [Symbicort 160-4.5 Mcg Inhaler] 2 puff INHALATION RT-BID #1 inh 10/20/17 [Rx] Folic Acid 1 mg PO DAILY@1200 #30 tab 10/20/17 [Rx] Furosemide [Lasix] 40 mg PO BID@0900,1600 #60 tab 10/20/17 [Rx] Multivitamins, Thera [Multivitamin (formulary)] 1 each PO DAILY@1200 #30 tab [Rx] predniSONE 10 mg PO DIRECTED #30 tab 10/20/17 [Rx] Ipratropium/Albuterol Sulfate [Combivent Respimat Inhaler] 1 puff INHALATION TID #1 inhaler 10/21/17 [Rx] Follow up Appointment(s)/Referral(s): Deidra Bryson MD [STAFF PHYSICIAN] - 1 Week Kiko Powers MD [STAFF PHYSICIAN] - 2 Weeks Daniel Meadows MD [STAFF PHYSICIAN] - 1 Week Jan Mederos DO [Medical Doctor] - 1 Week (plz schedule apt. prior to dc) Mak Pruitt DO [Primary Care Provider] - 3 Days Ambulatory/Diagnostic Orders: Complete Blood Count w/diff [LAB.AMB] Time Frame: 3 Days, Location: None Selected Activity/Diet/Wound Care/Special Instructions: Geriatric psych unit BMP pending
== END 2017-10-21 19:00 | DRG 190 ==
LOC: EC 17:51 → 5MS5E 22:41 → OBSVTOIN 10-17 14:24
PROVIDERS: ADMIT Hospitalist; ATTEND Hospitalist
DX: J44.0 Chronic obstructive pulmonary disease with (acute) lower respiratory infection (principal); G93.41 Metabolic encephalopathy; I13.0 Hypertensive heart and chronic kidney disease with heart failure and stage 1 through stage 4 chronic kidney disease, or unspecified chronic kidney disease; I50.22 Chronic systolic (congestive) heart failure; N17.9 Acute kidney failure, unspecified; J98.11 Atelectasis; F23 Brief psychotic disorder; E87.5 Hyperkalemia; I48.0 Paroxysmal atrial fibrillation; N18.3 Chronic kidney disease, stage 3 (moderate); F03.90 Unspecified dementia, unspecified severity, without behavioral disturbance, psychotic disturbance, mood disturbance, and anxiety; J20.9 Acute bronchitis, unspecified; J44.1 Chronic obstructive pulmonary disease with (acute) exacerbation; F39 Unspecified mood [affective] disorder; D63.1 Anemia in chronic kidney disease; E78.5 Hyperlipidemia, unspecified; M54.81 Occipital neuralgia; D56.3 Thalassemia minor; G47.00 Insomnia, unspecified; I25.5 Ischemic cardiomyopathy; I25.10 Atherosclerotic heart disease of native coronary artery without angina pectoris; I45.10 Unspecified right bundle-branch block; F17.210 Nicotine dependence, cigarettes, uncomplicated; M19.91 Primary osteoarthritis, unspecified site; R80.9 Proteinuria, unspecified; Z91.83 Wandering in diseases classified elsewhere; Z79.01 Long term (current) use of anticoagulants; Z79.899 Other long term (current) drug therapy; Z87.01 Personal history of pneumonia (recurrent); Z95.810 Presence of automatic (implantable) cardiac defibrillator; Z86.73 Personal history of transient ischemic attack (TIA), and cerebral infarction without residual deficits; Z86.010 Personal history of colon polyps; Z88.2 Allergy status to sulfonamides; Z91.040 Latex allergy status; Z91.013 Allergy to seafood; Z82.5 Family history of asthma and other chronic lower respiratory diseases; Z83.3 Family history of diabetes mellitus; Z80.8 Family history of malignant neoplasm of other organs or systems
CPT/HCPCS: 36415; 70450; 71045; 71046; 80048; 80053; 80074; 80306; 81001; 82075; 82570; 82728; 83036; 83540; 83550; 83880; 84156; 84165; 84484; 85025; 86038; 86334; 86335; 93005; 94640; 94760; 96374; 99285

== ENCOUNTER → 2018-02-23 | Outpatient (CLI) | payer OTHER ==
--- NOTE | 2018-02-23 12:09 | US ---
EXAMINATION TYPE: US kidneys/renal and bladder DATE OF EXAM: 02/23/2018 COMPARISON: NONE CLINICAL HISTORY: N18.3 Chronic kidney disease stage 3. EXAM MEASUREMENTS: Right Kidney: 10.9 x 4.4 x 4.8 cm cm Left Kidney: 8.7 x 3.5 x 3.1 cm cm Spleen: 15.7 cm Right Kidney: No hydronephrosis. No cystic or solid mass visualized Left Kidney: No hydronephrosis. Measuring small. Loss of corticomedullary differentiation Bladder: Not fully distended, patient states he feels very full. Limited visualization, visualized po rtions appear wnl Bilateral Jets seen: No Normal Post Void Residual: Patient states he was unable to empty his bladder Incidental finding: Spleen in enlarged There is no evidence for hydronephrosis at this point in time. No nephrolithiasis is seen. No nupur s are identified. IMPRESSION: 1. Mild atrophic changes of the left kidney.
== END | disposition home or self-care (01) ==
LOC: RADUSWWP 10:52
PROVIDERS: ATTEND Internal Medicine Nephrology
DX: N26.1 Atrophy of kidney (terminal) (principal); N18.3 Chronic kidney disease, stage 3 (moderate)
CPT/HCPCS: 76770

== ENCOUNTER → 2018-09-21 | Outpatient (CLI) | payer OTHER ==
--- NOTE | 2018-09-21 18:11 | XR ---
EXAMINATION TYPE: XR chest 2V DATE OF EXAM: 09/21/2018 COMPARISON: 10/16/2017 HISTORY: Shortness of breath and cough TECHNIQUE: Frontal and lateral views of the chest are obtained. FINDINGS: There is a left basilar opacity that appears worsened in the interim. This is superimposed upon underlying COPD with pulmonary hyperinflation and flattening of the diaphragms. Single lead lef t-sided cardiac device is seen as well as shift of the mediastinum leftward as noted on the prior. Ca rdia mediastinal silhouette is nonenlarged. Moderate degenerative changes of the spine are noted. Lef t hemidiaphragm elevation is mild. IMPRESSION: Left basilar opacity that may represent pneumonia or atelectasis superimposed upon COPD.
== END | disposition home or self-care (01) ==
LOC: RADXRYALE 16:39
PROVIDERS: ATTEND Physician Assistant Medical
DX: R91.8 Other nonspecific abnormal finding of lung field (principal); J44.9 Chronic obstructive pulmonary disease, unspecified
CPT/HCPCS: 71046

== ENCOUNTER → 2020-02-26 | Outpatient (CLI) | payer MEDICARE ==
[~2020-02-26] MED LIST changes: +SODIUM CHLORIDE 0.9% 1,000 ML in EMPTY BAG 1 BAG IV ONE; -ceFAZolin 1,000 MG in SODIUM CHLORIDE 0.9% IRRIGATIO 250 ML IRRIGATION ONE; -ceFAZolin IN SWFI 2 GM/20 ML SYRINGE IVP ONE
[2020-02-26 07:35] VITALS: BP 166/79; PULSE 94; RESP 16; TEMP 98.4
--- NOTE | 2020-02-26 14:52 | CT ---
EXAMINATION TYPE: CT angio neck DATE OF EXAM: 02/26/2020 HISTORY: carotid stenosis COMPARISON: None CT DLP: 435.8 mGycm. Automated Exposure Control for Dose Reduction was Utilized. TECHNIQUE: CTA scan of the neck is performed with IV Contrast, patient injected with 65 mL of Isovue 370, axial images are obtained, coronal and sagittal reformatted images are reviewed. Three-D recons tructed images are created on an independent workstation and reviewed. Vascular stenosis is calculate d utilizing NASCET criteria. FINDINGS: Carotid/Vascular Structures: There is classic branching pattern of the aortic arch. Noncalcified athe rosclerotic disease of the great vessels is seen, with narrowing of left than 50% of the left common carotid artery proximally. Atherosclerotic changes of the bilateral carotid bulbs without significant stenosis of greater than 50%. Vertebrobasilar system is right-sided dominant. No evidence of hemodyn amically significant stenosis, occlusion, or aneurysm. Other: Degenerative changes of the spine. IMPRESSION: No evidence of hemodynamically significant stenosis, occlusion, or aneurysm of the arteries of the nm ck.
== END | disposition home or self-care (01) ==
LOC: RADCTMAIN 06:53
PROVIDERS: ATTEND Internal Medicine Clinical Cardiac Electrophysiology
DX: I65.29 Occlusion and stenosis of unspecified carotid artery (principal); Z88.1 Allergy status to other antibiotic agents; Z88.2 Allergy status to sulfonamides
CPT/HCPCS: 82565; 84520; 70498; Q9967

== ENCOUNTER → 2020-04-22 | Outpatient (CLI) | payer MEDICARE ==
--- NOTE | 2020-04-22 17:26 | XR ---
EXAMINATION TYPE: XR wrist complete RT DATE OF EXAM: 04/22/2020 COMPARISON: NONE HISTORY: 64-year-old male right wrist pain after fall injury TECHNIQUE: 3 views FINDINGS: Vascular calcification suggest underlying diabetes and/or chronic kidney disease. There is osteopenia . Mild degenerative change at the base of the thumb and first MCP joint. Radiocarpal and distal radio ulnar joint as well as the midcarpal compartment appear intact. There may be some mild soft tissue sw elling about the wrist. No acute fracture, subluxation, dislocation is seen. IMPRESSION: Some mild soft tissue swelling about the wrist. Mild osteoarthritic change involving the thumb. No ac squaxin osseous abnormality seen. Given the osteopenia and mild soft tissue swelling, if concern for an o ccult injury, follow-up in 10-14 days.
== END | disposition home or self-care (01) ==
LOC: RADXRYALE 16:00
PROVIDERS: ATTEND Physician Assistant Medical
DX: M19.031 Primary osteoarthritis, right wrist (principal); M85.88 Other specified disorders of bone density and structure, other site

== ENCOUNTER 2020-11-11 07:04 | Day surgery (SDC) | payer MEDICARE, OTHER ==
[2020-11-08 09:20] VITALS: BMI 33.0
[~2020-11-11 07:04] MED LIST changes: +SODIUM CHLORIDE 0.9% 1,000 ML IV SCH; -SODIUM CHLORIDE 0.9% 1,000 ML in EMPTY BAG 1 BAG IV ONE
[2020-11-11] MEDS ORDERED: SODIUM CHLORIDE 0.9% 500 ML 500 ML IV ONE (07:14)
[2020-11-11 07:30] VITALS: RESP 16; TEMP 98.2
[2020-11-11] MEDS ORDERED: PROPOFOL 10 MG/ML 20 ML VIAL IV ONE (07:59)
[2020-11-11] MEDS ORDERED: LIDOCAINE 1% INJ 10MG/ML (20 ML MDV) ONE (07:59)
--- NOTE | 2020-11-11 09:50 | P.EPPROC ---
- EP Procedure Note Electrophysiology Procedure Note: Diagnosis/indication for procedure Spontaneous Tachycardia with a cycle length of 330 ms, regular Antitachycardia pacing, 2 rounds resulted in slowing of the tachycardia to a cycle length around 440-460 but the cycle length is quite variable However the intracardiac electrogram is identical to the fast tachycardia This suggests that this is a slower tachycardia but the intracardiac morphology is identical tachycardia with a cycle length of 330 milliseconds The device was interrogated. This is a single-chamber Medtronic ICD The device recognized that there was a poor template match and treated it as ventricular tachycardia, with ATP Patient has had short episodes of tachycardia with variable cycle length that appears to be atrial fibrillation on the scatter plot However in reviewing the intracardiac electrograms this is actually slow irregular ventricular tachycardia with the identical morphology as the fast VT at 330 ms that is described above Capture beats are noted and a comparison with sinus rhythm electrograms shows a match with a capture beats Procedure Noninvasive program stimulation ICD interrogation with reprogramming Details Noninvasive program stimulation was performed Ventricular extra stimulation at a drive train of 604 100 ms up to double extrastimuli was performed No VT induced Occasional PVCs induced These PVCs were of different morphologies Burst ablation was performed no VT was induced The patient's Spontaneous PVC were evaluated The intracardiac electrograms were different from the sustained VT The device was then reprogrammed Antitachycardia pacing parameters was reprogrammed to 81% and 78% in the VT zone Plan Watch for nonsustained episodes to see whether this is ventricular tachycardia or atrial fibrillation Review electrograms and compare EGM 1 and EGM 2 with the sustained VT episode with a cycle length of 330 ms Since the slow VT episodes are irregular, it is erroneously classified as A. fib The patient has been receiving ELIQUIS for atrial fibrillation since 2017
[2020-11-11 10:05] VITALS: BP 139/65; PULSE 67
== END 2020-11-11 10:15 | disposition home or self-care (01) ==
LOC: CATHEP 07:04
PROVIDERS: ATTEND Internal Medicine Clinical Cardiac Electrophysiology
DX: Z45.018 Encounter for adjustment and management of other part of cardiac pacemaker (principal); I10 Essential (primary) hypertension; I47.2 Ventricular tachycardia; E78.5 Hyperlipidemia, unspecified; I48.0 Paroxysmal atrial fibrillation; I65.29 Occlusion and stenosis of unspecified carotid artery; I12.9 Hypertensive chronic kidney disease with stage 1 through stage 4 chronic kidney disease, or unspecified chronic kidney disease; N18.9 Chronic kidney disease, unspecified; I71.4 Abdominal aortic aneurysm, without rupture; I89.0 Lymphedema, not elsewhere classified; Z79.01 Long term (current) use of anticoagulants; Z79.890 Hormone replacement therapy; Z79.899 Other long term (current) drug therapy; Z88.2 Allergy status to sulfonamides
CPT/HCPCS: 93642; J2001; J2704

== ENCOUNTER → 2021-04-16 | Outpatient (CLI) | payer OTHER ==
--- NOTE | 2021-04-16 16:04 | XR ---
EXAMINATION TYPE: XR chest 2V DATE OF EXAM: 04/16/2021 COMPARISON: 09/21/2018 TECHNIQUE: PA and lateral views submitted. HISTORY: Shortness of breath FINDINGS: Left lower lobe infiltrate and small effusion pleural-based thickening. Diffuse hyperinflation. Cardi ac device noted. Heart size normal. Hypertrophic and degenerative change of the spine. Diffuse osteop enia and arthropathy of the shoulders. IMPRESSION: 1. COPD with left lower lobe infiltrate and small effusions.
== END | disposition home or self-care (01) ==
LOC: RADXRYALE 15:46
PROVIDERS: ATTEND Physician Assistant
DX: J44.9 Chronic obstructive pulmonary disease, unspecified (principal)
CPT/HCPCS: 71046

== ENCOUNTER 2021-05-09 10:17 | Inpatient (IN) | payer MEDICARE, OTHER ==
[2021-05-09] MEDS ORDERED: SODIUM CHLORIDE 0.9% 500 ML 500 ML IV STA (11:06)
[2021-05-09] MEDS ORDERED: methylPREDNISolone SOD SUCCI 125 MG/2 ML VIAL IV STA (11:06)
[2021-05-09] MEDS ORDERED: ACETAMINOPHEN TAB 325 MG TAB PO STA (11:07)
[2021-05-09] MEDS ORDERED: ALBUTEROL HFA INHALER INHALATION STA (11:11)
--- NOTE | 2021-05-09 11:17 | ED ---
General Adult HPI - General Chief complaint: Shortness of Breath Stated complaint: Fever,SOB,Weakness Time Seen by Provider: 05/09/21 11:05 Source: patient, EMS, RN notes reviewed, old records reviewed Mode of arrival: EMS Limitations: physical limitation - History of Present Illness Initial comments: Patient presents to the emergency room via EMS after receiving the monoclonal antibodies infusion outpatient. Patient was increasingly short of breath using accessory muscles therefore was transferred to the emergency room for evaluation. He received infusion and full. Does have history of COPD and history of heart failure thalassemia minor renal disease and has an AICD. Patient sates he's been sick for more than a week. Bilateral lower extremities are swollen states they've been swollen like that for a while. Patient is febrile 101.4 oxygen saturation is 95% on room air. -: week(s) Location: left, right, lower extremity Severity scale (1-10): 3 Consistency: constant Associated Symptoms: cough, fever/chills, shortness of breath Treatments Prior to Arrival: other (Antibodies infusion) - Related Data Home Medications Medication Instructions Recorded Confirmed Allopurinol [Zyloprim] 200 mg PO DAILY 11/08/20 05/09/21 Divalproex Sodium [Depakote] 500 mg PO HS 11/08/20 05/09/21 Ergocalciferol [Vitamin D2 (1250 1,250 mcg PO QMONTHLY 11/08/20 05/09/21 Mcg = 29696 Iu)] Ferrous Sulfate [Iron] 325 mg PO DAILY 11/08/20 05/09/21 Losartan Potassium [Cozaar] 25 mg PO DAILY 11/08/20 05/09/21 Torsemide [Demadex] 40 mg PO DAILY 11/08/20 05/09/21 calcitrioL [Rocaltrol] 0.25 mcg PO DIRECTED 11/08/20 05/09/21 Folic Acid 1 mg PO DAILY 11/11/20 05/09/21 Atorvastatin [Lipitor] 40 mg PO HS 05/09/21 05/09/21 Azithromycin [Zithromax Z-pack (6 See Taper PO DIRECTED 05/09/21 05/09/21 tabs)] Budesonide [Pulmicort] 0.5 mg INHALATION RT-BID 05/09/21 05/09/21 Carvedilol [Coreg] 6.25 mg PO BID-W/MEALS 05/09/21 05/09/21 Fluticasone Nasal [place] [Flonase 2 spray EA NOSTRIL DAILY 05/09/21 05/09/21 Nasal [place]] Ipratropium-Albuterol Nebulize 3 ml INHALATION RT-QID PRN 05/09/21 05/09/21 [Duoneb 0.5 mg-3 mg/3 ml Soln] Levothyroxine Sodium [Synthroid] 75 mcg PO DAILY 05/09/21 05/09/21 risperiDONE [RisperDAL] 0.5 mg PO DAILY 05/09/21 05/09/21 Previous Rx's Medication Instructions Recorded Apixaban [Eliquis] 5 mg PO BID #60 tab 02/10/17 Allergies Allergy/AdvReac Type Severity Reaction Status Date / Time Latex, Natural Rubber Allergy Rash/Hives Verified 05/09/21 13:27 shellfish derived [Shellfish] Allergy SWELLING Verified 05/09/21 13:27 AND VOMITING shrimp Allergy Swelling Verified 05/09/21 13:27 sulfamethoxazole Allergy Rash/Hives Verified 05/09/21 13:27 [From Bactrim] trimethoprim [From Bactrim] Allergy Rash/Hives Verified 05/09/21 13:27 Review of Systems ROS Statement: Those systems with pertinent positive or pertinent negative responses have been documented in the HPI. ROS Other: All systems not noted in ROS Statement are negative. Past Medical History Past Medical History: Heart Failure, COPD, Pneumonia, Renal Disease, Skin Disorder, Sleep Apnea/CPAP/BIPAP Additional Past Medical History / Comment(s): DIVERTICULITIS, "THALASSEMIA MINOR", see Dr Cullen H&P, edema christiano lower legs, no cpap used, loose stools, psoriasis, History of Any Multi-Drug Resistant Organisms: None Reported Past Surgical History: AICD, Heart Catheterization, Orthopedic Surgery, Tonsillectomy Additional Past Surgical History / Comment(s): LT HAND 4TH DIGIT REPAIR, LT MASTOID SX AGE 3, AICD placement Past Anesthesia/Blood Transfusion Reactions: No Reported Reaction Type of Cardiac Device: AICD Device Placement Date:: 07/26/17 Medtronic Past Psychological History: No Psychological Hx Reported Smoking Status: Former smoker - Past Family History Father Family Medical History: Cancer Additional Family Medical History / Comment(s): SKIN CANCER General Exam Limitations: physical limitation General appearance: alert, in no apparent distress Head exam: Present: atraumatic, normocephalic, normal inspection Eye exam: Present: normal appearance, PERRL, EOMI. Absent: scleral icterus, conjunctival injection, periorbital swelling ENT exam: Present: mucous membranes moist, other (Thick yellow mucus, oropharynx) Neck exam: Present: normal inspection, full ROM. Absent: tenderness, meningismus, lymphadenopathy, thyromegaly Respiratory exam: Present: wheezes, rhonchi, accessory muscle use. Absent: respiratory distress, chest wall tenderness Cardiovascular Exam: Present: regular rate, normal rhythm, normal heart sounds. Absent: systolic murmur, diastolic murmur, rubs, gallop, clicks, JVD GI/Abdominal exam: Present: soft, distended. Absent: tenderness, guarding, rebound, rigid Extremities exam: Present: normal capillary refill, pedal edema, other (HEENT bilateral lower extremities edematous ). Absent: tenderness, calf tenderness Back exam: Present: normal inspection. Absent: tenderness, CVA tenderness (R), CVA tenderness (L), rash noted Neurological exam: Present: alert Psychiatric exam: Present: normal affect, normal mood Skin exam: Present: warm, dry, intact, normal color. Absent: rash, cyanosis, diaphoretic Course Vital Signs 05/09/21 05/09/21 05/09/21 10:32 11:03 11:22 Temperature 101.4 F H Pulse Rate 94 Respiratory 24 24 Rate Blood Pressure 141/70 O2 Sat by Pulse 98 94 L Oximetry 05/09/21 05/09/21 05/09/21 13:06 13:09 14:07 Temperature 98.5 F Pulse Rate 87 Respiratory 24 22 Rate Blood Pressure 138/82 O2 Sat by Pulse 86 L 93 L 92 L Oximetry 05/09/21 15:25 Temperature Pulse Rate 83 Respiratory 22 Rate Blood Pressure 131/58 O2 Sat by Pulse 97 Oximetry EKG Findings - EKG Results: EKG: sinus rhythm (Ventricular rate of 87, IL interval 0.172, QRS 0.140, QTC 0.488; right bundle-branch block), not changed from: (09/2017) Medical Decision Making - Medical Decision Making Patient presents via EMS after receiving the monoclonal antibodies infusion outpatient. Patient became increasingly short of breath using accessory muscles with a sat of 90% during infusion. He received infusion in full. Patient sates he's been sick for more than a week. X-ray shows COPD and interstitial pneumonitis versus mild venous congestion. There is left basilar infiltrate and small effusion. Ultrasound shows no evidence of DVT within the left lower extremity. Right lower extremity popliteal vein is not adequately assessed but there is no evidence for DVT. Hemoglobin and hematocrit is 8.6 which seems to be a baseline for patient. There is no evidence of leukocytosis. His potassium is 2.8 and he was given IV replacement and by mouth replacement. His creatinine is increased at 2.18 does have a history of renal disease. Magnesium was 1.3 and patient was given replacement ER. Pro BNP is 2360 and patient was given Lasix in the emergency room. Troponin is elevated at 0.049 there is no evidence of ST elevation on EKG. This is consistent with his renal disease and may also be elevated due to covid diagnosis. He will be admitted to the hospital for hypoxia, hypokalemia and Covid. Case discussed with Dr. Barnett. - Lab Data Result diagrams: 05/09/21 11:08 05/09/21 11:08 Lab Results 05/09/21 05/09/21 05/09/21 Range/Units 11:08 11:08 11:08 WBC 3.9 (3.8-10.6) k/uL RBC 4.45 (4.30-5.90) m/uL Hgb 8.6 L (13.0-17.5) gm/dL Hct 28.0 L (39.0-53.0) % MCV 62.9 L (80.0-100.0) fL MCH 19.3 L (25.0-35.0) pg MCHC 30.6 L (31.0-37.0) g/dL RDW 17.3 H (11.5-15.5) % Plt Count 134 L (150-450) k/uL MPV 7.6 Neutrophils % 67 % Lymphocytes % 24 % Monocytes % 7 % Eosinophils % 1 % Basophils % 0 % Neutrophils # 2.6 (1.3-7.7) k/uL Lymphocytes # 0.9 L (1.0-4.8) k/uL Monocytes # 0.3 (0-1.0) k/uL Eosinophils # 0.0 (0-0.7) k/uL Basophils # 0.0 (0-0.2) k/uL Hypochromasia Moderate Poikilocytosis Slight Anisocytosis Slight Microcytosis Marked PT 11.5 (9.0-12.0) sec INR 1.1 (<1.2) APTT 31.7 H (22.0-30.0) sec Sodium 140 (137-145) mmol/L Potassium 2.8 L (3.5-5.1) mmol/L Chloride 105 (98-107) mmol/L Carbon Dioxide 29 (22-30) mmol/L Anion Gap 6 mmol/L BUN 25 H (9-20) mg/dL Creatinine 2.18 H (0.66-1.25) mg/dL Est GFR (CKD-EPI)AfAm 35 (>60 ml/min/1.73 sqM) Est GFR (CKD-EPI)NonAf 30 (>60 ml/min/1.73 sqM) Glucose 122 H (74-99) mg/dL Plasma Lactic Acid Antoine (0.7-2.0) mmol/L Calcium 6.8 L (8.4-10.2) mg/dL Magnesium 1.3 L (1.6-2.3) mg/dL Total Bilirubin 0.7 (0.2-1.3) mg/dL AST 25 (17-59) U/L ALT 13 (4-49) U/L Alkaline Phosphatase 36 L (38-126) U/L Troponin I (0.000-0.034) ng/mL NT-Pro-B Natriuret Pep pg/mL Total Protein 5.1 L (6.3-8.2) g/dL Albumin 2.7 L (3.5-5.0) g/dL 05/09/21 05/09/21 05/09/21 Range/Units 11:08 11:08 11:08 WBC (3.8-10.6) k/uL RBC (4.30-5.90) m/uL Hgb (13.0-17.5) gm/dL Hct (39.0-53.0) % MCV (80.0-100.0) fL MCH (25.0-35.0) pg MCHC (31.0-37.0) g/dL RDW (11.5-15.5) % Plt Count (150-450) k/uL MPV Neutrophils % % Lymphocytes % % Monocytes % % Eosinophils % % Basophils % % Neutrophils # (1.3-7.7) k/uL Lymphocytes # (1.0-4.8) k/uL Monocytes # (0-1.0) k/uL Eosinophils # (0-0.7) k/uL Basophils # (0-0.2) k/uL Hypochromasia Poikilocytosis Anisocytosis Microcytosis PT (9.0-12.0) sec INR (<1.2) APTT (22.0-30.0) sec Sodium (137-145) mmol/L Potassium (3.5-5.1) mmol/L Chloride (98-107) mmol/L Carbon Dioxide (22-30) mmol/L Anion Gap mmol/L BUN (9-20) mg/dL Creatinine (0.66-1.25) mg/dL Est GFR (CKD-EPI)AfAm (>60 ml/min/1.73 sqM) Est GFR (CKD-EPI)NonAf (>60 ml/min/1.73 sqM) Glucose (74-99) mg/dL Plasma Lactic Acid Antoine 1.1 (0.7-2.0) mmol/L Calcium (8.4-10.2) mg/dL Magnesium (1.6-2.3) mg/dL Total Bilirubin (0.2-1.3) mg/dL AST (17-59) U/L ALT (4-49) U/L Alkaline Phosphatase (38-126) U/L Troponin I 0.049 H* (0.000-0.034) ng/mL NT-Pro-B Natriuret Pep 2360 pg/mL Total Protein (6.3-8.2) g/dL Albumin (3.5-5.0) g/dL Disposition Clinical Impression: Hypoxia, Hypokalemia, COVID-19 Disposition: ADMITTED IP TO THIS [facility] Decision Date: 05/09/21 Decision Time: 14:30
[2021-05-09] MEDS ORDERED: FUROSEMIDE 10 MG/ML 4 ML VIAL IV STA (11:19)
[2021-05-09 11:20] LABS: Anisocytosis Slight; Basophils % (A) 0 %; Eosinophils % (A) 1 %; HGB 8.6 gm/dL (13.0-17.5); Hypochromasia Moderate; Lymphocytes # (A) 0.9 k/uL (1.0-4.8); Lymphocytes % (A) 24 %; MCH 19.3 pg (25.0-35.0); MCHC 30.6 g/dL (31.0-37.0); MCV 62.9 fL (80.0-100.0); Mean Platelet Volume 7.6; Microcytosis Marked; Monocytes # (A) 0.3 k/uL (0-1.0); Monocytes % (A) 7 %; Neutrophils # (A) 2.6 k/uL (1.3-7.7); Neutrophils % (A) 67 %; Platelet Count 134 k/uL (150-450); Poikilocytosis Slight; RBC 4.45 m/uL (4.30-5.90); RDW 17.3 % (11.5-15.5); WBC 3.9 k/uL (3.8-10.6)
[2021-05-09 11:34] LABS: Albumin 2.7 g/dL (3.5-5.0); Calcium 6.8 mg/dL (8.4-10.2); Magnesium 1.3 mg/dL (1.6-2.3); Potassium 2.8 mmol/L (3.5-5.1); Total Bilirubin 0.7 mg/dL (0.2-1.3); Total Protein 5.1 g/dL (6.3-8.2)
[2021-05-09] MEDS ORDERED: Potassium Replacement Protocol 1 EACH MISC MISCELLANE PRN ×2 (11:56→18:06)
[2021-05-09] MEDS ORDERED: MAGNESIUM OXIDE 400 MG TAB PO STA (11:57)
[2021-05-09 11:58] LABS: INR 1.1 (<1.2); Partial Thromboplastin Time 31.7 sec (22.0-30.0); Prothrombin Time 11.5 sec (9.0-12.0)
--- NOTE | 2021-05-09 12:51 | US ---
EXAMINATION TYPE: US venous doppler duplex LE BI DATE OF EXAM: 05/09/2021 12:34 PM COMPARISON: NONE CLINICAL HISTORY: 65-year-old male swelling pain. SIDE PERFORMED: Bilateral TECHNIQUE: The lower extremity deep venous system is examined utilizing real time linear array sonog you with graded compression, doppler sonography and color-flow sonography. 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 Right Leg: Lower popliteal not scanned due to patient motion and position. Appears negative for DVT as seen. Left Leg: Negative for DVT IMPRESSION: 1. Technically limited exam due to body habitus and patient moving, not cooperating. 2. In the right lower extremity, the lower popliteal vein is not adequately assessed. No evidence for DVT above this level to the groin. 3. No evidence for DVT within the left lower extremity.
[2021-05-09] MEDS: POTASSIUM CHLORIDE ER 20 MEQ TAB.ER PO SCH ×3 (13:07→16:20)
[2021-05-09] MEDS: POTASSIUM CHLORIDE 10 MEQ in WATER FOR INJECTION 1 100ML.BAG IVPB SCH ×6 (13:24→22:14)
--- NOTE | 2021-05-09 14:27 | XR ---
EXAMINATION TYPE: XR chest 2V DATE OF EXAM: 05/09/2021 COMPARISON: 04/16/2021 TECHNIQUE: PA and lateral views submitted. HISTORY: Shortness of breath FINDINGS: A diffuse interstitial pattern with left basilar infiltrate. Heart size stable. Cardiac device noted. Diffuse osteopenia with arthropathy of the shoulders. No pneumothorax. Degenerative changes of the s pine. IMPRESSION: 1. COPD correlate for interstitial pneumonitis versus mild venous congestion 2. Left basilar infiltrate and small effusion.
[2021-05-09] MEDS ORDERED: ACETAMINOPHEN TAB 325 MG TAB PO PRN (14:40)
[2021-05-09] MEDS ORDERED: NALOXONE 0.4 MG/ML 1 ML VIAL IV PRN (14:40)
--- NOTE | 2021-05-09 16:25 | P.CNPUL ---
History of Present Illness Consult date: 05/09/21 Reason for consult: dyspnea, hypoxemia History of present illness: 65-year-old male patient, quite debilitated, has multiple medical problems inc luding CAD, ischemic cardiomyopathy and the patient has an AICD in place and the patient also has chronic kidney disease along with history of COPD and thalassemia minor. The patient was tested positive for: 19 on 05/06/2021. The exact symptom onset date is not known. This was noted by his primary care physician and the patient was receiving a monoclonal antibody infusion by [facility] when the patient was found to be quite diaphoretic and short of breath and for that reason the patient was brought into the emergency department. Upon arrival, the patient was febrile and the patient was having shortness of breath and the patient was also hypoxic with a pulse ox of 86% on room air oxygen. He had a temperature of 11.4. Chest x-ray was done that showed lateral interstitial pulmonary infiltrates. There is some background COPD. There may be some background CHF. The patient also had an AICD over the left anterior chest area. Accordingly, the patient was placed on oxygen at 2 L per minute nasal cannula. His current pulse ox is around 96%. Breathing is mildly labored. He is unable to volunteer much history. Apparently he has been quite dependent his for activities of daily today life. His echo was at 3.9 with a hemoglobin of 8.6. Platelet count was 134. Normal coagulation profile. Sodium was at 140 with a potassium level of 2.8, BUN was 25 with a creatinine of 2.1, troponin was 0.04, proBNP level was 2360. LFTs were normal. Serum albumin was 2.7 with a total protein of 5.1. In the emergency, the patient was started on IV Decadron. Inflammatory markers need to be sent. He also received a dose of Lasix 40 mg IV push 1. He was given IV Solu Medrol 125 mg IV 1. Review of Systems ROS unobtainable: due to mental status (Very poor historian, unable to volunteer any history at this point in time.) Past Medical History Past Medical History: Coronary Artery Disease (CAD), Heart Failure (Operative with an ejection fraction of 20-25% and the patient has a defibrillator in place), COPD, CVA/TIA, Pneumonia, Renal Disease, Skin Disorder, Sleep Apnea/CPAP/BIPAP Additional Past Medical History / Comment(s): DIVERTICULITIS, "THALASSEMIA MINOR", see Dr Cullen H&P, edema christiano lower legs, no cpap used, loose stools, psoriasis, History of Any Multi-Drug Resistant Organisms: None Reported Past Surgical History: AICD, Heart Catheterization, Orthopedic Surgery, Tonsillectomy Additional Past Surgical History / Comment(s): LT HAND 4TH DIGIT REPAIR, LT MASTOID SX AGE 3, AICD placement Past Anesthesia/Blood Transfusion Reactions: No Reported Reaction Type of Cardiac Device: AICD Device Placement Date:: 07/26/17 [employer] Past Psychological History: No Psychological Hx Reported Smoking Status: Former smoker - Past Family History Father Family Medical History: Cancer Additional Family Medical History / Comment(s): SKIN CANCER Medications and Allergies Home Medications Medication Instructions Recorded Confirmed Type Apixaban [Eliquis] 5 mg PO BID #60 tab 02/10/17 05/09/21 Rx Allopurinol [Zyloprim] 200 mg PO DAILY 11/08/20 05/09/21 History Divalproex Sodium [Depakote] 500 mg PO HS 11/08/20 05/09/21 History Ergocalciferol [Vitamin D2 (1250 1,250 mcg PO QMONTHLY 11/08/20 05/09/21 History Mcg = 75680 Iu)] Ferrous Sulfate [Iron] 325 mg PO DAILY 11/08/20 05/09/21 History Losartan Potassium [Cozaar] 25 mg PO DAILY 11/08/20 05/09/21 History Torsemide [Demadex] 40 mg PO DAILY 11/08/20 05/09/21 History calcitrioL [Rocaltrol] 0.25 mcg PO DIRECTED 11/08/20 05/09/21 History Folic Acid 1 mg PO DAILY 11/11/20 05/09/21 History Atorvastatin [Lipitor] 40 mg PO HS 05/09/21 05/09/21 History Azithromycin [Zithromax Z-pack (6 See Taper PO DIRECTED 05/09/21 05/09/21 History tabs)] Budesonide [Pulmicort] 0.5 mg INHALATION RT-BID 05/09/21 05/09/21 History Carvedilol [Coreg] 6.25 mg PO BID-W/MEALS 05/09/21 05/09/21 History Fluticasone Nasal [place] [Flonase 2 spray EA NOSTRIL DAILY 05/09/21 05/09/21 History Nasal [place]] Ipratropium-Albuterol Nebulize 3 ml INHALATION RT-QID PRN 05/09/21 05/09/21 History [Duoneb 0.5 mg-3 mg/3 ml Soln] Levothyroxine Sodium [Synthroid] 75 mcg PO DAILY 05/09/21 05/09/21 History risperiDONE [RisperDAL] 0.5 mg PO DAILY 05/09/21 05/09/21 History Allergies Allergy/AdvReac Type Severity Reaction Status Date / Time Latex, Natural Rubber Allergy Rash/Hives Verified 05/09/21 13:27 shellfish derived [Shellfish] Allergy SWELLING Verified 05/09/21 13:27 AND VOMITING shrimp Allergy Swelling Verified 05/09/21 13:27 sulfamethoxazole Allergy Rash/Hives Verified 05/09/21 13:27 [From Bactrim] trimethoprim [From Bactrim] Allergy Rash/Hives Verified 05/09/21 13:27 Physical Exam Vitals: Vital Signs Temp Pulse Resp BP Pulse Ox 05/09/21 15:25 83 22 131/58 97 05/09/21 14:07 22 92 L 05/09/21 13:09 98.5 F 87 24 138/82 93 L 05/09/21 13:06 86 L 05/09/21 11:22 94 L 05/09/21 11:03 24 05/09/21 10:32 101.4 F H 94 24 141/70 98 Intake and Output 05/09/21 05/09/21 05/09/21 06:59 14:59 22:59 Other: Weight 113.398 kg General appearance: alert, in no apparent distress, breathing is mildly labored and the patient is currently on 2 L of oxygen by nasal cannula Head exam: Present: atraumatic, normocephalic, normal inspection Eye exam: Present: normal appearance, PERRL, EOMI. Absent: scleral icterus, conjunctival injection, periorbital swelling ENT exam: Present: mucous membranes moist, other (Thick yellow mucus, oropharyn x) Neck exam: Present: normal inspection, full ROM. Absent: tenderness, me ningismus, lymphadenopathy, thyromegaly Respiratory exam: Present: wheezes, rhonchi, accessory muscle use. Absent: respiratory distress, chest wall tenderness, marked diminished breath sounds bilaterally along with scattered expiratory rhonchi and wheeze Cardiovascular Exam: Present: regular rate, normal rhythm, normal heart sounds. Absent: systolic murmur, diastolic murmur, rubs, gallop, clicks, JVD GI/Abdominal exam: Present: soft, distended. Absent: tenderness, guarding, rebound, rigid Extremities exam: Present: normal capillary refill, pedal edema, other (HEENT bilateral lower extremities edematous ). Absent: tenderness, calf tenderness, the patient has chronic edema lower extremity is bilaterally, left lower extremity slightly swollen compared to the right. Back exam: Present: normal inspection. Absent: tenderness, CVA tenderness (R), CVA tenderness (L), rash noted Neurological exam: Present: alert, no focal neurological deficit and the patient is moving all 4 extremities. Motor function is weak and the patient has poor coordination. Psychiatric exam: Unable to obtain Skin exam: Present: warm, dry, intact, normal color. Absent: rash, cyanosis, diaphoretic Results - Laboratory Findings CBC and BMP: 05/09/21 11:08 05/09/21 11:08 ABG WBC 3.9 k/uL (3.8-10.6) 05/09/21 11:08 RBC 4.45 m/uL (4.30-5.90) 05/09/21 11:08 Hgb 8.6 gm/dL (13.0-17.5) L 05/09/21 11:08 Hct 28.0 % (39.0-53.0) L 05/09/21 11:08 MCV 62.9 fL (80.0-100.0) L 05/09/21 11:08 MCH 19.3 pg (25.0-35.0) L 05/09/21 11:08 MCHC 30.6 g/dL (31.0-37.0) L 05/09/21 11:08 RDW 17.3 % (11.5-15.5) H 05/09/21 11:08 Plt Count 134 k/uL (150-450) L 05/09/21 11:08 MPV 7.6 05/09/21 11:08 Neutrophils % 67 % 05/09/21 11:08 Lymphocytes % 24 % 05/09/21 11:08 Monocytes % 7 % 05/09/21 11:08 Eosinophils % 1 % 05/09/21 11:08 Basophils % 0 % 05/09/21 11:08 Neutrophils # 2.6 k/uL (1.3-7.7) 05/09/21 11:08 Lymphocytes # 0.9 k/uL (1.0-4.8) L 05/09/21 11:08 Monocytes # 0.3 k/uL (0-1.0) 05/09/21 11:08 Eosinophils # 0.0 k/uL (0-0.7) 05/09/21 11:08 Basophils # 0.0 k/uL (0-0.2) 05/09/21 11:08 Hypochromasia Moderate 05/09/21 11:08 Poikilocytosis Slight 05/09/21 11:08 Anisocytosis Slight 05/09/21 11:08 Microcytosis Marked 05/09/21 11:08 PT 11.5 sec (9.0-12.0) 05/09/21 11:08 INR 1.1 (<1.2) 05/09/21 11:08 APTT 31.7 sec (22.0-30.0) H 05/09/21 11:08 Sodium 140 mmol/L (137-145) 05/09/21 11:08 Potassium 2.8 mmol/L (3.5-5.1) L 05/09/21 11:08 Chloride 105 mmol/L (98-107) 05/09/21 11:08 Carbon Dioxide 29 mmol/L (22-30) 05/09/21 11:08 Anion Gap 6 mmol/L 05/09/21 11:08 BUN 25 mg/dL (9-20) H 05/09/21 11:08 Creatinine 2.18 mg/dL (0.66-1.25) H 05/09/21 11:08 Est GFR (CKD-EPI)AfAm 35 (>60 ml/min/1.73 sqM) 05/09/21 11:08 Est GFR (CKD-EPI)NonAf 30 (>60 ml/min/1.73 sqM) 05/09/21 11:08 Glucose 122 mg/dL (74-99) H 05/09/21 11:08 Plasma Lactic Acid Antoine 1.1 mmol/L (0.7-2.0) 05/09/21 11:08 Calcium 6.8 mg/dL (8.4-10.2) L 05/09/21 11:08 Magnesium 1.3 mg/dL (1.6-2.3) L 05/09/21 11:08 Total Bilirubin 0.7 mg/dL (0.2-1.3) 05/09/21 11:08 AST 25 U/L (17-59) 05/09/21 11:08 ALT 13 U/L (4-49) 05/09/21 11:08 Alkaline Phosphatase 36 U/L (38-126) L 05/09/21 11:08 Troponin I 0.049 ng/mL (0.000-0.034) H* 05/09/21 11:08 NT-Pro-B Natriuret Pep 2360 pg/mL 05/09/21 11:08 Total Protein 5.1 g/dL (6.3-8.2) L 05/09/21 11:08 Albumin 2.7 g/dL (3.5-5.0) L 05/09/21 11:08 PT/INR, D-dimer PT 11.5 sec (9.0-12.0) 05/09/21 11:08 INR 1.1 (<1.2) 05/09/21 11:08 Abnormal lab findings: Abnormal Labs 05/09/21 05/09/21 05/09/21 11:08 11:08 11:08 Hgb 8.6 L Hct 28.0 L MCV 62.9 L MCH 19.3 L MCHC 30.6 L RDW 17.3 H Plt Count 134 L Lymphocytes # 0.9 L APTT 31.7 H Potassium 2.8 L BUN 25 H Creatinine 2.18 H Glucose 122 H Calcium 6.8 L Magnesium 1.3 L Alkaline Phosphatase 36 L Troponin I Total Protein 5.1 L Albumin 2.7 L 05/09/21 11:08 Hgb Hct MCV MCH MCHC RDW Plt Count Lymphocytes # APTT Potassium BUN Creatinine Glucose Calcium Magnesium Alkaline Phosphatase Troponin I 0.049 H* Total Protein Albumin - Diagnostic Findings Chest x-ray: image reviewed Assessment and Plan Plan: 1 acute coronary syndrome related pneumonia with secondary shortness of breath and hypoxic respiratory failure. The patient was diagnosed on 05/06/2021. The patient claims that he has been vaccinated for: 19. He has taken 2 shots and the exact several vaccinations is not known. In any rate, the patient was receiving monoclonal and fusion of antibiotics on outpatient basis and the patie nt was found to be hypoxic and for that reason the patient was transferred to the ICU for further care. At this point, the patient is on 2 L of oxygen by nasal cannula. Chest x-ray showing right-sided pulmonary infiltrates, background COPD, background CHF and the patient has an AICD in place 2 acute hypoxic respiratory failure secondary to above 3 history of ischemic cardiomyopathy with impaired left ventricular ejection fraction, and the patient is known to have systolic heart failure with an estimated ejection fraction of around 20-25% per history provided. 4 history of coronary artery disease 5 history of AICD placement 6 history of chronic kidney disease with interval worsening of the renal function and the creatinine is up to 2.1 with a GFR of 30. 7 thalassemia minor 8 COPD 9 anemia of chronic disease 10 history of CVA 11 impaired performance and functional status secondary to above-mentioned comorbidities. 12 history of mood disorder, unspecified and the patient has had previous psychiatric evaluations and treatments. 13 history of diverticulosis with previous bouts of diverticulitis 14 degenerative arthritis 15 previous history of smoking 16 PAF , current rhythm is sinun and the patient is not taking anticoagulation Plan Admit the patient to the hospital and keep the patient in oxygen 2 L and titrate oxygen flow to maintain a saturation above 90% Exact timing of the symptoms are not known. The patient was taken monoclonal infusion antibiotic and I'm assuming that he had a rather short course and the symptoms onset is probably less than 5 days. For that reason, I'm recommending a combination of Decadron 6 mg IV push and Remdesivir per protocol with close monitoring of the renal function and the treatment of Remdesivir will be cleared by pharmacy. Patient has received IV Lasix 1 Resume all medications Check inflammatory markers including LDH, CRP, and d-dimer Obtain Doppler of the lower extremity knowing that there is a discrepancy in the size of the legs Lovenox 30 mg SC daily We'll continue to follow.
[2021-05-09] MEDS ORDERED: REMDESIVIR 200 MG in SODIUM CHLORIDE 0.9% 250 ML IVPB ONE (17:00)
[2021-05-09] MEDS ORDERED: Magnesium Replacement Protocol 1 EACH MISC MISCELLANE PRN (18:06)
--- NOTE | 2021-05-09 20:17 | HP ---
HISTORY AND PHYSICAL CHIEF COMPLAINT: Shortness of breath. HISTORY OF PRESENT ILLNESS: This 65-year-old gentleman with a past medical history of multiple medical problems, including CHF, COPD, history of pneumonia, history of renal disease, sleep apnea, history of diverticulitis, being followed by Dr. Pruitt in the outpatient setting, was complaining of shortness of breath and weakness. The patient had monoclonal antibody infusion by EMS, but the patient had increasing shortness of breath and some vague chest pains, and the patient came to [facility] and was admitted for further evaluation and treatment. Hemoglobin was found to be 8.6 and potassium 2.8, creatinine 2.18, troponin elevated 0.04. The patient's pulse ox was 86%, indicating acute hypoxic respiratory failure. The patient also had a chest x-ray which I reviewed personally. It showed possible acute bilateral interstitial pneumonia secondary to COVID-19. A venous Doppler study was also done which showed no DVT at this time. The D- dimer is not available. The creatinine is elevated up to . There is no history of any fever, rigor or chills at this time. PAST MEDICAL HISTORY: History of COPD, CHF, pneumonia, history of renal disease, sleep apnea, diverticulitis. HOME MEDICATIONS: Depakote, Coreg, Rocaltrol, Synthroid, vitamin D2, Risperdal, Demadex, Eliquis, Cozaar, DuoNeb, Flonase, iron, Lipitor, Pulmicort, Zyloprim, Doses are reviewed. ALLERGIES: LATEX, SHELLFISH, SHRIMP, SULFAMETHOXAZOLE, TRIMETHOPRIM. FAMILY HISTORY: History of skin cancer in the family. SOCIAL HISTORY: Previous history of smoking. No history of alcohol intake. REVIEW OF SYSTEMS: ENT: No diminished hearing. No diminished vision. CARDIOVASCULAR SYSTEM: As mentioned earlier. RESPIRATORY SYSTEM: As mentioned earlier. GI: No nausea, vomiting, diarrhea. : No dysuria. NERVOUS SYSTEM: No numbness, weakness. ALLERGY/IMMUNOLOGY: No asthma or hay fever. MUSCULOSKELETAL: As mentioned earlier. HEMATOLOGY/ONCOLOGY: No history of anemia. ENDOCRINE: No history of diabetes or hypothyroidism. CONSTITUTIONAL: As mentioned earlier. DERMATOLOGY: Negative. RHEUMATOLOGY: Negative. PSYCHIATRY: As mentioned earlier. PHYSICAL EXAMINATION: Patient alert and oriented x3. Pulse 83, blood pressure 133/58, respiration 22, temperature 98.5, pulse ox 97% on 3 L. HEENT: Conjunctivae normal. NECK: No jugular venous distention. CARDIOVASCULAR: S1, S2 muffled. RESPIRATION: Breath sounds diminished at the bases. A few scattered rhonchi and crackles. ABDOMEN: Soft, nontender. No mass palpable. LEGS: No edema. No swelling. NERVOUS SYSTEM: Higher functions as mentioned earlier. Moves all 4 limbs. No focal motor or sensory deficit. LYMPHATICS: No lymph node palpable in neck, axillae or groin. SKIN: No ulcer, rash, bleeding. JOINTS: No active deforming arthropathy. LABS: WBC, hemoglobin is 8.6. Leukocytes are 0.9. Sodium 140, potassium 2.8, creatinine is 2.18. Troponin 0.049. ASSESSMENT: 1. Acute COVID-19 infection with acute bilateral interstitial pneumonia with acute hypoxic respiratory failure. 2. Possible congestive heart failure, acute exacerbation. 3. Acute on chronic kidney disease. 4. Chronic kidney disease, stage 3 baseline. 5. Severe hypokalemia. 6. Anemia, microcytic, of undetermined etiology. 7. Thrombocytopenia. 8. Hypomagnesemia. 9. Hypocalcemia. 10.Troponin 0.049. Rule out acute [id number] myocardial infarction or related to COVID-19. 11.Hypoalbuminemia with mild protein-calorie malnutrition. 12.History of congestive heart failure. 13.History of pneumonia. 14.History of sleep apnea. 15.History of diverticulitis. 16.History of thalassemia minor. 17.History of AICD. 18.History of cardiac catheterization. 19.History of degenerative joint disease. 20.Remote history of nicotine dependence. 21.Obesity with body mass index 32.1. 22.FULL CODE. RECOMMENDATIONS AND DISCUSSION: In this 65-year-old gentleman who presented with multiple complex medical issues, we will monitor the patient closely, continue the current medications, continue symptomatic treatment. Otherwise, I would recommend cautious diuresis, cardiology, pulmonology and nephrology evaluations. Prognosis extremely guarded because of multiple complex medical issues. I would also recommend a D-dimer. If the D- dimer is positive, I would recommend a V/Q scan also to rule out the possibility of any pulmonary embolism. Remdesivir is initiated. Prognosis guarded. Further recommendations to follow. Infectious Disease also will be consulted. A copy of this dictation is being forwarded to Dr. McPhilimy, who is the primary physician. MMSANTIL / IJN: [id number] / TARA
[2021-05-09] MEDS: carvediloL 6.25 MG TAB PO SCH (20:23)
[2021-05-09] MEDS: DEXAMETHASONE SOD PHOSPHATE 10 MG/ML 1 ML VIAL IVP SCH (20:30)
[2021-05-09] MEDS: ENOXAPARIN 40 MG/0.4 ML SYRINGE SQ SCH (20:33)
[2021-05-09] MEDS: ASCORBIC ACID 500 MG TAB PO SCH (20:34)
[2021-05-09] MEDS: DIVALPROEX 500 MG TABLET.DR PO SCH (20:34)
[2021-05-09] MEDS: CHOLECALCIFEROL 125 MCG (5000 IU) TABLET PO SCH (20:34)
[2021-05-09] MEDS: ZINC SULFATE 220 MG CAP PO SCH (20:34)
[2021-05-09] MEDS: ATORVASTATIN 40 MG TAB PO SCH (20:34)
[2021-05-09 22:14] LABS: Appearance,Urine Clear (Clear); Bilirubin,Urine Negative (Negative); Blood,Urine Trace (Negative); Color,Urine Yellow; Glucose,Urine (UA) Negative (Negative); Ketones,Urine Negative (Negative); Leukocyte Esterase,Urine Negative (Negative); Nitrite,Urine Negative (Negative); PH, Urine 5.5 (5.0-8.0); Protein,Urine Trace (Negative); RBC,Urine 1 /hpf (0-5); Specific Gravity,Urine 1.009 (1.001-1.035); Squamous Epithelial Cell,Urine <1 /hpf (0-4); Urobilinogen,Urine <2.0 mg/dL (<2.0); WBC,Urine <1 /hpf (0-5)
[2021-05-10 06:39] LABS: Glucose,Whole Blood 141 mg/dL (75-99)
[2021-05-10] MEDS: carvediloL 6.25 MG TAB PO SCH ×2 (06:46→16:46)
[2021-05-10] MEDS: LEVOTHYROXINE 75 MCG TAB PO SCH (06:46)
[2021-05-10 08:59] LABS: Anisocytosis Slight; Basophils % (A) 0 %; Eosinophils % (A) 0 %; HCT 30.1 % (39.0-53.0); HGB 8.9 gm/dL (13.0-17.5); Hypochromasia Marked; Lymphocytes # (A) 0.6 k/uL (1.0-4.8); Lymphocytes % (A) 29 %; MCH 18.9 pg (25.0-35.0); MCHC 29.6 g/dL (31.0-37.0); MCV 63.9 fL (80.0-100.0); Mean Platelet Volume 7.6; Microcytosis Marked; Monocytes # (A) 0.1 k/uL (0-1.0); Monocytes % (A) 4 %; Neutrophils # (A) 1.3 k/uL (1.3-7.7); Neutrophils % (A) 65 %; Platelet Count 149 k/uL (150-450); Poikilocytosis Slight; RDW 17.3 % (11.5-15.5)
[2021-05-10] MEDS: FERROUS SULFATE 325 MG TAB PO SCH (09:10)
[2021-05-10] MEDS: ASCORBIC ACID 500 MG TAB PO SCH ×2 (09:10→20:44)
[2021-05-10] MEDS: ENOXAPARIN 40 MG/0.4 ML SYRINGE SQ SCH (09:10)
[2021-05-10] MEDS: DEXAMETHASONE SOD PHOSPHATE 10 MG/ML 1 ML VIAL IVP SCH (09:10)
[2021-05-10] MEDS: allopurinoL 100 MG TAB PO SCH (09:10)
[2021-05-10] MEDS: ZINC SULFATE 220 MG CAP PO SCH (09:10)
[2021-05-10] MEDS: TORSEMIDE 20 MG TAB PO SCH (09:10)
[2021-05-10] MEDS: FOLIC ACID 1 MG TAB PO SCH (09:10)
[2021-05-10] MEDS: CHOLECALCIFEROL 125 MCG (5000 IU) TABLET PO SCH (09:10)
[2021-05-10] MEDS: risperiDONE 0.5 MG TAB PO SCH (09:10)
[2021-05-10 09:18] LABS: Albumin 2.6 g/dL (3.5-5.0); C Reactive Protein 7.2 mg/dL (<1.0); Calcium 6.8 mg/dL (8.4-10.2); Magnesium 1.6 mg/dL (1.6-2.3); Potassium 3.5 mmol/L (3.5-5.1); Total Bilirubin 0.6 mg/dL (0.2-1.3)
[2021-05-10] MEDS: FLUTICASONE 50MCG/SPRAY NASAL 16GM EA NOSTRIL SCH (11:27)
--- NOTE | 2021-05-10 11:41 | P.CRDCN ---
History of Present Illness Consult date: 05/10/21 Reason for Consult (text): abnormal troponins History of present illness: The patient is a 65-year-old male with significant past medical history, per who presented to the hospital with worsening shortness of breath. He was recently diagnosed with COVID-19 infection and did receive the monoclonal antibodies outpatient. The patient is currently resting comfortably in bed on oxygen. He states his breathing has improved since his arrival to the hospital. DIAGNOSTICS: EKG shows sinus rhythm with right bundle branch block and PVCs Abnormal troponin and 0.04 Chest x-ray shows interstitial pneumonitis versus mild venous congestion with left basilar infiltrates and small effusion Venous Doppler negative for DVT Vital signs: 118/77, SpO2 97% on 2 L nasal cannula, pulse 102, temp 97.6F Lab data: WBC 2.0, hemoglobin 8.9, hematocrit 30.1, platelet 149, d-dimer 0.52, sodium 141, potassium 3.5, BUN 29, creatinine 1.98, magnesium 1.6, BNP 2360, AST 25, ALT 13 PAST MEDICAL HISTORY: Ischemic cardiomyopathy, status post AICD, systolic heart failure, paroxysmal atrial fibrillation, chronic kidney disease, hypertension, coronary artery dis ease, nonsustained ventricular fibrillation REVIEW OF SYSTEMS: No fever or chills. No cough or expectoration. No diaphoresis. Patient denies headache, dizziness, blurred vision, double vision. Patient denies any stomach discomfort. No nausea, vomiting. No hematochezia. No hematemesis. Denies any black stools or blood in his stools. Denies dysuria or hematuria. No muscle weakness or numbness. Denies chest pain or chest pressure. No heart racing or fluttering. No orthopnea. PHYSICAL EXAM: Thorough physical exam is not completed secondary to limited evaluation/examination due to COVID-19. FINAL ASSESSMENT AND PLAN: Acute COVID-19 infection Covid pneumonia Abnormal troponins, recommend continuing Lovenox or heparin Elevated BNP, history of congestive heart failure History of ischemic cardiomyopathy, status post AICD History of NSVT, occasional PVCs on EKG Hypokalemia and hypomagnesemia, improved after supplementation PLAN: Continue Lovenox or heparin with abnormal troponins in the setting of acute COVID-19 infection No plans for heart cath at this time as the patient is chest pain-free and there are no new EKG abnormalities Continue home medication regimen Further recommendations will be based upon clinical course The patient has been seen and evaluated by practitioner and coordinating physician. Plan of care has been reviewed and agreed upon by Dr Cullen. Past Medical History Past Medical History: Heart Failure, COPD, Pneumonia, Renal Disease, Skin Disorder, Sleep Apnea/CPAP/BIPAP Additional Past Medical History / Comment(s): DIVERTICULITIS, "THALASSEMIA MINOR", see Dr Cullen H&P, edema christiano lower legs, no cpap used, loose stools, psoriasis, History of Any Multi-Drug Resistant Organisms: None Reported Past Surgical History: AICD, Heart Catheterization, Orthopedic Surgery, Tonsillectomy Additional Past Surgical History / Comment(s): LT HAND 4TH DIGIT REPAIR, LT MASTOID SX AGE 3, AICD placement Past Anesthesia/Blood Transfusion Reactions: No Reported Reaction Type of Cardiac Device: AICD Device Placement Date:: 07/26/17 [employer] Past Psychological History: No Psychological Hx Reported Additional Psychological History / Comment(s): "Some demenita" per spouse Smoking Status: Former smoker Past Alcohol Use History: Rare Additional Past Alcohol Use History / Comment(s): STARTED SMOKING AT AGE 12, DID QUIT FOR 12 YEARS BUT RESTARTED IN 2012, quit smoking 2019 Past Drug Use History: None Reported - Past Family History Father Family Medical History: Cancer Additional Family Medical History / Comment(s): SKIN CANCER Medications and Allergies Home Medications Medication Instructions Recorded Confirmed Type Apixaban [Eliquis] 5 mg PO BID #60 tab 02/10/17 05/09/21 Rx Allopurinol [Zyloprim] 200 mg PO DAILY 11/08/20 05/09/21 History Divalproex Sodium [Depakote] 500 mg PO HS 11/08/20 05/09/21 History Ergocalciferol [Vitamin D2 (1250 1,250 mcg PO QMONTHLY 11/08/20 05/09/21 History Mcg = 67216 Iu)] Ferrous Sulfate [Iron] 325 mg PO DAILY 11/08/20 05/09/21 History Losartan Potassium [Cozaar] 25 mg PO DAILY 11/08/20 05/09/21 History Torsemide [Demadex] 40 mg PO DAILY 11/08/20 05/09/21 History calcitrioL [Rocaltrol] 0.25 mcg PO DIRECTED 11/08/20 05/09/21 History Folic Acid 1 mg PO DAILY 11/11/20 05/09/21 History Atorvastatin [Lipitor] 40 mg PO HS 05/09/21 05/09/21 History Azithromycin [Zithromax Z-pack (6 See Taper PO DIRECTED 05/09/21 05/09/21 History tabs)] Budesonide [Pulmicort] 0.5 mg INHALATION RT-BID 05/09/21 05/09/21 History Carvedilol [Coreg] 6.25 mg PO BID-W/MEALS 05/09/21 05/09/21 History Fluticasone Nasal [place] [Flonase 2 spray EA NOSTRIL DAILY 05/09/21 05/09/21 History Nasal [place]] Ipratropium-Albuterol Nebulize 3 ml INHALATION RT-QID PRN 05/09/21 05/09/21 History [Duoneb 0.5 mg-3 mg/3 ml Soln] Levothyroxine Sodium [Synthroid] 75 mcg PO DAILY 05/09/21 05/09/21 History risperiDONE [RisperDAL] 0.5 mg PO DAILY 05/09/21 05/09/21 History Allergies Allergy/AdvReac Type Severity Reaction Status Date / Time Latex, Natural Rubber Allergy Rash/Hives Verified 05/09/21 13:27 shellfish derived [Shellfish] Allergy SWELLING Verified 05/09/21 13:27 AND VOMITING shrimp Allergy Swelling Verified 05/09/21 13:27 sulfamethoxazole Allergy Rash/Hives Verified 05/09/21 13:27 [From Bactrim] trimethoprim [From Bactrim] Allergy Rash/Hives Verified 05/09/21 13:27 Physical Exam Vitals: Vital Signs Temp Pulse Pulse Resp BP BP Pulse Ox 05/10/21 08:00 97.6 F 102 H 22 118/77 97 05/10/21 04:00 97.3 F L 100 18 134/74 96 05/10/21 00:00 97.6 F 101 H 18 142/82 98 05/09/21 22:30 98.0 F 93 20 144/82 100 05/09/21 20:00 97.5 F L 117 H 20 115/68 97 05/09/21 15:25 83 22 131/58 97 05/09/21 14:07 22 92 L 05/09/21 13:09 98.5 F 87 24 138/82 93 L 05/09/21 13:06 86 L Intake and Output 05/09/21 05/10/21 05/10/21 22:59 06:59 14:59 Intake Total 20 190 Output Total 200 Balance -200 20 190 Intake: IV 20 10 Invasive Line 1 10 Invasive Line 2 10 10 Oral 180 Output: Urine 200 Other: Voiding Method Diaper Urinal Urinal Incontinent Diaper Diaper Incontinent Incontinent # Voids 1 0 Weight 113.398 kg Results 05/10/21 08:07 05/10/21 08:07 Cardiac Enzymes 05/09/21 05/09/21 05/10/21 Range/Units 11:08 11:08 08:07 AST 25 27 (17-59) U/L Lactate Dehydrogenase 405 (313-618) U/L Troponin I 0.049 H* (0.000-0.034) ng/mL Coagulation 05/09/21 Range/Units 11:08 PT 11.5 (9.0-12.0) sec APTT 31.7 H (22.0-30.0) sec CBC 05/10/21 Range/Units 08:07 WBC 2.0 L (3.8-10.6) k/uL RBC 4.70 (4.30-5.90) m/uL Hgb 8.9 L (13.0-17.5) gm/dL Hct 30.1 L (39.0-53.0) % Plt Count 149 L (150-450) k/uL Comprehensive Metabolic Panel 05/09/21 05/10/21 Range/Units 11:08 08:07 Sodium 140 141 (137-145) mmol/L Potassium 2.8 L 3.5 (3.5-5.1) mmol/L Chloride 105 106 (98-107) mmol/L Carbon Dioxide 29 26 (22-30) mmol/L BUN 25 H 29 H (9-20) mg/dL Creatinine 2.18 H 1.98 H (0.66-1.25) mg/dL Glucose 122 H 137 H (74-99) mg/dL Calcium 6.8 L 6.8 L (8.4-10.2) mg/dL AST 25 27 (17-59) U/L ALT 13 14 (4-49) U/L Alkaline Phosphatase 36 L 36 L (38-126) U/L Total Protein 5.1 L 5.0 L (6.3-8.2) g/dL Albumin 2.7 L 2.6 L (3.5-5.0) g/dL Current Medications Generic Name Dose Route Start Last Admin Trade Name Freq PRN Reason Stop Dose Admin Acetaminophen 650 mg 05/09/21 14:40 Acetaminophen Tab 325 Mg Tab PO Q6HR PRN Mild Pain or Fever > 100.5 Allopurinol 200 mg 05/10/21 09:00 05/10/21 09:10 Allopurinol 100 Mg Tab PO 200 mg DAILY JERI Administration Ascorbic Acid 500 mg 05/09/21 21:00 05/10/21 09:10 Ascorbic Acid 500 Mg Tab PO 500 mg BID JERI Administration Atorvastatin Calcium 40 mg 05/09/21 21:00 05/09/21 20:34 Atorvastatin 40 Mg Tab PO 40 mg HS JERI Administration Carvedilol 6.25 mg 05/09/21 17:30 05/10/21 06:46 Carvedilol 6.25 Mg Tab PO 6.25 mg BID-W/MEALS JERI Administration Cholecalciferol 125 mcg 05/09/21 16:30 05/10/21 09:10 Cholecalciferol 125 Mcg (5000 Iu) Tablet PO 125 mcg DAILY JERI Administration Dexamethasone Sodium Phosphate 6 mg 05/09/21 16:30 05/10/21 09:10 Dexamethasone Sod Phosphate 10 Mg/Ml 1 Ml Vial IVP 6 mg DAILY JERI Administration Divalproex Sodium 500 mg 05/09/21 21:00 05/09/21 20:34 Divalproex 500 Mg Tablet.Dr PO 500 mg HS JERI Administration Enoxaparin Sodium 40 mg 05/09/21 16:30 05/10/21 09:10 Enoxaparin 40 Mg/0.4 Ml Syringe SQ 40 mg DAILY JERI Administration Ferrous Sulfate 325 mg 05/10/21 09:00 05/10/21 09:10 Ferrous Sulfate 325 Mg Tab PO 325 mg DAILY JERI Administration Fluticasone Propionate 2 spray 05/10/21 09:00 05/10/21 11:27 Fluticasone 50mcg/[place] Nasal 16gm EA NOSTRIL 2 spray DAILY JERI Administration Folic Acid 1 mg 05/10/21 09:00 05/10/21 09:10 Folic Acid 1 Mg Tab PO 1 mg DAILY JERI Administration Remdesivir 100 mg/ Sodium 250 mls @ 250 mls/hr 05/10/21 17:00 Chloride IVPB 05/13/21 17:59 DAILY@1700 JERI Levothyroxine Sodium 75 mcg 05/10/21 06:30 05/10/21 06:46 Levothyroxine 75 Mcg Tab PO 75 mcg 0630 JERI Administration Miscellaneous Information 1 each 05/09/21 11:56 Potassium Replacement Protocol 1 Each Misc MISCELLANE DAILY PRN Per Protocol Protocol Miscellaneous Information 1 each 05/09/21 18:06 Magnesium Replacement Protocol 1 Each Misc MISCELLANE DAILY PRN Per Protocol Protocol Miscellaneous Information 1 each 05/09/21 18:06 Potassium Replacement Protocol 1 Each Misc MISCELLANE DAILY PRN Per Protocol Protocol Naloxone HCl 0.2 mg 05/09/21 14:40 Naloxone 0.4 Mg/Ml 1 Ml Vial IV Q2M PRN Opioid Reversal Risperidone 0.5 mg 05/10/21 09:00 05/10/21 09:10 Risperidone 0.5 Mg Tab PO 0.5 mg DAILY JERI Administration Torsemide 40 mg 05/10/21 09:00 05/10/21 09:10 Torsemide 20 Mg Tab PO 40 mg DAILY JERI Administration Zinc Sulfate 220 mg 05/09/21 16:30 05/10/21 09:10 Zinc Sulfate 220 Mg Cap PO 220 mg DAILY JERI Administration Intake and Output 05/09/21 05/10/21 05/10/21 22:59 06:59 14:59 Intake Total 20 190 Output Total 200 Balance -200 20 190 Intake: IV 20 10 Invasive Line 1 10 Invasive Line 2 10 10 Oral 180 Output: Urine 200 Other: Voiding Method Diaper Urinal Urinal Incontinent Diaper Diaper Incontinent Incontinent # Voids 1 0 Weight 113.398 kg 05/10/21 08:07 05/10/21 08:07
--- NOTE | 2021-05-10 11:56 | CONS ---
CONSULTATION REASON FOR CONSULTATION: Renal failure. HISTORY OF PRESENT ILLNESS: Patient is a 65-year-old male who was admitted to the hospital yesterday with complaints of shortness of breath. Patient has underlying history of coronary artery disease, ischemic cardiomyopathy, chronic kidney disease, NKF stage 3B with baseline creatinine about 1.6 to 1.8 mg/dL. Patient's serum creatinine yesterday was 2.1. Today it is 1.9. He is currently maintained on 2 L nasal cannula, doing okay from respiratory standpoint. Blood pressure has been slightly on the lower side, although not significantly low. Currently patient is maintained on diuretics. He is on Demadex 40 mg p.o. daily. He did get one dose of IV Lasix. PAST MEDICAL HISTORY: Coronary artery disease, CHF, cardiomyopathy, EF 20% to 25%, COPD, CVA, TIA, history of pneumonia, CKD stage 3B, obstructive sleep apnea, diverticulitis, thalassemia minor, history of psoriasis. PAST SURGICAL HISTORY: Cardiac catheterization, AICD placement, tonsillectomy, left hand fourth digit repair, left mastoid surgery, AICD placement. SOCIAL HISTORY: Patient is a former smoker. No history of drug abuse or alcohol abuse. MEDICATIONS: Medications prior to admission included Depakote, Coreg, Rocaltrol, Synthroid, Risperdal, Demadex, Eliquis, Cozaar, iron, Lipitor, Pulmicort, Zyloprim, Zithromax. SOCIAL HISTORY: Negative for smoking, drug abuse or alcohol abuse. PHYSICAL EXAMINATION: Patient is comfortable, awake, not in any acute distress. Blood pressure 118/77, heart rate 102 per minute. He is afebrile. Examination shows edema 1+ bilaterally, lower extremities. Abdomen is soft, nontender. Lungs and heart are not examined. REGISTERED DIETITIAN exam grossly intact. LABS: Sodium 141, potassium 3.5, chloride 106, BUN 29, creatinine 1.98, hemoglobin 8.9 g/dL. ASSESSMENT: 1. Chronic kidney disease, NKF stage 3B. Baseline creatinine 1.6 to 1.8 mg/dL secondary to nephrosclerosis. UA shows trace protein. Previous ultrasound was done in 2018. It showed left kidney 8.7 cm, right kidney 10.9 cm. No hydronephrosis was seen at that time. We can repeat another ultrasound this admission. 2. COVID-19 pneumonia, currently maintained on 2 L nasal cannula and maintained on steroids. 3. Volume overload. Continue with oral Demadex. Patient is status post one dose of IV Lasix. 4. Hypokalemia secondary to diuresis, status post replacement. 5. Acute hypoxic respiratory failure secondary to COVID pneumonia. 6. Thalassemia minor. 7. Ischemic cardiomyopathy; ejection fraction 20% to 25%. PLAN: Continue with oral Demadex for now. Repeat labs in a.m. Check ultrasound of the kidneys, as the previous one was done in 2018. Avoid hypotension. Continue current dose of Coreg. Replace potassium and magnesium. Thank you for this consultation. Will continue to follow the patient with you during his hospitalization. MMODL / IJN: [id number] /
--- NOTE | 2021-05-10 13:44 | US ---
EXAMINATION TYPE: US kidneys/renal and bladder DATE OF EXAM: 05/10/2021 COMPARISON: US 2018 CLINICAL HISTORY: Renal failure Exam done portable on covid patient EXAM MEASUREMENTS: Right Kidney: 10.3 x 4.5 x 4.7 cm Left Kidney: not seen Right Kidney: wnl Left Kidney: not seen due to patient unable to roll and overlying bowel gas Bladder: wnl Bilateral Jets seen: no Mild thinning of the right renal cortex suggesting the presence of mild medical renal disease. No rig ht renal calculi or hydronephrosis or solid renal masses. The left kidney is not seen due to the marti ent's condition and body habitus.. IMPRESSION: 1. Limited study as described above. Left kidney is nonvisualized 2. Suggestion of mild medical renal disease involving the right kidney. 3. no right renal calculi or hydronephrosis.
--- NOTE | 2021-05-10 14:35 | P.PN ---
Subjective Progress Note Date: 05/10/21 65-year-old male patient, quite debilitated, has multiple medical problems including CAD, ischemic cardiomyopathy and the patient has an AICD in place and the patient also has chronic kidney disease along with history of COPD and thalassemia minor. The patient was tested positive for: 19 on 05/06/2021. The exact symptom onset date is not known. This was noted by his primary care physician and the patient was receiving a monoclonal antibody infusion by [facility] when the patient was found to be quite diaphoretic and short of breath and for that reason the patient was brought into the emergency department. Upon arrival, the patient was febrile and the patient was having shortness of breath and the patient was also hypoxic with a pulse ox of 86% on room air oxygen. He had a temperature of 11.4. Chest x-ray was done that showed lateral interstitial pulmonary infiltrates. There is some background COPD. There may be some background CHF. The patient also had an AICD over the left anterior chest area. Accordingly, the patient was placed on oxygen at 2 L per minute nasal cannula. His current pulse ox is around 96%. Breathing is mildly labored. He is unable to volunteer much history. Apparently he has been quite dependent his for activities of daily today life. His echo was at 3.9 with a hemoglobin of 8.6. Platelet count was 134. Normal coagulation profile. Sodium was at 140 with a potassium level of 2.8, BUN was 25 with a creatinine of 2.1, troponin was 0.04, proBNP level was 2360. LFTs were normal. Serum albumin was 2.7 with a total protein of 5.1. In the emergency, the patient was started on IV Decadron. Inflammatory markers need to be sent. He a lso received a dose of Lasix 40 mg IV push 1. He was given IV Solu Medrol 125 mg IV 1. 05/10/2021, the patient is stable and the patient is currently on 2 L of oxygen by nasal cannula with a pulse ox of 97%. The patient remains on Decadron. No respiratory distress and he seems to much more alert and awake compared to yesterday. No significant cough or sputum production. No chest pain. He seems to be more interactive compared to yesterday. He denies having any specific complaints. No nausea. No vomiting no emesis. White cell count is at 2 with a hemoglobin of 8.9 and a platelet count of 149, d-dimer is at 0.5, creatinine of 1.9 with a sodium level of 141. Coagulation profile essentially within normal limits. In terms of his inflammatory markers, the patient's LDH level was 405, patient's CRP level is at 7.2 and he is on low inflammatory marker levels at this point, the patient d-dimer is 0.51. Objective - Vital Signs Vital signs: Vital Signs Temp 97.4 F L 05/10/21 11:50 Pulse 99 05/10/21 13:50 Resp 20 05/10/21 13:50 BP 111/66 05/10/21 11:50 Pulse Ox 96 05/10/21 11:50 Intake & Output 05/09/21 05/10/21 05/10/21 18:59 06:59 18:59 Intake Total 20 190 Output Total 200 Balance -180 190 Weight 113.398 kg 113.398 kg Intake: IV 20 10 Invasive Line 1 10 Invasive Line 2 10 10 Oral 180 Output: Urine 200 Other: Voiding Method Urinal Urinal Diaper Diaper Incontinent Incontinent # Voids 0 - Exam General appearance: alert, in no apparent distress, breathing is mildly labored and the patient is currently on 2 L of oxygen by nasal cannula Head exam: Present: atraumatic, normocephalic, normal inspection Eye exam: Present: normal appearance, PERRL, EOMI. Absent: scleral icterus, conjunctival injection, periorbital swelling ENT exam: Present: mucous membranes moist, other (Thick yellow mucus, oropharynx) Neck exam: Present: normal inspection, full ROM. Absent: tenderness, meningismus, lymphadenopathy, thyromegaly Respiratory exam: Present: wheezes, rhonchi, accessory muscle use. Absent: respiratory distress, chest wall tenderness, marked diminished breath sounds bilaterally along with scattered expiratory rhonchi and wheeze Cardiovascular Exam: Present: regular rate, normal rhythm, normal heart sounds. Absent: systolic murmur, diastolic murmur, rubs, gallop, clicks, JVD GI/Abdominal exam: Present: soft, distended. Absent: tenderness, guarding, rebound, rigid Extremities exam: Present: normal capillary refill, pedal edema, other (HEENT bilateral lower extremities edematous ). Absent: tenderness, calf tenderness, the patient has chronic edema lower extremity is bilaterally, left lower extremity slightly swollen compared to the right. Back exam: Present: normal inspection. Absent: tenderness, CVA tenderness (R), CVA tenderness (L), rash noted Neurological exam: Present: alert, no focal neurological deficit and the patient is moving all 4 extremities. Motor function is weak and the patient has poor coordination. Psychiatric exam: Unable to obtain Skin exam: Present: warm, dry, intact, normal color. Absent: rash, cyanosis, diaphoretic - Labs CBC & Chem 7: 05/10/21 08:07 05/10/21 08:07 Labs: Abnormal Lab Results - Last 24 Hours (Table) 05/09/21 05/10/21 05/10/21 Range/Units 21:42 06:33 08:07 WBC (3.8-10.6) k/uL Hgb (13.0-17.5) gm/dL Hct (39.0-53.0) % MCV (80.0-100.0) fL MCH (25.0-35.0) pg MCHC (31.0-37.0) g/dL RDW (11.5-15.5) % Plt Count (150-450) k/uL Lymphocytes # (1.0-4.8) k/uL BUN 29 H (9-20) mg/dL Creatinine 1.98 H (0.66-1.25) mg/dL Glucose 137 H (74-99) mg/dL POC Glucose (mg/dL) 141 H (75-99) mg/dL Calcium 6.8 L (8.4-10.2) mg/dL Alkaline Phosphatase 36 L (38-126) U/L C-Reactive Protein 7.2 H (<1.0) mg/dL Total Protein 5.0 L (6.3-8.2) g/dL Albumin 2.6 L (3.5-5.0) g/dL Urine Protein Trace H (Negative) Urine Blood Trace H (Negative) 05/10/21 Range/Units 08:07 WBC 2.0 L (3.8-10.6) k/uL Hgb 8.9 L (13.0-17.5) gm/dL Hct 30.1 L (39.0-53.0) % MCV 63.9 L (80.0-100.0) fL MCH 18.9 L (25.0-35.0) pg MCHC 29.6 L (31.0-37.0) g/dL RDW 17.3 H (11.5-15.5) % Plt Count 149 L (150-450) k/uL Lymphocytes # 0.6 L (1.0-4.8) k/uL BUN (9-20) mg/dL Creatinine (0.66-1.25) mg/dL Glucose (74-99) mg/dL POC Glucose (mg/dL) (75-99) mg/dL Calcium (8.4-10.2) mg/dL Alkaline Phosphatase (38-126) U/L C-Reactive Protein (<1.0) mg/dL Total Protein (6.3-8.2) g/dL Albumin (3.5-5.0) g/dL Urine Protein (Negative) Urine Blood (Negative) Microbiology - Last 24 Hours (Table) 05/09/21 11:00 Blood Culture - Preliminary Blood No Growth after 24 hours 05/09/21 10:45 Blood Culture - Preliminary Blood No Growth after 24 hours Assessment and Plan Plan: 1 acute coronary syndrome related pneumonia with secondary shortness of breath and hypoxic respiratory failure. The patient was diagnosed on 05/06/2021. The patient claims that he has been vaccinated for: 19. He has taken 2 shots and the exact several vaccinations is not known. In any rate, the patient was receiving monoclonal and fusion of antibiotics on outpatient basis and the patient was found to be hypoxic and for that reason the patient was transferred to the ICU for further care. At this point, the patient is on 2 L of oxygen by nasal cannula. Chest x-ray showing right-sided pulmonary infiltrates, background COPD, background CHF and the patient has an AICD in place 2 acute hypoxic respiratory failure secondary to above 3 history of ischemic cardiomyopathy with impaired left ventricular ejection fraction, and the patient is known to have systolic heart failure with an estimated ejection fraction of around 20-25% per history provided. 4 history of coronary artery disease 5 history of AICD placement 6 history of chronic kidney disease with interval worsening of the renal function and the creatinine is up to 2.1 with a GFR of 30. 7 thalassemia minor 8 COPD 9 anemia of chronic disease 10 history of CVA 11 impaired performance and functional status secondary to above-mentioned comorbidities. 12 history of mood disorder, unspecified and the patient has had previous psychiatric evaluations and treatments. 13 history of diverticulosis with previous bouts of diverticulitis 14 degenerative arthritis 15 previous history of smoking 16 PAF , current rhythm is sinun and the patient is not taking anticoagulation Plan Clinically stable Wean down the oxygen and put the patient on room air Continue Decadron Home medications have been resumed Inflammatory markers are low Doppler of the lower extremity showed no evidence of DVT Lovenox 30 mg SC daily We'll continue to follow.
[2021-05-10] MEDS: REMDESIVIR 100 MG in SODIUM CHLORIDE 0.9% 250 ML IVPB SCH (16:46)
--- NOTE | 2021-05-10 19:24 | PN ---
PROGRESS NOTE DATE OF SERVICE: 04/30/2021 This 65-year-old gentleman who was admitted with acute COVID-19 infection with acute bilateral interstitial pneumonia with acute hypoxic respiratory failure also had some CHF. The patient is being closely monitored. Multiple consultants are following the patient closely. Abdominal/bladder ultrasound was also done. Patient also has some renal failure. The ultrasound showed medical renal disease. No hydronephrosis noted. Past medical history reviewed. REVIEW OF SYSTEMS: CARDIOVASCULAR SYSTEM: No angina. RESPIRATION: As mentioned earlier. GI: As mentioned earlier. : No dysuria. NERVOUS SYSTEM: No numbness, weakness. CURRENT MEDICATIONS: Reviewed. They include Tylenol, zyloprim, vitamin C, Lipitor, Coreg. Doses and other medications are reviewed. PHYSICAL EXAMINATION: Patient is alert, oriented x2. Pulse 92, blood pressure 117/67, respiration 20, temperature 97.7, pulse ox 94% on room air. HEENT: Conjunctivae normal. Oral mucosa moist. NECK: No jugular venous distention. No carotid bruit. No lymph node enlargement. CARDIOVASCULAR: S1, S2 muffled. RESPIRATION: Breath sounds diminished at the bases. Scattered rhonchi. ABDOMEN: Soft. NERVOUS SYSTEM: No focal deficit. LABS: WBC 2, hemoglobin 8.9, and platelets are 149, creatinine is 1.98. Troponin noted. ASSESSMENT: 1. Acute COVID-19 sepsis with acute bilateral aspiration pneumonia with acute hypoxic respiratory failure. 2. Possible congestive heart failure, acute exacerbation. 3. History of ischemic cardiomyopathy and status post AICD. 4. Acute on chronic kidney disease. 5. Chronic kidney disease, stage 3 baseline. 6. Severe hypokalemia. 7. Anemia, microcytic; undetermined etiology. 8. Thrombocytopenia. 9. Hypomagnesemia. 10.Hypocalcemia. 11.Troponin 0.049. Rule out acute [id number] myocardial infarction or related to COVID-19. 12.Hypoalbuminemia with mild protein-calorie malnutrition. 13.History of congestive heart failure. 14.History of pneumonia. 15.History of sleep apnea. 16.History of diverticulitis. 17.Thalassemia minor. 18.History of AICD. 19.History of cardiac catheterization. 20.History of degenerative joint disease. 21.Remote history of nicotine dependence. 22.Obesity with body mass index of 32.1. 23.FULL CODE. RECOMMENDATIONS AND DISCUSSION: I recommend to continue current medications, continue with the monitoring, symptomatic treatment. Otherwise at this time I recommend monitoring fluid and electrolyte balance closely. The patient received one dose of Lasix. The creatinine has improved significantly. I would repeat a chest x-ray and continue to monitor. Guarded prognosis. Further recommendations to follow. COREY / VIVIANE: [id number] /
[2021-05-10] MEDS: DIVALPROEX 500 MG TABLET.DR PO SCH (20:44)
[2021-05-10] MEDS: ATORVASTATIN 40 MG TAB PO SCH (20:44)
--- NOTE | 2021-05-10 23:57 | P.CONS ---
History of Present Illness - Reason for Consult Consult date: 05/10/21 covid 19 pneumonia Requesting physician: Lorin Todd - Chief Complaint shortness of breath x few days - History of Present Illness History of Present Illness : Patient is a 65-year male with a past medical history significant for COPD heart failure with thalassemia minor and renal insufficiency presenting to the ER yesterday morning for evaluation of increasing shortness of breath after apparently the patient received monoclonal antibodies infusion in the outpatient setting for the patient was noticed to have increasing shortness of breath and tachycardia and hypoxemia for the patient was sent to the ER patient apparently was diagnosed with COVID-19 on Ja nubromide 2021 and symptom has been going on for a day or 2 before his diagnosis. Denies any chest pain he did have a cough moderate intensity but not bringing up any sputum denies any nausea no vomiting no abdominal pain did have some diarrhea with the symptoms the patient has been evaluated by ER physician on arrival to the ER the patient had a fever of 101 degrees for an height patient was hypoxic 86% on room air currently only supplemental oxygen patient did have a normal white count with lymphopenia D-dimer was normal her BUN and creatinine has been elevated liver enzymes are normal patient did have a chest x-ray COPD correlate for interstitial pneumonitis left basilar infiltrate patie nt was admitted to hospital infectious was consulted for further management Review of system: CONSTITUTIONAL: Positive for weakness fever. EYES: No complaint. ENT: No complaint. RESPIRATORY: As per history of present illness. CARDIOVASCULAR: No complaint. GENITOURINARY: No complaint. GASTROINTESTINAL: As per history of present illness. MUSCULOSKELETAL: No complaint. INTEGUMENTARY : No complaint. PSYCHOLOGIC: No complaint. ENDOCRINE: No complaint. NEUROLOGIC: No complaint. Past medical history : Reviewed, documented below Past surgical history : Reviewed, documented below Social history: Reviewed, documented below Medications: Reviewed, as documented below EXAMINATION: Vital sigans= Reviewed and documented below GENERAL DESCRIPTION: Elderly male lying in bed, no distress. No tachypnea or accessory muscle of respiration use. HEENT: Shows Pallor , no scleral icterus. Oral mucous membrane is dry. NECK: Trachea central, no thyromegaly. LUNGS: Unlabored breathing. Coarse breath sounds bilaterally. No wheeze or crackle. HEART: S1, S2, regular rate and rhythm. ABDOMEN: Soft, no tenderness , guarding or rigidity EXTREMITIES: No edema feet SKIN: No rash, no masses palpable. NEUROLOGICAL: The patient is awake, alert, oriented x3, mood and affect normal. LABS AND RADIOLOGY: Reviewed results see below Assessment : Patient presented to hospital with fever shortness of breath hypoxemia with evidence of multifocal pneumonia secondary to COVID-19 currently symptom has been going on for about 5 to 6 days and did not require high flow oxygen currently within the therapeutic window for remdesivir and is no evidence of any secondary bacterial pneumonia Plan: 1-patient to continue with remdesivir to finish his 5-day course of therapy 2-dexamethasone Lovenox zinc and ascorbic acid 3-droplet isolation and respiratory support We will follow on clinical condition and cultures to further adjust medication if needed Thank you for this consultation we will follow the patient along with you Past Medical History Past Medical History: Heart Failure, COPD, Pneumonia, Renal Disease, Skin Disorder, Sleep Apnea/CPAP/BIPAP Additional Past Medical History / Comment(s): DIVERTICULITIS, "THALASSEMIA MINOR", see Dr Cullen H&P, edema christiano lower legs, no cpap used, loose stools, psoriasis, History of Any Multi-Drug Resistant Organisms: None Reported Past Surgical History: AICD, Heart Catheterization, Orthopedic Surgery, Tonsillectomy Additional Past Surgical History / Comment(s): LT HAND 4TH DIGIT REPAIR, LT MASTOID SX AGE 3, AICD placement Past Anesthesia/Blood Transfusion Reactions: No Reported Reaction Type of Cardiac Device: AICD Device Placement Date:: 07/26/17 [employer] Past Psychological History: No Psychological Hx Reported Additional Psychological History / Comment(s): "Some demenita" per spouse Smoking Status: Former smoker Past Alcohol Use History: Rare Additional Past Alcohol Use History / Comment(s): STARTED SMOKING AT AGE 12, DID QUIT FOR 12 YEARS BUT RESTARTED IN 2012, quit smoking 2019 Past Drug Use History: None Reported - Past Family History Father Family Medical History: Cancer Additional Family Medical History / Comment(s): SKIN CANCER Medications and Allergies Home Medications Medication Instructions Recorded Confirmed Type Apixaban [Eliquis] 5 mg PO BID #60 tab 02/10/17 05/09/21 Rx Allopurinol [Zyloprim] 200 mg PO DAILY 11/08/20 05/09/21 History Divalproex Sodium [Depakote] 500 mg PO HS 11/08/20 05/09/21 History Ergocalciferol [Vitamin D2 (1250 1,250 mcg PO QMONTHLY 11/08/20 05/09/21 History Mcg = 92424 Iu)] Ferrous Sulfate [Iron] 325 mg PO DAILY 11/08/20 05/09/21 History Losartan Potassium [Cozaar] 25 mg PO DAILY 11/08/20 05/09/21 History Torsemide [Demadex] 40 mg PO DAILY 11/08/20 05/09/21 History calcitrioL [Rocaltrol] 0.25 mcg PO DIRECTED 11/08/20 05/09/21 History Folic Acid 1 mg PO DAILY 11/11/20 05/09/21 History Atorvastatin [Lipitor] 40 mg PO HS 05/09/21 05/09/21 History Azithromycin [Zithromax Z-pack (6 See Taper PO DIRECTED 05/09/21 05/09/21 History tabs)] Budesonide [Pulmicort] 0.5 mg INHALATION RT-BID 05/09/21 05/09/21 History Carvedilol [Coreg] 6.25 mg PO BID-W/MEALS 05/09/21 05/09/21 History Fluticasone Nasal [place] [Flonase 2 spray EA NOSTRIL DAILY 05/09/21 05/09/21 History Nasal [place]] Ipratropium-Albuterol Nebulize 3 ml INHALATION RT-QID PRN 05/09/21 05/09/21 History [Duoneb 0.5 mg-3 mg/3 ml Soln] Levothyroxine Sodium [Synthroid] 75 mcg PO DAILY 05/09/21 05/09/21 History risperiDONE [RisperDAL] 0.5 mg PO DAILY 05/09/21 05/09/21 History Allergies Allergy/AdvReac Type Severity Reaction Status Date / Time Latex, Natural Rubber Allergy Rash/Hives Verified 05/09/21 13:27 shellfish derived [Shellfish] Allergy SWELLING Verified 05/09/21 13:27 AND VOMITING shrimp Allergy Swelling Verified 05/09/21 13:27 sulfamethoxazole Allergy Rash/Hives Verified 05/09/21 13:27 [From Bactrim] trimethoprim [From Bactrim] Allergy Rash/Hives Verified 05/09/21 13:27 Physical Exam Vitals: Vital Signs Temp Pulse Pulse Resp BP BP Pulse Ox 05/10/21 13:50 99 20 05/10/21 11:50 97.4 F L 99 20 111/66 96 05/10/21 08:00 97.6 F 102 H 22 118/77 97 05/10/21 04:00 97.3 F L 100 18 134/74 96 05/10/21 00:00 97.6 F 101 H 18 142/82 98 05/09/21 22:30 98.0 F 93 20 144/82 100 05/09/21 20:00 97.5 F L 117 H 20 115/68 97 05/09/21 15:25 83 22 131/58 97 Intake and Output 05/09/21 05/10/21 05/10/21 22:59 06:59 14:59 Intake Total 20 190 Output Total 200 Balance -200 20 190 Intake: IV 20 10 Invasive Line 1 10 Invasive Line 2 10 10 Oral 180 Output: Urine 200 Other: Voiding Method Diaper Urinal Urinal Incontinent Diaper Diaper Incontinent Incontinent # Voids 1 0 Weight 113.398 kg Results CBC & Chem 7: 05/10/21 08:07 05/10/21 08:07 Labs: Abnormal Lab Results - Last 24 Hours (Table) 05/09/21 05/10/21 05/10/21 Range/Units 21:42 06:33 08:07 WBC (3.8-10.6) k/uL Hgb (13.0-17.5) gm/dL Hct (39.0-53.0) % MCV (80.0-100.0) fL MCH (25.0-35.0) pg MCHC (31.0-37.0) g/dL RDW (11.5-15.5) % Plt Count (150-450) k/uL Lymphocytes # (1.0-4.8) k/uL BUN 29 H (9-20) mg/dL Creatinine 1.98 H (0.66-1.25) mg/dL Glucose 137 H (74-99) mg/dL POC Glucose (mg/dL) 141 H (75-99) mg/dL Calcium 6.8 L (8.4-10.2) mg/dL Alkaline Phosphatase 36 L (38-126) U/L C-Reactive Protein 7.2 H (<1.0) mg/dL Total Protein 5.0 L (6.3-8.2) g/dL Albumin 2.6 L (3.5-5.0) g/dL Urine Protein Trace H (Negative) Urine Blood Trace H (Negative) 05/10/21 Range/Units 08:07 WBC 2.0 L (3.8-10.6) k/uL Hgb 8.9 L (13.0-17.5) gm/dL Hct 30.1 L (39.0-53.0) % MCV 63.9 L (80.0-100.0) fL MCH 18.9 L (25.0-35.0) pg MCHC 29.6 L (31.0-37.0) g/dL RDW 17.3 H (11.5-15.5) % Plt Count 149 L (150-450) k/uL Lymphocytes # 0.6 L (1.0-4.8) k/uL BUN (9-20) mg/dL Creatinine (0.66-1.25) mg/dL Glucose (74-99) mg/dL POC Glucose (mg/dL) (75-99) mg/dL Calcium (8.4-10.2) mg/dL Alkaline Phosphatase (38-126) U/L C-Reactive Protein (<1.0) mg/dL Total Protein (6.3-8.2) g/dL Albumin (3.5-5.0) g/dL Urine Protein (Negative) Urine Blood (Negative) Microbiology - Last 24 Hours (Table) 05/09/21 11:00 Blood Culture - Preliminary Blood No Growth after 24 hours 05/09/21 10:45 Blood Culture - Preliminary Blood No Growth after 24 hours
[2021-05-11] MEDS: LEVOTHYROXINE 75 MCG TAB PO SCH (06:38)
[2021-05-11] MEDS: carvediloL 6.25 MG TAB PO SCH ×2 (06:38→18:01)
[2021-05-11] MEDS: TORSEMIDE 20 MG TAB PO SCH (07:51)
[2021-05-11] MEDS: risperiDONE 0.5 MG TAB PO SCH (07:52)
[2021-05-11] MEDS: ENOXAPARIN 40 MG/0.4 ML SYRINGE SQ SCH (07:52)
[2021-05-11] MEDS: CHOLECALCIFEROL 125 MCG (5000 IU) TABLET PO SCH (07:52)
[2021-05-11] MEDS: allopurinoL 100 MG TAB PO SCH (07:52)
[2021-05-11] MEDS: ZINC SULFATE 220 MG CAP PO SCH (07:52)
[2021-05-11] MEDS: DEXAMETHASONE SOD PHOSPHATE 10 MG/ML 1 ML VIAL IVP SCH (07:52)
[2021-05-11] MEDS: ASCORBIC ACID 500 MG TAB PO SCH ×2 (07:52→20:52)
[2021-05-11] MEDS: FERROUS SULFATE 325 MG TAB PO SCH (07:52)
[2021-05-11] MEDS: FOLIC ACID 1 MG TAB PO SCH (07:52)
[2021-05-11] MEDS: FLUTICASONE 50MCG/SPRAY NASAL 16GM EA NOSTRIL SCH (07:53)
--- NOTE | 2021-05-11 07:59 | XR ---
EXAMINATION TYPE: XR chest 1V portable DATE OF EXAM: 05/11/2021 COMPARISON: 05/09/2021 HISTORY: Covid pneumonia TECHNIQUE: Single frontal view of the chest is obtained. FINDINGS: There is persistent mild diffuse interstitial markings uncertain whether this represents a cute mild interstitial infiltrate versus chronic interstitial change. There is no airspace consolidation, pneumothorax or large pleural effusion. The heart is normal in size. There is a single lead cardiac pacemaker. The osseous structures are int act IMPRESSION: Mild chronic interstitial change versus mild acute interstitial changes. Chest appears s table compared to previous.
[2021-05-11 08:33] LABS: Anisocytosis Slight; Basophils % (A) 0 %; Eosinophils % (A) 0 %; HCT 29.9 % (39.0-53.0); Hypochromasia Moderate; Lymphocytes % (A) 18 %; MCH 18.9 pg (25.0-35.0); Mean Platelet Volume 8.2; Microcytosis Marked; Monocytes # (A) 0.3 k/uL (0-1.0); Monocytes % (A) 5 %; Neutrophils # (A) 4.4 k/uL (1.3-7.7); Neutrophils % (A) 76 %; Platelet Count 177 k/uL (150-450); Poikilocytosis Slight; RBC 4.75 m/uL (4.30-5.90); RDW 17.4 % (11.5-15.5); WBC 5.7 k/uL (3.8-10.6)
[2021-05-11 08:46] LABS: C Reactive Protein 4.1 mg/dL (<1.0); Calcium 6.5 mg/dL (8.4-10.2); Potassium 3.1 mmol/L (3.5-5.1)
--- NOTE | 2021-05-11 12:16 | P.PN ---
Subjective Progress Note Date: 05/11/21 The patient is a 65-year-old male who follows with Dr. Cullen in the office. Cardiology was consulted for abnormal troponins in the setting of acute covid 19 infection. The patient states he did well overnight. He states he is not having any difficulty breathing currently. No chest pain or chest pressure. No dizziness or lightheadedness when ambulating around his room. PHYSICAL EXAM: Thorough physical exam is not completed secondary to limited evaluation/examination due to COVID-19. VITALS: Blood pressure 111/71, SpO2 94% on room air, pulse 90, respiratory rate 18, temp 97.6F TELEMETRY: Sinus mechanism. No nonsustained ventricular tachycardia or PVCs overnight LABS: WBC 5.7, hemoglobin 9.0, hematocrit 29.9, platelet 177, sodium 140, potassium 3.1, BUN 36, creatinine 2.08, IMPRESSION: Acute COVID-19 infection Covid Pneumonia Abnormal troponins, continue Lovenox Elevated BNP, history of congestive heart failure History of ischemic cardiomyopathy History of NSVT Hypokalemia, supplementation per primary service PLAN: Continue current medication regimen Continue supportive care No further recommendations from the cardiac standpoint We'll continue to follow on an as-needed basis The patient has been seen and evaluated by nurse practitioner and coordinating physician. Plan of care has been reviewed and agreed upon by Dr Cullen. Objective - Vital Signs Vital signs: Vital Signs Temp 97.4 F L 05/11/21 07:59 Pulse 99 05/11/21 08:00 Resp 19 05/11/21 08:00 BP 99/62 05/11/21 07:59 Pulse Ox 95 05/11/21 07:59 Intake & Output 05/10/21 05/11/21 05/11/21 18:59 06:59 18:59 Intake Total 430 Output Total 500 Balance 430 -500 Intake: IV 10 Invasive Line 2 10 Oral 420 Output: Urine 500 Other: Voiding Method Urinal External Catheter External Catheter Diaper Incontinent # Voids 2 2 - Labs CBC & Chem 7: 05/11/21 07:43 05/11/21 07:43 Labs: Abnormal Lab Results - Last 24 Hours (Table) 05/10/21 05/10/21 05/11/21 Range/Units 08:07 08:07 07:43 WBC 2.0 L (3.8-10.6) k/uL Hgb 8.9 L (13.0-17.5) gm/dL Hct 30.1 L (39.0-53.0) % MCV 63.9 L (80.0-100.0) fL MCH 18.9 L (25.0-35.0) pg MCHC 29.6 L (31.0-37.0) g/dL RDW 17.3 H (11.5-15.5) % Plt Count 149 L (150-450) k/uL Lymphocytes # 0.6 L (1.0-4.8) k/uL Potassium 3.1 L (3.5-5.1) mmol/L BUN 29 H 36 H (9-20) mg/dL Creatinine 1.98 H 2.08 H (0.66-1.25) mg/dL Glucose 137 H 147 H (74-99) mg/dL Calcium 6.8 L 6.5 L (8.4-10.2) mg/dL Alkaline Phosphatase 36 L (38-126) U/L C-Reactive Protein 7.2 H 4.1 H (<1.0) mg/dL Total Protein 5.0 L (6.3-8.2) g/dL Albumin 2.6 L (3.5-5.0) g/dL 05/11/21 Range/Units 07:43 WBC (3.8-10.6) k/uL Hgb 9.0 L (13.0-17.5) gm/dL Hct 29.9 L (39.0-53.0) % MCV 63.0 L (80.0-100.0) fL MCH 18.9 L (25.0-35.0) pg MCHC 30.0 L (31.0-37.0) g/dL RDW 17.4 H (11.5-15.5) % Plt Count (150-450) k/uL Lymphocytes # (1.0-4.8) k/uL Potassium (3.5-5.1) mmol/L BUN (9-20) mg/dL Creatinine (0.66-1.25) mg/dL Glucose (74-99) mg/dL Calcium (8.4-10.2) mg/dL Alkaline Phosphatase (38-126) U/L C-Reactive Protein (<1.0) mg/dL Total Protein (6.3-8.2) g/dL Albumin (3.5-5.0) g/dL Microbiology - Last 24 Hours (Table) 05/09/21 11:00 Blood Culture - Preliminary Blood No Growth after 24 hours 05/09/21 10:45 Blood Culture - Preliminary Blood No Growth after 24 hours
[2021-05-11] MEDS: POTASSIUM CHLORIDE ER 20 MEQ TAB.ER PO SCH ×2 (13:00→14:06)
[2021-05-11] MEDS: CALCIUM CARB-VIT D 500 MG-5 MCG TAB PO SCH ×2 (13:00→18:02)
--- NOTE | 2021-05-11 13:22 | PN ---
PROGRESS NOTE Patient is seen for followup for acute kidney injury on top of chronic kidney disease. He has underlying CKD stage 3B with baseline creatinine 1.6 to 1.8 mg/dL. Patient was admitted to the hospital with complaints of shortness of breath. His blood pressure had been on the lower side. He is also volume-overloaded and is status post IV Lasix, currently maintained on oral Demadex. Patient has underlying COVID pneumonia, currently maintained on room air. He had been on 2 L nasal cannula, which is now discontinued. On examination today, blood pressure is 111/71, heart rate 90 per minute. Patient is afebrile. Examination of lower extremities shows no significant edema bilaterally. [employer] exam is grossly intact. Lungs and heart are not examined. Labs show sodium 140, potassium 3.1, BUN 36, creatinine 2.0, hemoglobin 9.0 g/dL. ASSESSMENT: 1. Chronic kidney disease, NKF stage 3B to 4 with baseline creatinine 1.9 to 2 mg/dL. Etiology is nephrosclerosis. UA shows trace protein. Renal function is fairly stable. 2. Volume overload, maintained on oral Demadex, which I will continue. 3. COVID pneumonia; currently off of oxygen, maintained on room air. Currently receiving remdesivir and steroids. 4. Hypertension, currently controlled. 5. Acute hypoxic respiratory failure secondary to COVID pneumonia, currently improving. PLAN: Continue with the Demadex. Follow up as outpatient for CKD. MMODL / IJN: [id number] /
--- NOTE | 2021-05-11 14:28 | P.PN ---
Subjective Progress Note Date: 05/11/21 Principal diagnosis: Shortness of breath 65-year-old male patient, quite debilitated, has multiple medical problems including CAD, ischemic cardiomyopathy and the patient has an AICD in place and the patient also has chronic kidney disease along with history of COPD and thalassemia minor. The patient was tested positive for: 19 on 05/06/2021. The exact symptom onset date is not known. This was noted by his primary care physician and the patient was receiving a monoclonal antibody infusion by [facility] when the patient was found to be quite diaphoretic and short of breath and for that reason the patient was brought into the emergency department. Upon arrival, the patient was febrile and the patient was having shortness of breath and the patient was also hypoxic with a pulse ox of 86% on room air oxygen. He had a temperature of 11.4. Chest x-ray was done that showed lateral interstitial pulmonary infiltrates. There is some background COPD. There may be some background CHF. The patient also had an AICD over the left anterior chest area. Accordingly, the patient was placed on oxygen at 2 L per minute nasal cannula. His current pulse ox is around 96%. Breathing is mildly labored. He is unable to volunteer much history. Apparently he has been quite dependent his for activities of daily today life. His echo was at 3.9 with a hemoglobin of 8.6. Platelet count was 134. Normal coagulation profile. Sodium was at 140 with a potassium level of 2.8, BUN was 25 with a creatinine of 2.1, troponin was 0.04, proBNP level was 2360. LFTs were normal. Serum albumin was 2.7 with a total protein of 5.1. In the emergency, the patient was started on IV Decadron. Inflammatory markers need to be sent. He also received a dose of Lasix 40 mg IV push 1. He was given IV Solu Medrol 125 mg IV 1. 05/10/2021, the patient is stable and the patient is currently on 2 L of oxygen by nasal cannula with a pulse ox of 97%. The patient remains on Decadron. No respiratory distress and he seems to much more alert and awake compared to yesterday. No significant cough or sputum production. No chest pain. He seems to be more interactive compared to yesterday. He denies having any specific complaints. No nausea. No vomiting no emesis. White cell count is at 2 with a hemoglobin of 8.9 and a platelet count of 149, d-dimer is at 0.5, creatinine of 1.9 with a sodium level of 141. Coagulation profile essentially within normal limits. In terms of his inflammatory markers, the patient's LDH level was 405, patient's CRP level is at 7.2 and he is on low inflammatory marker levels at this point, the patient d-dimer is 0.51. On 05/11/2021 patient seen in follow-up on selective care unit, he is calm and comfortable, no acute distress, is currently on room air. Denies any worsening cough or dyspnea, room air pulse ox is 94-95%, his been afebrile, hemodynamically has been stable. Remains on Remdesivir in today is day 3 of treatment, he also remains on Decadron 6 mg daily, he is on multivitamins, and Lovenox 40 mg daily. Today's chest x-ray showing mild chronic interstitial changes stable findings compared to most recent chest x-ray. Today's labs have been noted, white blood cell count is 5.7, hemoglobin is 9.0, d-dimer is normal at 0.36, sodium is 140, potassium is 3.1, chloride is 105, CO2 is 25 BUN is 36 and creatinine is 2.08. His LDH is 342 within normal limits and CRP is 4.1. Objective - Vital Signs Vital signs: Vital Signs Temp 97.6 F 05/11/21 11:21 Pulse 90 05/11/21 11:21 Resp 18 05/11/21 11:21 BP 111/71 05/11/21 11:21 Pulse Ox 94 L 05/11/21 11:21 Intake & Output 05/10/21 05/11/21 05/11/21 18:59 06:59 18:59 Intake Total 430 660 Output Total 500 700 Balance 430 -500 -40 Intake: IV 10 Invasive Line 2 10 Oral 420 660 Output: Urine 500 700 Other: Voiding Method Urinal External Catheter External Catheter Diaper Incontinent # Voids 2 2 - Exam GENERAL EXAM: Alert, very pleasant, 65-year-old white male, on room air with a pulse ox of 95% comfortable in no apparent distress. HEAD: Normocephalic/atraumatic. EYES: Normal reaction of pupils, equal size. Conjunctiva pink, sclera white. NOSE: Clear with pink turbinates. THROAT: No erythema or exudates. NECK: No masses, no JVD, no thyroid enlargement, no adenopathy. CHEST: No chest wall deformity. Symmetrical expansion. LUNGS: Equal air entry with no crackles, wheeze, rhonchi or dullness. CVS: Regular rate and rhythm, normal S1 and S2, no gallops, no murmurs, no rubs ABDOMEN: Soft, nontender. No hepatosplenomegaly, normal bowel sounds, no guarding or rigidity. EXTREMITIES: No clubbing, no edema, no cyanosis, 2+ pulses and upper and lower extremities. MUSCULOSKELETAL: Muscle strength and tone normal. SPINE: No scoliosis or deformity SKIN: No rashes CENTRAL NERVOUS SYSTEM: Alert and oriented -3. No focal deficits, tone is normal in all 4 extremities. PSYCHIATRIC: Alert and oriented -3. Appropriate affect. Intact judgment and insight. - Labs CBC & Chem 7: 05/11/21 07:43 05/11/21 07:43 Labs: Abnormal Lab Results - Last 24 Hours (Table) 05/11/21 05/11/21 Range/Units 07:43 07:43 Hgb 9.0 L (13.0-17.5) gm/dL Hct 29.9 L (39.0-53.0) % MCV 63.0 L (80.0-100.0) fL MCH 18.9 L (25.0-35.0) pg MCHC 30.0 L (31.0-37.0) g/dL RDW 17.4 H (11.5-15.5) % Potassium 3.1 L (3.5-5.1) mmol/L BUN 36 H (9-20) mg/dL Creatinine 2.08 H (0.66-1.25) mg/dL Glucose 147 H (74-99) mg/dL Calcium 6.5 L (8.4-10.2) mg/dL C-Reactive Protein 4.1 H (<1.0) mg/dL Microbiology - Last 24 Hours (Table) 05/09/21 11:00 Blood Culture - Preliminary Blood No Growth after 48 hours 05/09/21 10:45 Blood Culture - Preliminary Blood No Growth after 48 hours Assessment and Plan Plan: 1 acute coronary syndrome related pneumonia with secondary shortness of breath and hypoxic respiratory failure. The patient was diagnosed on 05/06/2021. The patient claims that he has been vaccinated for COVID 19. He has taken 2 shots and the exact several vaccinations is not known. In any rate, the patient was receiving monoclonal and fusion of antibiotics on outpatient basis and the patient was found to be hypoxic and for that reason the patient was transferred to the ICU for further care. At this point, the patient is on room air, and is improving since admission. Chest x-ray showing right-sided pulmonary infiltrates, background COPD, background CHF and the patient has an AICD in place 2 acute hypoxic respiratory failure secondary to above 3 history of ischemic cardiomyopathy with impaired left ventricular ejection fraction, and the patient is known to have systolic heart failure with an estimated ejection fraction of around 20-25% per history provided. 4 history of coronary artery disease 5 history of AICD placement 6 history of chronic kidney disease with interval worsening of the renal function and the creatinine is up to 2.1 with a GFR of 30. 7 thalassemia minor 8 COPD 9 anemia of chronic disease 10 history of CVA 11 impaired performance and functional status secondary to above-mentioned comorbidities. 12 history of mood disorder, unspecified and the patient has had previous psychiatric evaluations and treatments. 13 history of diverticulosis with previous bouts of diverticulitis 14 degenerative arthritis 15 previous history of smoking 16 PAF , current rhythm is sinun and the patient is not taking anticoagulation Plan: Patient is stable from pulmonary perspective He is on room air, breathing comfortably He is on day 3 of Remdesivir His inflammatory markers have been noted and are improving, as a matter fact his LDH is within normal limits If he remains clinically stable patient may be considered for discharge home in the next 24 hours However generally he is weak, he may need physical therapy evaluation Pulmonary service will sign of an follow-up on as-needed basis I performed a history & physical examination of the patient and discussed their management with my nurse practitioner, Sherron Peacock. I reviewed the nurse practitioner's note and agree with the documented findings and plan of care. Lung sounds are positive for duim breath sounds throughout the lung thompson. The findings and the impression was discussed with the patient. I attest to the documentation by the nurse practitioner. Time with Patient: Less than 30
[2021-05-11] MEDS: REMDESIVIR 100 MG in SODIUM CHLORIDE 0.9% 250 ML IVPB SCH (18:01)
--- NOTE | 2021-05-11 18:01 | PN ---
PROGRESS NOTE DATE OF SERVICE: 05/11/2021 This 65-year-old gentleman admitted with acute Covid-19 infection as well as acute bilateral aspiration pneumonia also had acute hypoxic respiratory failure. The patient also had possibly congestive heart failure acute exacerbation. The patient also has some renal failure. Creatinine is 2.08 and stable at this time. The patient is not requiring supplemental oxygen at this time. No chest pain. No palpitations. No fever. PHYSICAL EXAMINATION: Alert and oriented. Pulse 79, blood pressure 131/76, respiration 20, temperature 97.7, pulse ox 98% on room air. HEENT: Conjunctivae normal. Oral mucosa moist. NECK: No jugular venous distention. No lymph node enlargement. CARDIOVASCULAR: S1, S2, muffled. No S3, no S4, RESPIRATORY: Diminished breath sounds at the bases. A few scattered rhonchi. ABDOMEN: Soft, nontender. LEGS: No edema, no swelling. NERVOUS SYSTEM: No focal deficits. LAB STUDIES: WBC 5, Hemoglobin 9, sodium 140, potassium 3.1. ASSESSMENT: 1. Acute Covid-19 infection with acute bilateral aspiration pneumonia with acute hypoxic respiratory failure. 2. Possible congestive heart failure acute exacerbation. 3. History of ischemic cardiomyopathy status post AICD. 4. Acute on chronic kidney disease and acute renal failure with acute tubular necrosis. 5. Chronic kidney disease stage 3 baseline. 6. Severe hypokalemia. 7. Anemia, microcytic, undetermined etiology. 8. Thrombocytopenia. 9. Hypomagnesemia. 10.Hypokalemia. 11.Troponin 0.049. Rule out acute enq-OL-xoazzvs-elevation myocardial infarction related to Covid-19. 12.Hypoalbuminemia with mild protein-calorie malnutrition. 13.History of CHF. 14.History of pneumonia. 15.History of sleep apnea. 16.History of diverticulitis. 17.Thalassemia minor. 18.History of AICD. 19.History of cardiac catheterization. 20.History of degenerative joint disease. 21.Remote history of nicotine dependence. 22.Obesity with body mass index of 32.8. 23.FULL CODE. RECOMMENDATIONS AND DISCUSSION: I recommend to continue current medications, continue to monitor, continue symptomatic treatment. Repeat labs in the morning. Otherwise, the patient is stable and able to maintain oxygenation, the patient might be able to be discharged in the next 24 hours. Closely follow with multiple consultants. Further recommendations to follow. MMODL / IJN: [id number] /
[2021-05-11] MEDS: ATORVASTATIN 40 MG TAB PO SCH (20:51)
[2021-05-11] MEDS: DIVALPROEX 500 MG TABLET.DR PO SCH (20:52)
--- NOTE | 2021-05-11 20:52 | PN ---
PROGRESS NOTE DATE OF SERVICE: 05/11/2021 REASON FOR FOLLOWUP: COVID-19 pneumonia. INTERVAL HISTORY: The patient is afebrile. The patient is breathing more comfortably. He is currently on room air. The patient denies having any chest pain. No worsening cough or sputum production. No vomiting. No abdominal pain or diarrhea. PHYSICAL EXAMINATION: Blood pressure 116/73 with a pulse of 76, temperature 98. He is 97% on room air. General description is an elderly male lying in bed in no distress. Respiratory system: Unlabored breathing. Coarse breath sounds bilaterally. No wheeze. Heart S1, S2. Regular rate and rhythm. Abdomen soft, no tenderness. LABS: Hemoglobin is 9, white count 5.7, creatinine 2.08. DIAGNOSTIC IMPRESSION AND PLAN: Patient admitted to hospital with acute COVID-19 pneumonia in this patient who seems to have shown some clinical improvement. Patient to continue with the remdesivir, dexamethasone, Lovenox, zinc and ascorbic acid along with respiratory support. Monitor his clinical course closely. MMODL / IJN: [id number] /
[2021-05-12] MEDS: ZINC SULFATE 220 MG CAP PO SCH (08:29)
[2021-05-12] MEDS: ASCORBIC ACID 500 MG TAB PO SCH ×2 (08:29→21:08)
[2021-05-12] MEDS: allopurinoL 100 MG TAB PO SCH (08:29)
[2021-05-12] MEDS: FOLIC ACID 1 MG TAB PO SCH (08:29)
[2021-05-12] MEDS: FERROUS SULFATE 325 MG TAB PO SCH (08:29)
[2021-05-12] MEDS: TORSEMIDE 20 MG TAB PO SCH (08:29)
[2021-05-12] MEDS: DEXAMETHASONE SOD PHOSPHATE 10 MG/ML 1 ML VIAL IVP SCH (08:29)
[2021-05-12] MEDS: LEVOTHYROXINE 75 MCG TAB PO SCH (08:29)
[2021-05-12] MEDS: risperiDONE 0.5 MG TAB PO SCH (08:29)
[2021-05-12] MEDS: ENOXAPARIN 40 MG/0.4 ML SYRINGE SQ SCH (08:30)
--- NOTE | 2021-05-12 08:30 | P.PN ---
Subjective Patient is seen in follow-up for acute kidney injury on chronic kidney disease. Maintained on oral diuretics. Nonoliguric. Denies chest pain or shortness of breath. Vital signs are stable. HEENT: Head exam is unremarkable. LUNGS: Breath sounds decreased. HEART: Rate and Rhythm are regular. ABDOMEN: Soft, no distention. EXTREMITITES: Trace edema. Objective - Vital Signs Vital signs: Vital Signs Temp 98.2 F 05/12/21 02:00 Pulse 84 05/12/21 02:00 Resp 16 05/12/21 02:00 BP 120/76 05/12/21 02:00 Pulse Ox 95 05/12/21 02:00 Intake & Output 05/11/21 05/12/21 05/12/21 18:59 06:59 18:59 Intake Total 660 Output Total 1900 450 Balance -1240 -450 Intake: Oral 660 Output: Urine 1900 450 Other: Voiding Method External Catheter External Catheter - Labs CBC & Chem 7: 05/11/21 07:43 05/11/21 07:43 Labs: Abnormal Lab Results - Last 24 Hours (Table) 05/11/21 05/11/21 Range/Units 07:43 07:43 Hgb 9.0 L (13.0-17.5) gm/dL Hct 29.9 L (39.0-53.0) % MCV 63.0 L (80.0-100.0) fL MCH 18.9 L (25.0-35.0) pg MCHC 30.0 L (31.0-37.0) g/dL RDW 17.4 H (11.5-15.5) % Potassium 3.1 L (3.5-5.1) mmol/L BUN 36 H (9-20) mg/dL Creatinine 2.08 H (0.66-1.25) mg/dL Glucose 147 H (74-99) mg/dL Calcium 6.5 L (8.4-10.2) mg/dL C-Reactive Protein 4.1 H (<1.0) mg/dL Microbiology - Last 24 Hours (Table) 05/09/21 11:00 Blood Culture - Preliminary Blood No Growth after 48 hours 05/09/21 10:45 Blood Culture - Preliminary Blood No Growth after 48 hours Assessment and Plan Plan: Assessment: 1. Chronic kidney disease stage 3b with baseline creatinine near 2 secondary to nephrosclerosis. Creatinine 2.08 yesterday. No hydronephrosis noted on kidney ultrasound. Left kidney wasn't visualized. 2. COVID-19 pneumonia. On room air. 3. Hypertension with chronic kidney disease. Stable. 4. Acute hypoxic respiratory failure. 5. Volume overload. 6. Mild acute kidney injury mostly prerenal secondary to infection. Improved. 7. Hypokalemia from diuresis. Replaced. 8. Hypocalcemia secondary to chronic kidney disease. Corrected calcium near 7.8. Receiving vitamin D and Os-Gregorio D. Plan: Maintain Demadex. Check PTH. Morning labs pending.
[2021-05-12] MEDS: FLUTICASONE 50MCG/SPRAY NASAL 16GM EA NOSTRIL SCH (08:32)
[2021-05-12] MEDS: CALCIUM CARB-VIT D 500 MG-5 MCG TAB PO SCH ×2 (08:41→17:07)
[2021-05-12] MEDS: CHOLECALCIFEROL 125 MCG (5000 IU) TABLET PO SCH (08:41)
[2021-05-12] MEDS: carvediloL 6.25 MG TAB PO SCH ×2 (08:41→17:08)
[2021-05-12 11:15] LABS: African American GFR (CKD) 38.9 (60.0-200.0); Anion Gap 11.9 mmol/L (10.00-18.00); BUN/Creat Ratio 16.9 Ratio (12.00-20.00); Blood Urea Nitrogen 33.8 mg/dL (9.0-27.0); Calcium 7.1 mg/dL (8.7-10.3); Carbon Dioxide 27.1 mmol/L (20.0-27.5); Non-African American GFR(CKD) 33.5 (60.0-200.0); Potassium 3.2 mmol/L (3.5-5.5)
[2021-05-12 13:57] LABS: HCT 27.3 % (39.6-50.0); HGB 8.1 g/dL (13.0-17.0); MCH 18.1 pg (27.0-32.0); MCHC 29.7 g/dL (32.0-37.0); MCV 61.1 fL (80.0-97.0); Platelet Count 182 X 10*3/uL (140-440); RBC 4.47 X 10*6/uL (4.40-5.60); RDW 19.5 % (11.5-14.5); WBC 5.16 X 10*3/uL (4.50-10.00)
[2021-05-12 14:07] LABS: Acanthocytes 2+; Basophils # (A) 0 X 10*3/uL (0.00-0.10); Basophils % (A) 0 %; Eosinophils # (A) 0 X 10*3/uL (0.04-0.35); Eosinophils % (A) 0 %; Hypochromasia (M) 2+; Lymphocytes # (A) 1.21 X 10*3/uL (0.90-5.00); Lymphocytes % (A) 23.4 %; Microcytosis (M) 2+; Monocytes # (A) 0.39 X 10*3/uL (0.20-1.00); Monocytes % (A) 7.6 %; Neutrophils # (A) 3.48 X 10*3/uL (1.80-7.70); Neutrophils % (A) 67.4 %; Schistocytes 1+
--- NOTE | 2021-05-12 14:32 | CDI ---
Documentation Clarification Form Date: 05/12/2021 01:46:04 PM From: Jaja Marie RN CCDS Admit Date: 05/09/2021 03:29:00 PM Patient Name: Justo Bustillo Visit Number: [id number] Discharge Date: ATTENTION: The Clinical Documentation Specialists (CDI) and [facility] Coding Staff appreciate your assistance in clarifying documentation. Please respond to the clarification below the line at the bottom and electronically sign. The CDI & [facility] Coding staff will review the response and follow-up if needed. Please note: Queries are made part of the Legal Health Record. If you have any questions, please contact the author of this message via ITS. Dr. Lorin Todd Troponin 0.049. Rule out acute non-ST Elevation myocardial infarction or related to COVID 19, H&P, 05/09 and Medicine progress notes, 05/10 & 05/11. Additional clarification regarding the type of HI is requested. History/Risk Factors: 65-year-old male presents to the ED via EMS with increasing shortness of breath after having monoclonal antibody fusion. Medical History: COVID 19, CHF, CKD, Ischemic cardiomyopathy, HTN, Paroxysmal Atrial Fibrillation & CHF. Clinical Indicators: Troponin: 05/09 0.49 EKG Results 05/09/21: Sinus rhythm with occasional premature ventricular complexes. Right bundle branch block. Abnormal ECG. Acute coronary syndrome related to pneumonia, Pulmonary consult 05/09 and Pulmonary progress notes 05/10 , 05/11 & 05/12. Abnormal troponins, recommend continuing Lovenox or heparin. Cardiology consult 05/10, and Cardiology progress notes 05/11. Treatment: 05/09 Ventolin 2 puff inhalation x 1; 05/09 current Vitamin D3 125mcg po daily; 05/09 current Decadron 6mg IVP daily; 05/09 current Lovenox 40mg SQ daily; 05/09 Solumedrol 125mg IV x 1; 05/09 Remdesivir 200mg IVPB x1; 05/10 current Remdesivir 100mg IVPB x 4 bags; 05/09 current Zinc 220mg po daily Please clarify the type of HI, if known: [ ] Type II HI due to COVID 19 [ ] Non-ST Elevation myocardial infarction Ruled out [ ] Unable to determine [ ] Other Condition, please specify (Template Last Revised: June 2020) Unable to determine MTDD
--- NOTE | 2021-05-12 16:40 | P.PN ---
Progress Note - Text Progress Note Date: 05/12/21 REASON FOR FOLLOWUP: COVID-19 pneumonia. INTERVAL HISTORY: The patient remains to be afebrile. The patient is breathing comfortably on room air. The patient denies having any chest pain. No worsening cough or sputum production. No vomiting. No abdominal pain or diarrhea. PHYSICAL EXAMINATION: Blood pressure 123/57 with a pulse of 68, temperature 98. He is 97% on room air. General description is an elderly male lying in bed in no distress. Respiratory system: Unlabored breathing. Decreased intensity of breath sounds bilaterally. No wheeze. Heart S1, S2. Regular rate and rhythm. Abdomen soft, no tenderness. LABS: . Hemoglobin 8.1, WBC 5.16, creatinine is 2.0 DIAGNOSTIC IMPRESSION AND PLAN: Patient admitted to hospital with acute COVID-19 pneumonia in this patient has shown some clinical improvement. Patient to continue with the remdesivir, dexamethasone, Lovenox, zinc and ascorbic acid along with respiratory support.
[2021-05-12] MEDS: REMDESIVIR 100 MG in SODIUM CHLORIDE 0.9% 250 ML IVPB SCH (17:07)
--- NOTE | 2021-05-12 17:32 | PN ---
PROGRESS NOTE DATE OF SERVICE: 05/12/2021 This 65-year-old gentleman who was admitted with acute COVID-19 infection as well as aspiration pneumonia was started on remdesivir. The patient is also receiving the usual medications for COVID-19. The patient is being closely monitored by multiple consultants. Remdesivir is day 4 today. The creatinine is also elevated, currently at 2. No chest pain. No palpitation. PHYSICAL EXAMINATION: Alert and oriented x3. Pulse 87, blood pressure 103/60, respiration 17, temperature 97.4, pulse ox 97% on room air. HEENT: Conjunctivae normal. NECK: No jugular venous distention. CARDIOVASCULAR: S1, S2 muffled. RESPIRATION: Breath sounds diminished at the bases. No rhonchi. No crackles. ABDOMEN: Soft, nontender. NERVOUS SYSTEM: No focal deficit. LABS: WBC 8.4, hemoglobin is 8.1. Other labs are noted. ASSESSMENT: 1. Acute COVID-19 infection with acute bilateral interstitial pneumonia with acute hypoxic respiratory failure. 2. Possible congestive heart failure, acute exacerbation. 3. History of ischemic cardiomyopathy, status post AICD. 4. Congestive heart failure exacerbation with acute on chronic systolic dysfunction. 5. Acute on chronic kidney disease with acute renal failure with acute tubular necrosis. 6. Chronic kidney disease, stage 3 baseline. 7. Severe hypokalemia, present on admission. 8. Anemia, microcytic anemia; undetermined etiology. 9. Thrombocytopenia. 10.Hypomagnesemia. 11.Hypokalemia. 12.Troponin 0.049. Rule out acute zxs-UD-tchskrl-elevation myocardial infarction related to COVID-19, type 2 myocardial infarction. 13.Hypoalbuminemia with mild protein-calorie malnutrition. 14.History of congestive heart failure. 15.History of pneumonia. 16.History of sleep apnea. 17.History of diverticulitis. 18.Thalassemia minor. 19.History of AICD. 20.History of cardiac catheterization. 21.History of degenerative joint disease. 22.Remote history of nicotine dependence. 23.Obesity with body mass index of 32.8. 24.FULL CODE. RECOMMENDATIONS AND DISCUSSION: I recommend to continue current medications, continue with the monitoring, symptomatic treatment. Closely follow with multiple consultants. Continue with remdesivir. Replace potassium. Will repeat the labs and CBC. Continue to monitor. Further recommendations to follow. MMODL / IJN: [id number] /
[2021-05-12] MEDS: DIVALPROEX 500 MG TABLET.DR PO SCH (21:08)
[2021-05-12] MEDS: ATORVASTATIN 40 MG TAB PO SCH (21:08)
[2021-05-13] MEDS: LEVOTHYROXINE 75 MCG TAB PO SCH (05:24)
[2021-05-13] MEDS: DEXAMETHASONE SOD PHOSPHATE 10 MG/ML 1 ML VIAL IVP SCH (10:48)
[2021-05-13] MEDS: ZINC SULFATE 220 MG CAP PO SCH (10:49)
[2021-05-13] MEDS: ENOXAPARIN 40 MG/0.4 ML SYRINGE SQ SCH (10:49)
[2021-05-13] MEDS: allopurinoL 100 MG TAB PO SCH (10:49)
[2021-05-13] MEDS: CHOLECALCIFEROL 125 MCG (5000 IU) TABLET PO SCH (10:49)
[2021-05-13] MEDS: risperiDONE 0.5 MG TAB PO SCH (10:49)
[2021-05-13] MEDS: ASCORBIC ACID 500 MG TAB PO SCH ×2 (10:49→20:11)
[2021-05-13] MEDS: TORSEMIDE 20 MG TAB PO SCH (10:49)
[2021-05-13] MEDS: carvediloL 6.25 MG TAB PO SCH ×2 (10:49→18:27)
[2021-05-13] MEDS: CALCIUM CARB-VIT D 500 MG-5 MCG TAB PO SCH ×2 (10:49→18:27)
[2021-05-13] MEDS: FOLIC ACID 1 MG TAB PO SCH (10:49)
[2021-05-13] MEDS: FERROUS SULFATE 325 MG TAB PO SCH (10:49)
[2021-05-13] MEDS: FLUTICASONE 50MCG/SPRAY NASAL 16GM EA NOSTRIL SCH (10:55)
[2021-05-13 11:13] LABS: African American GFR (CKD) 44.2 (60.0-200.0); Anion Gap 13.3 mmol/L (10.00-18.00); BUN/Creat Ratio 17.83 Ratio (12.00-20.00); Blood Urea Nitrogen 32.1 mg/dL (9.0-27.0); Carbon Dioxide 25.7 mmol/L (20.0-27.5); Magnesium 1.4 mg/dL (1.5-2.4); Non-African American GFR(CKD) 38.1 (60.0-200.0)
[2021-05-13 11:35] LABS: Basophils # (A) 0 X 10*3/uL (0.00-0.10); Basophils % (A) 0 %; Eosinophils # (A) 0 X 10*3/uL (0.04-0.35); Eosinophils % (A) 0 %; HCT 26.9 % (39.6-50.0); HGB 8.2 g/dL (13.0-17.0); Lymphocytes # (A) 1.09 X 10*3/uL (0.90-5.00); Lymphocytes % (A) 19.9 %; MCH 18.4 pg (27.0-32.0); MCHC 30.5 g/dL (32.0-37.0); MCV 60.3 fL (80.0-97.0); Monocytes # (A) 0.48 X 10*3/uL (0.20-1.00); Monocytes % (A) 8.7 %; Neutrophils % (A) 69.2 %; Platelet Count 198 X 10*3/uL (140-440); RBC 4.46 X 10*6/uL (4.40-5.60); RDW 19.2 % (11.5-14.5); WBC 5.49 X 10*3/uL (4.50-10.00)
[2021-05-13] MEDS ORDERED: Potassium Replacement Protocol 1 EACH MISC MISCELLANE PRN (13:43)
[2021-05-13] MEDS ORDERED: Magnesium Replacement Protocol 1 EACH MISC MISCELLANE PRN (13:44)
--- NOTE | 2021-05-13 14:07 | P.DS ---
Providers Date of admission: 05/09/21 15:29 Attending physician: Tony Pride MD Consults: 05/09/21 14:41 Consult Physician Routine Consulting Provider: Luis Eduardo Jara Consult Reason/Comments: dyspnea Do you want consulting provider notified?: Yes Consult Physician Routine Consulting Provider: Elvin Gann Consult Reason/Comments: covid, hypoxia Do you want consulting provider notified?: Yes 05/09/21 18:04 Consult Physician Routine Consulting Provider: Laith Alvarez Consult Reason/Comments: chf Do you want consulting provider notified?: Yes Consult Physician Routine Consulting Provider: Mireille Pritchett Consult Reason/Comments: covid Do you want consulting provider notified?: Yes 05/09/21 18:05 Consult Physician Routine Consulting Provider: Deidra Bryson Consult Reason/Comments: arf Do you want consulting provider notified?: Yes Primary care physician: [facility] Course: Final diagnoses Acute COVID-19 infection with acute bilateral pneumonia with acute hypoxic respiratory failure now on room air History of congestive heart failure, systolic, most recent EF 20-25% with acute exacerbation and volume overload History of ischemic cardiomyopathy status post AICD Acute on chronic kidney disease with acute renal failure, prerenal secondary to infection Chronic kidney disease stage III baseline, recent creatinine 2 secondary to nephrosclerosis Hypertension Hypokalemia on admission Anemia, thalassemia minor Thrombocytopenia Elevated troponin 0.049, ACS ruled out Obesity Discharge disposition Patient evaluated by PT OT is recommended for subacute rehab on discharge. He is cleared medically today after receiving his fourth dose of remdesivir. He is 97% on room air. He will follow-up with CONSULTATIONS and PCP. Repeat labs in 3 days. Hospital course Patient received monoclonal antibodies outpatient and was increasingly short of breath and came back to the . He has been sick for greater than one week prior to admission on the . He has bilateral lower extremity edema on admission, he was febrile at 101.4, oxygen saturation was 95% on room air on admission. Venous Doppler was completed, negative for DVT although limited study of the right leg due to motion and position. Chest x-ray on admission shows COPD correlate for interstitial pneumonitis versus mild venous congestion with left basilar infiltrate and small effusion. Patient was seen in consultation by pulmonary, nephrology and cardiology services as well as infectious disease. Patient was given 4 days of IV remdesivir, IV Decadron, and home medications were resumed. Blood pressure remains in the lower side in the 1 teens over 60s, we did discontinue his losartan on discharge. Abdominal bladder ultrasound completed which showed mild medical renal disease involving the right kidney there was no right renal calculi or hydronephrosis. Labs on admission show a white count of 5, platelet 134, improved to 198, hemoglobin in the 8 average, sodium 140, potassium 2.8 on admission, BUN 25, creatinine 2.18, magnesium 1.3, troponin 0.049, CRP 7.2, BNP 2360, albumin 2.7, PTH 99.4. Urinalysis was negative. Patient was found to be COVID positive on May 05. 05/13/2021 Patient evaluated today sitting in the bed eating breakfast. He denies any nausea vomiting or diarrhea. He denies any chest pain cough or shortness of breath. Overall he states that he is feeling well. He is on room air. Labs today show potassium of 3, we will repeat and sent on oral potassium supplementation, creatinine down to 1.8, magnesium 1.4, will replace per protocol and repeat in 3 days. Lungs are clear to auscultation, S1-S2 auscultated, abdomen soft nontender. Focal neurological exam is negative. Patient cleared for discharge. Please see medication reconciliation for list of current medications. Thank you for allowing us to participate in the care of this patient. Patient Condition at Discharge: Fair Plan - Discharge Summary Discharge Rx Participant: No New Discharge Prescriptions: New Torsemide [Demadex] 40 mg PO DAILY tab Potassium Chloride ER [K-Dur 10] 10 meq PO DAILY #30 tab Zinc Sulfate [Orazinc] 220 mg PO DAILY cap Calcium Carb-Vit D 500Mg-5Mcg [Oscal 500+D 5 Mcg (200 Iu)] 1 each PO BID- W/MEALS tab Continue Apixaban [Eliquis] 5 mg PO BID #60 tab Ergocalciferol [Vitamin D2 (1250 Mcg = 71936 Iu)] 1,250 mcg PO QMONTHLY calcitrioL [Rocaltrol] 0.25 mcg PO DIRECTED Carvedilol [Coreg] 6.25 mg PO BID-W/MEALS Levothyroxine Sodium [Synthroid] 75 mcg PO DAILY Ipratropium-Albuterol Nebulize [Duoneb 0.5 mg-3 mg/3 ml Soln] 3 ml INHALATION RT-QID PRN PRN Reason: Shortness Of Breath Fluticasone Nasal [place] [Flonase Nasal [place]] 2 spray EA NOSTRIL DAILY Allopurinol [Zyloprim] 200 mg PO DAILY Ferrous Sulfate [Iron] 325 mg PO DAILY Divalproex Sodium [Depakote] 500 mg PO HS Folic Acid 1 mg PO DAILY risperiDONE [RisperDAL] 0.5 mg PO DAILY Atorvastatin [Lipitor] 40 mg PO HS Budesonide [Pulmicort] 0.5 mg INHALATION RT-BID Discontinued Torsemide [Demadex] 40 mg PO DAILY Losartan Potassium [Cozaar] 25 mg PO DAILY Azithromycin [Zithromax Z-pack (6 tabs)] See Taper PO DIRECTED Discharge Medication List Apixaban [Eliquis] 5 mg PO BID #60 tab 02/10/17 [Rx] Allopurinol [Zyloprim] 200 mg PO DAILY 11/08/20 [History] Divalproex Sodium [Depakote] 500 mg PO HS 11/08/20 [History] Ergocalciferol [Vitamin D2 (1250 Mcg = 17256 Iu)] 1,250 mcg PO QMONTHLY 11/08/20 [History] Ferrous Sulfate [Iron] 325 mg PO DAILY 11/08/20 [History] calcitrioL [Rocaltrol] 0.25 mcg PO DIRECTED 11/08/20 [History] Folic Acid 1 mg PO DAILY 11/11/20 [History] Atorvastatin [Lipitor] 40 mg PO HS 05/09/21 [History] Budesonide [Pulmicort] 0.5 mg INHALATION RT-BID 05/09/21 [History] Carvedilol [Coreg] 6.25 mg PO BID-W/MEALS 05/09/21 [History] Fluticasone Nasal [place] [Flonase Nasal [place]] 2 spray EA NOSTRIL DAILY 05/09/21 [History] Ipratropium-Albuterol Nebulize [Duoneb 0.5 mg-3 mg/3 ml Soln] 3 ml INHALATION RT-QID PRN 05/09/21 [History] Levothyroxine Sodium [Synthroid] 75 mcg PO DAILY 05/09/21 [History] risperiDONE [RisperDAL] 0.5 mg PO DAILY 05/09/21 [History] Calcium Carb-Vit D 500Mg-5Mcg [Oscal 500+D 5 Mcg (200 Iu)] 1 each PO BID-W/MEALS tab 05/13/21 [Rx] Potassium Chloride ER [K-Dur 10] 10 meq PO DAILY #30 tab 05/13/21 [Rx] Torsemide [Demadex] 40 mg PO DAILY tab 05/13/21 [Rx] Zinc Sulfate [Orazinc] 220 mg PO DAILY cap 05/13/21 [Rx] Follow up Appointment(s)/Referral(s): Mak Pruitt DO [Primary Care Provider] - 1-2 days Delfino Zamarripa DO [STAFF PHYSICIAN] - 10 Days Wagner Cullen MD [STAFF PHYSICIAN] - As Needed Ambulatory/Diagnostic Orders: Basic Metabolic Panel [LAB.AMB] Location: None Selected Complete Blood Count w/diff [LAB.AMB] Time Frame: 3 Days, Location: None Selected Magnesium [LAB.AMB] Time Frame: 3 Days, Location: None Selected Discharge Disposition: TRANSFER TO SNF/ECF
[2021-05-13] MEDS: MAGNESIUM SULFATE-D5W PMX 1 GM in DEXTROSE/WATER 1 100ML.BAG IVPB SCH ×3 (14:38→17:29)
[2021-05-13] MEDS: POTASSIUM CHLORIDE ER 20 MEQ TAB.ER PO SCH ×2 (14:39→15:43)
[2021-05-13] MEDS: REMDESIVIR 100 MG in SODIUM CHLORIDE 0.9% 250 ML IVPB SCH (20:10)
[2021-05-13] MEDS: ATORVASTATIN 40 MG TAB PO SCH (20:11)
[2021-05-13] MEDS: DIVALPROEX 500 MG TABLET.DR PO SCH (20:11)
[2021-05-13] MEDS ORDERED: ONDANSETRON 4 MG/2 ML VIAL IVP PRN (22:42)
[2021-05-14] MEDS: LEVOTHYROXINE 75 MCG TAB PO SCH (05:34)
[2021-05-14] MEDS: ENOXAPARIN 40 MG/0.4 ML SYRINGE SQ SCH (08:31)
[2021-05-14] MEDS: TORSEMIDE 20 MG TAB PO SCH (08:31)
[2021-05-14] MEDS: allopurinoL 100 MG TAB PO SCH (08:32)
[2021-05-14] MEDS: DEXAMETHASONE SOD PHOSPHATE 10 MG/ML 1 ML VIAL IVP SCH (08:32)
[2021-05-14] MEDS: CALCIUM CARB-VIT D 500 MG-5 MCG TAB PO SCH (08:32)
[2021-05-14] MEDS: ZINC SULFATE 220 MG CAP PO SCH (08:32)
[2021-05-14] MEDS: FOLIC ACID 1 MG TAB PO SCH (08:32)
[2021-05-14] MEDS: FERROUS SULFATE 325 MG TAB PO SCH (08:33)
[2021-05-14] MEDS: CHOLECALCIFEROL 125 MCG (5000 IU) TABLET PO SCH (08:33)
[2021-05-14] MEDS: ASCORBIC ACID 500 MG TAB PO SCH (08:33)
[2021-05-14] MEDS: carvediloL 6.25 MG TAB PO SCH (08:33)
[2021-05-14 08:42] VITALS: BP 130/78; PULSE 96; RESP 24; TEMP 98.8
[2021-05-14] MEDS: FLUTICASONE 50MCG/SPRAY NASAL 16GM EA NOSTRIL SCH (08:47)
[2021-05-14] MEDS: risperiDONE 0.5 MG TAB PO SCH (08:49)
--- NOTE | 2021-05-14 09:52 | P.PN ---
Subjective Patient is seen in follow-up for acute kidney injury on chronic kidney disease. Maintained on oral diuretics. Nonoliguric. Denies chest pain or shortness of breath. Hemodynamically stable. Vital signs are stable. HEENT: Head exam is unremarkable. LUNGS: Breath sounds decreased. HEART: Rate and Rhythm are regular. ABDOMEN: Soft, no distention. EXTREMITITES: Trace edema. Objective - Vital Signs Vital signs: Vital Signs Temp 98.8 F 05/14/21 08:00 Pulse 96 05/14/21 08:00 Resp 24 05/14/21 08:00 BP 130/78 05/14/21 08:00 Pulse Ox 93 L 05/14/21 08:00 Intake & Output 05/13/21 05/14/21 05/14/21 18:59 06:59 18:59 Intake Total 1006 Output Total 1200 1300 Balance -194 -1300 Intake: Oral 1006 Output: Urine 1200 800 Emesis 500 Other: Voiding Method Diaper Diaper External Catheter External Catheter - Labs CBC & Chem 7: 05/13/21 06:43 05/13/21 06:43 Labs: Abnormal Lab Results - Last 24 Hours (Table) 05/13/21 05/13/21 Range/Units 06:43 06:43 Hgb 8.2 L (13.0-17.0) g/dL Hct 26.9 L (39.6-50.0) % MCV 60.3 L (80.0-97.0) fL MCH 18.4 L (27.0-32.0) pg MCHC 30.5 L (32.0-37.0) g/dL RDW 19.2 H (11.5-14.5) % Absolute Nucleated RBC 0.09 H (0.00-0.00) X 10*3/uL Immature Gran # 0.12 H (0.00-0.04) X 10*3/uL Eosinophils # 0 L (0.04-0.35) X 10*3/uL NRBC/100 WBC Diff 1.6 H (0.0-0.0) /100 WBCS Potassium 3.0 L (3.5-5.5) mmol/L BUN 32.1 H (9.0-27.0) mg/dL Creatinine 1.8 H (0.6-1.5) mg/dL Est GFR (CKD-EPI)AfAm 44.2 L (60.0-200.0) Est GFR (CKD-EPI)NonAf 38.1 L (60.0-200.0) Glucose 152 H (70-110) mg/dL Calcium 7.0 L (8.7-10.3) mg/dL Magnesium 1.4 L (1.5-2.4) mg/dL Microbiology - Last 24 Hours (Table) 05/09/21 11:00 Blood Culture - Preliminary Blood No Growth after 96 hours 05/09/21 10:45 Blood Culture - Preliminary Blood No Growth after 96 hours Assessment and Plan Plan: Assessment: 1. Chronic kidney disease stage 3b with baseline creatinine near 2 secondary to nephrosclerosis. Creatinine 1.8 yesterday. No hydronephrosis noted on kidney ultrasound. Left kidney wasn't visualized. 2. COVID-19 pneumonia. On room air. 3. Hypertension with chronic kidney disease. Stable. 4. Acute hypoxic respiratory failure. 5. Volume overload. Improved with diuresis. 6. Mild acute kidney injury mostly prerenal secondary to infection. Improved. 7. Hypokalemia from diuresis. Replaced. 8. Hypocalcemia secondary to chronic kidney disease. Corrected calcium near 8. Receiving vitamin D and Os-Gregorio D. 9. Hypomagnesemia from diuresis. Replace. Plan: Maintain Demadex. Add weekly calcitriol. Add potassium and magnesium supplementation. Morning labs pending.
[2021-05-14] MEDS ORDERED: MAGNESIUM OXIDE 400 MG TAB PO SCH (10:00)
[2021-05-14 11:27] LABS: African American GFR (CKD) 39.1 (60.0-200.0); Anion Gap 12.7 mmol/L (10.00-18.00); BUN/Creat Ratio 16.08 Ratio (12.00-20.00); Calcium 7.9 mg/dL (8.7-10.3); Carbon Dioxide 29.9 mmol/L (20.0-27.5); Non-African American GFR(CKD) 33.7 (60.0-200.0); Potassium 3.6 mmol/L (3.5-5.5)
--- NOTE | 2021-05-14 11:51 | P.DS ---
Providers Date of admission: 05/09/21 15:29 Attending physician: Tony Pride MD Consults: 05/09/21 14:41 Consult Physician Routine Consulting Provider: Luis Eduardo Jara Consult Reason/Comments: dyspnea Do you want consulting provider notified?: Yes Consult Physician Routine Consulting Provider: Elvin Gann Consult Reason/Comments: covid, hypoxia Do you want consulting provider notified?: Yes 05/09/21 18:04 Consult Physician Routine Consulting Provider: Laith Alvarez Consult Reason/Comments: chf Do you want consulting provider notified?: Yes Consult Physician Routine Consulting Provider: Mireille Pritchett Consult Reason/Comments: covid Do you want consulting provider notified?: Yes 05/09/21 18:05 Consult Physician Routine Consulting Provider: Deidra Bryson Consult Reason/Comments: arf Do you want consulting provider notified?: Yes Primary care physician: [facility] Course: Final diagnoses Acute COVID-19 infection with acute bilateral pneumonia with acute hypoxic respiratory failure now on room air History of congestive heart failure, systolic, most recent EF 20-25% with acute exacerbation and volume overload History of ischemic cardiomyopathy status post AICD Acute on chronic kidney disease with acute renal failure, prerenal secondary to infection Chronic kidney disease stage III baseline, recent creatinine 2 secondary to nephrosclerosis Hypertension Hypokalemia on admission, resolved Anemia, thalassemia minor, stable Elevated troponin 0.049, ACS ruled out Obesity Discharge disposition Patient evaluated by PT OT is recommended for subacute rehab on discharge. He is cleared medically today after receiving his fourth dose of remdesivir. He is 97% on room air. He will follow-up with consultations and PCP. Repeat labs in 3 days. Hospital course Patient received monoclonal antibodies outpatient and was increasingly short of breath and came back to the . He has been sick for greater than one week prior to admission on the . He has bilateral lower extremity edema on admission, he was febrile at 101.4, oxygen saturation was 95% on room air on admission. Venous Doppler was completed, negative for DVT although limited study of the right leg due to motion and position. Chest x-ray on admission shows COPD correlate for interstitial pneumonitis versus mild venous congestion with left basilar infiltrate and small effusion. Patient was seen in consultation by pulmonary, nephrology and cardiology services as well as infectious disease. Patient was given 4 days of IV remdesivir, IV Decadron, and home medications were resumed. Blood pressure remains in the lower side in the 1 teens over 60s, we did discontinue his losartan on discharge. Abdominal bladder ultrasound completed which showed mild medical renal disease involving the right kidney there was no right renal calculi or hydronephrosis. Labs on admission show a white count of 5, platelet 134, improved to 198, hemoglobin in the 8 average, sodium 140, potassium 2.8 on admission, BUN 25, creatinine 2.18, magnesium 1.3, troponin 0.049, CRP 7.2, BNP 2360, albumin 2.7, PTH 99.4. Urinalysis was negative. Patient was found to be COVID positive on May 05. 05/14/2021 Patient evaluated today sitting up in the bed. He denies any chest pain, reports congested cough with difficulty clearing secretions and shortness of breath with exertion. He is 93-94% on room air. His lungs are clearing as compared to yesterday. Abdomen is soft nontender. He denies any diarrhea or nausea. However upon review of chart patient did have some emesis in the late evening yesterday with about 3-4 episodes of emesis seemed to follow his dose of IV remdesivir. He was able to eat breakfast without difficulty. His labs today show improvement, potassium is 3.6, sodium 144, creatinine 2, BUN 32, CO2 29, glucose 141, calcium 7.9, magnesium 2. Additional vital signs show a temp of 98.8, heart rate 96, blood pressure 130/78 and he is 93% on room air. He is cleared for discharge to rehab from medical, pulmonary and nephrology services. We are pending insurance authorization hopefully he can go today. Please see medication reconciliation for list of current medications. Thank you for allowing us to participate in the care of this patient. Patient Condition at Discharge: Fair Plan - Discharge Summary Discharge Rx Participant: No New Discharge Prescriptions: New Torsemide [Demadex] 40 mg PO DAILY tab Potassium Chloride ER [K-Dur 10] 10 meq PO DAILY #30 tab Zinc Sulfate [Orazinc] 220 mg PO DAILY cap Calcium Carb-Vit D 500Mg-5Mcg [Oscal 500+D 5 Mcg (200 Iu)] 1 each PO BID- W/MEALS tab Dexamethasone [Decadron] 6 mg PO DAILY #6 tablet Continue Apixaban [Eliquis] 5 mg PO BID #60 tab Ergocalciferol [Vitamin D2 (1250 Mcg = 23577 Iu)] 1,250 mcg PO QMONTHLY calcitrioL [Rocaltrol] 0.25 mcg PO DIRECTED Carvedilol [Coreg] 6.25 mg PO BID-W/MEALS Levothyroxine Sodium [Synthroid] 75 mcg PO DAILY Ipratropium-Albuterol Nebulize [Duoneb 0.5 mg-3 mg/3 ml Soln] 3 ml INHALATION RT-QID PRN PRN Reason: Shortness Of Breath Fluticasone Nasal [place] [Flonase Nasal [place]] 2 spray EA NOSTRIL DAILY Allopurinol [Zyloprim] 200 mg PO DAILY Ferrous Sulfate [Iron] 325 mg PO DAILY Divalproex Sodium [Depakote] 500 mg PO HS Folic Acid 1 mg PO DAILY risperiDONE [RisperDAL] 0.5 mg PO DAILY Atorvastatin [Lipitor] 40 mg PO HS Budesonide [Pulmicort] 0.5 mg INHALATION RT-BID Discontinued Torsemide [Demadex] 40 mg PO DAILY Losartan Potassium [Cozaar] 25 mg PO DAILY Azithromycin [Zithromax Z-pack (6 tabs)] See Taper PO DIRECTED Discharge Medication List Apixaban [Eliquis] 5 mg PO BID #60 tab 02/10/17 [Rx] Allopurinol [Zyloprim] 200 mg PO DAILY 11/08/20 [History] Divalproex Sodium [Depakote] 500 mg PO HS 11/08/20 [History] Ergocalciferol [Vitamin D2 (1250 Mcg = 55379 Iu)] 1,250 mcg PO QMONTHLY 11/08/20 [History] Ferrous Sulfate [Iron] 325 mg PO DAILY 11/08/20 [History] calcitrioL [Rocaltrol] 0.25 mcg PO DIRECTED 11/08/20 [History] Folic Acid 1 mg PO DAILY 11/11/20 [History] Atorvastatin [Lipitor] 40 mg PO HS 05/09/21 [History] Budesonide [Pulmicort] 0.5 mg INHALATION RT-BID 05/09/21 [History] Carvedilol [Coreg] 6.25 mg PO BID-W/MEALS 05/09/21 [History] Fluticasone Nasal [place] [Flonase Nasal [place]] 2 spray EA NOSTRIL DAILY 05/09/21 [History] Ipratropium-Albuterol Nebulize [Duoneb 0.5 mg-3 mg/3 ml Soln] 3 ml INHALATION RT-QID PRN 05/09/21 [History] Levothyroxine Sodium [Synthroid] 75 mcg PO DAILY 05/09/21 [History] risperiDONE [RisperDAL] 0.5 mg PO DAILY 05/09/21 [History] Calcium Carb-Vit D 500Mg-5Mcg [Oscal 500+D 5 Mcg (200 Iu)] 1 each PO BID-W/MEALS tab 05/13/21 [Rx] Dexamethasone [Decadron] 6 mg PO DAILY #6 tablet 05/13/21 [Rx] Potassium Chloride ER [K-Dur 10] 10 meq PO DAILY #30 tab 05/13/21 [Rx] Torsemide [Demadex] 40 mg PO DAILY tab 05/13/21 [Rx] Zinc Sulfate [Orazinc] 220 mg PO DAILY cap 05/13/21 [Rx] Follow up Appointment(s)/Referral(s): Wagner Cullen MD [STAFF PHYSICIAN] - As Needed Delfino Zamarripa DO [STAFF PHYSICIAN] - 10 Days Mak Pruitt DO [Primary Care Provider] - 1-2 days Ambulatory/Diagnostic Orders: Basic Metabolic Panel [LAB.AMB] Location: None Selected Complete Blood Count w/diff [LAB.AMB] Time Frame: 3 Days, Location: None Selected Magnesium [LAB.AMB] Time Frame: 3 Days, Location: None Selected Discharge Disposition: TRANSFER TO SNF/ECF
--- NOTE | 2021-05-14 15:55 | P.PN ---
Progress Note - Text Progress Note Date: 05/13/21 INTERVAL HISTORY: The patient remains to be afebrile. The patient is breathing comfortably on r oom air. The patient denies having any chest pain. No worsening cough or sputum production. No vomiting. No abdominal pain or diarrhea. PHYSICAL EXAMINATION: Blood pressure 123/57 with a pulse of 68, temperature 98. He is 97% on room air. General description is an elderly male lying in bed in no distress. Respiratory system: Unlabored breathing. Decreased intensity of breath sounds bilaterally. No wheeze. Heart S1, S2. Regular rate and rhythm. Abdomen soft, no tenderness. LABS: . Hemoglobin 8.1, WBC 5.16, creatinine is 2.0 DIAGNOSTIC IMPRESSION AND PLAN: Patient admitted to hospital with acute COVID-19 pneumonia in this patient has shown some clinical improvement. Patient to continue with the remdesivir, dexamethasone, Lovenox, zinc and ascorbic acid along with respiratory support.
--- NOTE | 2021-05-14 15:57 | P.PN ---
Progress Note - Text Progress Note Date: 05/14/21 INTERVAL HISTORY: The patient is afebrile. The patient is breathing comfortably on room air. The patient denies chest pain , mild cough no sputum production. No vomiting. No abdominal pain or diarrhea. PHYSICAL EXAMINATION: Blood pressure 120/50 with a pulse of 60, temperature 98. He is 97% on room air. General description is an elderly male lying in bed in no distress. Respiratory system: Unlabored breathing. Decreased intensity of breath sounds bilaterally. No wheeze. Heart S1, S2. Regular rate and rhythm. Abdomen soft, no tenderness. LABS: .reviewed DIAGNOSTIC IMPRESSION AND PLAN: Patient admitted to hospital with acute COVID-19 pneumonia in this patient has shown some clinical improvement. Patient completed remdesivir course,to finish therapy with dexamethasone, Lovenox, zinc and ascorbic acid along with respiratory support.
[2021-05-15] MEDS ORDERED: POTASSIUM CHLORIDE ER 20 MEQ TAB.ER PO SCH (09:00)
--- NOTE | 2021-05-16 07:52 | CDI ---
Documentation Clarification Form Date: 05/16/2021 07:36:00 AM From: Alyse Anderson Admit Date: 05/09/2021 03:29:00 PM Patient Name: Justo Bustillo Visit Number: [id number] Discharge Date: 05/14/2021 02:55:00 PM ATTENTION: The Clinical Documentation Specialists (CDI) and [facility] Coding Staff appreciate your assistance in clarifying documentation. Please respond to the clarification below the line at the bottom and electronically sign. The CDI & [facility] Coding staff will review the response and follow-up if needed. Please note: Queries are made part of the Legal Health Record. If you have any questions, please contact the author of this message via ITS. Dr. Jimenez E Sheet The patient presented with Covid [address] Todd's PN 05/10/2021 "Acute COVID-19 sepsis with acute bilateral aspiration pneumonia with acute hypoxic respiratory failure. Please clarify if patient had sepsis or was it ruled out. History/Risk Factors: COVID 19 pneumonia, aspiration pneumonia, ATN Clinical Indicators: WBC: 3.9 down to 2.0 Lactic acid: 1.1 Vitals signs: 101.4 F, 94 bpm, 24, 141/70, 98 2NC down to 86 2NC Treatment: Remdesivir Dexamethasone, Lovenox, zinc and ascorbic acid. ID Consult: Covid pneumonia, fever In your professional opinion, please clarify if these findings signify one of the following conditions: [ x ] Sepsis POA [ ] Sepsis, Not POA [ ] Sepsis ruled out [ ] Severe Sepsis with organ failure [ ] Other, please specify [ ] Unable to determine SIRS Criteria: 2 or more of the following may indicate SIRS -Temperature < 96.8F (36C) or > 101.0F (38.3C) -Heart Rate > 90 bpm -Respiratory Rate > 20 breaths/min or PaCO2 < 32 mmHg -White Blood Cell Count > 12,000 or < 4,000 cells/mm3 or > 10% bands MTDD
== END 2021-05-14 14:55 | DRG 871 ==
LOC: EC 10:17 → 3SCARD 15:29 → 6NMEDSUR 05-11 14:15
PROVIDERS: ADMIT Internal Medicine; ATTEND Internal Medicine
PROC: XW033E5 Introduction of Remdesivir Anti-infective into Peripheral Vein, Percutaneous Approach, New Technology Group 5 (ICD-10-PCS; principal; 2021-05-09)
DX: A41.89 Other specified sepsis (principal); U07.1 COVID-19; I50.23 Acute on chronic systolic (congestive) heart failure; J12.82 Pneumonia due to coronavirus disease 2019; J69.0 Pneumonitis due to inhalation of food and vomit; J96.01 Acute respiratory failure with hypoxia; N17.0 Acute kidney failure with tubular necrosis; E44.1 Mild protein-calorie malnutrition; I13.0 Hypertensive heart and chronic kidney disease with heart failure and stage 1 through stage 4 chronic kidney disease, or unspecified chronic kidney disease; J44.0 Chronic obstructive pulmonary disease with (acute) lower respiratory infection; I47.1 Supraventricular tachycardia; T50.2X5A Adverse effect of carbonic-anhydrase inhibitors, benzothiadiazides and other diuretics, initial encounter; N18.32 Chronic kidney disease, stage 3b; D50.9 Iron deficiency anemia, unspecified; D56.3 Thalassemia minor; D69.6 Thrombocytopenia, unspecified; E66.9 Obesity, unspecified; E83.42 Hypomagnesemia; E83.51 Hypocalcemia; E87.6 Hypokalemia; Z68.32 Body mass index [BMI] 32.0-32.9, adult; I25.10 Atherosclerotic heart disease of native coronary artery without angina pectoris; I25.5 Ischemic cardiomyopathy; D63.1 Anemia in chronic kidney disease; F39 Unspecified mood [affective] disorder; I45.10 Unspecified right bundle-branch block; I48.0 Paroxysmal atrial fibrillation; I49.3 Ventricular premature depolarization; L40.9 Psoriasis, unspecified; Z79.01 Long term (current) use of anticoagulants; M19.90 Unspecified osteoarthritis, unspecified site; R32 Unspecified urinary incontinence; Z79.52 Long term (current) use of systemic steroids; Z79.890 Hormone replacement therapy; Z79.899 Other long term (current) drug therapy; Z80.8 Family history of malignant neoplasm of other organs or systems; Z86.73 Personal history of transient ischemic attack (TIA), and cerebral infarction without residual deficits; Z87.891 Personal history of nicotine dependence; Z95.810 Presence of automatic (implantable) cardiac defibrillator; K57.90 Diverticulosis of intestine, part unspecified, without perforation or abscess without bleeding; Z90.89 Acquired absence of other organs; G47.33 Obstructive sleep apnea (adult) (pediatric); Z98.890 Other specified postprocedural states; Z87.01 Personal history of pneumonia (recurrent); Z91.013 Allergy to seafood; Z88.2 Allergy status to sulfonamides; Z91.048 Other nonmedicinal substance allergy status
CPT/HCPCS: 36415; 71045; 71046; 76770; 80048; 80053; 81001; 83605; 83615; 83735; 83880; 83970; 84484; 85025; 85379; 85610; 85730; 86140; 87040; 93005; 93308; 93970; 94640; 96361; 96372; 96374; 96375; 99285

== ENCOUNTER 2021-05-30 17:26 | Inpatient (IN) | payer MEDICARE ==
[2021-05-30] MEDS ORDERED: LORazepam 2 MG/ML INJ IV STA (17:38)
[2021-05-30] MEDS ORDERED: SODIUM CHLORIDE 0.9% 500 ML 500 ML IV STA (17:38)
--- NOTE | 2021-05-30 17:43 | ED ---
Anxiety HPI - General Stated Complaint: Anxiety Time Seen by Provider: 05/30/21 17:31 Source: patient, RN notes reviewed - History of Present Illness Initial Comments: 65-year-old male with a history of dementia and cardiovascular disease presents to the emergency department with difficulty breathing. Patient was getting physical therapy fpc when symptomology started. Patient denying any pain and is able to give a limited history. Patient is essentially alert and oriented 2. No vomiting. No nausea. No abdominal pain. Patient apparently had COVID-19 2019. Patient [facility]. Note that the patient is on Eliquis and has had a previous defibrillator placement. No known fever or chills. Denies cough. No changes in balance urination. No skin rashes or lesions. Denies any problems with vision or hearing. No headache. No neck pain. MD Complaint: anxiety - Related Data Home Medications: Home Medications Medication Instructions Recorded Confirmed Allopurinol [Zyloprim] 200 mg PO DAILY 11/08/20 05/30/21 Divalproex Sodium [Depakote] 500 mg PO HS 11/08/20 05/30/21 Ergocalciferol [Vitamin D2 (1250 1,250 mcg PO Q30D 11/08/20 05/30/21 Mcg = 81990 Iu)] Ferrous Sulfate [Iron] 325 mg PO DAILY 11/08/20 05/30/21 calcitrioL [Rocaltrol] 0.25 mcg PO DAILY 11/08/20 05/30/21 Folic Acid 1 mg PO DAILY 11/11/20 05/30/21 Atorvastatin [Lipitor] 40 mg PO HS 05/09/21 05/30/21 Budesonide [Pulmicort] 0.5 mg INHALATION RT-BID 05/09/21 05/30/21 Carvedilol [Coreg] 6.25 mg PO BID-W/MEALS 05/09/21 05/30/21 Fluticasone Nasal [place] [Flonase 2 spray EA NOSTRIL DAILY 05/09/21 05/30/21 Nasal [place]] Ipratropium-Albuterol Nebulize 3 ml INHALATION RT-QID 05/09/21 05/30/21 [Duoneb 0.5 mg-3 mg/3 ml Soln] Levothyroxine Sodium [Synthroid] 75 mcg PO DAILY 05/09/21 05/30/21 risperiDONE [RisperDAL] 0.5 mg PO HS 05/09/21 05/30/21 Calcium Carb-Vit D 500Mg-5Mcg 1 tab PO BID-W/MEALS 05/30/21 05/30/21 [Oscal 500+D 5 Mcg (200 Iu)] Torsemide [Demadex] 40 mg PO DAILY 05/30/21 05/30/21 Previous Rx's Medication Instructions Recorded Apixaban [Eliquis] 5 mg PO BID #60 tab 02/10/17 Potassium Chloride ER [K-Dur 10] 10 meq PO DAILY #30 tab 05/13/21 Zinc Sulfate [Orazinc] 220 mg PO DAILY cap 05/13/21 Allergies/Adverse Reactions: Allergies Allergy/AdvReac Type Severity Reaction Status Date / Time Latex, Natural Rubber Allergy Rash/Hives Verified 05/30/21 19:25 shellfish derived [Shellfish] Allergy SWELLING Verified 05/30/21 19:25 AND VOMITING shrimp Allergy Swelling Verified 05/30/21 19:25 sulfamethoxazole Allergy Rash/Hives Verified 05/30/21 19:25 [From Bactrim] trimethoprim [From Bactrim] Allergy Rash/Hives Verified 05/30/21 19:25 Review of Systems ROS Statement: Those systems with pertinent positive or pertinent negative responses have been documented in the HPI. ROS Other: All systems not noted in ROS Statement are negative. Past Medical History Past Medical History: Heart Failure, COPD, Pneumonia, Renal Disease, Skin Disorder, Sleep Apnea/CPAP/BIPAP Additional Past Medical History / Comment(s): DIVERTICULITIS, "THALASSEMIA MINOR", see Dr Cullen H&P, edema christiano lower legs, no cpap used, loose stools, psoriasis, History of Any Multi-Drug Resistant Organisms: None Reported Past Surgical History: AICD, Heart Catheterization, Orthopedic Surgery, Tonsillectomy Additional Past Surgical History / Comment(s): LT HAND 4TH DIGIT REPAIR, LT MASTOID SX AGE 3, AICD placement Past Anesthesia/Blood Transfusion Reactions: No Reported Reaction Type of Cardiac Device: AICD Device Placement Date:: 07/26/17 [employer] Past Psychological History: No Psychological Hx Reported Additional Psychological History / Comment(s): "Some demenita" per spouse Smoking Status: Former smoker Past Alcohol Use History: Rare Additional Past Alcohol Use History / Comment(s): STARTED SMOKING AT AGE 12, DID QUIT FOR 12 YEARS BUT RESTARTED IN 2013, quit smoking 2020 Past Drug Use History: None Reported - Past Family History Father Family Medical History: Cancer Additional Family Medical History / Comment(s): SKIN CANCER General Exam - General Exam Comments Initial Comments: Anxious appearing 65-year-old male in moderate distress. Does not appear to be ill or toxic. Vital signs are noted. Oxygen saturation 98% on room air at the time I'm seeing him. Patient does have increased work of breathing. Vital s igns stable otherwise. General appearance: alert, anxious, in distress Head exam: Present: atraumatic, normocephalic, normal inspection Eye exam: Present: normal appearance, PERRL, EOMI. Absent: scleral icterus, conjunctival injection, periorbital swelling ENT exam: Present: normal exam, mucous membranes moist Neck exam: Present: normal inspection, full ROM. Absent: tenderness, meningismus, lymphadenopathy Respiratory exam: Present: respiratory distress, accessory muscle use. Absent: wheezes, rales, rhonchi, stridor Cardiovascular Exam: Present: regular rate, normal rhythm, normal heart sounds. Absent: systolic murmur, diastolic murmur, rubs, gallop, clicks GI/Abdominal exam: Present: soft, normal bowel sounds. Absent: distended, tenderness, guarding, rebound, rigid Extremities exam: Present: normal inspection, full ROM, normal capillary refill. Absent: tenderness, pedal edema, joint swelling, calf tenderness Back exam: Present: normal inspection Neurological exam: Present: alert, oriented X3, CN II-XII intact Psychiatric exam: Present: normal affect, normal mood Skin exam: Present: warm, dry, intact, normal color. Absent: rash Course Vital Signs 05/30/21 05/30/21 05/30/21 17:33 19:08 19:16 Temperature 97.6 F Pulse Rate 76 78 79 Pulse Rate [ Pulse Oximetery ] Respiratory 22 18 18 Rate Blood Pressure 128/70 145/81 145/81 Blood Pressure [Left Arm] O2 Sat by Pulse 98 100 100 Oximetry 05/30/21 05/30/21 20:11 20:30 Temperature 97.6 F Pulse Rate 79 Pulse Rate [ 72 Pulse Oximetery ] Respiratory 18 18 Rate Blood Pressure 151/83 Blood Pressure 145/87 [Left Arm] O2 Sat by Pulse 100 100 Oximetry - Reevaluation(s) Reevaluation #1: 05/30/21 18:35 Medical record is reviewed Symptoms are improved here in the emergency department Patient is informed of results and questions answered Patient in no distress BNP is elevated. Awaiting chest x-ray. Patient noted to have stable chronic renal failure. Medical Decision Making - Medical Decision Making Appears as if the patient was admitted here in April with acute COVID-19 infection with bilateral pneumonia and acute hypoxic respiratory failure. The case was discussed in detail with ED attending physician. Presentation, findings, treatment plan discussed in detail. Case was discussed in detail with the hospitalist physician. Patient will be admitted here for pneumonia. Note that the patient's chest x-ray was essentially clear aside from increased markings on left lower lobe as read by me. Given the fact that the patient has an elevated white blood cell count with a left shift as well as worsening dyspnea. Patient was treated for hospital- acquired pneumonia. Further imaging was deferred to the admitting team. - Lab Data Result diagrams: 05/30/21 17:46 05/30/21 17:46 Lab Results 05/30/21 05/30/21 05/30/21 Range/Units 17:46 17:46 17:46 WBC 15.5 H (3.8-10.6) k/uL RBC 5.37 (4.30-5.90) m/uL Hgb 10.4 L (13.0-17.5) gm/dL Hct 34.3 L (39.0-53.0) % MCV 64.0 L (80.0-100.0) fL MCH 19.4 L (25.0-35.0) pg MCHC 30.4 L (31.0-37.0) g/dL RDW 22.3 H (11.5-15.5) % Plt Count 135 L (150-450) k/uL MPV 7.4 Neutrophils % 85 % Lymphocytes % 8 % Monocytes % 5 % Eosinophils % 1 % Basophils % 0 % Neutrophils # 13.1 H (1.3-7.7) k/uL Lymphocytes # 1.3 (1.0-4.8) k/uL Monocytes # 0.8 (0-1.0) k/uL Eosinophils # 0.2 (0-0.7) k/uL Basophils # 0.1 (0-0.2) k/uL Hypochromasia Moderate Poikilocytosis Slight Anisocytosis Moderate Microcytosis Marked Sodium 136 L (137-145) mmol/L Potassium 4.8 (3.5-5.1) mmol/L Chloride 99 (98-107) mmol/L Carbon Dioxide 25 (22-30) mmol/L Anion Gap 12 mmol/L BUN 57 H (9-20) mg/dL Creatinine 1.76 H (0.66-1.25) mg/dL Est GFR (CKD-EPI)AfAm 45 (>60 ml/min/1.73 sqM) Est GFR (CKD-EPI)NonAf 39 (>60 ml/min/1.73 sqM) Glucose 142 H (74-99) mg/dL Calcium 10.0 (8.4-10.2) mg/dL Magnesium 1.7 (1.6-2.3) mg/dL Total Bilirubin 1.7 H (0.2-1.3) mg/dL AST 17 (17-59) U/L ALT 15 (4-49) U/L Alkaline Phosphatase 50 (38-126) U/L Troponin I <0.012 (0.000-0.034) ng/mL NT-Pro-B Natriuret Pep pg/mL Total Protein 5.8 L (6.3-8.2) g/dL Albumin 3.5 (3.5-5.0) g/dL Coronavirus (PCR) (Not Detectd) 05/30/21 05/30/21 Range/Units 17:46 17:46 WBC (3.8-10.6) k/uL RBC (4.30-5.90) m/uL Hgb (13.0-17.5) gm/dL Hct (39.0-53.0) % MCV (80.0-100.0) fL MCH (25.0-35.0) pg MCHC (31.0-37.0) g/dL RDW (11.5-15.5) % Plt Count (150-450) k/uL MPV Neutrophils % % Lymphocytes % % Monocytes % % Eosinophils % % Basophils % % Neutrophils # (1.3-7.7) k/uL Lymphocytes # (1.0-4.8) k/uL Monocytes # (0-1.0) k/uL Eosinophils # (0-0.7) k/uL Basophils # (0-0.2) k/uL Hypochromasia Poikilocytosis Anisocytosis Microcytosis Sodium (137-145) mmol/L Potassium (3.5-5.1) mmol/L Chloride (98-107) mmol/L Carbon Dioxide (22-30) mmol/L Anion Gap mmol/L BUN (9-20) mg/dL Creatinine (0.66-1.25) mg/dL Est GFR (CKD-EPI)AfAm (>60 ml/min/1.73 sqM) Est GFR (CKD-EPI)NonAf (>60 ml/min/1.73 sqM) Glucose (74-99) mg/dL Calcium (8.4-10.2) mg/dL Magnesium (1.6-2.3) mg/dL Total Bilirubin (0.2-1.3) mg/dL AST (17-59) U/L ALT (4-49) U/L Alkaline Phosphatase (38-126) U/L Troponin I (0.000-0.034) ng/mL NT-Pro-B Natriuret Pep 2900 pg/mL Total Protein (6.3-8.2) g/dL Albumin (3.5-5.0) g/dL Coronavirus (PCR) Detected A (Not Detectd) - EKG Data -: EKG Interpreted by Al EKG Comments: EKG done at 1805 read by the ED attending physician reveals normal sinus rhythm with a right bundle-branch block. QRS duration 136 ms. Normal intervals otherwise. No acute ST or T-wave changes. Baseline artifact. Right bundle- branch block was noted on an EKG from April. Note that on the previous EKG patient did have a PVC. Disposition Clinical Impression: Hospital-acquired pneumonia, Respiratory distress, History of COVID-19, Anxiety Disposition: ADMITTED IP TO THIS HOSP Condition: Stable Decision to Admit Reason: Admit from EC Decision Time: 19:43
[2021-05-30 18:06] LABS: Anisocytosis Moderate; Basophils # (A) 0.1 k/uL (0-0.2); Basophils % (A) 0 %; Eosinophils # (A) 0.2 k/uL (0-0.7); Eosinophils % (A) 1 %; HCT 34.3 % (39.0-53.0); HGB 10.4 gm/dL (13.0-17.5); Hypochromasia Moderate; Lymphocytes # (A) 1.3 k/uL (1.0-4.8); Lymphocytes % (A) 8 %; MCH 19.4 pg (25.0-35.0); MCHC 30.4 g/dL (31.0-37.0); Mean Platelet Volume 7.4; Microcytosis Marked; Monocytes # (A) 0.8 k/uL (0-1.0); Monocytes % (A) 5 %; Neutrophils # (A) 13.1 k/uL (1.3-7.7); Neutrophils % (A) 85 %; Platelet Count 135 k/uL (150-450); Poikilocytosis Slight; RBC 5.37 m/uL (4.30-5.90); RDW 22.3 % (11.5-15.5); WBC 15.5 k/uL (3.8-10.6)
[2021-05-30 18:17] LABS: Albumin 3.5 g/dL (3.5-5.0); Magnesium 1.7 mg/dL (1.6-2.3); Potassium 4.8 mmol/L (3.5-5.1); Total Bilirubin 1.7 mg/dL (0.2-1.3); Total Protein 5.8 g/dL (6.3-8.2)
--- NOTE | 2021-05-30 18:58 | XR ---
EXAMINATION TYPE: XR chest 1V portable DATE OF EXAM: 05/30/2021 COMPARISON: 05/11/2021 HISTORY: Pneumonia short of breath TECHNIQUE: FINDINGS: There is no heart failure nor confluent pneumonic infiltrate. Costophrenic angles are clear . There is left axillary pacemaker. There is slight coarsening of the lung markings left lower lobe. IMPRESSION: Mild interstitial infiltrate left lower lobe is the same or slightly improved compared to old exam. No heart failure.
[2021-05-30] MEDS ORDERED: IPRATROPIUM-ALBUTEROL 3 ML NEB INHALATION STA (19:31)
[2021-05-30] MEDS ORDERED: VANCOMYCIN IV PER PHARMACY 1 EACH MISC MISCELLANE PRN (19:36)
[2021-05-30] MEDS ORDERED: ALBUTEROL NEBULIZED 2.5 MG/3 ML INHALATION PRN (19:36)
[2021-05-30] MEDS ORDERED: PNEUMONIA PROTOCOL UTILIZED 1 EACH MISC PO PRN (19:36)
[2021-05-30] MEDS ORDERED: IPRATROPIUM-ALBUTEROL 3 ML NEB INHALATION PRN (19:36)
[2021-05-30] MEDS ORDERED: LEVOFLOXACIN 750MG-D5W PMX 750 MG in DEXTROSE/WATER 1 150ML.BAG IVPB STA (19:42)
[2021-05-30] MEDS ORDERED: VANCOMYCIN 1,500 MG in SODIUM CHLORIDE 0.9% 250 ML IVPB STA (19:47)
[2021-05-30] MEDS: CEFEPIME 2 GM in SODIUM CHLORIDE 0.9% 100 ML IVPB SCH (20:06)
[2021-05-30] MEDS ORDERED: ALBUTEROL HFA INHALER INHALATION PRN (23:10)
[2021-05-31] MEDS: CEFEPIME 2 GM in SODIUM CHLORIDE 0.9% 100 ML IVPB SCH ×2 (04:42→13:35)
--- NOTE | 2021-05-31 06:50 | XR ---
EXAMINATION TYPE: XR chest 1V portable DATE OF EXAM: 05/31/2021 CLINICAL HISTORY: Cough progress study. TECHNIQUE: Single AP portable upright view of the chest is obtained. COMPARISON: Chest x-ray from one day earlier and older studies. FINDINGS: Cardiac silhouette size is stable and mildly enlarged with single lead pacemaker/defibrill ator. Chronic parenchymal changes with increasing left basilar opacity. Right lung remains clear. Oss eous structures remain demineralized. IMPRESSION: Chronic changes and mild cardiomegaly with slight worsening left basilar atelectasis and/ or infiltrate noted.
[2021-05-31] MEDS: TIOTROPIUM 2.5 MCG INHALER INHALATION SCH (08:14)
[2021-05-31] MEDS ORDERED: VANCOMYCIN 1,500 MG in SODIUM CHLORIDE 0.9% 250 ML IVPB SCH (12:00)
[2021-05-31] MEDS ORDERED: IPRATROPIUM-ALBUTEROL 3 ML NEB INHALATION SCH (12:00)
[2021-05-31] MEDS: ALBUTEROL HFA INHALER INHALATION SCH ×3 (12:16→19:13)
[2021-05-31] MEDS: methylPREDNISolone SOD SUCCI 40 MG/ML 1 ML VIAL IV SCH ×3 (12:40→22:35)
--- NOTE | 2021-05-31 13:35 | P.HPIM ---
History of Present Illness 65-year-old male was a sent in from a group home because of increasing shortness of breath patient was a discharge from the hospital recently after he was treated for COVID-19 pneumonia at that time patient was discharged on oxygen patient is presently on 2 L of oxygen saturating well although patient is wheezing patient in COPD exacerbation chest x-ray showed some atelectasis patient does have leukocytosis but no fever. Patient was started on broad- spectrum antibiotics. Cefepime and Vanco mycin will discuss reviewed as there is no evidence of pneumonia and patient will be started on doxycycline and sputum cultures will be obtained. REVIEW OF SYSTEMS: CONSTITUTIONAL: No fever, no malaise, no fatigue. HEENT: No recent visual problems or hearing problems. Denied any sore throat. CARDIOVASCULAR: No chest pain, orthopnea, PND, no palpitations, no syncope. PULMONARY: no hemoptysis. GASTROINTESTINAL: No diarrhea, no nausea, no vomiting, no abdominal pain. NEUROLOGICAL: No headaches, no weakness, no numbness. HEMATOLOGICAL: Denies any bleeding or petechiae. GENITOURINARY: Denies any burning micturition, frequency, or urgency. MUSCULOSKELETAL/RHEUMATOLOGICAL: Denies any joint pain, swelling, or any muscle pain. ENDOCRINE: Denies any polyuria or polydipsia. The rest of the 14-point review of systems is negative. PHYSICAL EXAMINATION: GENERAL: The patient is alert and oriented x3, not in any acute distress. Well developed, well nourished. HEENT: Pupils are round and equally reacting to light. EOMI. No scleral icterus. No conjunctival pallor. Normocephalic, atraumatic. No pharyngeal erythema. No thyromegaly. CARDIOVASCULAR: S1 and S2 present. No murmurs, rubs, or gallops. PULMONARY: Bilateral rhonchi and a significant expiratory wheezing on exam ABDOMEN: Soft, nontender, nondistended, normoactive bowel sounds. No palpable organomegaly. MUSCULOSKELETAL: No joint swelling or deformity. EXTREMITIES: No cyanosis, clubbing, or pedal edema. NEUROLOGICAL: Gross neurological examination did not reveal any focal deficits. SKIN: No rashes. Assessment and plan -Acute hypoxic respiratory failure: Secondary to COPD exacerbation as well as pneumonia patient was started on doxycycline along with GI prophylaxis systemic steroids and inhalational treatments. Thing his recent COVID-19 pneumonia patient will benefit from my doxycycline as doxycycline does cover Staphylococcus including MRSA as well. -Congestive heart failure chronic systolic dysfunction EF of around 20-20% patient is presently euvolemic, patient will be resumed on home dose of diuretics the next and-chronic and disease stage III baseline creatinine is around 1.8-2 secondary to hypertensive nephrosclerosis hypertension -hyperlipidemia -Chronic anemia and thalassemia minor which his hemoglobin is stable at this time -Leukocytosis reactive DVT prophylaxis: Subcutaneous heparin Past Medical History Past Medical History: Heart Failure, COPD, Pneumonia, Renal Disease, Skin Disorder, Sleep Apnea/CPAP/BIPAP Additional Past Medical History / Comment(s): DIVERTICULITIS, "THALASSEMIA MINOR", see Dr Cullen H&P, edema christiano lower legs, no cpap used, loose stools, psoriasis, History of Any Multi-Drug Resistant Organisms: None Reported Past Surgical History: AICD, Heart Catheterization, Orthopedic Surgery, Tonsillectomy Additional Past Surgical History / Comment(s): LT HAND 4TH DIGIT REPAIR, LT MASTOID SX AGE 3, AICD placement Past Anesthesia/Blood Transfusion Reactions: No Reported Reaction Type of Cardiac Device: AICD Device Placement Date:: 07/26/17 [employer] Past Psychological History: No Psychological Hx Reported Additional Psychological History / Comment(s): "Some demenita" per spouse Smoking Status: Former smoker Past Alcohol Use History: Rare Additional Past Alcohol Use History / Comment(s): STARTED SMOKING AT AGE 12, DID QUIT FOR 12 YEARS BUT RESTARTED IN 2012, quit smoking 2019 Past Drug Use History: None Reported - Past Family History Father Family Medical History: Cancer Additional Family Medical History / Comment(s): SKIN CANCER Medications and Allergies Home Medications Medication Instructions Recorded Confirmed Type Apixaban [Eliquis] 5 mg PO BID #60 tab 02/10/17 05/30/21 Rx Allopurinol [Zyloprim] 200 mg PO DAILY 11/08/20 05/30/21 History Divalproex Sodium [Depakote] 500 mg PO HS 11/08/20 05/30/21 History Ergocalciferol [Vitamin D2 (1250 1,250 mcg PO Q30D 11/08/20 05/30/21 History Mcg = 21681 Iu)] Ferrous Sulfate [Iron] 325 mg PO DAILY 11/08/20 05/30/21 History calcitrioL [Rocaltrol] 0.25 mcg PO DAILY 11/08/20 05/30/21 History Folic Acid 1 mg PO DAILY 11/11/20 05/30/21 History Atorvastatin [Lipitor] 40 mg PO HS 05/09/21 05/30/21 History Budesonide [Pulmicort] 0.5 mg INHALATION RT-BID 05/09/21 05/30/21 History Carvedilol [Coreg] 6.25 mg PO BID-W/MEALS 05/09/21 05/30/21 History Fluticasone Nasal [place] [Flonase 2 spray EA NOSTRIL DAILY 05/09/21 05/30/21 History Nasal [place]] Ipratropium-Albuterol Nebulize 3 ml INHALATION RT-QID 05/09/21 05/30/21 History [Duoneb 0.5 mg-3 mg/3 ml Soln] Levothyroxine Sodium [Synthroid] 75 mcg PO DAILY 05/09/21 05/30/21 History risperiDONE [RisperDAL] 0.5 mg PO HS 05/09/21 05/30/21 History Potassium Chloride ER [K-Dur 10] 10 meq PO DAILY #30 tab 05/13/21 05/30/21 Rx Zinc Sulfate [Orazinc] 220 mg PO DAILY cap 05/13/21 05/30/21 Rx Calcium Carb-Vit D 500Mg-5Mcg 1 tab PO BID-W/MEALS 05/30/21 05/30/21 History [Oscal 500+D 5 Mcg (200 Iu)] Torsemide [Demadex] 40 mg PO DAILY 05/30/21 05/30/21 History Allergies Allergy/AdvReac Type Severity Reaction Status Date / Time Latex, Natural Rubber Allergy Rash/Hives Verified 05/30/21 19:25 shellfish derived [Shellfish] Allergy SWELLING Verified 05/30/21 19:25 AND VOMITING shrimp Allergy Swelling Verified 05/30/21 19:25 sulfamethoxazole Allergy Rash/Hives Verified 05/30/21 19:25 [From Bactrim] trimethoprim [From Bactrim] Allergy Rash/Hives Verified 05/30/21 19:25 Physical Exam Vitals: Vital Signs Temp Pulse Pulse Resp BP BP Pulse Ox 05/31/21 09:34 97.6 F 98 24 182/96 98 05/31/21 07:03 98.0 F 79 18 151/73 100 05/31/21 02:00 97.6 F 75 17 159/77 100 05/30/21 22:00 97.3 F L 80 19 175/94 92 L 05/30/21 20:30 97.6 F 72 18 145/87 100 05/30/21 20:11 79 18 151/83 100 05/30/21 19:16 79 18 145/81 100 05/30/21 19:08 78 18 145/81 100 05/30/21 17:33 97.6 F 76 22 128/70 98 Intake and Output 05/30/21 05/31/21 05/31/21 22:59 06:59 14:59 Output Total 600 250 Balance -600 -250 Output: Urine 600 250 Other: # Voids 2 Weight 97.522 kg Results CBC & Chem 7: 05/30/21 17:46 05/30/21 17:46 Labs: Abnormal Lab Results - Last 24 Hours (Table) 05/30/21 05/30/21 05/30/21 Range/Units 17:46 17:46 17:46 WBC 15.5 H (3.8-10.6) k/uL Hgb 10.4 L (13.0-17.5) gm/dL Hct 34.3 L (39.0-53.0) % MCV 64.0 L (80.0-100.0) fL MCH 19.4 L (25.0-35.0) pg MCHC 30.4 L (31.0-37.0) g/dL RDW 22.3 H (11.5-15.5) % Plt Count 135 L (150-450) k/uL Neutrophils # 13.1 H (1.3-7.7) k/uL Sodium 136 L (137-145) mmol/L BUN 57 H (9-20) mg/dL Creatinine 1.76 H (0.66-1.25) mg/dL Glucose 142 H (74-99) mg/dL Total Bilirubin 1.7 H (0.2-1.3) mg/dL Total Protein 5.8 L (6.3-8.2) g/dL Coronavirus (PCR) Detected A (Not Detectd) Thrombosis Risk Factor Assmnt - Choose All That Apply Any of the Below Risk Factors Present?: Yes Each Risk Factor Represents 2 Points: Age 61-74 years Thrombosis Risk Factor Assessment Total Risk Factor Score: 2 Thrombosis Risk Factor Assessment Level: Low Risk
[2021-05-31] MEDS: FAMOTIDINE 20 MG TAB PO SCH ×2 (13:55→19:57)
[2021-05-31 16:35] LABS: Glucose,Whole Blood 186 mg/dL (75-99)
[2021-05-31] MEDS: carvediloL 6.25 MG TAB PO SCH (16:53)
[2021-05-31] MEDS: INSULIN ASPART (NovoLOG) 100 UNIT/ML VIAL SQ SCH ×2 (16:53→22:34)
[2021-05-31] MEDS: HEPARIN SODIUM,PORCINE/PF 5,000 UNIT/0.5 ML SYRINGE SQ SCH ×2 (16:54→22:34)
[2021-05-31] MEDS: ATORVASTATIN 40 MG TAB PO SCH (19:57)
[2021-05-31] MEDS: risperiDONE 0.5 MG TAB PO SCH (19:57)
[2021-05-31] MEDS: APIXABAN 5 MG TAB PO SCH (19:58)
[2021-05-31] MEDS: DIVALPROEX 500 MG TABLET.DR PO SCH (19:58)
[2021-05-31] MEDS ORDERED: BUDESONIDE 0.5 MG/2 ML NEBU INHALATION SCH (20:00)
[2021-05-31 20:14] LABS: Glucose,Whole Blood 143 mg/dL (75-99)
[2021-05-31] MEDS ORDERED: FUROSEMIDE 10 MG/ML 2 ML VIAL IV ONE (20:42)
[2021-05-31] MEDS: DOXYCYCLINE 100 MG CAP PO SCH (20:50)
[2021-05-31] MEDS: QUEtiapine 25 MG TAB PO SCH (22:34)
[2021-06-01] MEDS: LEVOTHYROXINE 75 MCG TAB PO SCH (05:30)
[2021-06-01] MEDS: methylPREDNISolone SOD SUCCI 40 MG/ML 1 ML VIAL IV SCH (05:31)
[2021-06-01 07:04] LABS: Glucose,Whole Blood 140 mg/dL (75-99)
[2021-06-01] MEDS: INSULIN ASPART (NovoLOG) 100 UNIT/ML VIAL SQ SCH ×3 (08:33→21:29)
[2021-06-01] MEDS: FERROUS SULFATE 325 MG TAB PO SCH (08:47)
[2021-06-01] MEDS: TORSEMIDE 20 MG TAB PO SCH (08:47)
[2021-06-01] MEDS: DOXYCYCLINE 100 MG CAP PO SCH ×2 (08:47→21:26)
[2021-06-01] MEDS: allopurinoL 100 MG TAB PO SCH (08:47)
[2021-06-01] MEDS: carvediloL 6.25 MG TAB PO SCH ×2 (08:47→16:50)
[2021-06-01] MEDS: HEPARIN SODIUM,PORCINE/PF 5,000 UNIT/0.5 ML SYRINGE SQ SCH ×2 (08:47→15:29)
[2021-06-01] MEDS: FLUTICASONE 50MCG/SPRAY NASAL 16GM EA NOSTRIL SCH ×2 (08:48→08:51)
[2021-06-01] MEDS: FAMOTIDINE 20 MG TAB PO SCH (08:48)
[2021-06-01] MEDS: POTASSIUM CHLORIDE ER 10 MEQ TAB.ER.PRT PO SCH (08:48)
[2021-06-01] MEDS: APIXABAN 5 MG TAB PO SCH ×2 (08:48→21:26)
[2021-06-01] MEDS: FOLIC ACID 1 MG TAB PO SCH (08:48)
[2021-06-01 09:23] LABS: African American GFR (CKD) 42.2 (60.0-200.0); Anion Gap 11.2 mmol/L (10.00-18.00); BUN/Creat Ratio 22.62 Ratio (12.00-20.00); Blood Urea Nitrogen 42.3 mg/dL (9.0-27.0); Carbon Dioxide 25.3 mmol/L (20.0-27.5); Magnesium 2.2 mg/dL (1.5-2.4); Non-African American GFR(CKD) 36.4 (60.0-200.0); Potassium 4.5 mmol/L (3.5-5.5)
[2021-06-01 09:35] LABS: Anisocytosis (M) 2+; Elliptocytes 2+; HCT 27.8 % (39.6-50.0); HGB 8.3 g/dL (13.0-17.0); MCH 18.9 pg (27.0-32.0); MCHC 29.9 g/dL (32.0-37.0); MCV 63.5 fL (80.0-97.0); Microcytosis (M) 2+; NRBC Per 100 WBC 1.1 /100 WBCS (0.0-0.0); Platelet Count 142 X 10*3/uL (140-440); RBC 4.38 X 10*6/uL (4.40-5.60); Schistocytes 1+
--- NOTE | 2021-06-01 10:11 | P.PN ---
Subjective 65-year-old male was a sent in from a [facility]dc because of increasing shortness of breath patient was a discharge from the hospital recently after he was treated for COVID-19 pneumonia at that time patient was discharged on oxygen patient is presently on 2 L of oxygen saturating well although patient is wheezing patient in COPD exacerbation chest x-ray showed some atelectasis patient does have leukocytosis but no fever. Patient was started on broad- spectrum antibiotics. Cefepime and Vanco mycin will discuss reviewed as there is no evidence of pneumonia and patient will be started on doxycycline and sputum cultures will be obtained. 06/01/2021 Patient has a significant improvement in respiratory status presyncope to resolved patient will be switched to oral prednisone continue with doxycycline. Physical therapy and occupational therapy will be consulted patient may need to go back to subacute rehabilitation again. Patient is presently on 2 L of oxygen saturating at 99%.Received lasix yesterday Constitutional: Denied any fatigue denied any fever. Cardio vascular: denied any chest pain, palpitations Gastrointestinal denied any nausea vomiting Pulmonary: Denied any shortness of breath cough Neurologic denied any new focal deficits All inpatient medications were reviewed and appropriate changes in these medications as dictated in the interval history and assessment and plan. PHYSICAL EXAMINATION: GENERAL: The patient is alert and oriented x3, not in any acute distress. Well developed, well nourished. HEENT: Pupils are round and equally reacting to light. EOMI. No scleral icterus. No conjunctival pallor. Normocephalic, atraumatic. No pharyngeal erythema. No thyromegaly. CARDIOVASCULAR: S1 and S2 present. No murmurs, rubs, or gallops. PULMONARY: no wheezing on exam ABDOMEN: Soft, nontender, nondistended, normoactive bowel sounds. No palpable organomegaly. MUSCULOSKELETAL: No joint swelling or deformity. EXTREMITIES: No cyanosis, clubbing, or pedal edema. NEUROLOGICAL: Gross neurological examination did not reveal any focal deficits. SKIN: No rashes. Assessment and plan -Acute hypoxic respiratory failure: Secondary to COPD exacerbation as well as pneumonia patient was started on doxycycline along with GI prophylaxis systemic steroids and inhalational treatments. Thing his recent COVID-19 pneumonia patient will benefit from my doxycycline as doxycycline does cover Staphylococcus including MRSA as well. -Congestive heart failure chronic systolic dysfunction EF of around 20-20% patient is presently euvolemic, patient will be resumed on home dose of diuretics the next and-chronic and disease stage III baseline creatinine is around 1.8-2 secondary to hypertensive nephrosclerosis hypertension -hyperlipidemia -Chronic anemia and thalassemia minor which his hemoglobin is stable at this time -Leukocytosis reactive PT and OT eval DVT prophylaxis: Subcutaneous heparin Objective - Vital Signs Vital signs: Vital Signs Temp 98.4 F 06/01/21 06:14 Pulse 82 06/01/21 06:14 Resp 19 06/01/21 06:14 BP 142/73 06/01/21 06:14 Pulse Ox 99 06/01/21 06:14 Intake & Output 05/31/21 06/01/21 06/01/21 18:59 06:59 18:59 Intake Total 296 Output Total 250 850 Balance 46 -850 Intake: Oral 296 Output: Urine 250 850 Other: Voiding Method Urinal # Voids 2 5 # Bowel Movements 1 1 - Labs CBC & Chem 7: 06/01/21 05:02 06/01/21 05:02 Labs: Abnormal Lab Results - Last 24 Hours (Table) 05/31/21 05/31/21 06/01/21 Range/Units 16:34 20:04 05:02 RBC 4.38 L (4.40-5.60) X 10*6/uL Hgb 8.3 L (13.0-17.0) g/dL Hct 27.8 L (39.6-50.0) % MCV 63.5 L (80.0-97.0) fL MCH 18.9 L (27.0-32.0) pg MCHC 29.9 L (32.0-37.0) g/dL RDW 24.0 H (11.5-14.5) % Absolute Nucleated RBC 0.08 H (0.00-0.00) X 10*3/uL NRBC/100 WBC Diff 1.1 H (0.0-0.0) /100 WBCS BUN (9.0-27.0) mg/dL Creatinine (0.6-1.5) mg/dL Est GFR (CKD-EPI)AfAm (60.0-200.0) Est GFR (CKD-EPI)NonAf (60.0-200.0) BUN/Creatinine Ratio (12.00-20.00) Ratio Glucose (70-110) mg/dL POC Glucose (mg/dL) 186 H 143 H (75-99) mg/dL Calcium (8.7-10.3) mg/dL 06/01/21 06/01/21 Range/Units 05:02 07:03 RBC (4.40-5.60) X 10*6/uL Hgb (13.0-17.0) g/dL Hct (39.6-50.0) % MCV (80.0-97.0) fL MCH (27.0-32.0) pg MCHC (32.0-37.0) g/dL RDW (11.5-14.5) % Absolute Nucleated RBC (0.00-0.00) X 10*3/uL NRBC/100 WBC Diff (0.0-0.0) /100 WBCS BUN 42.3 H (9.0-27.0) mg/dL Creatinine 1.9 H (0.6-1.5) mg/dL Est GFR (CKD-EPI)AfAm 42.2 L (60.0-200.0) Est GFR (CKD-EPI)NonAf 36.4 L (60.0-200.0) BUN/Creatinine Ratio 22.62 H (12.00-20.00) Ratio Glucose 147 H (70-110) mg/dL POC Glucose (mg/dL) 140 H (75-99) mg/dL Calcium 8.0 L (8.7-10.3) mg/dL Microbiology - Last 24 Hours (Table) 05/30/21 19:59 Blood Culture - Preliminary Blood No Growth after 24 hours 05/30/21 19:59 Blood Culture - Preliminary Blood No Growth after 24 hours
[2021-06-01] MEDS: ALBUTEROL HFA INHALER INHALATION SCH ×3 (11:48→16:14)
[2021-06-01 11:50] LABS: Glucose,Whole Blood 191 mg/dL (75-99)
[2021-06-01] MEDS: TIOTROPIUM 2.5 MCG INHALER INHALATION SCH (12:00)
[2021-06-01] MEDS: predniSONE 20 MG TAB PO SCH (12:14)
[2021-06-01 16:42] LABS: Glucose,Whole Blood 386 mg/dL (75-99)
[2021-06-01 21:16] LABS: Glucose,Whole Blood 162 mg/dL (75-99)
[2021-06-01] MEDS: ATORVASTATIN 40 MG TAB PO SCH (21:26)
[2021-06-01] MEDS: risperiDONE 0.5 MG TAB PO SCH (21:26)
[2021-06-01] MEDS: DIVALPROEX 500 MG TABLET.DR PO SCH (21:26)
[2021-06-01] MEDS: QUEtiapine 25 MG TAB PO SCH (21:27)
[2021-06-02] MEDS: HEPARIN SODIUM,PORCINE/PF 5,000 UNIT/0.5 ML SYRINGE SQ SCH ×4 (00:39→23:01)
[2021-06-02] MEDS: ALBUTEROL HFA INHALER INHALATION SCH ×5 (02:18→20:55)
[2021-06-02] MEDS: LEVOTHYROXINE 75 MCG TAB PO SCH (05:52)
[2021-06-02 07:31] LABS: Glucose,Whole Blood 109 mg/dL (75-99)
[2021-06-02] MEDS: FOLIC ACID 1 MG TAB PO SCH (08:30)
[2021-06-02] MEDS: POTASSIUM CHLORIDE ER 10 MEQ TAB.ER.PRT PO SCH (08:30)
[2021-06-02] MEDS: FERROUS SULFATE 325 MG TAB PO SCH (08:30)
[2021-06-02] MEDS: FAMOTIDINE 20 MG TAB PO SCH (08:30)
[2021-06-02] MEDS: carvediloL 6.25 MG TAB PO SCH ×2 (08:30→16:51)
[2021-06-02] MEDS: predniSONE 20 MG TAB PO SCH (08:30)
[2021-06-02] MEDS: APIXABAN 5 MG TAB PO SCH ×2 (08:30→20:09)
[2021-06-02] MEDS: allopurinoL 100 MG TAB PO SCH (08:30)
[2021-06-02] MEDS: TORSEMIDE 20 MG TAB PO SCH (08:31)
[2021-06-02] MEDS: DOXYCYCLINE 100 MG CAP PO SCH ×2 (08:31→20:09)
[2021-06-02] MEDS: TIOTROPIUM 2.5 MCG INHALER INHALATION SCH (09:01)
[2021-06-02 09:10] LABS: African American GFR (CKD) 42.2 (60.0-200.0); BUN/Creat Ratio 26.26 Ratio (12.00-20.00); Blood Urea Nitrogen 49.1 mg/dL (9.0-27.0); Calcium 8.2 mg/dL (8.7-10.3); Carbon Dioxide 23.7 mmol/L (20.0-27.5); Non-African American GFR(CKD) 36.4 (60.0-200.0); Potassium 4.2 mmol/L (3.5-5.5)
[2021-06-02] MEDS: INSULIN ASPART (NovoLOG) 100 UNIT/ML VIAL SQ SCH ×4 (10:41→20:09)
[2021-06-02 11:02] LABS: Glucose,Whole Blood 184 mg/dL (75-99)
--- NOTE | 2021-06-02 12:59 | CDI ---
his recent COVID 19 pneumonia is documented 06/01, H&P. Additional clarification regarding the type of pneumonia is requested. History/Risk Factors: 65-year-old male presents via EMS from [facility] for increasing shortness of breath. Patient was recently discharged from the hospital after being treated for COVID 19 pneumonia. Medical History: CHF, COPD, Pneumonia and Sleep Apnea. H&P, 05/31. Clinical Indicators: Secondary to COPD exacerbation as well as pneumonia patient was started on doxycycline along with GI prophylaxis systemic steroids and inhalational treatments. His recent COVID-19 pneumonia patient will benefit from my doxycycline as doxycycline does cover Staphylococcus including MRSA as well. H&P, 05/31. WBC/Left shift: CXR 05/30: Mild interstitial infiltrate left lower lobe is the same or slightly improved compared to old exam. Lung/Breathing assessment: H&P, 05/31 Bilateral rhonchi and a significant expiratory wheezing on exam. Treatment: 06/01 to current Prednisone 40mg PO Daily. Antibiotics: 05/30 dc 05/31 Cefepime Hcl 2gm IVPB Q8H; 05/31 to current Vibramycin 100mg PO BID, 05/30 Vancomycin 1,500mg IVPB x 1; 05/31 d/c 05/31 Vancomycin 1,500mg IVPB Q24H. O2; 2L nasal cannula Breathing Tx: 05/31 Ventolin HFA Inhaler 2 puff inhalation rt QID JERI and PRN; Please clarify the type of pneumonia, if known: [ ] Gram Negative Bacterial Pneumonia [ ] Bacterial Pneumonia MRSA [ ] Bacterial Pneumonia Due to Staph [ ] Other bacteria (please specify) [ ] Other, please specify [ ] Unable to determine (Template Last Revised: June 2020) I clearly documented there is no pneumonia patient doesn't have pneumonia MTDD
[2021-06-02 13:06] LABS: HCT 31.2 % (39.6-50.0); HGB 9.1 g/dL (13.0-17.0); MCHC 29.2 g/dL (32.0-37.0); NRBC Per 100 WBC 2.4 /100 WBCS (0.0-0.0); Platelet Count 108 X 10*3/uL (140-440); RDW 24.6 % (11.5-14.5); WBC 9.77 X 10*3/uL (4.50-10.00)
--- NOTE | 2021-06-02 13:07 | CDI ---
Documentation Clarification Form Date: 06/02/2021 01:01:00 PM From: Jaja Marie RN CCDS Admit Date: 06/02/2021 09:35:00 AM Patient Name: Justo Bustillo Visit Number: [id number] Discharge Date: ATTENTION: The Clinical Documentation Specialists (CDI) and [facility] Coding Staff appreciate your assistance in clarifying documentation. Please respond to the clarification below the line at the bottom and electronically sign. The CDI & [facility] Coding staff will review the response and follow-up if needed. Please note: Queries are made part of the Legal Health Record. If you have any questions, please contact the author of this message via ITS. Dr. Espinoza Acuña The COVID-19 test obtained on 05/30 was reported as Positive. Additional clarification is requested. History/Risk Factors: 65-year-old male presents via EMS from [facility] for increasing shortness of breath. Patient was recently discharged from the hospital after being treated for COVID 19 pneumonia. Medical History: CHF, COPD, Pneumonia and Sleep Apnea. H&P, 2. Clinical Indicators: Clinical Indicators: Secondary to COPD exacerbation as well as pneumonia patient was started on doxycycline along with GI prophylaxis systemic steroids and inhalational treatments. His recent COVID-19 pneumonia patient will benefit from my doxycycline as doxycycline does cover Staphylococcus including MRSA as well. H&P, 2. WBC/Left shift: CXR 05/30: Mild interstitial infiltrate left lower lobe is the same or slightly improved compared to old exam. Lung/Breathing assessment: H&P, 2/5 Bilateral rhonchi and a significant expiratory wheezing on exam. Treatment: Clinical Indicators: Secondary to COPD exacerbation as well as pneumonia patient was started on doxycycline along with GI prophylaxis systemic steroids and inhalational treatments. His recent COVID-19 pneumonia patient will benefit from my doxycycline as doxycycline does cover Staphylococcus including MRSA as well. H&P, 2. WBC/Left shift: CXR 05/30: Mild interstitial infiltrate left lower lobe is the same or slightly improved compared to old exam. Lung/Breathing assessment: H&P, 2/5 Bilateral rhonchi and a significant expiratory wheezing on exam. Treatment: 06/01 to current Prednisone 40mg PO Daily. Antibiotics: 05/30 dc 05/31 Cefepime Hcl 2gm IVPB Q8H; 2/5 to current Vibramycin 100mg PO BID, 05/30 Vancomycin 1,500mg IVPB x 1; 05/31 d/c 05/31 Vancomycin 1,500mg IVPB Q24H. O2; 2L nasal cannula Breathing Tx: 05/31 Ventolin HFA Inhaler 2 puff inhalation rt QID JERI and PRN; Can you please clarify the positive COVID 19 test is? [ ] A current active infection [ x ] History of recent infection [ ] Other, please specify [ ] Unable to determine (Template Last Revised: June 2020) MTDD
[2021-06-02 14:24] VITALS: BMI 27.6
--- NOTE | 2021-06-02 16:01 | P.PN ---
Subjective Progress Note Date: 06/02/21 65-year-old male was a sent in from a alf because of increasing shortness of breath patient was a discharge from the hospital recently after he was treated for COVID-19 pneumonia at that time patient was discharged on oxygen patient is presently on 2 L of oxygen saturating well although patient is wheezing patient in COPD exacerbation chest x-ray showed some atelectasis patient does have leukocytosis but no fever. Patient was started on broad- spectrum antibiotics. Cefepime and Vanco mycin will discuss reviewed as there is no evidence of pneumonia and patient will be started on doxycycline and sputum cultures will be obtained. 06/01/2021 Patient has a significant improvement in respiratory status presyncope to resolved patient will be switched to oral prednisone continue with doxycycline. Physical therapy and occupational therapy will be consulted patient may need to go back to subacute rehabilitation again. Patient is presently on 2 L of oxygen saturating at 99%.Received lasix yesterday 06/02/2021 Patient is seen and evaluated in follow-up this morning currently sitting up in the chair after working with physical therapy. Per nursing he did well with therapy follow continues to be significantly weak. Patient is currently maintained on 2 L of oxygen and has in the outpatient setting and sounds diminished on exam and will switch oral steroids back to IV steroids and monitor for another 24 hours. Encouraged increase activity as tolerated along with continuing to cough and deep breathe. Continue with oral doxycycline. Patient denies worsening shortness of breath or chest pain. Patient is afebrile. Labs: WBC is 9.77, hemoglobin is 9.1, platelets are 108, sodium is 140, potassium 4.2, BUN is 49.1, creatinine is 1.9, calcium is 8.2 Review of systems: Constitutional: Denied any fatigue denied any fever. Cardio vascular: denied any chest pain, palpitations Gastrointestinal denied any nausea vomiting Pulmonary: Denied any worsening shortness of breath or cough Neurologic denied any new focal deficits All inpatient medications were reviewed and appropriate changes in these medications as dictated in the interval history and assessment and plan. Active Medications Albuterol Sulfate (Albuterol Hfa Inhaler) 2 puff INHALATION RT-QID [facility] Last Admin: 06/02/21 13:02 Dose: 2 puff Documented by: Allopurinol (Allopurinol 100 Mg Tab) 200 mg PO DAILY [facility] Last Admin: 06/02/21 08:30 Dose: 200 mg Documented by: Apixaban (Apixaban 5 Mg Tab) 5 mg PO BID [facility]; Protocol Last Admin: 06/02/21 08:30 Dose: 5 mg Documented by: Atorvastatin Calcium (Atorvastatin 40 Mg Tab) 40 mg PO [facility] Last Admin: 06/01/21 21:26 Dose: 40 mg Documented by: Calcitriol (Calcitriol 0.25 Mcg Cap) 0.25 mcg PO DAILY [facility] Last Admin: 06/02/21 08:31 Dose: 0.25 mcg Documented by: Carvedilol (Carvedilol 6.25 Mg Tab) 6.25 mg PO BID-W/MEALS [facility] Last Admin: 06/02/21 08:30 Dose: 6.25 mg Documented by: Divalproex Sodium (Divalproex 500 Mg Tablet.Dr) 500 mg PO [facility] Last Admin: 06/01/21 21:26 Dose: 500 mg Documented by: Doxycycline Monohydrate (Doxycycline 100 Mg Cap) 100 mg PO BID [facility] Last Admin: 06/02/21 08:31 Dose: 100 mg Documented by: Ergocalciferol (Ergocalciferol 1,250 Mcg (50,000 Iu) Capsule) 1,250 mcg PO Q30D [facility] Famotidine (Famotidine 20 Mg Tab) 20 mg PO DAILY [facility] Last Admin: 06/02/21 08:30 Dose: 20 mg Documented by: Ferrous Sulfate (Ferrous Sulfate 325 Mg Tab) 325 mg PO DAILY [facility] Last Admin: 06/02/21 08:30 Dose: 325 mg Documented by: Fluticasone Propionate (Fluticasone 50mcg/[place] Nasal 16gm) 2 spray EA NOSTRIL DAILY [facility] Last Admin: 06/01/21 08:51 Dose: 2 spray Documented by: Folic Acid (Folic Acid 1 Mg Tab) 1 mg PO DAILY [facility] Last Admin: 06/02/21 08:30 Dose: 1 mg Documented by: Heparin Sodium (Porcine) (Heparin Sodium,Porcine/Pf 5,000 Unit/0.5 Ml Syringe) 5,000 unit SQ Q8HR [facility] Last Admin: 06/02/21 08:29 Dose: 5,000 unit Documented by: Insulin Aspart (Insulin Aspart (Novolog) 100 Unit/Ml Vial) 0 unit SQ ACHS [facility]; Protocol Last Admin: 06/02/21 11:44 Dose: 2 unit Documented by: Levothyroxine Sodium (Levothyroxine 75 Mcg Tab) 75 mcg PO DAILY@0630 [facility] Last Admin: 06/02/21 05:52 Dose: 75 mcg Documented by: Methylprednisolone Sodium Succinate (Methylprednisolone Sod Succi 40 Mg/Ml 1 Ml Vial) 40 mg IV Q12HR [facility] Miscellaneous Information (Pneumonia Protocol Utilized 1 Each [facility]) 1 each PO ONCE PRN PRN Reason: Per Protocol Potassium Chloride (Potassium Chloride Er 10 Meq Tab.Er.Prt) 10 meq PO DAILY [facility] Last Admin: 06/02/21 08:30 Dose: 10 meq Documented by: Prednisone (Prednisone 20 Mg Tab) 40 mg PO DAILY [facility] Last Admin: 06/02/21 08:30 Dose: 40 mg Documented by: Quetiapine Fumarate (Quetiapine 25 Mg Tab) 25 mg PO [facility] Last Admin: 06/01/21 21:27 Dose: Not Given Documented by: Risperidone (Risperidone 0.5 Mg Tab) 0.5 mg PO [facility] Last Admin: 06/01/21 21:26 Dose: 0.5 mg Documented by: Tiotropium [place] (Tiotropium 2.5 Mcg Inhaler) 2 puff INHALATION RT-DAILY [facility] Last Admin: 06/02/21 09:01 Dose: 2 puff Documented by: Torsemide (Torsemide 20 Mg Tab) 40 mg PO DAILY [facility] Last Admin: 06/02/21 08:31 Dose: 40 mg Documented by: PHYSICAL EXAMINATION: GENERAL: The patient is alert and oriented x3, not in any acute distress. Well developed, well nourished. HEENT: Pupils are round and equally reacting to light. EOMI. No scleral icterus. No conjunctival pallor. Normocephalic, atraumatic. No pharyngeal erythema. No thyromegaly. CARDIOVASCULAR: S1 and S2 present. No murmurs, rubs, or gallops. PULMONARY: no wheezing on exam, diminished breath sounds bilaterally ABDOMEN: Soft, non-tender, non-distended, normoactive bowel sounds. No palpable organomegaly. MUSCULOSKELETAL: No joint swelling or deformity. EXTREMITIES: No cyanosis, clubbing, or pedal edema. NEUROLOGICAL: Gross neurological examination did not reveal any focal deficits. SKIN: No rashes. Assessment and plan: -Acute hypoxic respiratory failure: Secondary to COPD exacerbation, continue on doxycycline along with GI prophylaxis systemic steroids and inhalational treatments. Given his recent COVID-19 pneumonia patient will benefit from my doxycycline as doxycycline does cover Staphylococcus including MRSA as well. -History of recent COVID-19 infection -Congestive heart failure chronic systolic dysfunction EF of around 20-25% patient is presently euvolemic, continue Demadex -Chronic kidney disease stage III baseline creatinine is around 1.8-2 secondary to hypertensive nephrosclerosis -hypertension -hyperlipidemia -Generalized weakness -Chronic anemia and thalassemia minor which his hemoglobin is stable at this time -Leukocytosis reactive -DVT prophylaxis: Subcutaneous heparin -Full code Plan: Recommend continue with current medications. Patient working with physical therapy today and apparently did well although continues with weakness and arranging for home care as patient will be going home with his on discharg e. Patient continues on 2 L via nasal cannula and will continue. Will adjust steroids and continued IV steroids for another 24 hours with possible discharge in 24-48 hours. Objective - Vital Signs Vital signs: Vital Signs Temp 97.5 F L 06/02/21 10:46 Pulse 91 06/02/21 10:46 Resp 16 06/02/21 10:46 BP 150/80 06/02/21 10:46 Pulse Ox 98 06/02/21 10:46 Intake & Output 06/01/21 06/02/21 06/02/21 18:59 06:59 18:59 Intake Total 800 Output Total 700 700 Balance -700 100 Weight 97.522 kg Intake: Oral 800 Output: Urine 700 700 Other: Voiding Method Urinal Urinal # Voids 3 - Labs CBC & Chem 7: 06/02/21 05:11 06/02/21 05:11 Labs: Abnormal Lab Results - Last 24 Hours (Table) 06/01/21 06/01/21 06/02/21 Range/Units 16:40 21:14 05:11 Hgb 9.1 L (13.0-17.0) g/dL Hct 31.2 L (39.6-50.0) % MCV 65.0 L (80.0-97.0) fL MCH 19.0 L (27.0-32.0) pg MCHC 29.2 L (32.0-37.0) g/dL RDW 24.6 H (11.5-14.5) % Plt Count 108 L (140-440) X 10*3/uL Absolute Nucleated RBC 0.23 H (0.00-0.00) X 10*3/uL NRBC/100 WBC Diff 2.4 H (0.0-0.0) /100 WBCS BUN (9.0-27.0) mg/dL Creatinine (0.6-1.5) mg/dL Est GFR (CKD-EPI)AfAm (60.0-200.0) Est GFR (CKD-EPI)NonAf (60.0-200.0) BUN/Creatinine Ratio (12.00-20.00) Ratio Glucose (70-110) mg/dL POC Glucose (mg/dL) 386 H 162 H (75-99) mg/dL Calcium (8.7-10.3) mg/dL 06/02/21 06/02/21 06/02/21 Range/Units 05:11 07:30 11:01 Hgb (13.0-17.0) g/dL Hct (39.6-50.0) % MCV (80.0-97.0) fL MCH (27.0-32.0) pg MCHC (32.0-37.0) g/dL RDW (11.5-14.5) % Plt Count (140-440) X 10*3/uL Absolute Nucleated RBC (0.00-0.00) X 10*3/uL NRBC/100 WBC Diff (0.0-0.0) /100 WBCS BUN 49.1 H (9.0-27.0) mg/dL Creatinine 1.9 H (0.6-1.5) mg/dL Est GFR (CKD-EPI)AfAm 42.2 L (60.0-200.0) Est GFR (CKD-EPI)NonAf 36.4 L (60.0-200.0) BUN/Creatinine Ratio 26.26 H (12.00-20.00) Ratio Glucose 130 H (70-110) mg/dL POC Glucose (mg/dL) 109 H 184 H (75-99) mg/dL Calcium 8.2 L (8.7-10.3) mg/dL Microbiology - Last 24 Hours (Table) 05/30/21 19:59 Blood Culture - Preliminary Blood No Growth after 48 hours 05/30/21 19:59 Blood Culture - Preliminary Blood No Growth after 48 hours
[2021-06-02 16:46] LABS: Glucose,Whole Blood 205 mg/dL (75-99)
[2021-06-02] MEDS: FLUTICASONE 50MCG/SPRAY NASAL 16GM EA NOSTRIL SCH (16:51)
[2021-06-02 20:07] LABS: Glucose,Whole Blood 201 mg/dL (75-99)
[2021-06-02] MEDS: QUEtiapine 25 MG TAB PO SCH (20:09)
[2021-06-02] MEDS: risperiDONE 0.5 MG TAB PO SCH (20:09)
[2021-06-02] MEDS: DIVALPROEX 500 MG TABLET.DR PO SCH (20:09)
[2021-06-02] MEDS: ATORVASTATIN 40 MG TAB PO SCH (20:09)
[2021-06-02] MEDS: methylPREDNISolone SOD SUCCI 40 MG/ML 1 ML VIAL IV SCH (20:09)
[2021-06-03] MEDS: LEVOTHYROXINE 75 MCG TAB PO SCH (05:50)
[2021-06-03 06:31] LABS: African American GFR (CKD) 43 (>60 ml/min/1.73 sqM); Anion Gap 7 mmol/L; Blood Urea Nitrogen 60 mg/dL (9-20); Calcium 8.5 mg/dL (8.4-10.2); Carbon Dioxide 27 mmol/L (22-30); Chloride 101 mmol/L (98-107); Glucose 229 mg/dL (74-99); Non-African American GFR(CKD) 37 (>60 ml/min/1.73 sqM); Potassium 4.1 mmol/L (3.5-5.1); Sodium 135 mmol/L (137-145)
[2021-06-03 06:50] LABS: Glucose,Whole Blood 275 mg/dL (75-99)
[2021-06-03] MEDS: carvediloL 6.25 MG TAB PO SCH ×2 (07:56→17:26)
[2021-06-03] MEDS: FERROUS SULFATE 325 MG TAB PO SCH (07:56)
[2021-06-03] MEDS: HEPARIN SODIUM,PORCINE/PF 5,000 UNIT/0.5 ML SYRINGE SQ SCH ×2 (07:56→17:26)
[2021-06-03] MEDS: allopurinoL 100 MG TAB PO SCH (07:56)
[2021-06-03] MEDS: FOLIC ACID 1 MG TAB PO SCH (07:57)
[2021-06-03] MEDS: FAMOTIDINE 20 MG TAB PO SCH (07:57)
[2021-06-03] MEDS: FLUTICASONE 50MCG/SPRAY NASAL 16GM EA NOSTRIL SCH (07:57)
[2021-06-03] MEDS: methylPREDNISolone SOD SUCCI 40 MG/ML 1 ML VIAL IV SCH (07:57)
[2021-06-03] MEDS: POTASSIUM CHLORIDE ER 10 MEQ TAB.ER.PRT PO SCH (07:57)
[2021-06-03] MEDS: APIXABAN 5 MG TAB PO SCH (07:57)
[2021-06-03] MEDS: INSULIN ASPART (NovoLOG) 100 UNIT/ML VIAL SQ SCH ×3 (07:58→18:18)
[2021-06-03] MEDS: DOXYCYCLINE 100 MG CAP PO SCH (07:59)
[2021-06-03] MEDS: TORSEMIDE 20 MG TAB PO SCH (08:00)
[2021-06-03] MEDS: ALBUTEROL HFA INHALER INHALATION SCH ×4 (08:54→19:03)
[2021-06-03] MEDS: TIOTROPIUM 2.5 MCG INHALER INHALATION SCH (08:54)
[2021-06-03 10:30] VITALS: BP 161/77; PULSE 80; RESP 17; TEMP 97.5
[2021-06-03 11:44] LABS: Glucose,Whole Blood 236 mg/dL (75-99)
--- NOTE | 2021-06-04 09:18 | P.DS ---
Providers Date of admission: 06/02/21 09:35 Expected date of discharge: 06/03/21 Attending physician: Lorin Todd Primary care physician: Mak Pruitt Hospital Course: Final diagnosis -Acute hypoxic respiratory failure: Secondary to COPD exacerbation -History of recent COVID-19 infection -Congestive heart failure chronic systolic dysfunction EF of around 20-25% -Chronic kidney disease stage III baseline creatinine is around 1.8-2 secondary to hypertensive nephrosclerosis -hypertension -hyperlipidemia -Generalized weakness -Chronic anemia and thalassemia minor -Leukocytosis reactive -DVT prophylaxis -Full code Discharge disposition Patient is being discharged in a stable condition with guarded prognosis to home with home care. Patient will follow-up with Dr. Pruitt upon discharge. Patient will continue with a short course of oral antibiotics in the form of doxycycline 100 mg twice daily for the next 5 days along with a prednisone taper and Pepcid. Total time taken is greater than 35 minutes. Hospital course This is a 65-year-old male who was recently admitted with increasing shortness of breath and recently admitted and discharged with prolonged hospitalization secondary to COVID-19 pneumonia and went to [facility] for continued weakness. Patient was not on oxygen in the outpatient setting and was admitted for further evaluation with COPD exacerbation and possible pneumonia although suspicion is low as patient was afebrile with mild leukocytosis. Patient was started on broad-spectrum antibiotics and switched to oral doxycycline and will continue twice daily for another 5 days to complete the course. Patient continued to be weak although working with physical therapy and reportedly doing well and will be going home with and Homecare in the outpatient setting. Discussion was had with the about overall treatment plan and patient's overall prognosis and she did discuss palliative versus hospice if patient continues to deteriorate. Case management following an patient provided with oxygen at 2 L via nasal cannula on discharge secondary to COPD. Patient does have a nebulizer in the home and instructed to continue with breathing treatments along with inhalers and will also continue a prednisone taper on discharge. Patient instructed to follow-up with primary care provider upon discharge. Currently no reports of chest pain, shortness of breath, or palpitations. Patient is afebrile. No reports of nausea or vomiting and patient is tolerating diet. Patient and family will further discuss palliative care in the outpatient setting. Guarded prognosis. PHYSICAL EXAMINATION: GENERAL: The patient is alert and oriented x3, not in any acute distress. Well developed, well nourished. HEENT: Pupils are round and equally reacting to light. EOMI. No scleral icterus. No conjunctival pallor. Normocephalic, atraumatic. No pharyngeal erythema. No thyromegaly. CARDIOVASCULAR: S1 and S2 present. No murmurs, rubs, or gallops. PULMONARY: no wheezing on exam, diminished breath sounds bilaterally ABDOMEN: Soft, non-tender, non-distended, normoactive bowel sounds. No palpable organomegaly. MUSCULOSKELETAL: No joint swelling or deformity. EXTREMITIES: No cyanosis, clubbing, or pedal edema. NEUROLOGICAL: Gross neurological examination did not reveal any focal deficits. SKIN: No rashes. Please refer to medication reconciliation sheet for a list of medications. Patient Condition at Discharge: Stable Plan - Discharge Summary Discharge Rx Participant: No New Discharge Prescriptions: New Famotidine [Pepcid] 20 mg PO DAILY #30 tab QUEtiapine [SEROquel] 25 mg PO HS 30 Days #30 tab predniSONE 10 mg PO DIRECTED #30 tab Albuterol Inhaler [Ventolin Hfa Inhaler] 2 puff INHALATION RT-QID PRN 30 Days #8 gm PRN Reason: Shortness Of Breath Doxycycline [Vibramycin] 100 mg PO BID 5 Days #10 cap Continue Apixaban [Eliquis] 5 mg PO BID #60 tab Ergocalciferol [Vitamin D2 (1250 Mcg = 63390 Iu)] 1,250 mcg PO Q30D calcitrioL [Rocaltrol] 0.25 mcg PO DAILY Carvedilol [Coreg] 6.25 mg PO BID-W/MEALS Levothyroxine Sodium [Synthroid] 75 mcg PO DAILY Ipratropium-Albuterol Nebulize [Duoneb 0.5 mg-3 mg/3 ml Soln] 3 ml INHALATION RT-QID Fluticasone Nasal [place] [Flonase Nasal [place]] 2 spray EA NOSTRIL DAILY Allopurinol [Zyloprim] 200 mg PO DAILY Ferrous Sulfate [Iron] 325 mg PO DAILY Divalproex Sodium [Depakote] 500 mg PO HS Folic Acid 1 mg PO DAILY risperiDONE [RisperDAL] 0.5 mg PO HS Atorvastatin [Lipitor] 40 mg PO HS Budesonide [Pulmicort] 0.5 mg INHALATION RT-BID Potassium Chloride ER [K-Dur 10] 10 meq PO DAILY #30 tab Calcium Carb-Vit D 500Mg-5Mcg [Oscal 500+D 5 Mcg (200 Iu)] 1 tab PO BID-W /MEALS Torsemide [Demadex] 40 mg PO DAILY Discontinued Zinc Sulfate [Orazinc] 220 mg PO DAILY cap Discharge Medication List Apixaban [Eliquis] 5 mg PO BID #60 tab 02/10/17 [Rx] Allopurinol [Zyloprim] 200 mg PO DAILY 11/08/20 [History] Divalproex Sodium [Depakote] 500 mg PO HS 11/08/20 [History] Ergocalciferol [Vitamin D2 (1250 Mcg = 36189 Iu)] 1,250 mcg PO Q30D 11/08/20 [History] Ferrous Sulfate [Iron] 325 mg PO DAILY 11/08/20 [History] calcitrioL [Rocaltrol] 0.25 mcg PO DAILY 11/08/20 [History] Folic Acid 1 mg PO DAILY 11/11/20 [History] Atorvastatin [Lipitor] 40 mg PO HS 05/09/21 [History] Budesonide [Pulmicort] 0.5 mg INHALATION RT-BID 05/09/21 [History] Carvedilol [Coreg] 6.25 mg PO BID-W/MEALS 05/09/21 [History] Fluticasone Nasal [place] [Flonase Nasal [place]] 2 spray EA NOSTRIL DAILY 05/09/21 [History] Ipratropium-Albuterol Nebulize [Duoneb 0.5 mg-3 mg/3 ml Soln] 3 ml INHALATION RT-QID 05/09/21 [History] Levothyroxine Sodium [Synthroid] 75 mcg PO DAILY 05/09/21 [History] risperiDONE [RisperDAL] 0.5 mg PO HS 05/09/21 [History] Potassium Chloride ER [K-Dur 10] 10 meq PO DAILY #30 tab 05/13/21 [Rx] Calcium Carb-Vit D 500Mg-5Mcg [Oscal 500+D 5 Mcg (200 Iu)] 1 tab PO BID-W/MEALS 05/30/21 [History] Torsemide [Demadex] 40 mg PO DAILY 05/30/21 [History] Albuterol Inhaler [Ventolin Hfa Inhaler] 2 puff INHALATION RT-QID PRN 30 Days #8 gm 06/03/21 [Rx] Doxycycline [Vibramycin] 100 mg PO BID 5 Days #10 cap 06/03/21 [Rx] Famotidine [Pepcid] 20 mg PO DAILY #30 tab 06/03/21 [Rx] QUEtiapine [SEROquel] 25 mg PO HS 30 Days #30 tab 06/03/21 [Rx] predniSONE 10 mg PO DIRECTED #30 tab 06/03/21 [Rx] Follow up Appointment(s)/Referral(s): [facility] [NON-STAFF] - As Needed (oxygen ) Care,[facility] [NON-STAFF] - As Needed Mak Pruitt DO [Primary Care Provider] - 1-2 days Patient Instructions/Handouts: Coronavirus Disease 2019 (COVID-19), Community Acquired Pneumonia (DC) Activity/Diet/Wound Care/Special Instructions: Activity Limited until follow-up Follow-up with primary care provider on discharge Continue current medications Continue antibiotics until finished and also prednisone taper Follow-up pulmonary outpatient Discuss possible palliative care Follow-up cardiology and pulmonary outpatient Continue heart healthy diet Discharge Disposition: HOME WITH HOME HEALTH SERVICES
[2021-06-09] MEDS ORDERED: ERGOCALCIFEROL 1,250 MCG (50,000 IU) CAPSULE PO SCH (09:00)
== END 2021-06-03 19:19 | disposition home health service (06) | DRG 190 ==
LOC: EC 17:26 → 4SSUR 19:37 → OBSVTOIN 06-02 09:35
PROVIDERS: ADMIT Hospitalist; ATTEND Hospitalist
PROC: 3E0F7SF Introduction of Other Gas into Respiratory Tract, Via Natural or Artificial Opening (ICD-10-PCS; principal; 2021-06-02)
DX: J44.1 Chronic obstructive pulmonary disease with (acute) exacerbation (principal); J96.01 Acute respiratory failure with hypoxia; I50.22 Chronic systolic (congestive) heart failure; I13.0 Hypertensive heart and chronic kidney disease with heart failure and stage 1 through stage 4 chronic kidney disease, or unspecified chronic kidney disease; J98.11 Atelectasis; Z20.822 Contact with and (suspected) exposure to COVID-19; F41.1 Generalized anxiety disorder; I25.10 Atherosclerotic heart disease of native coronary artery without angina pectoris; N18.30 Chronic kidney disease, stage 3 unspecified; E78.5 Hyperlipidemia, unspecified; F03.90 Unspecified dementia, unspecified severity, without behavioral disturbance, psychotic disturbance, mood disturbance, and anxiety; D64.9 Anemia, unspecified; F41.9 Anxiety disorder, unspecified; D56.3 Thalassemia minor; Z86.16 Personal history of COVID-19; Z87.01 Personal history of pneumonia (recurrent); Z79.01 Long term (current) use of anticoagulants; Z79.52 Long term (current) use of systemic steroids; Z79.890 Hormone replacement therapy; Z79.899 Other long term (current) drug therapy; Z80.8 Family history of malignant neoplasm of other organs or systems; Z87.891 Personal history of nicotine dependence; Z95.810 Presence of automatic (implantable) cardiac defibrillator; Z87.19 Personal history of other diseases of the digestive system; Z88.2 Allergy status to sulfonamides; Z91.040 Latex allergy status; Z91.013 Allergy to seafood; Z88.8 Allergy status to other drugs, medicaments and biological substances
CPT/HCPCS: 36415; 71045; 80048; 80053; 83735; 83880; 84484; 85025; 85027; 87040; 87635; 93005; 94640

== ENCOUNTER → 2021-12-19 | Outpatient (CLI) | payer MEDICARE ==
--- NOTE | 2021-12-19 21:04 | XR ---
EXAMINATION TYPE: XR chest 2V DATE OF EXAM: 12/19/2021 5:04 PM COMPARISON: Chest radiographs from 07/14/2021 TECHNIQUE: XR chest 2V Frontal and lateral views of the chest. CLINICAL INDICATION:Male, 66 years old with history of R0602 SOB; FINDINGS: Lungs/Pleura: There is no evidence of pleural effusion, focal consolidation, or pneumothorax. Pulmonary vascularity: Unremarkable. Heart/mediastinum: Cardiomediastinal silhouette is unremarkable. Single-lead cardiac conduction devic e overlying the left hemithorax with lead projecting over the right ventricle. Musculoskeletal: No acute osseous pathology. Other findings: Colon is situated between the liver and the diaphragm. IMPRESSION: No acute cardiopulmonary disease/process.
== END | disposition home or self-care (01) ==
LOC: RADXRYALE 16:17
PROVIDERS: ATTEND Physician Assistant
DX: R06.02 Shortness of breath (principal)
CPT/HCPCS: 71046

== ENCOUNTER 2022-03-05 16:33 | Inpatient (IN) | payer MEDICARE ==
[2022-03-05] MEDS ORDERED: MORPHINE SULFATE 4 MG/ML SYRINGE IV STA (16:52)
[2022-03-05] MEDS ORDERED: SODIUM CHLORIDE 0.9% 500 ML 500 ML IV ONE (16:52)
--- NOTE | 2022-03-05 16:58 | ED ---
General Adult HPI - General Chief complaint: Back Pain/Injury Stated complaint: Fall Time Seen by Provider: 03/05/22 16:43 Source: patient, EMS, RN notes reviewed, old records reviewed Mode of arrival: EMS Limitations: physical limitation - History of Present Illness Initial comments: Patient is a 66-year-old male who presents emergency Department complaining of back pain following a fall yesterday. Patient states that he was walking when he slipped and fell backwards landing on the ground. Patient is on blood thinners. States he did not lose consciousness and does not believe he hit his head. He is complaining of lower spine pain. Denies any neck pain, chest pain, abdominal pain, nausea, vomiting. Denies any headaches or blurry vision. B aseline is on oxygen at home and is not requiring more. Denies any worsening shortness of breath. Primary complaint is lower back pain. Denies any saddle anesthesias. Denies any lower extremity weakness. Denies any urinary or bowel retention or incontinence. Presents for further evaluation of this time. - Related Data Home Medications Medication Instructions Recorded Confirmed Divalproex Sodium [Depakote] 500 mg PO HS 11/08/20 03/05/22 Ergocalciferol [Vitamin D2 (1250 1,250 mcg PO Q30D 11/08/20 03/05/22 Mcg = 76940 Iu)] allopurinoL [Zyloprim] 200 mg PO DAILY 11/08/20 03/05/22 calcitrioL [Rocaltrol] 0.25 mcg PO DAILY 11/08/20 03/05/22 Folic Acid 1 mg PO DAILY 11/11/20 03/05/22 Atorvastatin [Lipitor] 40 mg PO HS 05/09/21 03/05/22 Levothyroxine Sodium [Synthroid] 75 mcg PO DAILY 05/09/21 03/05/22 carvediloL [Coreg] 12.5 mg PO DAILY 05/09/21 03/05/22 Albuterol Sulfate [Ventolin HFA] 2 puff INHALATION RT-Q6H PRN 03/05/22 03/05/22 Budesonide [Pulmicort] 0.5 mg INHALATION RT-BID 03/05/22 03/05/22 Ipratropium-Albuterol Nebulize 3 ml INHALATION RT-QID PRN 03/05/22 03/05/22 [Duoneb 0.5 mg-3 mg/3 ml Soln] Losartan Potassium [Cozaar] 12.5 mg PO HS 03/05/22 03/05/22 Magnesium Oxide 400 mg PO DAILY 03/05/22 03/05/22 Montelukast Sodium [Singulair] 10 mg PO DAILY 03/05/22 03/05/22 Torsemide [Demadex] 40 mg PO DAILY 03/05/22 03/05/22 carvediloL [Coreg] 6.25 mg PO HS 03/05/22 03/05/22 predniSONE See Taper PO DIRECTED 03/05/22 03/05/22 risperiDONE [RisperDAL] 0.25 mg PO HS 03/05/22 03/05/22 Previous Rx's Medication Instructions Recorded Apixaban [Eliquis] 5 mg PO BID #60 tab 02/10/17 QUEtiapine [SEROquel] 25 mg PO HS 30 Days #30 tab 06/03/21 Allergies Allergy/AdvReac Type Severity Reaction Status Date / Time Latex, Natural Rubber Allergy Rash/Hives Verified 03/05/22 20:55 shellfish derived [Shellfish] Allergy SWELLING Verified 03/05/22 20:55 AND VOMITING shrimp Allergy Swelling Verified 03/05/22 20:55 sulfamethoxazole Allergy Rash/Hives Verified 03/05/22 20:55 [From Bactrim] trimethoprim [From Bactrim] Allergy Rash/Hives Verified 03/05/22 20:55 Review of Systems ROS Statement: Those systems with pertinent positive or pertinent negative responses have been documented in the HPI. Review of Systems: CONST: Denies fever EYES: Denies blurry vision ENT: Denies nasal congestion C/V: Denies Chest pain RESP: Denies shortness of breath GI: Denies abdominal pain : Denies dysuria SKIN: Denies rash. MSK: Endorses low back pain. NEURO: Denies headache ROS Other: All systems not noted in ROS Statement are negative. Past Medical History Past Medical History: Heart Failure, COPD, Pneumonia, Renal Disease, Skin Disorder, Sleep Apnea/CPAP/BIPAP Additional Past Medical History / Comment(s): DIVERTICULITIS, "THALASSEMIA MINOR", see Dr Cullen H&P, edema christiano lower legs, no cpap used, loose stools, psoriasis, History of Any Multi-Drug Resistant Organisms: None Reported Past Surgical History: AICD, Heart Catheterization, Orthopedic Surgery, Tonsillectomy Additional Past Surgical History / Comment(s): LT HAND 4TH DIGIT REPAIR, LT MASTOID SX AGE 3, AICD placement Past Anesthesia/Blood Transfusion Reactions: No Reported Reaction Type of Cardiac Device: AICD Device Placement Date:: 07/26/17 [employer] Past Psychological History: No Psychological Hx Reported Smoking Status: Former smoker - Past Family History Father Family Medical History: Cancer Additional Family Medical History / Comment(s): SKIN CANCER General Exam - General Exam Comments Initial Comments: General: Appears in mild discomfort secondary to spine pain. HEAD: Normal with no signs of head trauma. No Nieves sign. No raccoon eyes. EYES: PERRLA, EOMI, conjunctiva normal, no discharge. Pupils 3 mm equal bi laterally. ENT: Hearing grossly intact, normal oropharynx. RESPIRATORY: Clear breath sounds bilaterally. No wheezes, rales, or rhonchi. A normal nasal cannula oxygen, not hypoxic. C/V: Mildly tachycardic with a regular rhythm. S1 and S2 auscultated. Peripheral pulses 2+ and intact throughout. ABD: Abd is soft, nontender, nondistended EXT: Normal range of motion, no obvious deformity. No midline tenderness to palpation in the cervical or thoracic spines. Patient does have some mild midli ne tenderness to palpation in the mid lumbar spine. Pelvis is stable. SKIN: No rashes or lesions observed on exposed skin. NEURO: Alert and oriented x 4. Cranial nerves II-XII intact. No focal sensory or strength deficits. GCS of 15. Limitations: physical limitation Course Vital Signs 03/05/22 03/05/22 16:36 19:00 Temperature 98.8 F Pulse Rate 113 H Respiratory 18 Rate Blood Pressure 106/64 153/98 O2 Sat by Pulse 99 Oximetry Medical Decision Making - Medical Decision Making Based on the patient's presentation and physical exam, he presents following a mechanical fall at home yesterday. He is on blood thinners. We will obtain CT imaging the spine as well as brain. We also obtain a chest and pelvis x-ray. Patient was in agreement this plan.He will be given analgesia medications. Vital signs within acceptable limits. CT imaging of the brain, spine, abdomen and pelvis as interpreted by myself shows no acute traumatic injury. No acute process. Chest x-ray as interpreted by myself reveals no acute cardiopulmonary process. Pelvic x-ray as interpreted by myself reveals no acute fracture or injury. Laboratory studies are remarkable for mild leukocytosis of 13.5. Patient also has an elevated hemoglobin above his baseline at 10.9. As of a history of microcytic anemia. Patient has CK D. Urinalysis is unremarkable. COVID-19 and influenza negative. At this time patient's did present at bedside. I attempted but the patient and his . He is still complaining of lower back pain and is slow to stand up. He does ambulate with a walker and cane at baseline, however patient's is concerned as he appears more weak than normal. Therefore we will not the patient hospital for weakness. He is complaining primarily of lower back pain that is exacerbated with movement of his legs. This is all secondary to his fall. Patient's heart rate does seem to fluctuate between a regular rate, as well as a tachycardia. EKG was obtained and showed ejection tachycardia but at bedside patient was ultimately be in the 80s to 100s. He has no symptoms. No chest pain. He is complaining about his lower back pain. Is likely secondary to pain and possibly dehydration. He will be given a small fluid bolus will continue to manage his pain. I discussed the patient with the admitting physician, Dr. Gale who accepted the patient. Patient was admitted in stable condition. - Lab Data Result diagrams: 03/05/22 17:45 03/05/22 17:45 Lab Results 03/05/22 03/05/22 03/05/22 Range/Units 17:45 17:45 17:45 WBC 13.5 H (3.8-10.6) k/uL RBC 5.63 (4.30-5.90) m/uL Hgb 10.9 L (13.0-17.5) gm/dL Hct 35.7 L (39.0-53.0) % MCV 63.3 L (80.0-100.0) fL MCH 19.3 L (25.0-35.0) pg MCHC 30.5 L (31.0-37.0) g/dL RDW 18.0 H (11.5-15.5) % Plt Count 104 L (150-450) k/uL MPV 7.6 Neutrophils % 82 % Lymphocytes % 10 % Monocytes % 6 % Eosinophils % 1 % Basophils % 0 % Neutrophils # 11.0 H (1.3-7.7) k/uL Lymphocytes # 1.3 (1.0-4.8) k/uL Monocytes # 0.8 (0-1.0) k/uL Eosinophils # 0.1 (0-0.7) k/uL Basophils # 0.1 (0-0.2) k/uL Hypochromasia Marked Poikilocytosis Slight Anisocytosis Slight Microcytosis Marked PT 11.7 (9.0-12.0) sec INR 1.1 (<1.2) APTT 24.8 (22.0-30.0) sec Sodium 136 L (137-145) mmol/L Potassium 3.7 (3.5-5.1) mmol/L Chloride 102 (98-107) mmol/L Carbon Dioxide 27 (22-30) mmol/L Anion Gap 7 mmol/L BUN 27 H (9-20) mg/dL Creatinine 1.84 H (0.66-1.25) mg/dL Est GFR (CKD-EPI)AfAm 43 (>60 ml/min/1.73 sqM) Est GFR (CKD-EPI)NonAf 37 (>60 ml/min/1.73 sqM) Glucose 148 H (74-99) mg/dL Calcium 8.1 L (8.4-10.2) mg/dL Urine Color Urine Appearance (Clear) Urine pH (5.0-8.0) Ur Specific Roann (1.001-1.035) Urine Protein (Negative) Urine Glucose (UA) (Negative) Urine Ketones (Negative) Urine Blood (Negative) Urine Nitrite (Negative) Urine Bilirubin (Negative) Urine Urobilinogen (<2.0) mg/dL Ur Leukocyte Esterase (Negative) Urine RBC (0-5) /hpf Urine WBC (0-5) /hpf Ur Squamous Epith Cells (0-4) /hpf Urine Bacteria (None) /hpf Hyaline Casts (0-2) /lpf Urine Mucus (None) /hpf Coronavirus (PCR) (Not Detectd) Influenza Type A RNA (Not Detectd) Influenza Type B (PCR) (Not Detectd) 03/05/22 03/05/22 03/05/22 Range/Units 19:00 19:27 19:27 WBC (3.8-10.6) k/uL RBC (4.30-5.90) m/uL Hgb (13.0-17.5) gm/dL Hct (39.0-53.0) % MCV (80.0-100.0) fL MCH (25.0-35.0) pg MCHC (31.0-37.0) g/dL RDW (11.5-15.5) % Plt Count (150-450) k/uL MPV Neutrophils % % Lymphocytes % % Monocytes % % Eosinophils % % Basophils % % Neutrophils # (1.3-7.7) k/uL Lymphocytes # (1.0-4.8) k/uL Monocytes # (0-1.0) k/uL Eosinophils # (0-0.7) k/uL Basophils # (0-0.2) k/uL Hypochromasia Poikilocytosis Anisocytosis Microcytosis PT (9.0-12.0) sec INR (<1.2) APTT (22.0-30.0) sec Sodium (137-145) mmol/L Potassium (3.5-5.1) mmol/L Chloride (98-107) mmol/L Carbon Dioxide (22-30) mmol/L Anion Gap mmol/L BUN (9-20) mg/dL Creatinine (0.66-1.25) mg/dL Est GFR (CKD-EPI)AfAm (>60 ml/min/1.73 sqM) Est GFR (CKD-EPI)NonAf (>60 ml/min/1.73 sqM) Glucose (74-99) mg/dL Calcium (8.4-10.2) mg/dL Urine Color Yellow Urine Appearance Clear (Clear) Urine pH 6.0 (5.0-8.0) Ur Specific Roann 1.019 (1.001-1.035) Urine Protein 1+ H (Negative) Urine Glucose (UA) Negative (Negative) Urine Ketones Trace H (Negative) Urine Blood Moderate H (Negative) Urine Nitrite Negative (Negative) Urine Bilirubin Negative (Negative) Urine Urobilinogen 8.0 (<2.0) mg/dL Ur Leukocyte Esterase Negative (Negative) Urine RBC 38 H (0-5) /hpf Urine WBC 3 (0-5) /hpf Ur Squamous Epith Cells <1 (0-4) /hpf Urine Bacteria Rare H (None) /hpf Hyaline Casts 1 (0-2) /lpf Urine Mucus Rare H (None) /hpf Coronavirus (PCR) Not Detected (Not Detectd) Influenza Type A RNA Not Detected (Not Detectd) Influenza Type B (PCR) Not Detected (Not Detectd) - EKG Data -: EKG Interpreted by Me EKG Comments: 12-lead Electrocardiogram Interpretation Note EKG was reviewed and interpreted by myself. 12-lead ECG performed at 2106 is interpreted by me as revealing junctional tachycardia at a rate of 136 beats per minute. Left axis deviation. DE interval is 127 ms, QRS durations 137 ms, QTc is 405 ms.. There were no acute ST or T wave abnormalities to suggest myocardial ischemia or injury. R wave progression across the precordium was satisfactory. By my interpretation this EKG is non-diagnostic for acute ischemia. No significant changes when compared with prior EKGs. Disposition Clinical Impression: Weakness, Fall Disposition: ADMITTED IP TO THIS HOSP Condition: Stable Time of Disposition: 20:45
--- NOTE | 2022-03-05 17:40 | XR ---
PROCEDURE: XR pelvis AP view - 1V: 03/05/2022 5:33 PM CLINICAL INDICATION: fall, thinners TECHNIQUE: Department protocol COMPARISON: None FINDINGS: There is no fracture or malalignment. The soft tissues are unremarkable. IMPRESSION: NO ACUTE PROCESS.
--- NOTE | 2022-03-05 17:42 | XR ---
EXAMINATION: XR chest 1V portable DATE AND TIME: 03/05/2022 5:33 PM CLINICAL INDICATION: PHH; fall, pain TECHNIQUE: AP semiupright COMPARISON: 12/19/2021 FINDINGS: Cardiac pacemaker. The lungs are clear. The pleural spaces are negative. The cardiac silhouette is not enlarged. The remainder of the mediastinal silhouette is unremarkable. The skeletal structures and soft tissues are negative for acute findings. IMPRESSION: No definite acute process.
--- NOTE | 2022-03-05 17:53 | CT ---
EXAMINATION TYPE: CT brain vickine wo con DATE OF EXAM: 03/05/2022 COMPARISON: 02/26/2020 HISTORY: 66 M: fall, ams CT DLP: 1496.4 mGycm Automated exposure control for dose reduction was used. TECHNIQUE: CT scan of the head and cervical spine are performed without contrast. FINDINGS: There is no acute intracranial hemorrhage, mass effect, or midline shift identified. No def inite new attenuation defect. The ventricles and sulci are within normal limits in size. The globes are intact and the visualized sinuses are clear. Cervical spine is visualized in its entirety from C1 through upper thoracic levels and demonstrates s atisfactory alignment without evidence of acute fracture or dislocation. Prevertebral soft tissue ap pears within normal limits. Multilevel at least moderate grade cervical spondylosis changes are noted . The C1-C2 articulation is unremarkable. IMPRESSION: 1. There is no acute fracture or dislocation evident in the cervical spine. 2. No acute intracranial hemorrhage, mass effect, or midline shift is seen.
[2022-03-05 17:55] LABS: Anisocytosis Slight; Basophils # (A) 0.1 k/uL (0-0.2); Basophils % (A) 0 %; Eosinophils # (A) 0.1 k/uL (0-0.7); Eosinophils % (A) 1 %; HCT 35.7 % (39.0-53.0); HGB 10.9 gm/dL (13.0-17.5); Hypochromasia Marked; Lymphocytes # (A) 1.3 k/uL (1.0-4.8); Lymphocytes % (A) 10 %; MCH 19.3 pg (25.0-35.0); MCHC 30.5 g/dL (31.0-37.0); MCV 63.3 fL (80.0-100.0); Mean Platelet Volume 7.6; Microcytosis Marked; Monocytes # (A) 0.8 k/uL (0-1.0); Monocytes % (A) 6 %; Neutrophils % (A) 82 %; Platelet Count 104 k/uL (150-450); Poikilocytosis Slight; RBC 5.63 m/uL (4.30-5.90); WBC 13.5 k/uL (3.8-10.6)
--- NOTE | 2022-03-05 18:00 | CT ---
EXAMINATION TYPE: CT thor lumbar spine wo con DATE OF EXAM: 03/05/2022 COMPARISON: None HISTORY: fall, ams CT DLP: 1045 mGycm Automated exposure control for dose reduction was used. FINDINGS: Examination of the thoracic and lumbar spine is negative for fracture or malalignment. No paraspinal findings. IMPRESSION: No acute process.
[2022-03-05 18:04] LABS: Calcium 8.1 mg/dL (8.4-10.2); Potassium 3.7 mmol/L (3.5-5.1)
[2022-03-05 18:06] LABS: INR 1.1 (<1.2); Partial Thromboplastin Time 24.8 sec (22.0-30.0); Prothrombin Time 11.7 sec (9.0-12.0)
--- NOTE | 2022-03-05 18:28 | CT ---
EXAMINATION TYPE: CT abdomen pelvis wo con DATE OF EXAM: 03/05/2022 HISTORY: 66 M; abdominal distention CT DLP: 1045 mGycm. Automated Exposure Control for Dose Reduction was Utilized. TECHNIQUE: CT scan of the abdomen and pelvis is performed without oral or IV contrast. COMPARISON: None FINDINGS: Limitations include patient motion artifact, upper extremities over the field of view providing exces sive beam hardening artifact, and nonutilization of IV contrast. LUNG BASES: No significant abnormality is appreciated. LIVER/GB: No significant abnormality is appreciated. Calcified cholelithiasis incidentally noted. PANCREAS: No significant abnormality is seen. SPLEEN: There is mild splenomegaly. No focal findings. The spleen is homogeneous in density and is sm oothly marginated. ADRENALS: No significant abnormality is seen. KIDNEYS, URETERS, BLADDER: No acute renal or collecting system findings. Global left renal atrophy no saul. Urinary bladder unremarkable. BOWEL: The colon is dilated down to the sigmoid at the sacral promontory level where there is excessi ve colonic stool in the rectosigmoid. The patient motion artifact makes it difficult to visualize tra nsition point. No pneumoperitoneum or pneumatosis. Mesentery and mesocolon appear unremarkable as see n. LYMPH NODES: No greater than 1cm abdominal or pelvic lymph nodes are appreciated. OSSEOUS STRUCTURES: No significant abnormality is seen. OTHER: No significant additional abnormality is seen. IMPRESSION: Difficult colonic visualization due to the excessive patient motion artifact. If clinically indicated , further radiographic characterization can be provided using oral contrast with delayed imaging.
[2022-03-05] MEDS ORDERED: LIDOCAINE 5% PATCH TOPICAL STA (18:52)
[2022-03-05] MEDS ORDERED: KETOROLAC 15 MG/ML 1 ML VIAL IVP STA (18:53)
[2022-03-05 20:03] LABS: Appearance,Urine Clear (Clear); Bacteria,Urine Rare /hpf; Bilirubin,Urine Negative (Negative); Blood,Urine Moderate (Negative); Color,Urine Yellow; Glucose,Urine (UA) Negative (Negative); Hyaline Casts,Urine 1 /lpf (0-2); Ketones,Urine Trace (Negative); Leukocyte Esterase,Urine Negative (Negative); Mucus,Urine Rare /hpf; Nitrite,Urine Negative (Negative); Protein,Urine 1+ (Negative); RBC,Urine 38 /hpf (0-5); Specific Gravity,Urine 1.019 (1.001-1.035); Squamous Epithelial Cell,Urine <1 /hpf (0-4); WBC,Urine 3 /hpf (0-5)
[2022-03-05] MEDS ORDERED: NALOXONE 0.4 MG/ML 1 ML VIAL IV PRN (20:58)
[2022-03-05] MEDS ORDERED: SODIUM CHLORIDE 0.9% 500 ML 500 ML IV STA (21:15)
[2022-03-05] MEDS: carvediloL 6.25 MG TAB PO SCH (22:27)
[2022-03-06 00:13] LABS: ABG Base Excess 3.8 mmol/L; ABG HCO3 28 mmol/L (21-25); ABG Oxygen Saturation 98.1 % (94-97); ABG PCO2 39 mmHg (35-45); ABG PH 7.46 (7.35-7.45); ABG PO2 94 mmHg (83-108); ABG TCO2 29 mmol/L (19-24); Allen Test Performed? Yes
[2022-03-06] MEDS: SODIUM CHLORIDE 0.9% 1,000 ML IV SCH ×2 (02:06→14:20)
--- NOTE | 2022-03-06 03:20 | P.HPIM ---
History of Present Illness H&P Date: 03/05/22 The patient is a 66-year-old male with an extensive PMH including chronic kidney disease, COPD, A. fib on Eliquis, hypertension, hyperlipidemia, who was brought into the emergency room by his for weakness and fall. The history is largely obtained from the ED physician and from the chart as the patient is a poor historian. The patient reportedly has had a gradual clinical deterioration over the past 1 week since he stopped getting in-home physical therapy. The reports that he was using his walker to ambulate in the house when he lost his footing and fell yesterday. As per the , the patient did not lose consciousness and she does not believe that he hit his head. She reports that as of today, the patient has been unable to stand up even to ambulate with his walker and appears to be more confused than usual. At time of interview, the patient reported a mild lower back pain but denied any additional complaints. He reported that he is at the hospital because he fell but could not elaborate further. EKG in the emergency room revealed a widened QRS tachycardia at 136 bpm with a right bundle branch block. CT abdomen and pelvis revealed constipation with CT head and cervical spine as well as CT thoracic and lumbar spine also unremarkable. Laboratory evaluation was remarkable for leukocytosis of 13.5, hemoglobin 10.9, platelet count 104, BUN 27, creatinine 1.84 (better than baseline of 2). UA revealed moderate blood with 38 RBCs. Review of systems: Unable to fully obtain due to mental status Physical examination: General: Disheveled elderly male, no distress, appears significantly older than stated age, overweight Derm: no unusual rashes/lesions, warm Head: atraumatic, normocephalic, symmetric Eyes: EOMI, no lid lag, anicteric sclera, pupils equal round reactive to light ENT: Nose and ears atraumatic Neck: No cervical lymphadenopathy, trachea midline, supple Mouth: no lip lesion, mucus membranes moist Cardiovascular: S1S2 reg, no murmur, positive dorsalis pedis pulse bilateral, no edema Lungs: Expiratory wheezing, no rhonchi, no rales, no accessory muscle use Abdominal: soft, nontender to palpation, no guarding Ext: muscle strength 3 out of 5 in all 4 extremities grossly, no gross muscle atrophy, no contractures, Neuro: no gross focal neuro deficits Psych: Lethargic, oriented only to self Assessment/plan Failure to thrive -PT consult -Dietitian consult Leukocytosis -No sign of active infection at this time -Monitor for now Thrombocytopenia -At baseline Chronic conditions: COPD, A. fib, hypertension, hyperlipidemia -Continue with home meds DVT prophylaxis -Eliquis The patient is admitted with an anticipated less than 2 midnight stay for evaluation of Failure to thrive CODE STATUS: Full Code Discussed with: Patient Anticipated discharge date: in am Anticipated discharge place: Home Past Medical History Past Medical History: Heart Failure, COPD, Pneumonia, Renal Disease, Skin Disorder, Sleep Apnea/CPAP/BIPAP Additional Past Medical History / Comment(s): DIVERTICULITIS, "THALASSEMIA MINOR", see Dr Cullen H&P, edema christiano lower legs, no cpap used, loose stools, psoriasis, History of Any Multi-Drug Resistant Organisms: None Reported Past Surgical History: AICD, Heart Catheterization, Orthopedic Surgery, Tonsillectomy Additional Past Surgical History / Comment(s): LT HAND 4TH DIGIT REPAIR, LT MASTOID SX AGE 3, AICD placement Past Anesthesia/Blood Transfusion Reactions: No Reported Reaction Type of Cardiac Device: AICD Device Placement Date:: 07/26/17 [employer] Past Psychological History: No Psychological Hx Reported Smoking Status: Former smoker - Past Family History Father Family Medical History: Cancer Additional Family Medical History / Comment(s): SKIN CANCER Medications and Allergies Home Medications Medication Instructions Recorded Confirmed Type Apixaban [Eliquis] 5 mg PO BID #60 tab 02/10/17 03/05/22 Rx Divalproex Sodium [Depakote] 500 mg PO HS 11/08/20 03/05/22 History Ergocalciferol [Vitamin D2 (1250 1,250 mcg PO Q30D 11/08/20 03/05/22 History Mcg = 72596 Iu)] allopurinoL [Zyloprim] 200 mg PO DAILY 11/08/20 03/05/22 History calcitrioL [Rocaltrol] 0.25 mcg PO DAILY 11/08/20 03/05/22 History Folic Acid 1 mg PO DAILY 11/11/20 03/05/22 History Atorvastatin [Lipitor] 40 mg PO HS 05/09/21 03/05/22 History Levothyroxine Sodium [Synthroid] 75 mcg PO DAILY 05/09/21 03/05/22 History carvediloL [Coreg] 12.5 mg PO DAILY 05/09/21 03/05/22 History QUEtiapine [SEROquel] 25 mg PO HS 30 Days #30 tab 06/03/21 03/05/22 Rx Albuterol Sulfate [Ventolin HFA] 2 puff INHALATION RT-Q6H PRN 03/05/22 03/05/22 History Budesonide [Pulmicort] 0.5 mg INHALATION RT-BID 03/05/22 03/05/22 History Ipratropium-Albuterol Nebulize 3 ml INHALATION RT-QID PRN 03/05/22 03/05/22 History [Duoneb 0.5 mg-3 mg/3 ml Soln] Losartan Potassium [Cozaar] 12.5 mg PO HS 03/05/22 03/05/22 History Magnesium Oxide 400 mg PO DAILY 03/05/22 03/05/22 History Montelukast Sodium [Singulair] 10 mg PO DAILY 03/05/22 03/05/22 History Torsemide [Demadex] 40 mg PO DAILY 03/05/22 03/05/22 History carvediloL [Coreg] 6.25 mg PO HS 03/05/22 03/05/22 History predniSONE See Taper PO DIRECTED 03/05/22 03/05/22 History risperiDONE [RisperDAL] 0.25 mg PO HS 03/05/22 03/05/22 History Allergies Allergy/AdvReac Type Severity Reaction Status Date / Time Latex, Natural Rubber Allergy Rash/Hives Verified 03/05/22 20:55 shellfish derived [Shellfish] Allergy SWELLING Verified 03/05/22 20:55 AND VOMITING shrimp Allergy Swelling Verified 03/05/22 20:55 sulfamethoxazole Allergy Rash/Hives Verified 03/05/22 20:55 [From Bactrim] trimethoprim [From Bactrim] Allergy Rash/Hives Verified 03/05/22 20:55 Physical Exam Vitals: Vital Signs Temp Pulse Pulse Resp BP BP Pulse Ox 03/05/22 23:45 98.0 F 145 H 21 109/71 97 03/05/22 19:00 153/98 03/05/22 16:36 98.8 F 113 H 18 106/64 99 Intake and Output 03/05/22 03/05/22 03/06/22 14:59 22:59 06:59 Other: Weight 95.254 kg Results CBC & Chem 7: 03/05/22 17:45 03/05/22 17:45 Labs: Abnormal Lab Results - Last 24 Hours (Table) 03/05/22 03/05/22 03/05/22 Range/Units 17:45 17:45 19:00 WBC 13.5 H (3.8-10.6) k/uL Hgb 10.9 L (13.0-17.5) gm/dL Hct 35.7 L (39.0-53.0) % MCV 63.3 L (80.0-100.0) fL MCH 19.3 L (25.0-35.0) pg MCHC 30.5 L (31.0-37.0) g/dL RDW 18.0 H (11.5-15.5) % Plt Count 104 L (150-450) k/uL Neutrophils # 11.0 H (1.3-7.7) k/uL Sodium 136 L (137-145) mmol/L BUN 27 H (9-20) mg/dL Creatinine 1.84 H (0.66-1.25) mg/dL Glucose 148 H (74-99) mg/dL Calcium 8.1 L (8.4-10.2) mg/dL Urine Protein 1+ H (Negative) Urine Ketones Trace H (Negative) Urine Blood Moderate H (Negative) Urine RBC 38 H (0-5) /hpf Urine Bacteria Rare H (None) /hpf Urine Mucus Rare H (None) /hpf
[2022-03-06 05:33] LABS: Anisocytosis Slight; Basophils % (A) 0 %; Eosinophils # (A) 0.2 k/uL (0-0.7); Eosinophils % (A) 2 %; HCT 33.1 % (39.0-53.0); HGB 10.1 gm/dL (13.0-17.5); Hypochromasia Marked; Lymphocytes # (A) 2.2 k/uL (1.0-4.8); Lymphocytes % (A) 21 %; MCH 19.8 pg (25.0-35.0); MCHC 30.4 g/dL (31.0-37.0); MCV 65.2 fL (80.0-100.0); Mean Platelet Volume 7.8; Microcytosis Marked; Monocytes % (A) 10 %; Neutrophils # (A) 6.8 k/uL (1.3-7.7); Neutrophils % (A) 66 %; Platelet Count 105 k/uL (150-450); RBC 5.08 m/uL (4.30-5.90); RDW 17.7 % (11.5-15.5); WBC 10.4 k/uL (3.8-10.6)
[2022-03-06 05:44] LABS: Calcium 7.8 mg/dL (8.4-10.2); Potassium 3.7 mmol/L (3.5-5.1)
[2022-03-06] MEDS: LEVOTHYROXINE 75 MCG TAB PO SCH (06:33)
[2022-03-06] MEDS: KETOROLAC 15 MG/ML 1 ML VIAL IVP PRN (06:47)
[2022-03-06] MEDS: BUDESONIDE 0.5 MG/2 ML NEBU INHALATION SCH ×2 (08:08→20:08)
[2022-03-06 09:36] LABS: Glucose,Whole Blood 142 mg/dL (70-110)
[2022-03-06] MEDS: TORSEMIDE 20 MG TAB PO SCH (09:47)
[2022-03-06] MEDS: carvediloL 12.5 MG TAB PO SCH (09:47)
[2022-03-06] MEDS: APIXABAN 5 MG TAB PO SCH ×2 (09:47→20:38)
[2022-03-06] MEDS: allopurinoL 100 MG TAB PO SCH (09:47)
--- NOTE | 2022-03-06 15:14 | P.PN ---
Subjective Progress Note Date: 03/06/22 The patient is a 66-year-old male with an extensive PMH including chronic kidney disease, COPD on 2L home O2, A. fib on Eliquis, hypertension, hyperlipidemia, who was brought into the emergency room by his for weakness and fall. EKG in the emergency room revealed a widened QRS tachycardia at 136 bpm with a right bundle branch block. CT abdomen and pelvis revealed constipation with CT head and cervical spine as well as CT thoracic and lumbar spine also unremarkable. Laboratory evaluation was remarkable for leukocytosis of 13.5, hemoglobin 10.9, platelet count 104, BUN 27, creatinine 1.84 (better than baseline of 2). UA revealed moderate blood with 38 RBCs. Patient was seen and examined. No acute events overnight. Patient reports no complaints today. Seen working with PT and OT. States that he is on 2 L of oxygen at home. General: Disheveled elderly male, no distress, appears significantly older than stated age, overweight Derm: no unusual rashes/lesions, warm Head: atraumatic, normocephalic, symmetric Eyes: EOMI, no lid lag, anicteric sclera ENT: Nose and ears atraumatic Neck: No cervical lymphadenopathy, trachea midline, supple Mouth: no lip lesion, mucus membranes moist Cardiovascular: S1S2 reg, no murmur, no edema Lungs: Decreased breath sounds bilaterally, no rhonchi, no rales, no accessory muscle use Ext: muscle strength 3 out of 5 in all 4 extremities grossly, no gross muscle atrophy, no contractures, Neuro: no gross focal neuro deficits Psych: Alert and oriented 2 Assessment/plan #Failure to thrive -PT and OT consult -Dietitian consult #Microcytic anemia -Appears at baseline -Possibly related to chronic kidney disease -Follow iron studies, ferritin -Transfuse if hemoglobin less than 7 #Confusion -Obtain TSH with reflux to T4 -Follow B12 and folic acid -Fall precautions -Frequent redirection -Avoid sedative medication #Thrombocytopenia -At baseline -Unknown etiology -Workup outpatient with PCP Resolved: Leukocytosis Chronic conditions: COPD, A. fib, hypertension, hyperlipidemia, chronic kidney disease -Continue with home meds Patient will need placement. PT and OT consulted. Case management on board. Medically stable. Objective - Vital Signs Vital signs: Vital Signs Temp 97.9 F 03/06/22 13:41 Pulse 94 03/06/22 13:41 Resp 16 03/06/22 13:41 BP 97/58 03/06/22 13:41 Pulse Ox 100 03/06/22 13:41 FiO2 Intake & Output 03/05/22 03/06/22 03/06/22 18:59 06:59 18:59 Intake Total 200 238 Balance 200 238 Weight 95.254 kg 95.254 kg Intake: Oral 200 238 Other: Voiding Method External Catheter # Voids 2 - Labs CBC & Chem 7: 03/06/22 05:02 03/06/22 05:02 Labs: Abnormal Lab Results - Last 24 Hours (Table) 03/05/22 03/05/22 03/05/22 Range/Units 17:45 17:45 19:00 WBC 13.5 H (3.8-10.6) k/uL Hgb 10.9 L (13.0-17.5) gm/dL Hct 35.7 L (39.0-53.0) % MCV 63.3 L (80.0-100.0) fL MCH 19.3 L (25.0-35.0) pg MCHC 30.5 L (31.0-37.0) g/dL RDW 18.0 H (11.5-15.5) % Plt Count 104 L (150-450) k/uL Neutrophils # 11.0 H (1.3-7.7) k/uL ABG pH (7.35-7.45) ABG HCO3 (21-25) mmol/L ABG Total CO2 (19-24) mmol/L ABG O2 Saturation (94-97) % Sodium 136 L (137-145) mmol/L Carbon Dioxide (22-30) mmol/L BUN 27 H (9-20) mg/dL Creatinine 1.84 H (0.66-1.25) mg/dL Glucose 148 H (74-99) mg/dL POC Glucose (mg/dL) (70-110) mg/dL Calcium 8.1 L (8.4-10.2) mg/dL Urine Protein 1+ H (Negative) Urine Ketones Trace H (Negative) Urine Blood Moderate H (Negative) Urine RBC 38 H (0-5) /hpf Urine Bacteria Rare H (None) /hpf Urine Mucus Rare H (None) /hpf 03/06/22 03/06/22 03/06/22 Range/Units 00:07 05:02 05:02 WBC (3.8-10.6) k/uL Hgb 10.1 L (13.0-17.5) gm/dL Hct 33.1 L (39.0-53.0) % MCV 65.2 L (80.0-100.0) fL MCH 19.8 L (25.0-35.0) pg MCHC 30.4 L (31.0-37.0) g/dL RDW 17.7 H (11.5-15.5) % Plt Count 105 L (150-450) k/uL Neutrophils # (1.3-7.7) k/uL ABG pH 7.46 H (7.35-7.45) ABG HCO3 28 H (21-25) mmol/L ABG Total CO2 29 H (19-24) mmol/L ABG O2 Saturation 98.1 H (94-97) % Sodium 136 L (137-145) mmol/L Carbon Dioxide 31 H (22-30) mmol/L BUN 32 H (9-20) mg/dL Creatinine 2.07 H (0.66-1.25) mg/dL Glucose 122 H (74-99) mg/dL POC Glucose (mg/dL) (70-110) mg/dL Calcium 7.8 L (8.4-10.2) mg/dL Urine Protein (Negative) Urine Ketones (Negative) Urine Blood (Negative) Urine RBC (0-5) /hpf Urine Bacteria (None) /hpf Urine Mucus (None) /hpf 03/06/22 Range/Units 09:32 WBC (3.8-10.6) k/uL Hgb (13.0-17.5) gm/dL Hct (39.0-53.0) % MCV (80.0-100.0) fL MCH (25.0-35.0) pg MCHC (31.0-37.0) g/dL RDW (11.5-15.5) % Plt Count (150-450) k/uL Neutrophils # (1.3-7.7) k/uL ABG pH (7.35-7.45) ABG HCO3 (21-25) mmol/L ABG Total CO2 (19-24) mmol/L ABG O2 Saturation (94-97) % Sodium (137-145) mmol/L Carbon Dioxide (22-30) mmol/L BUN (9-20) mg/dL Creatinine (0.66-1.25) mg/dL Glucose (74-99) mg/dL POC Glucose (mg/dL) 142 H (70-110) mg/dL Calcium (8.4-10.2) mg/dL Urine Protein (Negative) Urine Ketones (Negative) Urine Blood (Negative) Urine RBC (0-5) /hpf Urine Bacteria (None) /hpf Urine Mucus (None) /hpf
[2022-03-06] MEDS: QUEtiapine 25 MG TAB PO SCH (20:38)
[2022-03-06] MEDS: ATORVASTATIN 40 MG TAB PO SCH (20:38)
[2022-03-06] MEDS: risperiDONE 0.25 MG TAB PO SCH (20:38)
[2022-03-06] MEDS: carvediloL 6.25 MG TAB PO SCH (20:38)
[2022-03-06] MEDS: DIVALPROEX 500 MG TABLET.DR PO SCH (20:38)
[2022-03-06] MEDS ORDERED: LOSARTAN 25 MG TAB PO SCH (21:00)
[2022-03-07] MEDS: SODIUM CHLORIDE 0.9% 1,000 ML IV SCH ×3 (03:41→22:10)
[2022-03-07] MEDS: LEVOTHYROXINE 75 MCG TAB PO SCH (06:10)
[2022-03-07] MEDS: carvediloL 12.5 MG TAB PO SCH (06:20)
[2022-03-07] MEDS: APIXABAN 5 MG TAB PO SCH ×2 (08:26→19:55)
[2022-03-07] MEDS: allopurinoL 100 MG TAB PO SCH (08:26)
[2022-03-07] MEDS: BUDESONIDE 0.5 MG/2 ML NEBU INHALATION SCH ×2 (08:56→20:00)
[2022-03-07 09:02] LABS: African American GFR (CKD) 29.5 (60.0-200.0); BUN/Creat Ratio 13.04 Ratio (12.00-20.00); Blood Urea Nitrogen 32.6 mg/dL (9.0-27.0); Calcium 7.4 mg/dL (8.7-10.3); Carbon Dioxide 26.6 mmol/L (20.0-27.5); Chloride 101 mmol/L (96-109); Glucose 91 mg/dL (70-110); Non-African American GFR(CKD) 25.4 (60.0-200.0); Potassium 3.4 mmol/L (3.5-5.5); Sodium 136 mmol/L (135-145)
[2022-03-07] MEDS ORDERED: methylPREDNISolone SOD SUCCI 125 MG/2 ML VIAL IV STA (09:27)
[2022-03-07] MEDS ORDERED: SODIUM CHLORIDE 0.9% 1,000 ML IV ONE (09:27)
[2022-03-07] MEDS ORDERED: IPRATROPIUM-ALBUTEROL 3 ML NEB INHALATION PRN (09:28)
[2022-03-07 09:29] LABS: Elliptocytes 2+; HCT 27.9 % (39.6-50.0); HGB 8.1 g/dL (13.0-17.0); MCH 18.4 pg (27.0-32.0); MCV 63.3 fL (80.0-97.0); Microcytosis (M) 3+; NRBC Per 100 WBC 0 /100 WBCS (0.0-0.0); Platelet Count 98 X 10*3/uL (140-440); RBC 4.41 X 10*6/uL (4.40-5.60); RDW 19.6 % (11.5-14.5); WBC 8.52 X 10*3/uL (4.50-10.00)
[2022-03-07] MEDS: MONTELUKAST 10 MG TAB PO SCH (10:07)
--- NOTE | 2022-03-07 10:16 | XR ---
EXAMINATION TYPE: XR chest 1V portable DATE OF EXAM: 03/07/2022 COMPARISON: 03/05/2022 HISTORY: Shortness of breath TECHNIQUE: Frontal and lateral views of the chest are obtained. FINDINGS: Scattered senescent parenchymal changes noted. Hyperinflation compatible with COPD. No evidence for infiltrate. No evidence for atelectasis. Heart size is stable. Mediastinal structures are stable and grossly unremarkable. No evidence for hilar prominence. Degenerative changes dorsal spine. IMPRESSION: 1. No evidence for acute pulmonary disease.
[2022-03-07 11:53] LABS: % Iron Saturation 54.12 (15.00-50.00); Iron 69 ug/dL (65-175); Total Iron Binding Capacity 128 ug/dL (228-460)
[2022-03-07] MEDS: IPRATROPIUM-ALBUTEROL 3 ML NEB INHALATION SCH ×3 (12:30→19:59)
[2022-03-07] MEDS: TORSEMIDE 20 MG TAB PO SCH (12:48)
[2022-03-07] MEDS: KETOROLAC 15 MG/ML 1 ML VIAL IVP PRN ×2 (12:53→22:06)
--- NOTE | 2022-03-07 13:09 | P.PN ---
Subjective Progress Note Date: 03/07/22 The patient is a 66-year-old male with an extensive PMH including chronic kidney disease, COPD on 2L home O2, A. fib on Eliquis, hypertension, hyperlipidemia, who was brought into the emergency room by his for weakness and fall. EKG in the emergency room revealed a widened QRS tachycardia at 136 bpm with a right bundle branch block. CT abdomen and pelvis revealed constipation with CT head and cervical spine as well as CT thoracic and lumbar spine also unremarkable. Laboratory evaluation was remarkable for leukocytosis of 13.5, hemoglobin 10.9, platelet count 104, BUN 27, creatinine 1.84 (better than baseline of 2). UA revealed moderate blood with 38 RBCs. Patient was seen and examined. No acute events overnight. Patient reports no complaints today. Seen working with PT and OT. States that he is on 2 L of oxygen at home. General: Disheveled elderly male, no distress, appears significantly older than stated age, overweight Derm: no unusual rashes/lesions, warm Head: atraumatic, normocephalic, symmetric Eyes: EOMI, no lid lag, anicteric sclera ENT: Nose and ears atraumatic Neck: No cervical lymphadenopathy, trachea midline, supple Mouth: no lip lesion, mucus membranes moist Cardiovascular: S1S2 reg, no murmur, no edema Lungs: Decreased breath sounds bilaterally, no rhonchi, no rales, no accessory muscle use Ext: muscle strength 3 out of 5 in all 4 extremities grossly, no gross muscle atrophy, no contractures, Neuro: no gross focal neuro deficits Psych: Alert and oriented 2 Assessment/plan #Acute kidney injury on chronic kidney disease #Hypotension -Discontinue home antihypertensive medication -Bolus 1 L normal saline -Continue normal sinus at 75 cc per hour. -Obtain renal ultrasound. -Telemetry monitoring. #COPD exacerbation #Chronic respiratory failure -DuoNeb scheduled and as needed for shortness of breath and wheezing. -Start Solu-Medrol #Failure to thrive -PT and OT consult -Dietitian consult #Microcytic anemia -Drop in Hg is likely dilutional -Probably related to chronic kidney disease -Current studies show anemia of chronic disease -Transfuse if hemoglobin less than 7 #Confusion -TSH and B12 within normal limits -Follow folic acid -Fall precautions -Frequent redirection -Avoid sedative medication #Thrombocytopenia -At baseline -Unknown etiology -Workup outpatient with PCP Resolved: Leukocytosis Chronic conditions: A. fib, hyperlipidemia -Continue with home meds Patient will need placement. PT and OT consulted. Case management on board. Objective - Vital Signs Vital signs: Vital Signs Temp 97.6 F 03/07/22 07:10 Pulse 88 03/07/22 12:45 Resp 22 03/07/22 08:45 BP 89/48 03/07/22 10:25 Pulse Ox 98 03/07/22 08:45 FiO2 Intake & Output 03/06/22 03/07/22 03/07/22 18:59 06:59 18:59 Intake Total 592 600 236 Output Total 150 Balance 442 600 236 Intake: Intake, IV Titration 100 Amount Sodium Chloride 0.9% 1, 100 000 ml @ 75 mls/hr IV . [id number] JERI Rx#:[id number] Oral 592 500 236 Output: Urine 150 Other: Voiding Method External Catheter Diaper Diaper External Catheter External Catheter - Labs CBC & Chem 7: 03/07/22 05:46 03/07/22 05:46 Labs: Abnormal Lab Results - Last 24 Hours (Table) 03/07/22 03/07/22 Range/Units 05:46 05:46 Hgb 8.1 L (13.0-17.0) g/dL Hct 27.9 L (39.6-50.0) % MCV 63.3 L (80.0-97.0) fL MCH 18.4 L (27.0-32.0) pg MCHC 29.0 L (32.0-37.0) g/dL RDW 19.6 H (11.5-14.5) % Plt Count 98 L (140-440) X 10*3/uL Plt Count Comment DECREASED A Potassium 3.4 L (3.5-5.5) mmol/L Anion Gap 8.40 L (10.00-18.00) mmol/L BUN 32.6 H (9.0-27.0) mg/dL Creatinine 2.5 H (0.6-1.5) mg/dL Est GFR (CKD-EPI)AfAm 29.5 L (60.0-200.0) Est GFR (CKD-EPI)NonAf 25.4 L (60.0-200.0) Calcium 7.4 L (8.7-10.3) mg/dL TIBC 128 L (228-460) ug/dL % Saturation 54.12 H (15.00-50.00) Transferrin 91.6 L (204.0-354.0) mg/dL Ferritin 887.0 H (22.0-322.0) ng/mL
--- NOTE | 2022-03-07 13:39 | US ---
EXAMINATION TYPE: US renals and bladder DATE OF EXAM: 03/07/2022 COMPARISON: NONE CLINICAL HISTORY: CARLOS. CARLOS EXAM MEASUREMENTS: Right Kidney: 9.1 x 4.7 x 4.3 cm Left Kidney: 9.9 x 3.6 x 3.5 cm Incidental findings gallstones and splenomegaly visualized. Right Kidney: No hydronephrosis or masses seen Left Kidney: Limited cortex not well visualized. Bladder: anechoic Bilateral Jets seen: No There is no evidence for hydronephrosis at this point in time. No nephrolithiasis is seen. No nupur s are identified. The urinary bladder is anechoic. IMPRESSION: 1. Cholelithiasis. 2. Splenomegaly measuring 19.1 cm craniocaudal dimension. 3. No discrete renal or urinary bladder abnormalities seen at this time.
[2022-03-07] MEDS: methylPREDNISolone SOD SUCCI 40 MG/ML 1 ML VIAL IV SCH ×2 (16:24→23:47)
[2022-03-07] MEDS: QUEtiapine 25 MG TAB PO SCH (19:55)
[2022-03-07] MEDS: risperiDONE 0.25 MG TAB PO SCH (19:55)
[2022-03-07] MEDS: ATORVASTATIN 40 MG TAB PO SCH (19:55)
[2022-03-07] MEDS: DIVALPROEX 500 MG TABLET.DR PO SCH (19:55)
[2022-03-08] MEDS: LEVOTHYROXINE 75 MCG TAB PO SCH (06:05)
[2022-03-08] MEDS: BUDESONIDE 0.5 MG/2 ML NEBU INHALATION SCH ×2 (07:59→20:40)
[2022-03-08] MEDS: IPRATROPIUM-ALBUTEROL 3 ML NEB INHALATION SCH ×4 (08:00→20:40)
[2022-03-08] MEDS: allopurinoL 100 MG TAB PO SCH (08:33)
[2022-03-08] MEDS: MONTELUKAST 10 MG TAB PO SCH (08:33)
[2022-03-08] MEDS: APIXABAN 5 MG TAB PO SCH ×2 (08:33→20:46)
[2022-03-08] MEDS: methylPREDNISolone SOD SUCCI 40 MG/ML 1 ML VIAL IV SCH ×2 (08:34→16:11)
[2022-03-08 10:57] LABS: Anisocytosis Slight; HCT 27.4 % (39.0-53.0); Hypochromasia Marked; MCH 19.6 pg (25.0-35.0); MCHC 29.9 g/dL (31.0-37.0); MCV 65.6 fL (80.0-100.0); Mean Platelet Volume 8.8; Microcytosis Marked; Platelet Count 110 k/uL (150-450); RBC 4.18 m/uL (4.30-5.90); RDW 17.6 % (11.5-15.5); WBC 6.7 k/uL (3.8-10.6)
[2022-03-08 10:58] LABS: HGB 8.2 gm/dL (13.0-17.5)
[2022-03-08 11:22] LABS: African American GFR (CKD) 32 (>60 ml/min/1.73 sqM); Anion Gap 6 mmol/L; Blood Urea Nitrogen 38 mg/dL (9-20); Calcium 7.5 mg/dL (8.4-10.2); Carbon Dioxide 25 mmol/L (22-30); Chloride 106 mmol/L (98-107); Glucose 170 mg/dL (74-99); Non-African American GFR(CKD) 27 (>60 ml/min/1.73 sqM); Potassium 3.7 mmol/L (3.5-5.1); Sodium 137 mmol/L (137-145)
--- NOTE | 2022-03-08 14:23 | P.PN ---
Subjective Progress Note Date: 03/08/22 The patient is a 66-year-old male with an extensive PMH including chronic kidney disease, COPD on 2L home O2, A. fib on Eliquis, hypertension, hyperlipidemia, who was brought into the emergency room by his for weakness and fall. EKG in the emergency room revealed a widened QRS tachycardia at 136 bpm with a right bundle branch block. CT abdomen and pelvis revealed constipation with CT head and cervical spine as well as CT thoracic and lumbar spine also unremarkable. Laboratory evaluation was remarkable for leukocytosis of 13.5, hemoglobin 10.9, platelet count 104, BUN 27, creatinine 1.84 (better than baseline of 2). UA revealed moderate blood with 38 RBCs. His renal function continued to worsen with creatinine as high as 2.5. He was also noted to be hypotensive with a SBP in the 80s on 03/07/2022. His antihypertensive medication was held. Renal ultrasound showed cholelithiasis and splenomegaly with no obstruction. Patient was seen and examined. No acute events overnight. Case discussed with nursing, patient required straight cath last night for retaining urine greater than 500 mL. Patient reports no previous issues. He reports a weak urine stream. No dysuria. No abdominal pain. His blood pressure has improved today to 113/61. General: Disheveled elderly male, no distress, appears significantly older than stated age, overweight Derm: no unusual rashes/lesions, warm Head: atraumatic, normocephalic, symmetric Eyes: EOMI, no lid lag, anicteric sclera ENT: Nose and ears atraumatic Neck: No cervical lymphadenopathy, trachea midline, supple Mouth: no lip lesion, mucus membranes moist Cardiovascular: S1S2 reg, no murmur, no edema Lungs: Decreased breath sounds bilaterally, no rhonchi, no rales, no accessory muscle use Ext: muscle strength 3 out of 5 in all 4 extremities grossly, no gross muscle atrophy, no contractures, Neuro: no gross focal neuro deficits Psych: Alert and oriented 2 #Acute kidney injury on chronic kidney disease #Urinary retention -Bladder scan as needed -Straight cath for urinary retention -Start Flomax -Renal ultrasound shows cholelithiasis and splenomegaly with no obstruction #COPD exacerbation #Chronic respiratory failure -DuoNeb scheduled and as needed for shortness of breath and wheezing. -Continue Solu-Medrol #Failure to thrive -PT and OT consult -Dietitian consult #Microcytic anemia -Drop in Hg is likely dilutional -Probably related to chronic kidney disease -Current studies show anemia of chronic disease -Transfuse if hemoglobin less than 7 #Confusion -TSH and B12 within normal limits -Follow folic acid -Fall precautions -Frequent redirection -Avoid sedative medication #Thrombocytopenia -At baseline -Unknown etiology -Workup outpatient with PCP Resolved: Leukocytosis, Hypotension -Restart Coreg and continue to hold Losartan until renal function improved Chronic conditions: A. fib, hyperlipidemia -Continue with home meds Patient will need placement. PT and OT consulted. Case management on board. Objective - Vital Signs Vital signs: Vital Signs Temp 97.5 F L 03/08/22 06:02 Pulse 96 03/08/22 11:27 Resp 20 03/08/22 08:45 BP 113/61 03/08/22 06:02 Pulse Ox 99 03/08/22 07:59 FiO2 Intake & Output 03/07/22 03/08/22 03/08/22 18:59 06:59 18:59 Intake Total 594 250 300 Output Total 100 575 182 Balance 494 -325 118 Intake: Oral 594 250 300 Output: Urine 100 575 Straight 550 Post Void Residual 182 Other: Voiding Method Diaper Diaper Diaper External Catheter External Catheter External Catheter - Labs CBC & Chem 7: 03/08/22 10:20 03/08/22 10:20 Labs: Abnormal Lab Results - Last 24 Hours (Table) 03/08/22 03/08/22 Range/Units 10:20 10:20 RBC 4.18 L (4.30-5.90) m/uL Hgb 8.2 L D (13.0-17.5) gm/dL Hct 27.4 L (39.0-53.0) % MCV 65.6 L (80.0-100.0) fL MCH 19.6 L (25.0-35.0) pg MCHC 29.9 L (31.0-37.0) g/dL RDW 17.6 H (11.5-15.5) % Plt Count 110 L (150-450) k/uL BUN 38 H (9-20) mg/dL Creatinine 2.36 H (0.66-1.25) mg/dL Glucose 170 H (74-99) mg/dL Calcium 7.5 L (8.4-10.2) mg/dL
[2022-03-08] MEDS: TAMSULOSIN 0.4 MG CAP.ER.24H PO SCH (16:11)
[2022-03-08] MEDS: QUEtiapine 25 MG TAB PO SCH (20:46)
[2022-03-08] MEDS: ATORVASTATIN 40 MG TAB PO SCH (20:46)
[2022-03-08] MEDS: DIVALPROEX 500 MG TABLET.DR PO SCH (20:46)
[2022-03-08] MEDS: risperiDONE 0.25 MG TAB PO SCH (20:46)
[2022-03-09] MEDS: methylPREDNISolone SOD SUCCI 40 MG/ML 1 ML VIAL IV SCH ×4 (00:42→23:30)
[2022-03-09] MEDS: LEVOTHYROXINE 75 MCG TAB PO SCH (05:38)
[2022-03-09] MEDS: IPRATROPIUM-ALBUTEROL 3 ML NEB INHALATION SCH ×4 (07:24→21:02)
[2022-03-09] MEDS: BUDESONIDE 0.5 MG/2 ML NEBU INHALATION SCH ×2 (07:24→21:01)
[2022-03-09] MEDS: allopurinoL 100 MG TAB PO SCH (08:59)
[2022-03-09] MEDS: TAMSULOSIN 0.4 MG CAP.ER.24H PO SCH (08:59)
[2022-03-09] MEDS: APIXABAN 5 MG TAB PO SCH ×2 (08:59→21:49)
[2022-03-09] MEDS: MONTELUKAST 10 MG TAB PO SCH (09:00)
[2022-03-09] MEDS ORDERED: ACETAMINOPHEN TAB 325 MG TAB PO PRN (09:25)
[2022-03-09 10:09] LABS: African American GFR (CKD) 38.6 (60.0-200.0); Anion Gap 8.7 mmol/L (10.00-18.00); BUN/Creat Ratio 18.5 Ratio (12.00-20.00); Calcium 8.1 mg/dL (8.7-10.3); Carbon Dioxide 23.3 mmol/L (20.0-27.5); Non-African American GFR(CKD) 33.3 (60.0-200.0); Potassium 3.8 mmol/L (3.5-5.5)
[2022-03-09 10:51] LABS: HCT 25.6 % (39.6-50.0); HGB 7.8 g/dL (13.0-17.0); MCH 18.7 pg (27.0-32.0); MCHC 30.5 g/dL (32.0-37.0); MCV 61.2 fL (80.0-97.0); NRBC Per 100 WBC 0 /100 WBCS (0.0-0.0); Platelet Count 141 X 10*3/uL (140-440); RBC 4.18 X 10*6/uL (4.40-5.60); RDW 19.4 % (11.5-14.5); WBC 9.44 X 10*3/uL (4.50-10.00)
[2022-03-09] MEDS ORDERED: FERROUS SULFATE 325 MG TAB PO SCH (17:30)
--- NOTE | 2022-03-09 17:54 | P.PN ---
Subjective Progress Note Date: 03/09/22 Hospital course: The patient is a 66-year-old male with an extensive PMH including chronic kidney disease, COPD, A. fib on Eliquis, hypertension, hyperlipidemia, who was brought into the emergency room by his for weakness and fall. The history is largely obtained from the ED physician and from the chart as the patient is a poor historian. The patient reportedly has had a gradual clinical deterioration over the past 1 week since he stopped getting in-home physical therapy. The reported that he was using his walker to ambulate in the house when he lost his footing and fell but stated he did not lose consciousness and she did not believe that he hit his head. She reported that as of today, the patient has been unable to stand up even to ambulate with his walker and appears to be more confused than usual. At time of admission, the patient reported a mild lower back pain but denied any additional complaints. He reported that he is at the hospital because he fell but could not elaborate further. EKG in the emergency room revealed a widened QRS tachycardia at 136 bpm with a right bundle branch block. CT abdomen and pelvis revealed constipation with CT head and cervical spine as well as CT thoracic and lumbar spine also unremarkable. Laboratory evaluation was remarkable for leukocytosis of 13.5, hemoglobin 10.9, platelet count 104, BUN 27, creatinine 1.84 (better than baseline of 2). UA revealed moderate blood with 38 RBCs. Patient admitted under our services. Initially hemoglobin decreased from 10.1-8.1 but has since been stable resulting in 8.2 and 7.8. Iron profile resulting with iron 69, TIBC 128, iron percentage sat uration 54.12 transferrin 91.6, and vitamin B12 887. Patient started on daily iron supplement. Physical examination: Patient seen and fully evaluated at the bedside. He was eating breakfast and reported mild lower back pain otherwise denying having any complaints at this time. General: non toxic, no distress, appears at older than stated age, slightly disheveled appearance Derm: warm, dry Head: atraumatic, normocephalic, symmetric Eyes: EOMI, no lid lag, anicteric sclera Mouth: no lip lesion, mucus membranes moist Cardiovascular: S1S2 reg, no murmur, positive posterior tibial pulse bilateral, Lungs: CTA bilateral, no rhonchi, no rales , no accessory muscle use Abdominal: soft, nontender to palpation, no guarding, no appreciable organomegaly Ext: no gross muscle atrophy, no edema, no contractures Neuro: CN II-XI grossly intact, no focal neuro deficits. Patient does have generalized weakness Psych: Alert, oriented, appropriate affect Assessment and plan of care: Failure to thrive Generalized weakness -PT/OT consult -Dietitian consult -Case management consulted for possible placement Leukocytosis, resolved Acute kidney injury on Chronic kidney disease stage IV with baseline creatinine 2 Urinary retention -Renal function stable and at baseline level with BUN 37, creatinine 2.0, and GFR of 33.3. -Continue Flomax Iron deficiency anemia, -Baseline hgb 9 -Hgb stable 7.8 at this time. -Continue ferrous sulfate 325 mg daily. Thrombocytopenia -At baseline Paroxysmal atrial fibrillation -Continue anticoagulation with Eliquis. Chronic conditions: COPD, A. fib, hypertension, hyperlipidemia -Continue with home meds The patient is admitted with an anticipated less than 2 midnight stay for evaluation of Failure to thrive CODE STATUS: Full Code DVT prophylaxis: Eliquis Discussed with: Patient and RN Anticipated discharge date: pending insurance authorization Anticipated discharge place: SNF A total of 33 minutes was spent on the care of this complex patient more than 50% of the time was spent in counseling and care coordination. Steven Gudino NP rendered care for this patient independently, reviewed the findings and plan as documented in the note above. I did not physically speak with or examine the patient on this date. Objective - Vital Signs Vital signs: Vital Signs Temp 97.6 F 03/09/22 07:00 Pulse 68 03/09/22 07:00 Resp 18 03/09/22 07:00 BP 121/69 03/09/22 07:00 Pulse Ox 99 03/09/22 07:00 FiO2 Intake & Output 03/08/22 03/09/22 03/09/22 18:59 06:59 18:59 Intake Total 836 Output Total 832 550 Balance 4 -550 Intake: Oral 836 Output: Urine 550 550 Post Void Residual 282 Stool 0 0 Other: Voiding Method Diaper Diaper External Catheter External Catheter # Voids 1 - Labs CBC & Chem 7: 03/09/22 04:59 03/09/22 04:59 Labs: Abnormal Lab Results - Last 24 Hours (Table) 03/08/22 03/08/22 Range/Units 10:20 10:20 RBC 4.18 L (4.30-5.90) m/uL Hgb 8.2 L D (13.0-17.5) gm/dL Hct 27.4 L (39.0-53.0) % MCV 65.6 L (80.0-100.0) fL MCH 19.6 L (25.0-35.0) pg MCHC 29.9 L (31.0-37.0) g/dL RDW 17.6 H (11.5-15.5) % Plt Count 110 L (150-450) k/uL BUN 38 H (9-20) mg/dL Creatinine 2.36 H (0.66-1.25) mg/dL Glucose 170 H (74-99) mg/dL Calcium 7.5 L (8.4-10.2) mg/dL
[2022-03-09] MEDS: DIVALPROEX 500 MG TABLET.DR PO SCH (21:49)
[2022-03-09] MEDS: risperiDONE 0.25 MG TAB PO SCH (21:49)
[2022-03-09] MEDS: QUEtiapine 25 MG TAB PO SCH (21:49)
[2022-03-09] MEDS: ATORVASTATIN 40 MG TAB PO SCH (21:49)
[2022-03-10] MEDS: LEVOTHYROXINE 75 MCG TAB PO SCH (05:00)
[2022-03-10 07:08] LABS: Glucose,Whole Blood 167 mg/dL (70-110)
[2022-03-10] MEDS: TAMSULOSIN 0.4 MG CAP.ER.24H PO SCH (08:23)
[2022-03-10] MEDS: MONTELUKAST 10 MG TAB PO SCH (08:23)
[2022-03-10] MEDS: APIXABAN 5 MG TAB PO SCH (08:23)
[2022-03-10] MEDS: allopurinoL 100 MG TAB PO SCH (08:23)
[2022-03-10] MEDS: methylPREDNISolone SOD SUCCI 40 MG/ML 1 ML VIAL IV SCH (08:24)
[2022-03-10 08:53] VITALS: RESP 18
[2022-03-10] MEDS: BUDESONIDE 0.5 MG/2 ML NEBU INHALATION SCH (08:57)
[2022-03-10] MEDS: IPRATROPIUM-ALBUTEROL 3 ML NEB INHALATION SCH ×2 (08:57→12:29)
[2022-03-10] MEDS ORDERED: FERROUS SULFATE 325 MG TAB PO SCH (09:00)
[2022-03-10 09:36] LABS: African American GFR (CKD) 43.8 (60.0-200.0); Albumin/Globulin Ratio 2.14 (1.60-3.17); Anion Gap 9.3 mmol/L (10.00-18.00); BUN/Creat Ratio 18.56 Ratio (12.00-20.00); Blood Urea Nitrogen 33.4 mg/dL (9.0-27.0); Calcium 8.3 mg/dL (8.7-10.3); Carbon Dioxide 22.7 mmol/L (20.0-27.5); Globulin 1.4 g/dL (1.6-3.3); Non-African American GFR(CKD) 37.8 (60.0-200.0); Potassium 4.2 mmol/L (3.5-5.5); Total Bilirubin 0.3 mg/dL (0.30-1.20); Total Protein 4.4 g/dL (6.2-8.2)
[2022-03-10 09:39] LABS: HCT 27.6 % (39.6-50.0); HGB 8.3 g/dL (13.0-17.0); MCH 18.9 pg (27.0-32.0); MCHC 30.1 g/dL (32.0-37.0); MCV 62.9 fL (80.0-97.0); NRBC Per 100 WBC 0 /100 WBCS (0.0-0.0); Platelet Count 143 X 10*3/uL (140-440); RBC 4.39 X 10*6/uL (4.40-5.60); RDW 19.5 % (11.5-14.5); WBC 7.58 X 10*3/uL (4.50-10.00)
[2022-03-10 12:01] LABS: Glucose,Whole Blood 170 mg/dL (70-110)
--- NOTE | 2022-03-10 13:00 | P.DS ---
Providers Date of admission: 03/09/22 11:22 Expected date of discharge: 03/10/22 Attending physician: Ada Gale MD [facility] Course: Discharge Diagnosis: Failure to thrive Generalized weakness Leukocytosis, resolved Acute kidney injury on Chronic kidney disease stage IV with baseline creatinine 2. CARLOS resolved patient back at baseline renal function. Patient to follow up outpatient with fur pointer for close monitoring and management. Urinary retention. Continue Flomax Iron deficiency anemia, Continue ferrous sulfate 325 mg daily. Hemoglobin stable at 8.3 with baseline hemoglobin of 9.5. Thrombocytopenia, resolved Paroxysmal atrial fibrillation. Continue anticoagulation with Eliquis. COPD with mild exacerbation. Patient discharged home on prednisone taper and to follow up outpatient with carbon brushes assembler. Hospital Course: The patient is a 66-year-old male with an extensive PMH including chronic kidney disease, COPD, A. fib on Eliquis, hypertension, hyperlipidemia, who was brought into the emergency room by his for weakness and fall. The history is largely obtained from the ED physician and from the chart as the patient is a poor historian. The patient reportedly has had a gradual clinical deterioration over the past 1 week since he stopped getting in-home physical therapy. The reported that he was using his walker to ambulate in the house when he lost his footing and fell but stated he did not lose consciousness and she did not believe that he hit his head. She reported that as of today, the patient has been unable to stand up even to ambulate with his walker and appears to be more confused than usual. At time of admission, the patient reported a mild lower back pain but denied any additional complaints. He reported that he is at the hospital because he fell but could not elaborate further. EKG in the emergency room revealed a widened QRS tachycardia at 136 bpm with a right bundle branch block. CT abdomen and pelvis revealed constipation with CT head and cervical spine as well as CT thoracic and lumbar spine also unremarkable. Laboratory evaluation was remarkable for leukocytosis of 13.5, hemoglobin 10.9, platelet count 104, BUN 27, creatinine 1.84 (better than baseline of 2). UA revealed moderate blood with 38 RBCs. Patient admitted under our services. Initially hemoglobin decreased from 10.1-8.1 but has since been stable resulting in 8.2 and 7.8. Iron profile resulting with iron 69, TIBC 128, iron percentage saturation 54.12 transferrin 91.6, and vitamin B12 887. Patient started on daily iron supplement. Patient with increased strength and alertness throughout hospitalization. Repeat morning labs reviewed and hemoglobin remained stable at 8.3. Renal function improving from baseline with BUN 33.4, creatinine 1.8, and GFR of 37.8. Patient has been accepted to [facility] facility for continued rehab. It is recommended patient follow up outpatient with fur pointer for continued close monitoring of chronic kidney disease as well as carbon brushes assembler for follow-up with his COPD. Patient free from any complaints or concerns this morning and is medically stable for discharge. Attempts made [address] with no answer. Voicemail was left updating patient's on discharge plan and it has been reported that patient's did speak with social worker aide. Patient's instructed she can call nursing staff if she had any further questions. Physical examination: Patient seen and fully evaluated at the bedside. He was receiving breathing treatment at this time. He denied having any complaints or concerns this morning. General: non toxic, no distress, appears at older than stated age, slightly disheveled appearance Derm: warm, dry Head: atraumatic, normocephalic, symmetric Eyes: EOMI, no lid lag, anicteric sclera Mouth: no lip lesion, mucus membranes moist Cardiovascular: S1S2 reg, no murmur, positive posterior tibial pulse bilateral, Lungs: CTA bilateral, no rhonchi, no rales , no accessory muscle use Abdominal: soft, nontender to palpation, no guarding, no appreciable organomegaly Ext: no gross muscle atrophy, no edema, no contractures Neuro: CN II-XI grossly intact, no focal neuro deficits. Patient does have generalized weakness Psych: Alert, oriented, appropriate affect A total of 35 minutes of time were spent preparing this complex discharge summary. Pt was discharged on 03/10/22 at 12:59 PM. Attending Note: Steven Gudino NP rendered care for this patient independently, reviewed the findings and plan as documented in the note above. I did not physically speak with or examine the patient on this date. Patient Condition at Discharge: Stable Plan - Discharge Summary New Discharge Prescriptions: New Ferrous Sulfate [Iron (65 MG Elemental)] 325 mg PO DAILY tab Tamsulosin [Flomax] 0.4 mg PO PC-BRKFST cap predniSONE See Taper PO DIRECTED 12 Days #30 tab Acetaminophen Tab [Tylenol] 650 mg PO Q6HR PRN tab PRN Reason: Mild Pain Or Fever > 100.5 Continue Apixaban [Eliquis] 5 mg PO BID #60 tab Ergocalciferol [Vitamin D2 (1250 Mcg = 13666 Iu)] 1,250 mcg PO Q30D calcitrioL [Rocaltrol] 0.25 mcg PO DAILY carvediloL [Coreg] 12.5 mg PO DAILY Levothyroxine Sodium [Synthroid] 75 mcg PO DAILY QUEtiapine [SEROquel] 25 mg PO HS 30 Days #30 tab risperiDONE [RisperDAL] 0.25 mg PO HS Albuterol Sulfate [Ventolin HFA] 2 puff INHALATION RT-Q6H PRN PRN Reason: Shortness Of Breath Budesonide [Pulmicort] 0.5 mg INHALATION RT-BID Magnesium Oxide 400 mg PO DAILY allopurinoL [Zyloprim] 200 mg PO DAILY Divalproex Sodium [Depakote] 500 mg PO HS Folic Acid 1 mg PO DAILY Atorvastatin [Lipitor] 40 mg PO HS Montelukast Sodium [Singulair] 10 mg PO DAILY Ipratropium-Albuterol Nebulize [Duoneb 0.5 mg-3 mg/3 ml Soln] 3 ml INHALATION RT-QID PRN PRN Reason: Shortness Of Breath carvediloL [Coreg] 6.25 mg PO HS Discontinued Torsemide [Demadex] 40 mg PO DAILY Losartan Potassium [Cozaar] 12.5 mg PO HS predniSONE See Taper PO DIRECTED Discharge Medication List Apixaban [Eliquis] 5 mg PO BID #60 tab 02/10/17 [Rx] Divalproex Sodium [Depakote] 500 mg PO HS 11/08/20 [History] Ergocalciferol [Vitamin D2 (1250 Mcg = 49113 Iu)] 1,250 mcg PO Q30D 11/08/20 [History] allopurinoL [Zyloprim] 200 mg PO DAILY 11/08/20 [History] calcitrioL [Rocaltrol] 0.25 mcg PO DAILY 11/08/20 [History] Folic Acid 1 mg PO DAILY 11/11/20 [History] Atorvastatin [Lipitor] 40 mg PO HS 05/09/21 [History] Levothyroxine Sodium [Synthroid] 75 mcg PO DAILY 05/09/21 [History] carvediloL [Coreg] 12.5 mg PO DAILY 05/09/21 [History] QUEtiapine [SEROquel] 25 mg PO HS 30 Days #30 tab 06/03/21 [Rx] Albuterol Sulfate [Ventolin HFA] 2 puff INHALATION RT-Q6H PRN 03/05/22 [History] Budesonide [Pulmicort] 0.5 mg INHALATION RT-BID 03/05/22 [History] Ipratropium-Albuterol Nebulize [Duoneb 0.5 mg-3 mg/3 ml Soln] 3 ml INHALATION RT-QID PRN 03/05/22 [History] Magnesium Oxide 400 mg PO DAILY 03/05/22 [History] Montelukast Sodium [Singulair] 10 mg PO DAILY 03/05/22 [History] carvediloL [Coreg] 6.25 mg PO HS 03/05/22 [History] risperiDONE [RisperDAL] 0.25 mg PO HS 03/05/22 [History] Acetaminophen Tab [Tylenol] 650 mg PO Q6HR PRN tab 03/10/22 [Rx] Ferrous Sulfate [Iron (65 MG Elemental)] 325 mg PO DAILY tab 03/10/22 [Rx] Tamsulosin [Flomax] 0.4 mg PO PC-BRKFST cap 03/10/22 [Rx] predniSONE See Taper PO DIRECTED 12 Days #30 tab 03/10/22 [Rx] Follow up Appointment(s)/Referral(s): Deidra Bryson MD [STAFF PHYSICIAN] - 1 Week Justo Parker DO [Doctor of Osteopathic Medicine] - 1 Week Mak Pruitt DO [Primary Care Provider] - 1-2 days Patient Instructions/Handouts: Chronic Kidney Disease (DC), Chronic Kidney Disease Diet (DC), COPD (Chronic Obstructive Pulmonary Disease) (DC), Chronic Lung Disease and Infection Prevention (DC) Discharge Disposition: TRANSFER TO SNF/ECF
[2022-03-10 13:15] VITALS: BP 143/82; PULSE 74; TEMP 97.6
== END 2022-03-10 15:35 | DRG 641 ==
LOC: EC 16:33 → 6NMEDSUR 20:59 → OBSVTOIN 03-09 11:22
PROVIDERS: ADMIT Internal Medicine; ATTEND Internal Medicine
DX: R62.7 Adult failure to thrive (principal); I13.0 Hypertensive heart and chronic kidney disease with heart failure and stage 1 through stage 4 chronic kidney disease, or unspecified chronic kidney disease; J44.1 Chronic obstructive pulmonary disease with (acute) exacerbation; J96.10 Chronic respiratory failure, unspecified whether with hypoxia or hypercapnia; N17.9 Acute kidney failure, unspecified; N18.4 Chronic kidney disease, stage 4 (severe); D72.829 Elevated white blood cell count, unspecified; I45.10 Unspecified right bundle-branch block; I48.0 Paroxysmal atrial fibrillation; E78.5 Hyperlipidemia, unspecified; D50.9 Iron deficiency anemia, unspecified; D56.3 Thalassemia minor; D63.8 Anemia in other chronic diseases classified elsewhere; D69.6 Thrombocytopenia, unspecified; I50.9 Heart failure, unspecified; I95.9 Hypotension, unspecified; R16.1 Splenomegaly, not elsewhere classified; L40.9 Psoriasis, unspecified; R00.0 Tachycardia, unspecified; K21.9 Gastro-esophageal reflux disease without esophagitis; R41.0 Disorientation, unspecified; K80.20 Calculus of gallbladder without cholecystitis without obstruction; W01.0XXA Fall on same level from slipping, tripping and stumbling without subsequent striking against object, initial encounter; Y93.01 Activity, walking, marching and hiking; Z20.822 Contact with and (suspected) exposure to COVID-19; Z79.890 Hormone replacement therapy; Z79.01 Long term (current) use of anticoagulants; Z79.899 Other long term (current) drug therapy; Z87.891 Personal history of nicotine dependence; Z95.810 Presence of automatic (implantable) cardiac defibrillator; Z99.81 Dependence on supplemental oxygen; Z87.19 Personal history of other diseases of the digestive system; Z91.040 Latex allergy status; Z91.013 Allergy to seafood; Z88.2 Allergy status to sulfonamides; Z88.1 Allergy status to other antibiotic agents; Z91.048 Other nonmedicinal substance allergy status
CPT/HCPCS: 36415; 36600; 70450; 71045; 72125; 72128; 72131; 72170; 74176; 76770; 80048; 80053; 81001; 82607; 82728; 82746; 82805; 83540; 83550; 83605; 84443; 85025; 85027; 85610; 85730; 87502; 87635; 93005; 94640; 94760; 96374; 96375; 99285